=== PATIENT | female | born 1945 | race Caucasian/White ===

== ENCOUNTER 2017-09-08 13:09 | Inpatient (IN) ==
--- NOTE | 2017-09-08 13:28 | Emergency Department Note ---
Disposition Clinical Impression: Delirium due to general medical condition, UTI (urinary tract infection) Disposition: Admitted As Inpatient Condition: Fair Referrals: Dayan Prieto, [facility] [employer] [Advanced Practice Nurse] - Forms: ED Satisfaction Letter Time of Disposition: 17:10 Altered Mental Status HPI - General Chief Complaint: ED Altered Mental Status Stated Complaint: Neuro symptoms Time Seen by Provider: 09/08/17 13:21 Source: patient Limitations: no limitations Nursing Notes Reviewed: Yes Vital Signs Reviewed: Yes - History of Present Illness HPI Narrative: Patient presents to the ED with the chief complaint of weakness. Patient is from a shelter. My has a history of dementia and cerebral palsy area. She is completely bedridden and nursing staff reports that over the last 3 or 4 days she has been more weak than usual and not as responsive as usual. There is no focal weakness, but they state that she is not verbalizing as much as she normally does and that she just seems not herself. No known fever. No complaints of chest pain, cough or shortness of breath. No nausea, vomiting or diarrhea. - Related Data Home Medications Medication Instructions Recorded Confirmed Baclofen 20 mg PO BID 09/08/17 09/08/17 Citalopram [CeleXA] 20 mg PO DAILY 09/08/17 09/08/17 Diclofenac Sodium [Voltaren] 50 mg PO Q8HR 09/08/17 09/08/17 Loratadine [Allergy Relief] 10 mg PO DAILY 09/08/17 09/08/17 Meloxicam [Mobic] 15 mg PO DAILY 09/08/17 09/08/17 Omeprazole [PriLOSEC] 40 mg PO DAILY 09/08/17 09/08/17 Promethazine HCl 12.5 mg PO Q8H PRN 09/08/17 09/08/17 Rosuvastatin Calcium [Crestor] 5 mg PO DAILY 09/08/17 09/08/17 Venlafaxine HCl [Venlafaxine HCl 75 mg PO DAILY 09/08/17 09/08/17 ER] Allergies Allergy/AdvReac Type Severity Reaction Status Date / Time Evsisgy-Xwc-Soc Reductase Allergy Intermediate Rash Verified 11/18/15 17:58 Inhibitor [Statins] clopidogrel [From Plavix] Allergy Anaphylaxis Verified 08/17/15 13:37 Sulfa (Sulfonamide Allergy Anaphylaxis Verified 08/17/15 13:37 Antibiotics) Warfarin [From Coumadin] Allergy Anaphylaxis Verified 08/17/15 13:37 Review of Systems: As reviewed in the HPI. All other systems reviewed are negative or normal. Past Medical History - Past Medical History Attestation: Yes The following information was validated with the patient. Source: old records reviewed, obtained from family Medical history: Reports: dementia, GERD, hyperlipidemia, hypertension, other Psychiatric history: Reports: anxiety, depression - Social History Smoking Status: Never smoker Smokeless Tobacco Status: No Alcohol use: Reports: none Drug use: Reports: none Physical Exam - General Limitations: no limitations General appearance: in no apparent distress - Head Head exam: atraumatic, normocephalic, normal inspection - Eye Eye exam: Present: normal appearance, PERRL, EOMI - ENT ENT exam: mucous membranes dry - Neck Neck exam: Present: trachea midline. Absent: tenderness - Chest Chest inspection: Present: normal inspection, symmetric chest wall rise - Respiratory Respiratory exam: Present: normal lung sounds bilaterally - Cardiovascular Cardiovascular exam: Present: tachycardia, normal heart sounds - Abdominal Exam Abdominal exam: Present: soft, Non-Tender - Extremities Exam Extremities exam: Present: other (Patient is in not mobile, unable to move legs on her own, and minimal movement in her arms, but States this is her baseline). Absent: pedal edema - Expanded Lower Extremity Exam Hip/Pelvis exam: Present: pelvis stable - Neurological Exam Neurological exam: Present: alert, CN II-XII intact (. No facial droop), other. Absent: oriented X3 - Skin Skin exam: Present: warm, dry, intact, normal color Course Course Narrative: Patient presenting with altered mental status and generalized weakness. No fevers, cough, or abdominal pain. We will check a head CT, and urinalysis as well as labs. Could be related to UTI or an increase in her dementia. Patient will likely need to be admitted - Reevaluation(s) Reevaluation #1: Patient technically met sepsis criteria due to her UTI and white count and she was tachycardic upon arrival. So we will check a lactic acid. Lactic acid is normal. We will admit to hospital service for her UTI and altered mental status. Vital Signs Temperature 98.1 F 09/08/17 13:11 Pulse Rate 108 09/08/17 13:11 Respiratory Rate 16 09/08/17 13:11 Blood Pressure 73/42 09/08/17 13:11 O2 Sat by Pulse Oximetry 94 09/08/17 13:11 Temperature 98.1 F 09/08/17 13:11 Pulse Rate 87 09/08/17 16:32 Respiratory Rate 15 09/08/17 16:32 Blood Pressure 122/85 09/08/17 16:32 O2 Sat by Pulse Oximetry 93 09/08/17 16:32 Oxygen Delivery Oxygen Delivery Room Air Altered Mental Status - Lab Data Result diagrams: 09/08/17 13:58 09/08/17 13:58 Lab Results 09/08/17 09/08/17 09/08/17 Range/Units 13:16 13:58 13:58 WBC 15.0 H (4.3-11.1) K/mcL RBC 4.56 (3.82-4.97) M/mcL Hgb 12.5 (11.5-15.4) g/dL Hct 39.1 (35.3-44.9) % MCV 85.7 (83.0-100.0) fL MCH 27.4 L (28.0-33.3) pg MCHC 32.0 (31.6-35.5) g/dL RDW 15.5 H (11.5-14.5) % Plt Count 284 (140-400) K/mcL MPV 9.9 (9.4-12.4) fL Immature Gran % 0.8 (0-4) % Seg Neutrophils % 80.0 % Lymphocytes % 10.0 % Monocytes % 7.2 % Eosinophils % 1.7 % Basophils % 0.3 % Neutrophils # 12.0 H (1.6-8.9) K/mcL Lymphocytes # 1.5 (0.6-4.6) K/mcL Monocytes # 1.1 (0.0-1.3) K/mcL Eosinophils # 0.3 (0.0-0.6) K/mcL Basophils # 0.0 (0.0-0.2) K/mcL Nucleated RBCs/100 WBC 0.2 H (0) /100 WBC Sodium 142 (136-145) mEq/L Potassium 3.3 L (3.5-5.1) mEq/L Chloride 107 (98-107) mEq/L Carbon Dioxide 24 (23-29) mEq/L BUN 53 H (8-23) mg/dL Creatinine 1.17 (0.60-1.20) mg/dL Est GFR ( Amer) 55 L (> 60) Est GFR (Non-Af Amer) 45 L (> 60) BUN/Creatinine Ratio 45 H (6-26) Glucose 155 H (70-105) mg/dL POC Glucose 214 H (70-99) mg/dL Calculated Osmolality 312 H (280-300) Lactic Acid (0.5-2.2) mmol/L Calcium 8.5 L (8.6-10.3) mg/dL Total Bilirubin 0.5 (0.3-1.0) mg/dL Direct Bilirubin 0.1 (0.0-0.2) mg/dL Indirect Bilirubin 0.4 (0.0-1.2) mg/dL AST 6 L (13-39) Units/L ALT 8 (7-52) Units/L Alkaline Phosphatase 130 H (34-104) Units/L Creatine Kinase 40 (30-223) Units/L Troponin I < 0.03 (< 0.04) ng/mL Serum Total Protein 5.9 L (6.4-8.9) g/dL Albumin 2.7 L (3.5-5.7) g/dL Globulin 3.2 (2.4-3.5) g/dL Albumin/Globulin Ratio 0.8 L (1.1-2.2) TSH (0.340-5.600) mcIU/mL Urine Color (Yellow) Urine Clarity (Clear) Urine pH (5.0-8.0) pH Units Ur Specific [place] (1.010-1.025) Urine Protein (Neg-Trace) mg/dL Urine Glucose (UA) (Normal) mg/dL Urine Ketones (Negative) mg/dL Urine Blood (Negative) Urine Nitrite (Negative) Urine Bilirubin (Negative) Urine Urobilinogen (Normal) mg/dL Ur Leukocyte Esterase (Negative) Urine Microscopic RBC (0-3) per hpf Urine Microscopic WBC (0-3) per hpf Ur Squamous Epith Cells (None-Few) per lpf Urine Bacteria (None-Few) per hpf Hyaline Casts (None-Few) per lpf Ur Culture Indicated? (NO) 09/08/17 09/08/17 09/08/17 Range/Units 13:58 14:18 15:53 WBC (4.3-11.1) K/mcL RBC (3.82-4.97) M/mcL Hgb (11.5-15.4) g/dL Hct (35.3-44.9) % MCV (83.0-100.0) fL MCH (28.0-33.3) pg MCHC (31.6-35.5) g/dL RDW (11.5-14.5) % Plt Count (140-400) K/mcL MPV (9.4-12.4) fL Immature Gran % (0-4) % Seg Neutrophils % % Lymphocytes % % Monocytes % % Eosinophils % % Basophils % % Neutrophils # (1.6-8.9) K/mcL Lymphocytes # (0.6-4.6) K/mcL Monocytes # (0.0-1.3) K/mcL Eosinophils # (0.0-0.6) K/mcL Basophils # (0.0-0.2) K/mcL Nucleated RBCs/100 WBC (0) /100 WBC Sodium (136-145) mEq/L Potassium (3.5-5.1) mEq/L Chloride (98-107) mEq/L Carbon Dioxide (23-29) mEq/L BUN (8-23) mg/dL Creatinine (0.60-1.20) mg/dL Est GFR ( Amer) (> 60) Est GFR (Non-Af Amer) (> 60) BUN/Creatinine Ratio (6-26) Glucose (70-105) mg/dL POC Glucose (70-99) mg/dL Calculated Osmolality (280-300) Lactic Acid 1.2 (0.5-2.2) mmol/L Calcium (8.6-10.3) mg/dL Total Bilirubin (0.3-1.0) mg/dL Direct Bilirubin (0.0-0.2) mg/dL Indirect Bilirubin (0.0-1.2) mg/dL AST (13-39) Units/L ALT (7-52) Units/L Alkaline Phosphatase (34-104) Units/L Creatine Kinase (30-223) Units/L Troponin I (< 0.04) ng/mL Serum Total Protein (6.4-8.9) g/dL Albumin (3.5-5.7) g/dL Globulin (2.4-3.5) g/dL Albumin/Globulin Ratio (1.1-2.2) TSH 0.036 L (0.340-5.600) mcIU/mL Urine Color Red A (Yellow) Urine Clarity Cloudy A (Clear) Urine pH 5.5 (5.0-8.0) pH Units Ur Specific [place] 1.028 H (1.010-1.025) Urine Protein Trace (Neg-Trace) mg/dL Urine Glucose (UA) Normal (Normal) mg/dL Urine Ketones Trace H (Negative) mg/dL Urine Blood Negative (Negative) Urine Nitrite Positive A (Negative) Urine Bilirubin Moderate H (Negative) Urine Urobilinogen Normal (Normal) mg/dL Ur Leukocyte Esterase Small H (Negative) Urine Microscopic RBC 3-5 H (0-3) per hpf Urine Microscopic WBC 0-3 (0-3) per hpf Ur Squamous Epith Cells Many H (None-Few) per lpf Urine Bacteria None Seen (None-Few) per hpf Hyaline Casts None Seen (None-Few) per lpf Ur Culture Indicated? NO. A (NO) TPA Checklist - LKW: 3-4.5 hrs Add. Warnings/Precautions Patient/family understanding: The patient/family members have been counseled and understood the risk, benefit , and alternatives of treatment. Attestation Statement - Attestation Attestation: I examined this patient and my medical decision-making was reviewed with the Resident Physician. I agree with the documented findings, disposition and treatment plan as described except to the extent set forth below.
--- NOTE | 2017-09-08 14:17 | Emergency Department Note ---
Disposition Clinical Impression: Delirium due to general medical condition, UTI (urinary tract infection) Disposition: Admitted As Inpatient Condition: Fair General Adult HPI - General Chief complaint: ED Altered Mental Status Stated complaint: Neuro symptoms Time Seen by Provider: 09/08/17 13:21 Source: patient Limitations: no limitations - History of Present Illness Pain Scale: 0 - Related Data Home Medications Medication Instructions Recorded Confirmed Baclofen 20 mg PO BID 09/08/17 09/08/17 Citalopram [CeleXA] 20 mg PO DAILY 09/08/17 09/08/17 Diclofenac Sodium [Voltaren] 50 mg PO Q8HR 09/08/17 09/08/17 Loratadine [Allergy Relief] 10 mg PO DAILY 09/08/17 09/08/17 Meloxicam [Mobic] 15 mg PO DAILY 09/08/17 09/08/17 Omeprazole [PriLOSEC] 40 mg PO DAILY 09/08/17 09/08/17 Promethazine HCl 12.5 mg PO Q8H PRN 09/08/17 09/08/17 Rosuvastatin Calcium [Crestor] 5 mg PO DAILY 09/08/17 09/08/17 Venlafaxine HCl [Venlafaxine HCl 75 mg PO DAILY 09/08/17 09/08/17 ER] Allergies Allergy/AdvReac Type Severity Reaction Status Date / Time Alsazcn-Hqz-Iou Reductase Allergy Intermediate Rash Verified 11/18/15 17:58 Inhibitor [Statins] clopidogrel [From Plavix] Allergy Anaphylaxis Verified 08/17/15 13:37 Sulfa (Sulfonamide Allergy Anaphylaxis Verified 08/17/15 13:37 Antibiotics) Warfarin [From Coumadin] Allergy Anaphylaxis Verified 08/17/15 13:37 Past Medical History - Past Medical History Medical history: Reports: dementia, GERD, hyperlipidemia, hypertension, other Psychiatric history: Reports: anxiety, depression - Social History Smoking Status: Never smoker Smokeless Tobacco Status: No Alcohol use: Reports: none Drug use: Reports: none Physical Exam - General Limitations: no limitations General appearance: in no apparent distress Course Vital Signs Temperature 98.1 F 09/08/17 13:11 Pulse Rate 108 09/08/17 13:11 Respiratory Rate 16 09/08/17 13:11 Blood Pressure 73/42 09/08/17 13:11 O2 Sat by Pulse Oximetry 94 09/08/17 13:11 Temperature 98.1 F 09/08/17 13:11 Pulse Rate 89 09/08/17 18:34 Respiratory Rate 15 09/08/17 18:34 Blood Pressure 133/86 09/08/17 18:34 O2 Sat by Pulse Oximetry 96 09/08/17 18:34 Oxygen Delivery Oxygen Delivery Room Air Medical Decision Making - Lab Data Result diagrams: 09/08/17 13:58 09/08/17 13:58 Lab Results 09/08/17 09/08/17 09/08/17 Range/Units 13:16 13:58 13:58 WBC 15.0 H (4.3-11.1) K/mcL RBC 4.56 (3.82-4.97) M/mcL Hgb 12.5 (11.5-15.4) g/dL Hct 39.1 (35.3-44.9) % MCV 85.7 (83.0-100.0) fL MCH 27.4 L (28.0-33.3) pg MCHC 32.0 (31.6-35.5) g/dL RDW 15.5 H (11.5-14.5) % Plt Count 284 (140-400) K/mcL MPV 9.9 (9.4-12.4) fL Immature Gran % 0.8 (0-4) % Seg Neutrophils % 80.0 % Lymphocytes % 10.0 % Monocytes % 7.2 % Eosinophils % 1.7 % Basophils % 0.3 % Neutrophils # 12.0 H (1.6-8.9) K/mcL Lymphocytes # 1.5 (0.6-4.6) K/mcL Monocytes # 1.1 (0.0-1.3) K/mcL Eosinophils # 0.3 (0.0-0.6) K/mcL Basophils # 0.0 (0.0-0.2) K/mcL Nucleated RBCs/100 WBC 0.2 H (0) /100 WBC Sodium 142 (136-145) mEq/L Potassium 3.3 L (3.5-5.1) mEq/L Chloride 107 (98-107) mEq/L Carbon Dioxide 24 (23-29) mEq/L BUN 53 H (8-23) mg/dL Creatinine 1.17 (0.60-1.20) mg/dL Est GFR ( Amer) 55 L (> 60) Est GFR (Non-Af Amer) 45 L (> 60) BUN/Creatinine Ratio 45 H (6-26) Glucose 155 H (70-105) mg/dL POC Glucose 214 H (70-99) mg/dL Calculated Osmolality 312 H (280-300) Lactic Acid (0.5-2.2) mmol/L Calcium 8.5 L (8.6-10.3) mg/dL Total Bilirubin 0.5 (0.3-1.0) mg/dL Direct Bilirubin 0.1 (0.0-0.2) mg/dL Indirect Bilirubin 0.4 (0.0-1.2) mg/dL AST 6 L (13-39) Units/L ALT 8 (7-52) Units/L Alkaline Phosphatase 130 H (34-104) Units/L Creatine Kinase 40 (30-223) Units/L Troponin I < 0.03 (< 0.04) ng/mL Serum Total Protein 5.9 L (6.4-8.9) g/dL Albumin 2.7 L (3.5-5.7) g/dL Globulin 3.2 (2.4-3.5) g/dL Albumin/Globulin Ratio 0.8 L (1.1-2.2) TSH (0.340-5.600) mcIU/mL Urine Color (Yellow) Urine Clarity (Clear) Urine pH (5.0-8.0) pH Units Ur Specific [place] (1.010-1.025) Urine Protein (Neg-Trace) mg/dL Urine Glucose (UA) (Normal) mg/dL Urine Ketones (Negative) mg/dL Urine Blood (Negative) Urine Nitrite (Negative) Urine Bilirubin (Negative) Urine Urobilinogen (Normal) mg/dL Ur Leukocyte Esterase (Negative) Urine Microscopic RBC (0-3) per hpf Urine Microscopic WBC (0-3) per hpf Ur Squamous Epith Cells (None-Few) per lpf Urine Bacteria (None-Few) per hpf Hyaline Casts (None-Few) per lpf Ur Culture Indicated? (NO) 09/08/17 09/08/17 09/08/17 Range/Units 13:58 14:18 15:53 WBC (4.3-11.1) K/mcL RBC (3.82-4.97) M/mcL Hgb (11.5-15.4) g/dL Hct (35.3-44.9) % MCV (83.0-100.0) fL MCH (28.0-33.3) pg MCHC (31.6-35.5) g/dL RDW (11.5-14.5) % Plt Count (140-400) K/mcL MPV (9.4-12.4) fL Immature Gran % (0-4) % Seg Neutrophils % % Lymphocytes % % Monocytes % % Eosinophils % % Basophils % % Neutrophils # (1.6-8.9) K/mcL Lymphocytes # (0.6-4.6) K/mcL Monocytes # (0.0-1.3) K/mcL Eosinophils # (0.0-0.6) K/mcL Basophils # (0.0-0.2) K/mcL Nucleated RBCs/100 WBC (0) /100 WBC Sodium (136-145) mEq/L Potassium (3.5-5.1) mEq/L Chloride (98-107) mEq/L Carbon Dioxide (23-29) mEq/L BUN (8-23) mg/dL Creatinine (0.60-1.20) mg/dL Est GFR ( Amer) (> 60) Est GFR (Non-Af Amer) (> 60) BUN/Creatinine Ratio (6-26) Glucose (70-105) mg/dL POC Glucose (70-99) mg/dL Calculated Osmolality (280-300) Lactic Acid 1.2 (0.5-2.2) mmol/L Calcium (8.6-10.3) mg/dL Total Bilirubin (0.3-1.0) mg/dL Direct Bilirubin (0.0-0.2) mg/dL Indirect Bilirubin (0.0-1.2) mg/dL AST (13-39) Units/L ALT (7-52) Units/L Alkaline Phosphatase (34-104) Units/L Creatine Kinase (30-223) Units/L Troponin I (< 0.04) ng/mL Serum Total Protein (6.4-8.9) g/dL Albumin (3.5-5.7) g/dL Globulin (2.4-3.5) g/dL Albumin/Globulin Ratio (1.1-2.2) TSH 0.036 L (0.340-5.600) mcIU/mL Urine Color Red A (Yellow) Urine Clarity Cloudy A (Clear) Urine pH 5.5 (5.0-8.0) pH Units Ur Specific [place] 1.028 H (1.010-1.025) Urine Protein Trace (Neg-Trace) mg/dL Urine Glucose (UA) Normal (Normal) mg/dL Urine Ketones Trace H (Negative) mg/dL Urine Blood Negative (Negative) Urine Nitrite Positive A (Negative) Urine Bilirubin Moderate H (Negative) Urine Urobilinogen Normal (Normal) mg/dL Ur Leukocyte Esterase Small H (Negative) Urine Microscopic RBC 3-5 H (0-3) per hpf Urine Microscopic WBC 0-3 (0-3) per hpf Ur Squamous Epith Cells Many H (None-Few) per lpf Urine Bacteria None Seen (None-Few) per hpf Hyaline Casts None Seen (None-Few) per lpf Ur Culture Indicated? NO. A (NO) Attestation Statement - Attestation Attestation: I examined this patient and my medical decision-making was reviewed with the Resident Physician. I agree with the documented findings, disposition and treatment plan as described except to the extent set forth below. 71-year-old female with history of cerebral palsy presents from a [facility] due to altered mental status. She had intermittent issues over the past month with UTI and was treated empirically because urinalysis was not obtained. Also stopped her risperidone several weeks ago but doubled the dose of her citalopram in the past week. She does not increasing confusion with decrease in her oral intake. No measured fevers. No known trauma. Information is obtained from her caregiver has patient is nonverbal at this point. Patient is awake and does follow commands. Mouth is very dry. Extraocular movements are grossly intact without nystagmus. Neck is supple without meningeal signs. Chest clear to auscultation bilaterally. Cardiac exam regular abdomen soft, nondistended and nontender to palpation. She is fairly short stature. Moves all 4 extremities on command. IV fluids were initiated and George catheter was placed with return of very dark urine. Urine was sent for culture. Urinalysis consistent with UTI and empiric antibiotics were started in the form of IV Rocephin. She has a marketed prerenal azotemia consistent with her clinical picture of dehydration. She will be continued on IV fluids and admitted to the hospital for further treatment and evaluation.
[2017-09-08 14:21] LABS: Basophils % 0.3 %; Eosinophils # 0.3 K/mcL (0.0-0.6); Eosinophils % 1.7 %; Hematocrit 39.1 % (35.3-44.9); Hemoglobin 12.5 g/dL (11.5-15.4); Immature Granulocytes % 0.8 % (0-4); Lymphocytes # 1.5 K/mcL (0.6-4.6); Mean Corpuscular Hemoglobin 27.4 pg (28.0-33.3); Mean Corpuscular Volume 85.7 fL (83.0-100.0); Mean Platelet Volume 9.9 fL (9.4-12.4); Monocytes # 1.1 K/mcL (0.0-1.3); Monocytes % 7.2 %; Nucleated Red Blood Cells 0.2 /100 WBC (0); Platelet Count 284 K/mcL (140-400); Red Blood Count 4.56 M/mcL (3.82-4.97); Red Cell Distribution Width 15.5 % (11.5-14.5)
[2017-09-08 14:29] LABS: Troponin I < 0.03 ng/mL (< 0.04)
[2017-09-08 14:31] LABS: Alanine Aminotransferase 8 Units/L (7-52); Albumin 2.7 g/dL (3.5-5.7); Albumin/Globulin Ratio 0.8 (1.1-2.2); Alkaline Phosphatase 130 Units/L (34-104); Aspartate Amino Transferase 6 Units/L (13-39); BUN/Creatinine Ratio 45 (6-26); Bilirubin,Direct 0.1 mg/dL (0.0-0.2); Bilirubin,Indirect 0.4 mg/dL (0.0-1.2); Bilirubin,Total 0.5 mg/dL (0.3-1.0); Blood Urea Nitrogen 53 mg/dL (8-23); Calcium 8.5 mg/dL (8.6-10.3); Carbon Dioxide 24 mEq/L (23-29); Chloride 107 mEq/L (98-107); Globulin 3.2 g/dL (2.4-3.5); Glucose 155 mg/dL (70-105); Osmolality,Calculated 312 (280-300); Potassium 3.3 mEq/L (3.5-5.1); Sodium 142 mEq/L (136-145); Total Protein 5.9 g/dL (6.4-8.9); eGFR For African Americans 55 (> 60); eGFR For Non-African Americans 45 (> 60)
[2017-09-08 14:35] LABS: Bilirubin,Urine Moderate (Negative); Blood,Urine Negative (Negative); Clarity,Urine Cloudy (Clear); Color,Urine Red (Yellow); Glucose,Urine (UA) Normal (Normal); Ketones,Urine Trace mg/dL (Negative); Leukocyte Esterase,Urine Small (Negative); Nitrite,Urine Positive (Negative); PH,Urine 5.5 pH Units (5.0-8.0); Protein,Urine Trace mg/dL (Neg-Trace); Specific Gravity,Urine 1.028 (1.010-1.025); Urobilinogen,Urine Normal (Normal)
[2017-09-08 14:37] LABS: Bacteria,Urine None Seen per hpf (None-Few); Hyaline Casts,Urine None Seen per lpf (None-Few); Squamous Epithelial Cell,Urine Many per lpf (None-Few); WBC,Urine 0-3 per hpf (0-3)
[2017-09-08 14:55] LABS: Creatine Kinase 40 Units/L (30-223)
[2017-09-08] MEDS ORDERED: 0.9 % Sodium Chloride 1,000 ML IVC ONE (15:18)
[2017-09-08] MEDS ORDERED: cefTRIAXone 1,000 MG in Water for inj. (sterile) 20 ML 10 ML IVP ONE (17:04)
[2017-09-08] MEDS ORDERED: Naloxone 0.4 MG/ML INJ IVP PRN (19:55)
--- NOTE | 2017-09-08 20:02 | Internal Med History&Physical ---
<Viraj Thrasher - Last Filed: 09/08/17 22:13> Date of Encounter: 09/08/17 Time of Encounter: 19:57 Internal Medicine - H&P: HPI Chief complaint: altered mental status Admitted From: Emergency Dept History of present illness: Ms. Martinez is a 71 year old female with PMHx of dementia, cerebral palsy, GERD, hLD, HTN, anxiety, depression. Patient lives in an apartment (possibly prison) with another caregiver. She was brought to the ED for altered mental status. At baseline, patient is alert and oriented to self. Was unable to obtain history from patient due to altered mental status, and there is no family present at bedside. Attempted to get a hold of patient's caregiver Lois Juarez, but was not able to. Per nursing report, patient had increased altered mental status from baseline. Review of systems was unattainable. Past Med Surg Social Fam HX - Past Medical History Medical history: dementia, GERD, hyperlipidemia, hypertension, other Psychiatric history: anxiety, depression - Social History Smoking Status: Never smoker Smokeless Tobacco Status: No Alcohol use: none Drug use: none - Family History Mother History Unknown: Yes Internal Medicine - H&P: Meds Baclofen 20 mg PO BID 09/08/17 [History] Citalopram [CeleXA] 20 mg PO DAILY 09/08/17 [History] Diclofenac Sodium [Voltaren] 50 mg PO Q8HR 09/08/17 [History] Loratadine [Allergy Relief] 10 mg PO DAILY 09/08/17 [History] Meloxicam [Mobic] 15 mg PO DAILY 09/08/17 [History] Omeprazole [PriLOSEC] 40 mg PO DAILY 09/08/17 [History] Promethazine HCl 12.5 mg PO Q8H PRN 09/08/17 [History] Rosuvastatin Calcium [Crestor] 5 mg PO DAILY 09/08/17 [History] Venlafaxine HCl [Venlafaxine HCl ER] 75 mg PO DAILY 09/08/17 [History] 3 Allergy/AdvReac Type Severity Reaction Status Date / Time Bzofpyk-Azf-Ngy Reductase Allergy Intermediate Rash Verified 11/18/15 17:58 Inhibitor [Statins] clopidogrel [From Plavix] Allergy Anaphylaxis Verified 08/17/15 13:37 Sulfa (Sulfonamide Allergy Anaphylaxis Verified 08/17/15 13:37 Antibiotics) Warfarin [From Coumadin] Allergy Anaphylaxis Verified 08/17/15 13:37 ROS unobtainable: due to mental status All Systems PM: A 10-system review of systems was performed and is negative for pertinent findings except as documented above in the HPI. - Constitutional Vitals: Temp Pulse Resp BP Pulse Ox 98.1 F 89 15 133/86 96 09/08/17 13:11 09/08/17 18:34 09/08/17 18:34 09/08/17 18:34 09/08/17 18:34 General appearance: Present: A&O X 0, no acute distress Exam: Patient is laying in bed comfortably, appears confused, unable to answer questions, follow some commands. She is disheveled looking. - Head Head exam: Present: atraumatic - ENT ENT exam: Present: mucous membranes moist Additional comments: Poor dentition - Neck Neck exam general surgery: Present: trachea midline - Respiratory Respiratory exam: Present: CTAB - Cardiovascular Cardiovascular exam: Present: RRR, +S1, +S2. Absent: systolic murmur - GI/Abdominal GI/Abdominal exam: Present: hypoactive bowel sounds, soft, tenderness ( Tenderness in the suprapubic/lower abdominal area, and mid abdomen.). Absent: distended - Extremities Exam Additional comments: +1 bilateral lower extremity pitting edema. Bilateral lower extremity has decreased muscle tone and muscle wasting. - Neurological Exam Neurological exam: Present: alert (alert and oriented x0, does not answer questions, peoples equally reactive to light, follow some commands, decreased muscle strength and bilateral upper extremities, no sensation and bilateral lower extremities, unable to move lower extremities.) Internal Med - H&P Results - Labs CBC & Chem 7: 09/08/17 13:58 09/08/17 13:58 - Assessment and plan (1) Sepsis Current Visit: Yes Status: Acute Assessment and plan: Tachycardia, hypotension, WBC 15. Lactic acid 1.2. Chest x-ray: cardiomegaly without obvious infiltrate or consolidation, lung expansion poor. UA: cloudy with nitrites, leukocyte esterase. Head CT: no acute abnormality source of infection unclear at this time, but could be secondary to UTI in setting of suprapubic/lower abdominal tenderness and based on UA. Past urine culture positive for klebsiella, pansensitive. was originally hypotensive in ED and responded to 1 L fluid bolus. Plan: patient received one dose Rocephin in ED- continue send urine culture blood cultures x2 pending will obtain CT abdomen/pelvis due to significant abdominal discomfort and rule out underlying infection. Qualifiers: Sepsis type: sepsis due to unspecified organism Qualified Code(s): A41.9 - Sepsis, unspecified organism (2) Altered mental status Current Visit: Yes Status: Acute Assessment and plan: Altered mental status of unclear etiology, but likely secondary to sepsis. Head CT showed no acute abnormality. Patient lives with caregiver, and is alert and oriented to herself at baseline. Plan: UDS, ammonoia, CPK, ABG, folate, B12 pending TSH: .036- will check Free T3, Free T4 Qualifiers: Altered mental status type: unspecified Qualified Code(s): R41.82 - Altered mental status, unspecified (3) Cerebral palsy Current Visit: Yes Status: Acute Qualifiers: Cerebral palsy type: unspecified type Qualified Code(s): G80.9 - Cerebral palsy, unspecified (4) GERD (gastroesophageal reflux disease) Current Visit: Yes Status: Acute Assessment and plan: Resume omeprazole after speech eval Qualifiers: Esophagitis presence: esophagitis presence not specified Qualified Code(s) : K21.9 - Gastro-esophageal reflux disease without esophagitis (5) Hyperlipidemia Current Visit: Yes Status: Acute Assessment and plan: Resumed crest or if swallow eval passed Qualifiers: Hyperlipidemia type: unspecified Qualified Code(s): E78.5 - Hyperlipidemia , unspecified (6) Hypertension Current Visit: Yes Status: Acute Assessment and plan: Continue to monitor Qualifiers: Hypertension type: essential hypertension Qualified Code(s): I10 - Essential (primary) hypertension (7) DVT prophylaxis Current Visit: Yes Status: Acute Assessment and plan: Heparin SQ - Time Spent With Patient Total time spent is greater than 50% in coordination of care (as documented) at patient's floor/unit and/or counseling patient: <Germán Montemayor - Last Filed: 09/09/17 10:49> Date of Encounter: 09/09/17 Internal Medicine - H&P: HPI History of present illness: Ms. Martinez is a 71 year old female All Systems PM: A 10-system review of systems was performed and is negative for pertinent findings except as documented above in the HPI. - Constitutional Vitals: Temp Pulse Resp BP Pulse Ox 97.8 F 88 18 120/90 92 09/09/17 07:16 09/09/17 07:16 09/09/17 07:16 09/09/17 07:16 09/09/17 07:16 Internal Med - H&P Results - Labs CBC & Chem 7: 09/09/17 01:17 09/09/17 01:17 Labs: Short CBC 09/09/17 Range/Units 01:17 WBC 10.2 (4.3-11.1) K/mcL Hgb 10.8 L D (11.5-15.4) g/dL Hct 34.1 L (35.3-44.9) % Plt Count 219 (140-400) K/mcL Neutrophils # 7.4 (1.6-8.9) K/mcL BMP 09/09/17 01:17 Sodium 143 Potassium 3.6 Chloride 110 H Carbon Dioxide 22 L BUN 40 H Creatinine 0.79 Glucose 107 H Calcium 7.9 L Liver Function 09/09/17 Range/Units 01:17 Total Bilirubin 0.3 (0.3-1.0) mg/dL AST 6 L (13-39) Units/L ALT 7 (7-52) Units/L Alkaline Phosphatase 105 H (34-104) Units/L Albumin 2.2 L (3.5-5.7) g/dL - Attending Attestation I examined this patient and my medical decision-making was reviewed with the Resident Physician. I agree with the documented findings, disposition and treatment plan as described except to the extent set forth below. Agree with assessment and plan. - Assessment and plan (1) Sepsis Current Visit: Yes Status: Acute Qualifiers: Sepsis type: sepsis due to unspecified organism Qualified Code(s): A41.9 - Sepsis, unspecified organism (2) Altered mental status Current Visit: Yes Status: Acute Qualifiers: Altered mental status type: unspecified Qualified Code(s): R41.82 - Altered mental status, unspecified (3) Cerebral palsy Current Visit: Yes Status: Acute Qualifiers: Cerebral palsy type: unspecified type Qualified Code(s): G80.9 - Cerebral palsy, unspecified (4) GERD (gastroesophageal reflux disease) Current Visit: Yes Status: Acute Qualifiers: Esophagitis presence: esophagitis presence not specified Qualified Code(s) : K21.9 - Gastro-esophageal reflux disease without esophagitis (5) Hyperlipidemia Current Visit: Yes Status: Acute Qualifiers: Hyperlipidemia type: unspecified Qualified Code(s): E78.5 - Hyperlipidemia , unspecified (6) Hypertension Current Visit: Yes Status: Acute Qualifiers: Hypertension type: essential hypertension Qualified Code(s): I10 - Essential (primary) hypertension (7) DVT prophylaxis Current Visit: Yes Status: Acute - Time Spent With Patient Total time spent is greater than 50% in coordination of care (as documented) at patient's floor/unit and/or counseling patient:
[2017-09-08] MEDS ORDERED: Potassium Chloride 40 MEQ, Lidocaine 1% 2 ML in D5% in Water 500 ML IVPB ONE (20:45)
[2017-09-08 21:26] LABS: ABG Base Excess 1 mEq/L (-2 to 3); ABG HCO3 26 mEq/L (21-27); ABG Oxygen Saturation 93 % (95-98); ABG PCO2 39 mmHg (35-45); ABG PH 7.43 pH Units (7.32-7.45); ABG PO2 67 mmHg (85-104); ABG TCO2 27 mEq/L (20-26)
[2017-09-08 21:32] LABS: Triiodothyronine (T3) Free 4.51 pg/mL (2.50-3.90)
--- NOTE | 2017-09-08 21:33 | Event Note ---
Date of Encounter: 09/09/17 Time of Encounter: 21:33 71/female seen and examined. Multiple comorbid conditions. Admitted with urinary tract infection/altered mental status. We will cover with broad-spectrum and vertex. Please see the history and physical done by the resident.
[2017-09-08 22:35] LABS: Amphetamine Screen,Urine Negative ng/mL (Cutoff=1000); Barbiturate Screen,Urine Negative ng/mL (Cutoff=200); Benzodiazepines Screen,Urine Negative ng/mL (Cutoff=200); Cannabinoid Screen,Urine Negative ng/mL (Cutoff = 50); Cocaine Screen,Urine Negative ng/mL (Cutoff= 300); Opiate Screen,Urine Negative ng/mL (Cutoff=300); Phencyclidine Screen,Urine Negative ng/mL (Cutoff=25)
[2017-09-09 01:58] LABS: Basophils % 0.3 %; Eosinophils # 0.3 K/mcL (0.0-0.6); Eosinophils % 2.9 %; Hematocrit 34.1 % (35.3-44.9); Immature Granulocytes % 1.1 % (0-4); Lymphocytes # 1.2 K/mcL (0.6-4.6); Lymphocytes % 12.2 %; Mean Corpuscular HGB Conc 31.7 g/dL (31.6-35.5); Mean Corpuscular Hemoglobin 26.7 pg (28.0-33.3); Mean Corpuscular Volume 84.4 fL (83.0-100.0); Monocytes # 1.1 K/mcL (0.0-1.3); Monocytes % 10.9 %; Neutrophils # 7.4 K/mcL (1.6-8.9); Platelet Count 219 K/mcL (140-400); Red Blood Count 4.04 M/mcL (3.82-4.97); Red Cell Distribution Width 15.4 % (11.5-14.5); Segmented Neutrophils % 72.6 %
[2017-09-09 04:15] LABS: Folate 9.5 ng/mL (3.0-16.0)
[2017-09-09 06:11] LABS: Hemoglobin 10.8 g/dL (11.5-15.4)
[2017-09-09] MEDS: *HR* Heparin 5,000 UNIT/ML VIAL SQ SCH ×2 (06:24→17:07)
[2017-09-09 07:37] LABS: Alanine Aminotransferase 7 Units/L (7-52); Albumin 2.2 g/dL (3.5-5.7); Albumin/Globulin Ratio 0.8 (1.1-2.2); Alkaline Phosphatase 105 Units/L (34-104); Aspartate Amino Transferase 6 Units/L (13-39); BUN/Creatinine Ratio 51 (6-26); Bilirubin,Total 0.3 mg/dL (0.3-1.0); Blood Urea Nitrogen 40 mg/dL (8-23); Calcium 7.9 mg/dL (8.6-10.3); Carbon Dioxide 22 mEq/L (23-29); Chloride 110 mEq/L (98-107); Globulin 2.8 g/dL (2.4-3.5); Glucose 107 mg/dL (70-105); Magnesium 1.9 mg/dL (1.6-2.6); Osmolality,Calculated 306 (280-300); Phosphorous 2.2 mg/dL (2.7-4.5); Potassium 3.6 mEq/L (3.5-5.1); Sodium 143 mEq/L (136-145); eGFR For African Americans > 60 (> 60); eGFR For Non-African Americans > 60 (> 60)
[2017-09-09] MEDS ORDERED: Bisacodyl 10 MG RECTAL SUPPOSITORY RC STA (08:19)
[2017-09-09] MEDS ORDERED: Ondansetron 4 MG/2 ML VIAL IVP PRN (08:21)
[2017-09-09] MEDS ORDERED: 0.9 % Sodium Chloride 1,000 ML IVC SCH (08:30)
[2017-09-09] MEDS: Sennosides/Docusate Sodium TABLET PO SCH ×2 (09:32→21:37)
[2017-09-09] MEDS: Venlafaxine XR (24 HR) 75 MG CAP.ER.24H PO SCH (09:33)
[2017-09-09] MEDS: Baclofen 10 MG TABLET PO SCH ×2 (09:33→21:37)
[2017-09-09] MEDS: Loratadine 10 MG TABLET PO SCH (09:33)
[2017-09-09] MEDS: cefTRIAXone 2,000 MG in Water for inj. (sterile) 20 ML 20 ML IVP SCH (09:39)
[2017-09-09] MEDS: MetroNIDAZOLE 500 MG/100 ML 500 MG/100 ML BAG IVPB SCH ×4 (10:00→23:03)
[2017-09-09] MEDS ORDERED: Bisacodyl 10 MG RECTAL SUPPOSITORY RC ONE (12:29)
--- NOTE | 2017-09-09 15:19 | Electrocardiograph Report ---
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
[2017-09-09] MEDS: D5% in 0.9% NACL 1,000 ML IVC SCH (17:49)
--- NOTE | 2017-09-09 18:52 | Internal Med Progress Note ---
Date of Encounter: 09/09/17 Time of Encounter: 15:17 - Assessment and plan (1) Sepsis Current Visit: Yes Status: Acute Assessment and plan: Resolved. Likely sources UTI and proctitis/colitis. Continue IV rocephin. Added IV flagyl today to cover proctitis/colitis. Follow up on urine and blood cultures. Qualifiers: Sepsis type: sepsis due to unspecified organism Qualified Code(s): A41.9 - Sepsis, unspecified organism (2) Acute cystitis without hematuria Current Visit: Yes Status: Acute Assessment and plan: Treating with IV rocephin as per above. (3) Colitis Current Visit: Yes Status: Acute Assessment and plan: Treating suspected proctitis/colitis as seen on CT abdomen/pelvis with IV rocephin and IV flagyl as per above. (4) Altered mental status Current Visit: Yes Status: Acute Assessment and plan: Altered mental status of unclear etiology, but likely secondary to sepsis. Rectal impaction may be contributing also. Patient lives with caregiver, and is alert and oriented to herself at baseline. Normal UDS, ammonia, CPK, folate , and vitamin B12. ABG with hypoxia, so will add supplemental O2 at 2L NC. Low TSH with normal T4 and elevated T3. Will consider endocrine consult in AM for hyperthyroidism. Not swallowing, but feel this is more mental than physical issue. Will keep NPO for now and let speech reevaluate when more awake. Switched IVF to D5 NS due to decreasing blood glucoses. Repeat labwork in AM. Qualifiers: Altered mental status type: unspecified Qualified Code(s): R41.82 - Altered mental status, unspecified (5) Cerebral palsy Current Visit: Yes Status: Chronic Qualifiers: Cerebral palsy type: unspecified type Qualified Code(s): G80.9 - Cerebral palsy, unspecified (6) GERD (gastroesophageal reflux disease) Current Visit: Yes Status: Acute Assessment and plan: Resume omeprazole once tolerating PO. Qualifiers: Esophagitis presence: esophagitis presence not specified Qualified Code(s) : K21.9 - Gastro-esophageal reflux disease without esophagitis (7) Hyperlipidemia Current Visit: Yes Status: Acute Assessment and plan: Resumed crestor once tolerating PO. Qualifiers: Hyperlipidemia type: unspecified Qualified Code(s): E78.5 - Hyperlipidemia , unspecified (8) Hypertension Current Visit: Yes Status: Acute Assessment and plan: Trending up. Will add PRN hydralazine due to NPO status. Qualifiers: Hypertension type: essential hypertension Qualified Code(s): I10 - Essential (primary) hypertension (9) DVT prophylaxis Current Visit: Yes Status: Acute Assessment and plan: Continue SQ heparin. - Time Spent With Patient Total time spent is greater than 50% in coordination of care (as documented) at patient's floor/unit and/or counseling patient: less than 15 minutes - Subjective Interval history: Patient had no acute events overnight after admission. She is somnolent but easily arousible but non-verbal. She does respond appropriately by nodding and shaking head. She does not voice any concerns. Caregiver is in room today and states that she is "normal like us" at baseline. We discussed plan of care at length today. - Constitutional Vitals: Temp Pulse Resp BP Pulse Ox 98.4 F 94 16 144/87 97 09/09/17 15:02 09/09/17 15:02 09/09/17 15:02 09/09/17 15:02 09/09/17 15:02 General appearance: Present: A&O X 0, no acute distress Exam: Non-verbal - Respiratory Respiratory exam: Present: CTAB. Absent: accessory muscle use, rales, rhonchi, wheezes Additional comments: Normal WOB - Cardiovascular Cardiovascular exam: Present: RRR, +S1, +S2. Absent: diastolic murmur, gallop, rubs, systolic murmur Additional comments: No BLE edema - GI/Abdominal GI/Abdominal exam: Present: normal bowel sounds, soft. Absent: distended, guarding, hepatomegaly, mass, rebound, splenomegaly Additional comments: Mild TTP diffusely across abdomen - Psychiatric Psychiatric exam: Present: normal affect, normal mood. Absent: agitated, anxious, depressed - Skin Skin exam: Present: dry, intact, warm. Absent: cyanosis, rash Internal Medicine: Result - Labs CBC & Chem 7: 09/09/17 01:17 09/09/17 01:17 Labs: Short CBC 09/09/17 Range/Units 01:17 WBC 10.2 (4.3-11.1) K/mcL Hgb 10.8 L D (11.5-15.4) g/dL Hct 34.1 L (35.3-44.9) % Plt Count 219 (140-400) K/mcL Neutrophils # 7.4 (1.6-8.9) K/mcL BMP 09/09/17 01:17 Sodium 143 Potassium 3.6 Chloride 110 H Carbon Dioxide 22 L BUN 40 H Creatinine 0.79 Glucose 107 H Calcium 7.9 L Liver Function 09/09/17 Range/Units 01:17 Total Bilirubin 0.3 (0.3-1.0) mg/dL AST 6 L (13-39) Units/L ALT 7 (7-52) Units/L Alkaline Phosphatase 105 H (34-104) Units/L Albumin 2.2 L (3.5-5.7) g/dL - ABG Interpretation ABG results: ABG ABG pH 7.43 pH Units (7.32-7.45) 09/08/17 21:22 ABG pCO2 39 mmHg (35-45) 09/08/17 21:22 ABG pO2 67 mmHg (85-104) L 09/08/17 21:22 ABG O2 Saturation 93 % (95-98) L 09/08/17 21:22 Consult Discharge Plan - Plan Referrals: Carloz Romano MD [Primary Care Provider] -
[2017-09-09] MEDS ORDERED: *HR* LORazepam 2 MG/ML VIAL IVP PRN (23:52)
--- NOTE | 2017-09-09 23:59 | Event Note ---
Date of Encounter: 09/09/17 Time of Encounter: 23:56 At 2338 I was asked to evaluate this patient for possible seizure like activity. According to her nurse, patient was in the process of being changed when her upper extremities became extremely tense and she had continuous fluttering of her eyes. After this resolved, there was a significant amount of blood pouring out of the patient's mouth-concern for tongue biting. Patient was not following any commands or answering questions, which is a change in mental status compared to yesterday. Because of change in mental status, we will repeat head CT. Assessment/plan: 1. Possible seizure activity: Plan: put on seizure precautions start IV Keppra order EEG. Recommend consult to neurology in the morning. PRN Ativan for seizures. -Patient also had continuous cough and there is concern for aspiration during seizure like activity. We will order to view chest x-ray to rule out aspiration pneumonia. discussed plan with attending Dr. Neff and he agrees.
[2017-09-10 04:29] LABS: Basophils % 0.1 %; Eosinophils % 0.1 %; Hematocrit 33.6 % (35.3-44.9); Hemoglobin 10.9 g/dL (11.5-15.4); Immature Granulocytes % 1.2 % (0-4); Lymphocytes # 0.7 K/mcL (0.6-4.6); Lymphocytes % 8.8 %; Mean Corpuscular HGB Conc 32.4 g/dL (31.6-35.5); Mean Corpuscular Hemoglobin 27.7 pg (28.0-33.3); Mean Corpuscular Volume 85.5 fL (83.0-100.0); Mean Platelet Volume 9.7 fL (9.4-12.4); Monocytes # 0.9 K/mcL (0.0-1.3); Monocytes % 11.7 %; Neutrophils # 5.8 K/mcL (1.6-8.9); Nucleated Red Blood Cells 0.7 /100 WBC (0); Platelet Count 191 K/mcL (140-400); Red Blood Count 3.93 M/mcL (3.82-4.97); Red Cell Distribution Width 15.3 % (11.5-14.5); Segmented Neutrophils % 78.1 %
[2017-09-10 04:47] LABS: BUN/Creatinine Ratio 34 (6-26); Blood Urea Nitrogen 20 mg/dL (8-23); Calcium 7.8 mg/dL (8.6-10.3); Carbon Dioxide 22 mEq/L (23-29); Chloride 115 mEq/L (98-107); Glucose 146 mg/dL (70-105); Osmolality,Calculated 305 (280-300); Potassium 3.4 mEq/L (3.5-5.1); Sodium 145 mEq/L (136-145); eGFR For African Americans > 60 (> 60); eGFR For Non-African Americans > 60 (> 60)
[2017-09-10 05:08] LABS: Platelet Estimate Normal (Normal)
[2017-09-10 05:09] LABS: Anisocytosis 1+ (Not Present); Reactive Lymphocytes Present (Not Present)
[2017-09-10] MEDS ORDERED: Ketorolac 15 MG/ML VIAL IVP ONE (06:09)
[2017-09-10] MEDS: MetroNIDAZOLE 500 MG/100 ML 500 MG/100 ML BAG IVPB SCH ×3 (06:28→16:44)
[2017-09-10] MEDS: *HR* Heparin 5,000 UNIT/ML VIAL SQ SCH ×2 (06:28→16:44)
[2017-09-10] MEDS: D5% in 0.9% NACL 1,000 ML IVC SCH (06:28)
[2017-09-10] MEDS: Sennosides/Docusate Sodium TABLET PO SCH ×2 (08:33→20:57)
[2017-09-10] MEDS: Baclofen 10 MG TABLET PO SCH ×2 (08:33→20:57)
[2017-09-10] MEDS: Venlafaxine XR (24 HR) 75 MG CAP.ER.24H PO SCH (08:34)
[2017-09-10] MEDS: cefTRIAXone 2,000 MG in Water for inj. (sterile) 20 ML 20 ML IVP SCH (08:34)
[2017-09-10] MEDS: Loratadine 10 MG TABLET PO SCH (08:34)
--- NOTE | 2017-09-10 08:36 | Neurology - Consult Note ---
Date of Encounter: 09/10/17 Time of Encounter: 07:35 Assessment and Plan (1) Observed seizure-like activity Current Visit: Yes Status: Acute This patient who baseline has a history of cerebral palsy with some memory issues admitted with the possibility of infection also is nauseated likely dehydrated had an activity earlier when her eyes rolled up and she was stiffened but no convulsive activity as per resident note she did have a tongue bite and was a question that she may had a seizure . She did not have any history of seizures as per caregiver who knows the patient for the past several years Stat CT of the head did not show any acute abnormality No evidence of any KELP GATHERER infection/meningitis patient is alert awake oriented now seems to be at her baseline except some mild confusion off and on which is likely related to underlying metabolic or infectious process but certainly not from the KELP GATHERER She has received a loading dose of the Keppra last night at the moment I do not think that we have enough evidence that it was a true epileptic seizure and in the current clinical context even if it was a seizure it was likely related to underlying metabolic dysfunction. Would not recommend starting or continuing on antiepileptic medication at this time unless there is an abnormality noted on EEG Continue to treat underlying metabolic and infectious dysfunction Make sure patient is hydrated She can stay on seizure precautions other Treatment is as per primary team (2) Altered mental status Current Visit: Yes Status: Acute Qualifiers: Altered mental status type: unspecified Qualified Code(s): R41.82 - Altered mental status, unspecified (3) Cerebral palsy Current Visit: Yes Status: Chronic Qualifiers: Cerebral palsy type: unspecified type Qualified Code(s): G80.9 - Cerebral palsy, unspecified History of Present Illness HPI: Ms. Martinez is a 71 year old female with a history of flow cerebral palsy memory loss non-ambulatory for several years admitted with mental status changes with nausea with the concern of sepsis was on the floor when she was found to have a seizure-like of activity . As per records she was found to have continuous fluttering of eyes, her whole body was tense though no convulsive activity and was also found to have blood coming out of the mild with the possibility of for tongue bite , Patient was responsive at that time later on the symptoms subsided gradually she had a stat CT of the head that was negative she was started on IV Keppra. Now she seems to be at baseline though still some confusion as when she came in and doing well and did not have any further seizures Baseline patient has some memory problems and nonambulatory because of cerebral palsy she has not walked more than 7 years according to the caregiver most of the time she is responsive and able to recognize the caregivers and can feed herself. Past Med Surg Social Fam HX - Past Medical History Medical history: dementia, GERD, hyperlipidemia, hypertension, other Psychiatric history: anxiety, depression - Social History Smoking Status: Never smoker Smokeless Tobacco Status: No Alcohol use: none Drug use: none - Family History Mother History Unknown: Yes Medications and Allergies Baclofen 20 mg PO BID 09/08/17 [History] Citalopram [CeleXA] 20 mg PO DAILY 09/08/17 [History] Diclofenac Sodium [Voltaren] 50 mg PO Q8HR 09/08/17 [History] Loratadine [Allergy Relief] 10 mg PO DAILY 09/08/17 [History] Meloxicam [Mobic] 15 mg PO DAILY 09/08/17 [History] Omeprazole [PriLOSEC] 40 mg PO DAILY 09/08/17 [History] Promethazine HCl 12.5 mg PO Q8H PRN 09/08/17 [History] Rosuvastatin Calcium [Crestor] 5 mg PO DAILY 09/08/17 [History] Venlafaxine HCl [Venlafaxine HCl ER] 75 mg PO DAILY 09/08/17 [History] 3 Allergy/AdvReac Type Severity Reaction Status Date / Time Rqcsiou-Hor-Vrg Reductase Allergy Intermediate Rash Verified 11/18/15 17:58 Inhibitor [Statins] clopidogrel [From Plavix] Allergy Anaphylaxis Verified 08/17/15 13:37 Sulfa (Sulfonamide Allergy Anaphylaxis Verified 08/17/15 13:37 Antibiotics) Warfarin [From Coumadin] Allergy Anaphylaxis Verified 08/17/15 13:37 All Systems: The remainder of the systems were reviewed and are negative Physical Examination - Vital Signs Vital Signs: Initial Vital Signs Temp Pulse Resp BP Pulse Ox 98.1 F 108 16 73/42 94 09/08/17 13:11 09/08/17 13:11 09/08/17 13:11 09/08/17 13:11 09/08/17 13:11 - Exam Exam: GENERAL: Comfortable in no acute distress HEENT: Normal LUNGS: CTA HEART: RRR, S1 S2 Audible, no murmur EXTREMITIES: 1 = Pedal edema. DETAILED NEUROLOGICAL EXAMINATION: MENTAL STATUS: Oriented to person, place, impairment of recnet memory, patient and concentration seems to be intact baseline patient has cognitive impairment Cranial Nerve Examination: CN - II: Visual Acuity, Field of Vision Normal, Fundus examination: No disk edema, Pupils- size shape reaction to light and accommodation: All normal. CN III, IV, : External ocular movements were intact, Pupils were reactive, Nodrooping of the eyelids did have an extra be of the right I CN V: Sensation over the face to light touch and pinprick all normal. Corneal reflexes not tested, jaw jerk normal. CN VII: No facial asymmetry, no flattening of nasolabial folds, no difficulty in closing the eyes, no loss of forehead wrinkles, no difficulty in eye-closure, frowning raising eyebrows. CNVIII: No significant hearing loss CN IX, X: Uvula centralized not deviated, Gag reflex: Not tested CN X1: Sternocleidomastoid, trapezius, normal or evidence of any weakness. CN X11: No Dysarthria, no wasting or fibrilation f tongue muscles, no deviation, tongue muscle strength normal. Motor examination: No hypertrophy, tone was normal, power grade 0-5 Upper limbs 4 over 4 in both upper extremities mild spasticity and increased tone Lower limbs He is moment in both lower extremities 3+ range with spasticity Coordination: Difficult to do [id number]-cbrv normal. Superficial sensations- Touch normal. Pain- Pinprick, Temperature all normal, Deep sensation normal, Joint position sense normal. Cortical sensation, Tactile discrimination, localization and extinction all normal. Deep tendon reflexes. Symmetrical bilateral, brisk bilaterally upgoing Babinski. No sign of meningeal irritation Gait Examination: Deferred - Constitutional General appearance: comfortable Results - Laboratory Findings CBC and BMP: 09/10/17 04:15 09/10/17 04:15 Abnormal lab findings: Abnormal lab results Hgb 10.9 g/dL (11.5-15.4) L 09/10/17 04:15 Hct 33.6 % (35.3-44.9) L 09/10/17 04:15 MCH 27.7 pg (28.0-33.3) L 09/10/17 04:15 RDW 15.3 % (11.5-14.5) H 09/10/17 04:15 Nucleated RBCs/100 WBC 0.7 /100 WBC (0) H 09/10/17 04:15 Reactive Lymphocytes Present (Not Present) A 09/10/17 04:15 Anisocytosis 1+ (Not Present) A 09/10/17 04:15 ABG pO2 67 mmHg (85-104) L 09/08/17 21:22 ABG Total CO2 27 mEq/L (20-26) H 09/08/17 21:22 ABG O2 Saturation 93 % (95-98) L 09/08/17 21:22 Potassium 3.4 mEq/L (3.5-5.1) L 09/10/17 04:15 Chloride 115 mEq/L (98-107) H 09/10/17 04:15 Carbon Dioxide 22 mEq/L (23-29) L 09/10/17 04:15 Creatinine 0.59 mg/dL (0.60-1.20) L 09/10/17 04:15 BUN/Creatinine Ratio 34 (6-26) H 09/10/17 04:15 Glucose 146 mg/dL (70-105) H 09/10/17 04:15 POC Glucose 117 mg/dL (70-99) H 09/10/17 06:07 Calculated Osmolality 305 (280-300) H 09/10/17 04:15 Calcium 7.8 mg/dL (8.6-10.3) L 09/10/17 04:15 Phosphorus 2.2 mg/dL (2.7-4.5) L 09/09/17 01:17 AST 6 Units/L (13-39) L 09/09/17 01:17 Alkaline Phosphatase 105 Units/L (34-104) H 09/09/17 01:17 Serum Total Protein 5.0 g/dL (6.4-8.9) L 09/09/17 01:17 Albumin 2.2 g/dL (3.5-5.7) L 09/09/17 01:17 Albumin/Globulin Ratio 0.8 (1.1-2.2) L 09/09/17 01:17 TSH 0.036 mcIU/mL (0.340-5.600) L 09/08/17 13:58 Free T3 4.51 pg/mL (2.50-3.90) H 09/08/17 20:29 Urine Color Red (Yellow) A 09/08/17 14:18 Urine Clarity Cloudy (Clear) A 09/08/17 14:18 Ur Specific [place] 1.028 (1.010-1.025) H 09/08/17 14:18 Urine Ketones Trace mg/dL (Negative) H 09/08/17 14:18 Urine Nitrite Positive (Negative) A 09/08/17 14:18 Urine Bilirubin Moderate (Negative) H 09/08/17 14:18 Ur Leukocyte Esterase Small (Negative) H 09/08/17 14:18 Urine Microscopic RBC 3-5 per hpf (0-3) H 09/08/17 14:18 Ur Squamous Epith Cells Many per lpf (None-Few) H 09/08/17 14:18 Ur Culture Indicated? NO. (NO) A 09/08/17 14:18 Consult Discharge Plan - Plan Referrals: Carloz Romano MD [Primary Care Provider] -
[2017-09-10] MEDS ORDERED: Potassium Chloride 20 MEQ, Lidocaine 1% 2 ML in D5% in Water 250 ML IVPB ONE (08:37)
[2017-09-10] MEDS: Levofloxacin 750 MG/150 ML 750 MG/150 ML BAG IVPB SCH ×2 (08:54→09:05)
--- NOTE | 2017-09-10 12:03 | EEG/EMG/Oth Biometrics Report ---
EEG Procedure Report Date of procedure: 09/10/17 EEG Procedure: Routine EEG Procedure Note: Patient with a history of cerebral palsy noted to have an episode of stiffness with the concern of seizure. Routine 21-channel digital EEG performed and recorded utilizing the standard international 10-20 electrode placement system. FINDINGS: This patient has predominant waking background rhythm which is somewhat well-organized, average voltage 8 to 10 hertz alpha activity in the posterior regions, symmetrical over the both hemispheres reactive to eye opening and closing, and it is bilaterally synchronous. No [id number] discharges or any lateralizing abnormalities are seen. Photic stimulation a did not produce any convulsive response. No abnormalities were found during the procedure. Intermittent EMG artifacts were seen. Stage II sleep was not achieved. IMPRESSION: Limited EEG due to multiple electrodes artifact no obvious epileptiform discharges or any other paroxysmal activities or focal abnormalities seen. (Please note that normal EEG does not exclude the diagnosis of seizure or epilepsy, Clinical correlation is recommended.
[2017-09-10] MEDS ORDERED: levETIRAcetam 250 MG TABLET PO ONE (16:15)
--- NOTE | 2017-09-10 19:16 | Internal Med Progress Note ---
Date of Encounter: 09/10/17 Time of Encounter: 19:11 - Assessment and plan (1) Sepsis Current Visit: Yes Status: Resolved Assessment and plan: Resolved. Likely sources UTI and proctitis/colitis. Concern for aspiration during seizure activity overnight. Switch IV rocephin to IV levaquin to better cover possible aspiration pneumonia. Continue IV flagyl today to cover proctitis/colitis. Urine and blood cultures no growth to date preliminary. Qualifiers: Sepsis type: sepsis due to unspecified organism Qualified Code(s): A41.9 - Sepsis, unspecified organism (2) Acute cystitis without hematuria Current Visit: Yes Status: Acute Assessment and plan: Treating with IV levaquin as per above. Urine culture no growth to date preliminary. (3) Colitis Current Visit: Yes Status: Acute Assessment and plan: Treating suspected proctitis/colitis as seen on CT abdomen/pelvis with IV levaquin and IV flagyl as per above. (4) Altered mental status Current Visit: Yes Status: Acute Assessment and plan: Altered mental status of unclear etiology, but likely secondary to sepsis. Now improving. Rectal impaction may have been contributing also. Now with big BM after enema yesterday. Patient lives with caregiver, and is alert and oriented to herself at baseline. Normal UDS, ammonia, CPK, folate, and vitamin B12. ABG with hypoxia, so will continue supplemental O2 at 2L NC. Low TSH with normal T4 and elevated T3. Seizure may be linked to hyperthyroidism. Has been tachycardic at times. Will start low dose methimazole 5 mg QD and metoprolol 25 mg BID. Will consider endocrine consult in AM for hyperthyroidism. Now eating, so will start diet with ST recommendations. Discontinue IVF. Repeat labwork in AM. Qualifiers: Altered mental status type: unspecified Qualified Code(s): R41.82 - Altered mental status, unspecified (5) Hyperthyroidism Current Visit: Yes Status: Acute Assessment and plan: Low TSH with normal T4 and elevated T3. Seizure may be linked to hyperthyroidism. Has been tachycardic at times. Will start low dose methimazole 5 mg QD and metoprolol 25 mg BID. Will consider endocrine consult in AM for hyperthyroidism. (6) Seizure Current Visit: Yes Status: Acute Assessment and plan: Neurology consulted; appreciate input. Loaded with LYCEEMra; now continue BID. Seizure precautions. Continue ativan PRN. Could be secondary to hyperthyroidism and/or infection. Treating hyperthyroidism and sepsis/UTI as per above. (7) Cerebral palsy Current Visit: Yes Status: Chronic Qualifiers: Cerebral palsy type: unspecified type Qualified Code(s): G80.9 - Cerebral palsy, unspecified (8) GERD (gastroesophageal reflux disease) Current Visit: Yes Status: Chronic Assessment and plan: Resume omeprazole. Qualifiers: Esophagitis presence: esophagitis presence not specified Qualified Code(s) : K21.9 - Gastro-esophageal reflux disease without esophagitis (9) Hyperlipidemia Current Visit: Yes Status: Chronic Assessment and plan: Resume crestor. Qualifiers: Hyperlipidemia type: unspecified Qualified Code(s): E78.5 - Hyperlipidemia , unspecified (10) Hypertension Current Visit: Yes Status: Chronic Assessment and plan: Trending up. Added metoprolol for hyperthyroidism as per above. Continue PRN hydralazine. Qualifiers: Hypertension type: essential hypertension Qualified Code(s): I10 - Essential (primary) hypertension (11) DVT prophylaxis Current Visit: Yes Status: Acute Assessment and plan: Continue SQ heparin. - Time Spent With Patient Total time spent is greater than 50% in coordination of care (as documented) at patient's floor/unit and/or counseling patient: 25 - 35 minutes - Subjective Interval history: Patient had questionable seizure-like activity last night. She was started on BID keppra (no loading dose) and neurologist was consulted. Neurologist did not feel real epileptic seizure, but likely due to underlying metabolic and infectious derangements. EEG was ordered and did not show seizure activity. Patient is awake this morning, and now minimally verbal. I am unable to assess orientation. Nurse states that caregiver was here earlier and stated that she is almost back to baseline. She does not voice any concerns. Later this afternoon, nurse called me to see patient due to seizure activity. I noticed patient with tonic clonic seizure, with tightening/relaxing of left arm and mild distress. I ordered 1 mg of IV ativan, but seizure seemed to have resolved as it was being pushed. She is exhibiting signs of post-ictal state. I had nurse notify neurologist. He ordered loading dose then BID keppra. We will await more recommendations from them. - Constitutional Vitals: Temp Pulse Resp BP Pulse Ox 99.1 F 116 18 111/65 95 09/10/17 15:36 09/10/17 15:36 09/10/17 15:36 09/10/17 15:36 09/10/17 15:36 General appearance: Present: A&O X 0, cooperative, pleasant, no acute distress, answers questions appropriately Exam: Minimally verbal, but responds appropriately - Respiratory Respiratory exam: Present: CTAB. Absent: accessory muscle use, rales, rhonchi, wheezes Additional comments: Mildly labored WOB - Cardiovascular Cardiovascular exam: Present: RRR, +S1, +S2. Absent: diastolic murmur, gallop, rubs, systolic murmur Additional comments: No BLE edema - GI/Abdominal GI/Abdominal exam: Present: normal bowel sounds, soft. Absent: distended, guarding, hepatomegaly, mass, rebound, splenomegaly Additional comments: Mild TTP diffusely across abdomen - Psychiatric Psychiatric exam: Present: normal affect, normal mood. Absent: agitated, anxious, depressed - Skin Skin exam: Present: dry, intact, warm. Absent: cyanosis, rash Internal Medicine: Result - Labs CBC & Chem 7: 09/10/17 04:15 09/10/17 04:15 Labs: Short CBC 09/10/17 Range/Units 04:15 WBC 7.4 (4.3-11.1) K/mcL Hgb 10.9 L (11.5-15.4) g/dL Hct 33.6 L (35.3-44.9) % Plt Count 191 (140-400) K/mcL Neutrophils # 5.8 (1.6-8.9) K/mcL BMP 09/10/17 04:15 Sodium 145 Potassium 3.4 L Chloride 115 H Carbon Dioxide 22 L BUN 20 Creatinine 0.59 L Glucose 146 H Calcium 7.8 L - ABG Interpretation ABG results: ABG ABG pH 7.43 pH Units (7.32-7.45) 09/08/17 21:22 ABG pCO2 39 mmHg (35-45) 09/08/17 21:22 ABG pO2 67 mmHg (85-104) L 09/08/17 21:22 ABG O2 Saturation 93 % (95-98) L 09/08/17 21:22 - Impressions Impressions Chest X-Ray 09/09/17 23:55 IMPRESSION: Low lung volumes and left basilar atelectasis. No new airspace opacities. D/ / Kvng Wick MD / Kvng Wick MD Interpreting Provider: Kvng Wick MD Head CT 09/10/17 00:00 IMPRESSION: No acute intracranial abnormality. D/ / Jose Estevez / Jose Estevez Interpreting Provider: Jose Estevez Consult Discharge Plan - Plan Referrals: Carloz Romano MD [Primary Care Provider] - (will be going to [facility]?)
[2017-09-10] MEDS: levETIRAcetam 250 MG TABLET PO SCH (20:55)
[2017-09-10] MEDS: methIMAzole 5 MG TABLET PO SCH (21:03)
[2017-09-11] MEDS: MetroNIDAZOLE 500 MG/100 ML 500 MG/100 ML BAG IVPB SCH ×3 (00:30→12:16)
[2017-09-11 04:36] LABS: Basophils % 0.2 %; Eosinophils # 0.2 K/mcL (0.0-0.6); Eosinophils % 1.9 %; Hematocrit 31.3 % (35.3-44.9); Hemoglobin 10.2 g/dL (11.5-15.4); Immature Granulocytes % 1.5 % (0-4); Lymphocytes % 10.7 %; Mean Corpuscular HGB Conc 32.6 g/dL (31.6-35.5); Mean Corpuscular Hemoglobin 27.7 pg (28.0-33.3); Mean Corpuscular Volume 85.1 fL (83.0-100.0); Monocytes # 1.4 K/mcL (0.0-1.3); Monocytes % 16.2 %; Neutrophils # 6.2 K/mcL (1.6-8.9); Nucleated Red Blood Cells 0.4 /100 WBC (0); Platelet Count 164 K/mcL (140-400); Red Blood Count 3.68 M/mcL (3.82-4.97); Red Cell Distribution Width 15.2 % (11.5-14.5); Segmented Neutrophils % 69.5 %
[2017-09-11 04:57] LABS: Alanine Aminotransferase 8 Units/L (7-52); Albumin/Globulin Ratio 0.8 (1.1-2.2); Alkaline Phosphatase 85 Units/L (34-104); Aspartate Amino Transferase 7 Units/L (13-39); BUN/Creatinine Ratio 25 (6-26); Bilirubin,Total 0.4 mg/dL (0.3-1.0); Blood Urea Nitrogen 14 mg/dL (8-23); Calcium 7.7 mg/dL (8.6-10.3); Carbon Dioxide 23 mEq/L (23-29); Chloride 114 mEq/L (98-107); Globulin 2.4 g/dL (2.4-3.5); Glucose 91 mg/dL (70-105); Osmolality,Calculated 294 (280-300); Sodium 142 mEq/L (136-145); Total Protein 4.4 g/dL (6.4-8.9); eGFR For African Americans > 60 (> 60); eGFR For Non-African Americans > 60 (> 60)
[2017-09-11 05:34] LABS: Platelet Estimate Normal (Normal)
[2017-09-11] MEDS: *HR* Heparin 5,000 UNIT/ML VIAL SQ SCH ×2 (06:40→18:59)
[2017-09-11] MEDS: Loratadine 10 MG TABLET PO SCH (08:38)
[2017-09-11] MEDS: levETIRAcetam 250 MG TABLET PO SCH ×2 (08:38→20:18)
[2017-09-11] MEDS: methIMAzole 5 MG TABLET PO SCH (08:41)
[2017-09-11] MEDS: Levofloxacin 750 MG/150 ML 750 MG/150 ML BAG IVPB SCH (08:41)
[2017-09-11] MEDS: Sennosides/Docusate Sodium TABLET PO SCH ×2 (08:41→20:17)
[2017-09-11] MEDS: Venlafaxine XR (24 HR) 75 MG CAP.ER.24H PO SCH (08:41)
[2017-09-11] MEDS: Baclofen 10 MG TABLET PO SCH ×2 (08:41→20:18)
--- NOTE | 2017-09-11 09:00 | Neurology Progress Note ---
Date of Encounter: 09/11/17 Time of Encounter: 08:57 Assessment and Plan (1) Observed seizure-like activity Current Visit: Yes Status: Acute Cor has experienced 2 episodes of generalized tonic-clonic seizure. I believe that this is likely due to the superimposed underlying infectious process. She likely has a lower seizure thresholds to begin with because of the cerebral palsy. However I see no evidence of a central nervous system infectious inflammatory or vascular process. Currently she is awake and alert although she is actively hallucinating. I am not certain whether not she has a history of schizophrenia or some other psychotic disorder. Perhaps she may be simply . Recommendation for now is to maintain the Keppra 500 mg twice a day. I would like to follow up with her my office sometime after she is discharged to continue care. Consider psychiatric consultation if she has no known history of mental illness. I will reevaluate her at your request. Subjective Interval history: The chart was reviewed, the patient was seen and examined. Apparently yesterday after Dr. Whipple did his assessment the patient had another generalized tonic-clonic seizure. The Keppra was restarted at 500 mg twice a day. It was felt that perhaps there may have been some superimposed metabolic encephalopathy due to acute UTI/proctitis. She does have an axillary temp today at 99.6. CT scan of her head was negative, EEG was negative for seizure activity. This patient does have cerebral palsy and is nonambulatory. Nursing informs me however that she has been actively hallucinating and seeing people in the room. I asked her who was in her room and she states "the people who own the place". She is not encephalopathic however her speech is clear and fluent. He does make eye contact. She follows simple commands. Objective - Constitutional Vitals: Temp Pulse Resp BP Pulse Ox 98.4 F 97 22 101/69 96 09/11/17 08:16 09/11/17 08:16 09/11/17 08:16 09/11/17 08:16 09/11/17 08:16 - Neurological Exam Additional comments: DETAILED NEUROLOGICAL EXAMINATION: MENTAL STATUS: Oriented to person, place, impairment of recnet memory, patient and concentration seems to be intact baseline patient has cognitive impairment. She does believe that the hallucinations are real however. She is not encephalopathic. She makes eye contact and is engaging. She is asking "when am I getting out of here" Cranial Nerve Examination: CN - II: Visual Acuity, Field of Vision Normal, Fundus examination: No disk edema, Pupils- size shape reaction to light and accommodation: All normal. CN III, IV, : External ocular movements were intact, Pupils were reactive, No ptosis is present. CN V: Sensation over the face to light touch and pinprick all normal. Corneal reflexes not tested, jaw jerk normal. CN VII: No facial asymmetry, no flattening of nasolabial folds, no difficulty in closing the eyes, no loss of forehead wrinkles, no difficulty in eye-closure, frowning raising eyebrows. CNVIII: No significant hearing loss CN IX, X: Uvula centralized not deviated, Gag reflex: Not tested CN X1: Sternocleidomastoid, trapezius, normal or evidence of any weakness. CN X11: No Dysarthria, no wasting or tongue fasciculations, no deviation, tongue muscle strength normal. Motor examination: No hypertrophy, tone was normal, power grade 0-5 Upper limbs 4 over 4 in both upper extremities mild spasticity and increased tone Lower limbs There is is moment in both lower extremities 3+ range with spasticity Coordination: Difficult to do [id number] normal. Superficial sensations- Touch normal. Pain- Pinprick, Temperature all normal, Deep sensation normal, Joint position sense normal. Cortical sensation, Tactile discrimination, localization and extinction all normal. Deep tendon reflexes. Symmetrical bilateral, brisk bilaterally upgoing Babinski. No sign of meningeal irritation Gait Examination: She has been bedridden for quite some time and is unable to walk. Results - Laboratory Findings CBC and BMP: 09/11/17 04:15 09/11/17 04:15 Abnormal lab findings: Abnormal lab results RBC 3.68 M/mcL (3.82-4.97) L 09/11/17 04:15 Hgb 10.2 g/dL (11.5-15.4) L 09/11/17 04:15 Hct 31.3 % (35.3-44.9) L 09/11/17 04:15 MCH 27.7 pg (28.0-33.3) L 09/11/17 04:15 RDW 15.2 % (11.5-14.5) H 09/11/17 04:15 Monocytes # 1.4 K/mcL (0.0-1.3) H 09/11/17 04:15 Nucleated RBCs/100 WBC 0.4 /100 WBC (0) H 09/11/17 04:15 Reactive Lymphocytes Present (Not Present) A 09/10/17 04:15 Anisocytosis 1+ (Not Present) A 09/10/17 04:15 ABG pO2 67 mmHg (85-104) L 09/08/17 21:22 ABG Total CO2 27 mEq/L (20-26) H 09/08/17 21:22 ABG O2 Saturation 93 % (95-98) L 09/08/17 21:22 Chloride 114 mEq/L (98-107) H 09/11/17 04:15 Creatinine 0.55 mg/dL (0.60-1.20) L 09/11/17 04:15 POC Glucose 123 mg/dL (70-99) H 09/10/17 15:33 Calcium 7.7 mg/dL (8.6-10.3) L 09/11/17 04:15 Phosphorus 2.2 mg/dL (2.7-4.5) L 09/09/17 01:17 AST 7 Units/L (13-39) L 09/11/17 04:15 Serum Total Protein 4.4 g/dL (6.4-8.9) L 09/11/17 04:15 Albumin 2.0 g/dL (3.5-5.7) L 09/11/17 04:15 Albumin/Globulin Ratio 0.8 (1.1-2.2) L 09/11/17 04:15 TSH 0.036 mcIU/mL (0.340-5.600) L 09/08/17 13:58 Free T3 4.51 pg/mL (2.50-3.90) H 09/08/17 20:29 Urine Color Red (Yellow) A 09/08/17 14:18 Urine Clarity Cloudy (Clear) A 09/08/17 14:18 Ur Specific [place] 1.028 (1.010-1.025) H 09/08/17 14:18 Urine Ketones Trace mg/dL (Negative) H 09/08/17 14:18 Urine Nitrite Positive (Negative) A 09/08/17 14:18 Urine Bilirubin Moderate (Negative) H 09/08/17 14:18 Ur Leukocyte Esterase Small (Negative) H 09/08/17 14:18 Urine Microscopic RBC 3-5 per hpf (0-3) H 09/08/17 14:18 Ur Squamous Epith Cells Many per lpf (None-Few) H 09/08/17 14:18 Ur Culture Indicated? NO. (NO) A 09/08/17 14:18 Consult Discharge Plan - Plan Referrals: Carloz Romano MD [Primary Care Provider] - (will be going to [facility]?)
[2017-09-11] MEDS ORDERED: OLANZapine 10 MG VIAL IM STA (12:46)
[2017-09-11] MEDS: Piperacillin/Tazobactam 3.375 GM in 0.9 % Sodium Chloride Mini Bag 100 ML IVPB SCH ×2 (13:54→20:19)
--- NOTE | 2017-09-11 20:07 | Internal Med Progress Note ---
Date of Encounter: 09/11/17 Time of Encounter: 13:27 - Assessment and plan (1) Sepsis Current Visit: Yes Status: Resolved Assessment and plan: Resolved. Likely sources UTI and proctitis/colitis. Since flagyl can induce seizure activity, I called pharmacist to talk about what antibiotic I can switch patient to. Will discontinue IV levaquin and IV flagyl. Will start IV zosyn. Qualifiers: Sepsis type: sepsis due to unspecified organism Qualified Code(s): A41.9 - Sepsis, unspecified organism (2) Acute cystitis without hematuria Current Visit: Yes Status: Acute Assessment and plan: Treating with IV zosyn as per above. Urine culture no growth to date final. (3) Colitis Current Visit: Yes Status: Acute Assessment and plan: Treating suspected proctitis/colitis as seen on CT abdomen/pelvis with IV zosyn as per above. (4) Altered mental status Current Visit: Yes Status: Acute Assessment and plan: Altered mental status of unclear etiology, but likely secondary to sepsis. Now improving. Rectal impaction may have been contributing also. Patient lives with caregiver, and is alert and oriented to herself at baseline. Nurse spoke with caregiver today and stated that patient has been having psychosis/visual hallucinations since about 1 week. Normal UDS, ammonia, CPK, folate, and vitamin B12. Treating hyperthyroidism as per below. Seizures now under control with keppra. Keppra likely not related to hallucinations/psychosis. Treating psychosis as per below. Repeat labwork in AM. Qualifiers: Altered mental status type: unspecified Qualified Code(s): R41.82 - Altered mental status, unspecified (5) Hyperthyroidism Current Visit: Yes Status: Acute Assessment and plan: Low TSH with normal T4 and elevated T3. Seizure may be linked to hyperthyroidism. Has been tachycardic at times. Continue low dose methimazole 5 mg QD and metoprolol 25 mg BID. Consider endocrine consult on Wednesday for hyperthyroidism. (6) Seizure Current Visit: Yes Status: Acute Assessment and plan: Neurology consulted; appreciate input. Loaded with keppra; now continuing BID. Seizure precautions. Continue ativan PRN. Could be secondary to hyperthyroidism and/or infection. Treating hyperthyroidism and sepsis/UTI as per above. Continue to monitor. Will await further recommendations from neurology. (7) Cerebral palsy Current Visit: Yes Status: Chronic Qualifiers: Cerebral palsy type: unspecified type Qualified Code(s): G80.9 - Cerebral palsy, unspecified (8) GERD (gastroesophageal reflux disease) Current Visit: Yes Status: Chronic Assessment and plan: Continue omeprazole. Qualifiers: Esophagitis presence: esophagitis presence not specified Qualified Code(s) : K21.9 - Gastro-esophageal reflux disease without esophagitis (9) Hyperlipidemia Current Visit: Yes Status: Chronic Assessment and plan: Continue crestor. Qualifiers: Hyperlipidemia type: unspecified Qualified Code(s): E78.5 - Hyperlipidemia , unspecified (10) Hypertension Current Visit: Yes Status: Chronic Assessment and plan: Improved. Continue metoprolol for hyperthyroidism as per above. Continue PRN hydralazine. Qualifiers: Hypertension type: essential hypertension Qualified Code(s): I10 - Essential (primary) hypertension (11) DVT prophylaxis Current Visit: Yes Status: Acute Assessment and plan: Continue SQ heparin. (12) Psychosis Current Visit: Yes Status: Acute Assessment and plan: Psychosis with visual hallucinations. Don't know if this is related to acute infections, as patient was having this for last 1 week. I have personally spoke with and consulted psychiatrist Dr. Pardo. He agrees to see patients. He agrees with continuing low dose zyprexa 5 mg IM BID PRN psychosis. Will await further recommendations from psychiatry. Qualifiers: Psychosis type: unspecified psychosis type Qualified Code(s): F29 - Unspecified psychosis not due to a substance or known physiological condition - Time Spent With Patient Total time spent is greater than 50% in coordination of care (as documented) at patient's floor/unit and/or counseling patient: Greater than 35 minutes - Subjective Interval history: Patient had no acute events overnight. She looks much better today. She is fully awake and talking, mostly appropriate. She is having visual hallucinations, and has been talking to some all morning and afternoon. Initially, she was yelling, angry, and in distress. She was given 1 dose of IM zyprexa 5 mg. She is still having hallucinations, but is now calm and just talking to "Mitchell." She denies any complaints, but wants me to "get him out of here." I spoke with psychiatry on [facility] [employer] Dr. Pardo in person today. He states that he will see patient, and recommends continuation of low dose zyprexa for now. No more seizure activity per nursing staff. Patient's respiratory status is good. All cultures have been final negative. - Constitutional Vitals: Temp Pulse Resp BP Pulse Ox 99.3 F 87 16 117/86 94 09/11/17 16:30 09/11/17 16:30 09/11/17 16:30 09/11/17 16:30 09/11/17 16:30 General appearance: Present: A&O X 0, cooperative, mild distress, pleasant, answers questions appropriately Exam: Due to visual hallucinations - Respiratory Respiratory exam: Present: CTAB. Absent: accessory muscle use, rales, rhonchi, wheezes Additional comments: Normal WOB - Cardiovascular Cardiovascular exam: Present: RRR, +S1, +S2. Absent: diastolic murmur, gallop, rubs, systolic murmur Additional comments: No BLE edema - GI/Abdominal GI/Abdominal exam: Present: normal bowel sounds, soft. Absent: distended, hepatomegaly, mass, splenomegaly, tenderness - Psychiatric Psychiatric exam: Present: agitated. Absent: anxious, depressed Additional comments: Visual hallucinations - Skin Skin exam: Present: dry, intact, warm. Absent: cyanosis, rash Internal Medicine: Result - Labs CBC & Chem 7: 09/11/17 04:15 09/11/17 04:15 Labs: Short CBC 09/11/17 Range/Units 04:15 WBC 8.9 (4.3-11.1) K/mcL Hgb 10.2 L (11.5-15.4) g/dL Hct 31.3 L (35.3-44.9) % Plt Count 164 (140-400) K/mcL Neutrophils # 6.2 (1.6-8.9) K/mcL BMP 09/11/17 04:15 Sodium 142 Potassium 4.0 Chloride 114 H Carbon Dioxide 23 BUN 14 Creatinine 0.55 L Glucose 91 Calcium 7.7 L Liver Function 09/11/17 Range/Units 04:15 Total Bilirubin 0.4 (0.3-1.0) mg/dL AST 7 L (13-39) Units/L ALT 8 (7-52) Units/L Alkaline Phosphatase 85 (34-104) Units/L Albumin 2.0 L (3.5-5.7) g/dL - ABG Interpretation ABG results: ABG ABG pH 7.43 pH Units (7.32-7.45) 09/08/17 21: ABG pCO2 39 mmHg (35-45) 09/08/17 21:22 ABG pO2 67 mmHg (85-104) L 09/08/17 21: ABG O2 Saturation 93 % (95-98) L 09/08/17 21:22 Consult Discharge Plan - Plan Referrals: Carloz Romano MD [Primary Care Provider] - (will be going to [facility]?)
[2017-09-12] MEDS ORDERED: *HR* LORazepam 2 MG/ML VIAL IVP ONE (01:10)
[2017-09-12] MEDS: Piperacillin/Tazobactam 3.375 GM in 0.9 % Sodium Chloride Mini Bag 100 ML IVPB SCH ×3 (05:34→20:33)
[2017-09-12] MEDS: *HR* Heparin 5,000 UNIT/ML VIAL SQ SCH ×2 (05:38→18:17)
[2017-09-12 07:26] LABS: BUN/Creatinine Ratio 20 (6-26); Blood Urea Nitrogen 10 mg/dL (8-23); Calcium 7.8 mg/dL (8.6-10.3); Carbon Dioxide 21 mEq/L (23-29); Chloride 115 mEq/L (98-107); Glucose 67 mg/dL (70-105); Osmolality,Calculated 293 (280-300); Sodium 143 mEq/L (136-145); eGFR For African Americans > 60 (> 60); eGFR For Non-African Americans > 60 (> 60)
[2017-09-12 07:35] LABS: Basophils % 0.4 %; Eosinophils # 0.3 K/mcL (0.0-0.6); Eosinophils % 2.9 %; Hematocrit 33.7 % (35.3-44.9); Hemoglobin 11.1 g/dL (11.5-15.4); Lymphocytes # 1.5 K/mcL (0.6-4.6); Lymphocytes % 16.2 %; Mean Corpuscular HGB Conc 32.9 g/dL (31.6-35.5); Mean Corpuscular Hemoglobin 27.4 pg (28.0-33.3); Mean Corpuscular Volume 83.2 fL (83.0-100.0); Monocytes % 10.7 %; Neutrophils # 6.4 K/mcL (1.6-8.9); Platelet Count 151 K/mcL (140-400); Red Blood Count 4.05 M/mcL (3.82-4.97); Segmented Neutrophils % 67.8 %
[2017-09-12 08:16] LABS: Platelet Estimate Normal (Normal)
[2017-09-12] MEDS: Venlafaxine XR (24 HR) 75 MG CAP.ER.24H PO SCH (09:35)
[2017-09-12] MEDS: methIMAzole 5 MG TABLET PO SCH (09:35)
[2017-09-12] MEDS: Baclofen 10 MG TABLET PO SCH ×2 (09:35→20:32)
[2017-09-12] MEDS: Sennosides/Docusate Sodium TABLET PO SCH ×2 (09:35→20:32)
[2017-09-12] MEDS: levETIRAcetam 250 MG TABLET PO SCH ×2 (09:35→20:33)
[2017-09-12] MEDS: Loratadine 10 MG TABLET PO SCH (09:35)
[2017-09-12] MEDS: OLANZapine 10 MG VIAL IM PRN (09:36)
--- NOTE | 2017-09-12 12:26 | Psychiatry Progress Note ---
Date of Encounter: 09/11/17 Time of Encounter: 17:30 Subjective Interval history: Pt is a 71 yo, , female, who presents for acute intermittent delirium, with psychosis. Pt noted that she feels she is ready to return home. Pt noted she is optimistic to return home with her dog. Pt denied any side effects to current medications. Pt noted she felt safe and comfortable on the unit. Prior to entering room pt was observed having a conversation with no one else present in the room. Pt noted that she is doing pretty good today. Pt noted she slept not too good last night. Pt noted her appetite is okay. Pt rated her depression a 0, on a scale of zero to ten with ten being the worst and zero being none. Pt rate her anxiety a 0, on the same scale. Pt denied any auditory or visual hallucinations, however prior to entering room pt was observed having a conversation with no one else present in the room and pt noted that some one was just there while I was present in the room. Pt denied any thoughts to harm herself or anyone else. Tobacco: Denies Alcohol: Denies Street: Denies Caffeine: Denies Interview was limited due to pts, poor compliance with interview. MSE: Alert and Oriented to self and location only Appearance: appropriately groomed dressed in hospital pajamas Behavior: Confused , agitated. Speech: fluent, normal tone, normal rate Mood: upset I wanna go home Affect: mood congruent Thought content: no HI noted, no SI noted, delusions noted Psychosis: auditory and visiual hallucinations noted pt was responding to internal stimuli. Thought Process: reductions in nourocognition, circumferential. Judgment: poor. Insight: poor. Dx: 1. Acute Intermittent delirium with psychotic features 2. Depressive D/O Plan: 1. Interval hx 2. Continue current medications (discussed olanzapine with provider.) 3. Review current labs, consider C/S and UA due to continued confusion and limited mobility. 4. Pt had an opportunity to ask questions and discuss current treatment plan. 5. Supportive therapy was provided 6. Pt remain compliant with staff and providers 7. Pt was in agreement with treatment plan. 8. Pt was educated on the risks benefits and side effects of current medications and treatment plan, pt agreed. Results - Vital Signs Vital Signs: Temp Pulse Resp BP Pulse Ox 99.1 F 85 16 101/70 93 09/12/17 11:17 09/12/17 11:17 09/12/17 11:17 09/12/17 11:17 09/12/17 11:17 - Labs Labs: Laboratory Results - last 24 hr 09/12/17 09/12/17 06:54 06:54 WBC 9.5 RBC 4.05 Hgb 11.1 L Hct 33.7 L MCV 83.2 MCH 27.4 L MCHC 32.9 RDW 15.0 H Plt Count 151 MPV 11.0 Immature Gran % 2.0 Seg Neutrophils % 67.8 Lymphocytes % 16.2 Monocytes % 10.7 Eosinophils % 2.9 Basophils % 0.4 Neutrophils # 6.4 Lymphocytes # 1.5 Monocytes # 1.0 Eosinophils # 0.3 Basophils # 0.0 Platelet Estimate Normal Sodium 143 Potassium 4.0 Chloride 115 H Carbon Dioxide 21 L BUN 10 Creatinine 0.49 L Est GFR ( Amer) > 60 Est GFR (Non-Af Amer) > 60 BUN/Creatinine Ratio 20 Glucose 67 L Calculated Osmolality 293 Calcium 7.8 L - Impressions ITS Impressions Chest X-Ray 09/09/17 23:55 IMPRESSION: Low lung volumes and left basilar atelectasis. No new airspace opacities. D/ / Kvng Wick MD / Kvng Wick MD Interpreting Provider: Kvng Wick MD Head CT 09/10/17 00:00 IMPRESSION: No acute intracranial abnormality. D/ / Jose Estevez / Jose Estevez Interpreting Provider: Jose Estevez Consult Discharge Plan - Plan Referrals: Carloz Romano MD [Primary Care Provider] - (will be going to [facility]?) Psychiatry Exam - Constitutional Vitals: Temp Pulse Resp BP Pulse Ox 99.1 F 85 16 101/70 93 09/12/17 11:17 09/12/17 11:17 09/12/17 11:17 09/12/17 11:17 09/12/17 11:17
[2017-09-12] MEDS ORDERED: *HR* LORazepam 2 MG/ML VIAL IVP PRN (17:03)
--- NOTE | 2017-09-12 17:28 | Internal Med Progress Note ---
Date of Encounter: 09/12/17 Time of Encounter: 12:07 - Assessment and plan (1) Sepsis Current Visit: Yes Status: Resolved Assessment and plan: Resolved. Likely sources UTI and proctitis/colitis. Continue IV zosyn. Qualifiers: Sepsis type: sepsis due to unspecified organism Qualified Code(s): A41.9 - Sepsis, unspecified organism (2) Acute cystitis without hematuria Current Visit: Yes Status: Acute Assessment and plan: Treating with IV zosyn as per above. Urine culture no growth to date final. Will obtain repeat urine culture because patient still having delirium with psychotic features. (3) Colitis Current Visit: Yes Status: Acute Assessment and plan: Treating suspected proctitis/colitis as seen on CT abdomen/pelvis with IV zosyn as per above. (4) Altered mental status Current Visit: Yes Status: Acute Assessment and plan: Altered mental status of unclear etiology, but likely secondary to sepsis. Rectal impaction may have been contributing also. Patient lives with caregiver , and is alert and oriented to herself at baseline. Mental status has greatly improved, but she is having visual hallucinations. She does not seem agitated at this time. Normal UDS, ammonia, CPK, folate, and vitamin B12. Treating hyperthyroidism as per below. Seizures now under control with keppra. Keppra likely not related to hallucinations/psychosis. Treating psychosis as per below. Repeat labwork in AM. Qualifiers: Altered mental status type: delirium Qualified Code(s): R41.0 - Disorientation, unspecified (5) Hyperthyroidism Current Visit: Yes Status: Acute Assessment and plan: Low TSH with normal T4 and elevated T3. Seizure may be linked to hyperthyroidism. Has been tachycardic at times. Continue low dose methimazole 5 mg QD and metoprolol 25 mg BID. Get repeat TSH and TSH antibody lab in AM. Consider endocrine consult tomorrow for hyperthyroidism. (6) Seizure Current Visit: Yes Status: Acute Assessment and plan: Neurology consulted; appreciate input. Loaded with keppra; now continuing BID. Seizure precautions. Continue ativan PRN. Could be secondary to hyperthyroidism and/or infection. Treating hyperthyroidism and sepsis/UTI as per above. Continue to monitor. Will await further recommendations from neurology. (7) Cerebral palsy Current Visit: Yes Status: Chronic Qualifiers: Cerebral palsy type: unspecified type Qualified Code(s): G80.9 - Cerebral palsy, unspecified (8) GERD (gastroesophageal reflux disease) Current Visit: Yes Status: Chronic Assessment and plan: Continue omeprazole. Qualifiers: Esophagitis presence: esophagitis presence not specified Qualified Code(s) : K21.9 - Gastro-esophageal reflux disease without esophagitis (9) Hyperlipidemia Current Visit: Yes Status: Chronic Assessment and plan: Continue crestor. Qualifiers: Hyperlipidemia type: unspecified Qualified Code(s): E78.5 - Hyperlipidemia , unspecified (10) Hypertension Current Visit: Yes Status: Acute Assessment and plan: Improved. Continue metoprolol for hyperthyroidism as per above. Continue PRN hydralazine. Qualifiers: Hypertension type: essential hypertension Qualified Code(s): I10 - Essential (primary) hypertension (11) Psychosis Current Visit: Yes Status: Acute Assessment and plan: Psychosis with visual hallucinations. I think this is related to her acute infections. Psychiatrist Dr. Pardo following; appreciate input. Will repeat urine culture as he also thinks this may be related to her current infections. He agrees with continuing low dose zyprexa 5 mg IM BID PRN psychosis. He states we can use ativan 1 mg IV Q6H PRN for agitation not relieved by zyprexa ( don't give together). Will await further recommendations from psychiatry. Qualifiers: Psychosis type: unspecified psychosis type Qualified Code(s): F29 - Unspecified psychosis not due to a substance or known physiological condition (12) Delirium due to general medical condition Current Visit: Yes Status: Acute Assessment and plan: Acute intermittent delirium with psychotic features. Management as per above. (13) DVT prophylaxis Current Visit: Yes Status: Acute Assessment and plan: Continue SQ heparin. - Time Spent With Patient Total time spent is greater than 50% in coordination of care (as documented) at patient's floor/unit and/or counseling patient: less than 15 minutes - Subjective Interval history: Patient may have had some agitation last night (no physician documentation in chart), and received 1 mg ativan IVP. She looks good today. She is fully awake and talking, mostly appropriate. She continues to have visual hallucinations. She tells me today that there is a "handicap van over there." She does not seem to be in any distress. She denies any complaints. No more seizure activity per nursing staff. Patient's respiratory status is good. All cultures have been final negative. Will obtain new urine culture today due to persistent delirium with psychotic features. - Constitutional Vitals: Temp Pulse Resp BP Pulse Ox 99.6 F 65 16 132/92 93 09/12/17 16:55 09/12/17 16:55 09/12/17 16:55 09/12/17 16:55 09/12/17 16:55 General appearance: Present: A&O X 0, cooperative, mild distress, pleasant, answers questions appropriately Internal Medicine: Result - Labs CBC & Chem 7: 09/12/17 06:54 09/12/17 06:54 Labs: Short CBC 09/12/17 Range/Units 06:54 WBC 9.5 (4.3-11.1) K/mcL Hgb 11.1 L (11.5-15.4) g/dL Hct 33.7 L (35.3-44.9) % Plt Count 151 (140-400) K/mcL Neutrophils # 6.4 (1.6-8.9) K/mcL BMP 09/12/17 06:54 Sodium 143 Potassium 4.0 Chloride 115 H Carbon Dioxide 21 L BUN 10 Creatinine 0.49 L Glucose 67 L Calcium 7.8 L - ABG Interpretation ABG results: ABG ABG pH 7.43 pH Units (7.32-7.45) 09/08/17 21:22 ABG pCO2 39 mmHg (35-45) 09/08/17 21:22 ABG pO2 67 mmHg (85-104) L 09/08/17 21:22 ABG O2 Saturation 93 % (95-98) L 09/08/17 21:22 Consult Discharge Plan - Plan Referrals: Carloz Romano MD [Primary Care Provider] - (will be going to [facility]?)
[2017-09-13 04:37] LABS: Basophils % 0.3 %; Eosinophils # 0.2 K/mcL (0.0-0.6); Eosinophils % 2.2 %; Hematocrit 33.5 % (35.3-44.9); Hemoglobin 10.5 g/dL (11.5-15.4); Immature Granulocytes % 2.2 % (0-4); Lymphocytes # 1.3 K/mcL (0.6-4.6); Lymphocytes % 14.5 %; Mean Corpuscular HGB Conc 31.3 g/dL (31.6-35.5); Mean Corpuscular Hemoglobin 26.8 pg (28.0-33.3); Mean Corpuscular Volume 85.5 fL (83.0-100.0); Mean Platelet Volume 10.3 fL (9.4-12.4); Monocytes # 0.9 K/mcL (0.0-1.3); Monocytes % 10.2 %; Neutrophils # 6.2 K/mcL (1.6-8.9); Platelet Count 167 K/mcL (140-400); Red Blood Count 3.92 M/mcL (3.82-4.97); Red Cell Distribution Width 15.2 % (11.5-14.5); Segmented Neutrophils % 70.6 %
[2017-09-13 04:58] LABS: BUN/Creatinine Ratio 14 (6-26); Blood Urea Nitrogen 8 mg/dL (8-23); Calcium 7.8 mg/dL (8.6-10.3); Carbon Dioxide 21 mEq/L (23-29); Chloride 114 mEq/L (98-107); Glucose 48 mg/dL (70-105); Osmolality,Calculated 296 (280-300); Potassium 3.3 mEq/L (3.5-5.1); Sodium 145 mEq/L (136-145); eGFR For African Americans > 60 (> 60); eGFR For Non-African Americans > 60 (> 60)
[2017-09-13] MEDS: *HR* Heparin 5,000 UNIT/ML VIAL SQ SCH ×2 (05:41→17:11)
[2017-09-13] MEDS: Piperacillin/Tazobactam 3.375 GM in 0.9 % Sodium Chloride Mini Bag 100 ML IVPB SCH ×3 (05:42→21:47)
[2017-09-13] MEDS: Baclofen 10 MG TABLET PO SCH ×2 (09:15→21:53)
[2017-09-13] MEDS: levETIRAcetam 250 MG TABLET PO SCH (09:15)
[2017-09-13] MEDS: Venlafaxine XR (24 HR) 75 MG CAP.ER.24H PO SCH (09:15)
[2017-09-13] MEDS: Loratadine 10 MG TABLET PO SCH (09:15)
[2017-09-13] MEDS: Sennosides/Docusate Sodium TABLET PO SCH ×2 (09:16→21:53)
[2017-09-13] MEDS: methIMAzole 5 MG TABLET PO SCH (09:16)
[2017-09-13] MEDS: OLANZapine 10 MG VIAL IM PRN (10:40)
--- NOTE | 2017-09-13 15:25 | Consult Note ---
Date of Encounter: 09/13/17 Time of Encounter: 14:00 Assessment & Recommendation (1) Delirium due to general medical condition Current visit: Yes Status: Acute (2) Altered mental status Current visit: Yes Status: Acute Qualifiers: Altered mental status type: delirium Qualified Code(s): R41.0 - Disorientation, unspecified (3) Psychosis Current visit: Yes Status: Acute Qualifiers: Psychosis type: unspecified psychosis type Qualified Code(s): F29 - Unspecified psychosis not due to a substance or known physiological condition History of Present Illness Patient: new to practice Requesting Physician: Ish Cameron History of present illness: Pt is a 71 yo, , female, who presents for acute intermittent delirium, with psychosis. Pt continues to display confusion and reduction in neurocogntion. Pt noted she is optimistic to return home with her dog. Pt denied any side effects to current medications. Pt noted she felt safe and comfortable on the unit. Prior to entering room pt was observed having a conversation with no one else present in the room. Pt noted that she is doing pretty good today. Pt noted she slept not too good last night. Pt noted her appetite is okay. Pt rated her depression a 0, on a scale of zero to ten with ten being the worst and zero being none. Pt rate her anxiety a 0, on the same scale. Pt denied any auditory or visual hallucinations, however prior to entering room pt was observed having a conversation with no one else present in the room and pt noted that some one was just there while I was present in the room. Pt denied any thoughts to harm herself or anyone else. Tobacco: Denies Alcohol: Denies Street: Denies Caffeine: Denies Interview was limited due to pts, poor compliance with interview. MSE: Alert and Oriented to self and location only Appearance: appropriately groomed dressed in hospital pajamas Behavior: Confused , agitated. Speech: fluent, normal tone, normal rate Mood: upset I wanna go home Affect: mood congruent Thought content: no HI noted, no SI noted, delusions noted Psychosis: auditory and visiual hallucinations noted pt was responding to internal stimuli. Thought Process: reductions in nourocognition, circumferential. Judgment: poor. Insight: poor. Dx: 1. Acute Intermittent delirium with psychotic features 2. Depressive D/O Plan: 1.Interval hx 2.Continue current medications 3. Recommed Start olanzapine to 10 mg PO QHS scheduled and continue additional olanzapine 5 mg BID PRN, for psychosis and confusion. 4. Recommed utilize lorazepam 1 mg PO Q6H PRN for severe agitation not to give with in 30 mins pre/post of olanzapine 4. Consider depakote or carbamazepine for mood stabilization and seizure control vs Keppra 3. Review current labs, consider C/S and UA due to continued confusion and limited mobility. 4. Pt had an opportunity to ask questions and discuss current treatment plan. 5.Supportive therapy was provided 6.Pt remain compliant with staff and providers 7.Pt was in agreement with treatment plan. 8. will continue to follow loosely CC: Ish Cameron Past Med Surg Social Fam HX - Past Medical History Medical history: dementia, GERD, hyperlipidemia, hypertension, other - Social History Smoking Status: Never smoker Smokeless Tobacco Status: No Alcohol use: none Drug use: none - Family History Mother History Unknown: Yes Medications & Allergies Baclofen 20 mg PO BID 09/08/17 [History] Citalopram [CeleXA] 20 mg PO DAILY 09/08/17 [History] Diclofenac Sodium [Voltaren] 50 mg PO Q8HR 09/08/17 [History] Loratadine [Allergy Relief] 10 mg PO DAILY 09/08/17 [History] Meloxicam [Mobic] 15 mg PO DAILY 09/08/17 [History] Omeprazole [PriLOSEC] 40 mg PO DAILY 09/08/17 [History] Promethazine HCl 12.5 mg PO Q8H PRN 09/08/17 [History] Rosuvastatin Calcium [Crestor] 5 mg PO DAILY 09/08/17 [History] Venlafaxine HCl [Venlafaxine HCl ER] 75 mg PO DAILY 09/08/17 [History] 3 Allergy/AdvReac Type Severity Reaction Status Date / Time [id number] Reductase Allergy Intermediate Rash Verified 11/18/15 17:58 Inhibitor [Statins] clopidogrel [From Plavix] Allergy Anaphylaxis Verified 08/17/15 13:37 Sulfa (Sulfonamide Allergy Anaphylaxis Verified 08/17/15 13:37 Antibiotics) Warfarin [From Coumadin] Allergy Anaphylaxis Verified 08/17/15 13:37 Psychiatry Exam - Constitutional Vitals: Temp Pulse Resp BP Pulse Ox 98.1 F 93 16 95/74 93 09/13/17 11:38 09/13/17 11:38 09/13/17 11:38 09/13/17 11:38 09/13/17 11:38 Results - Labs Labs: Laboratory Last Values WBC 8.8 K/mcL (4.3-11.1) 09/13/17 04:00 RBC 3.92 M/mcL (3.82-4.97) 09/13/17 04:00 Hgb 10.5 g/dL (11.5-15.4) L 09/13/17 04:00 Hct 33.5 % (35.3-44.9) L 09/13/17 04:00 MCV 85.5 fL (83.0-100.0) 09/13/17 04:00 MCH 26.8 pg (28.0-33.3) L 09/13/17 04:00 MCHC 31.3 g/dL (31.6-35.5) L 09/13/17 04:00 RDW 15.2 % (11.5-14.5) H 09/13/17 04:00 Plt Count 167 K/mcL (140-400) 09/13/17 04:00 MPV 10.3 fL (9.4-12.4) 09/13/17 04:00 Immature Gran % 2.2 % (0-4) 09/13/17 04:00 Seg Neutrophils % 70.6 % 09/13/17 04:00 Lymphocytes % 14.5 % 09/13/17 04:00 Monocytes % 10.2 % 09/13/17 04:00 Eosinophils % 2.2 % 09/13/17 04:00 Basophils % 0.3 % 09/13/17 04:00 Neutrophils # 6.2 K/mcL (1.6-8.9) 09/13/17 04:00 Lymphocytes # 1.3 K/mcL (0.6-4.6) 09/13/17 04:00 Monocytes # 0.9 K/mcL (0.0-1.3) 09/13/17 04:00 Eosinophils # 0.2 K/mcL (0.0-0.6) 09/13/17 04:00 Basophils # 0.0 K/mcL (0.0-0.2) 09/13/17 04:00 Nucleated RBCs/100 WBC 0.4 /100 WBC (0) H 09/11/17 04:15 Reactive Lymphocytes Present (Not Present) A 09/10/17 04:15 Platelet Estimate Normal (Normal) 09/12/17 06:54 Anisocytosis 1+ (Not Present) A 09/10/17 04:15 ABG pH 7.43 pH Units (7.32-7.45) 09/08/17 21:22 ABG pCO2 39 mmHg (35-45) 09/08/17 21:22 ABG pO2 67 mmHg (85-104) L 09/08/17 21:22 ABG HCO3 26 mEq/L (21-27) 09/08/17 21:22 ABG Total CO2 27 mEq/L (20-26) H 09/08/17 21:22 ABG O2 Saturation 93 % (95-98) L 09/08/17 21:22 ABG Base Excess 1 mEq/L (-2 to 3) 09/08/17 21:22 Josué Test N/A 09/08/17 21:22 O2 Delivery Device Room Air 09/08/17 21:22 Sodium 145 mEq/L (136-145) 09/13/17 04:00 Potassium 3.3 mEq/L (3.5-5.1) L 09/13/17 04:00 Chloride 114 mEq/L (98-107) H 09/13/17 04:00 Carbon Dioxide 21 mEq/L (23-29) L 09/13/17 04:00 BUN 8 mg/dL (8-23) 09/13/17 04:00 Creatinine 0.57 mg/dL (0.60-1.20) L 09/13/17 04:00 Est GFR ( Amer) > 60 (> 60) 09/13/17 04:00 Est GFR (Non-Af Amer) > 60 (> 60) 09/13/17 04:00 BUN/Creatinine Ratio 14 (6-26) 09/13/17 04:00 Glucose 48 mg/dL (70-105) L 09/13/17 04:00 POC Glucose 123 mg/dL (70-99) H 09/10/17 15:33 Calculated Osmolality 296 (280-300) 09/13/17 04:00 Lactic Acid 1.2 mmol/L (0.5-2.2) 09/08/17 15:53 Calcium 7.8 mg/dL (8.6-10.3) L 09/13/17 04:00 Phosphorus 2.2 mg/dL (2.7-4.5) L 09/09/17 01:17 Magnesium 1.9 mg/dL (1.6-2.6) 09/09/17 01:17 Total Bilirubin 0.4 mg/dL (0.3-1.0) 09/11/17 04:15 Direct Bilirubin 0.1 mg/dL (0.0-0.2) 09/08/17 13:58 Indirect Bilirubin 0.4 mg/dL (0.0-1.2) 09/08/17 13:58 AST 7 Units/L (13-39) L 09/11/17 04:15 ALT 8 Units/L (7-52) 09/11/17 04:15 Alkaline Phosphatase 85 Units/L (34-104) 09/11/17 04:15 Ammonia 23 mcmol/L (16-53) 09/08/17 20:29 Creatine Kinase 30 Units/L (30-223) 09/08/17 20:29 Troponin I < 0.03 ng/mL (< 0.04) 09/08/17 13:58 Serum Total Protein 4.4 g/dL (6.4-8.9) L 09/11/17 04:15 Albumin 2.0 g/dL (3.5-5.7) L 09/11/17 04:15 Globulin 2.4 g/dL (2.4-3.5) 09/11/17 04:15 Albumin/Globulin Ratio 0.8 (1.1-2.2) L 09/11/17 04:15 Vitamin B12 1096 pg/mL (250-1100) 09/09/17 01:17 Folate 9.5 ng/mL (3.0-16.0) 09/09/17 01:17 TSH 0.299 mcIU/mL (0.340-5.600) L 09/13/17 04:00 Free T4 0.95 ng/dl (0.70-2.00) 09/08/17 20:29 Free T3 4.51 pg/mL (2.50-3.90) H 09/08/17 20:29 Urine Color Red (Yellow) A 09/08/17 14:18 Urine Clarity Cloudy (Clear) A 09/08/17 14:18 Urine pH 5.5 pH Units (5.0-8.0) 09/08/17 14:18 Ur Specific [place] 1.028 (1.010-1.025) H 09/08/17 14:18 Urine Protein Trace mg/dL (Neg-Trace) 09/08/17 14:18 Urine Glucose (UA) Normal mg/dL (Normal) 09/08/17 14:18 Urine Ketones Trace mg/dL (Negative) H 09/08/17 14:18 Urine Blood Negative (Negative) 09/08/17 14:18 Urine Nitrite Positive (Negative) A 09/08/17: Urine Bilirubin Moderate (Negative) H 09/08/17 14: Urine Urobilinogen Normal mg/dL (Normal) 09/08/17 14:18 Ur Leukocyte Esterase Small (Negative) H 09/08/17 14:18 Urine Microscopic RBC 3-5 per hpf (0-3) H 09/08/17 14:18 Urine Microscopic WBC 0-3 per hpf (0-3) 09/08/17 14:18 Ur Squamous Epith Cells Many per lpf (None-Few) H 09/08/17 14:18 Urine Bacteria None Seen per hpf (None-Few) 09/08/17 14:18 Hyaline Casts None Seen per lpf (None-Few) 09/08/17 14:18 Ur Culture Indicated? NO. (NO) A 09/08/17 14:18 Stl C. diff Tox B Gene Negative (Negative) 09/10/17 01:13 Urine Opiates Screen Negative ng/mL (Huihnx=271) 09/08/17 22:10 Ur Barbiturates Screen Negative ng/mL (Adjexe=161) 09/08/17 22:10 Ur Phencyclidine Scrn Negative ng/mL (Cutoff=25) 09/08/17 22:10 Ur Amphetamines Screen Negative ng/mL (Wrwmjb=4148) 09/08/17 22:10 U Benzodiazepines Scrn Negative ng/mL (Farkli=179) 09/08/17 22:10 Urine Cocaine Screen Negative ng/mL (Cutoff= 300) 09/08/17 22:10 U Marijuana (THC) Screen Negative ng/mL (Cutoff = 50) 09/08/17 22:10 Specimen Rejected Hemolyzed 09/13/17 04:17 Consult Discharge Plan - Plan Referrals: Carloz Romano MD [Primary Care Provider] - (will be going to [facility]?)
[2017-09-13] MEDS ORDERED: *HR* LORazepam 2 MG/ML VIAL IVP PRN (18:18)
--- NOTE | 2017-09-13 18:46 | Internal Med Progress Note ---
Date of Encounter: 09/13/17 Time of Encounter: 12:27 - Assessment and plan (1) Sepsis Current Visit: Yes Status: Resolved Assessment and plan: Resolved. Likely sources UTI and proctitis/colitis. Continue IV zosyn. Qualifiers: Sepsis type: sepsis due to unspecified organism Qualified Code(s): A41.9 - Sepsis, unspecified organism (2) Acute cystitis without hematuria Current Visit: Yes Status: Acute Assessment and plan: Treating with IV zosyn as per above. Urine culture no growth to date final. Will obtain repeat urine culture at request of psychiatrist because patient still having delirium with psychotic features. (3) Colitis Current Visit: Yes Status: Acute Assessment and plan: Treating suspected proctitis/colitis as seen on CT abdomen/pelvis with IV zosyn as per above. (4) Altered mental status Current Visit: Yes Status: Acute Assessment and plan: Altered mental status of unclear etiology, but likely secondary to sepsis. Rectal impaction may have been contributing also. Patient lives with caregiver , and is alert and oriented to herself at baseline. Mental status has greatly improved, but she is having visual hallucinations. She does not seem agitated at this time. Normal UDS, ammonia, CPK, folate, and vitamin B12. Treating hyperthyroidism as per below. Seizures now under control with keppra; but see below about switching neuroleptic. Treating psychosis as per below. Repeat labwork in AM. Qualifiers: Altered mental status type: delirium Qualified Code(s): R41.0 - Disorientation, unspecified (5) Hyperthyroidism Current Visit: Yes Status: Acute Assessment and plan: Low TSH with normal T4 and elevated T3. Seizure may be linked to hyperthyroidism. Has been tachycardic at times. Continue low dose methimazole 5 mg QD and metoprolol 25 mg BID. Repeat TSH today improved. TSH antibody lab from today pending. Consider endocrine consult as outpatient since not available at [facility]. (6) Seizure Current Visit: Yes Status: Acute Assessment and plan: Neurology consulted; appreciate input. Loaded with keppra; now switching neuroleptic - please see below. Seizure precautions. Continue ativan PRN. Could be secondary to hyperthyroidism and/or infection. Treating hyperthyroidism and sepsis/UTI as per above. Continue to monitor. Will await further recommendations from neurology. (7) Cerebral palsy Current Visit: Yes Status: Chronic Qualifiers: Cerebral palsy type: unspecified type Qualified Code(s): G80.9 - Cerebral palsy, unspecified (8) GERD (gastroesophageal reflux disease) Current Visit: Yes Status: Chronic Assessment and plan: Continue omeprazole. Qualifiers: Esophagitis presence: esophagitis presence not specified Qualified Code(s) : K21.9 - Gastro-esophageal reflux disease without esophagitis (9) Hyperlipidemia Current Visit: Yes Status: Chronic Assessment and plan: Continue crestor. Qualifiers: Hyperlipidemia type: unspecified Qualified Code(s): E78.5 - Hyperlipidemia , unspecified (10) Hypertension Current Visit: Yes Status: Acute Assessment and plan: Improved. Continue metoprolol for hyperthyroidism as per above. Continue PRN hydralazine. Qualifiers: Hypertension type: essential hypertension Qualified Code(s): I10 - Essential (primary) hypertension (11) Psychosis Current Visit: Yes Status: Acute Assessment and plan: Psychosis with visual hallucinations. I think this is related to her acute infections vs a subacute psychiatric disturbance. Family today states this has been going on since July. Psychiatrist Dr. Pardo following; appreciate input. Repeat urine culture pending. He agrees with continuing low dose zyprexa 5 mg IM BID PRN psychosis. He also thinks this may be related to poor sleep. He recommends adding zyrpexa 10 mg QHS scheduled. He also recommends switching neuroleptic after consultation with neurologist. Per neurologist Dr. Powell recommendations, we will discontinue keppra and start depakote loading dose 1000 mg once tonight. Psychiatrist states we can use ativan 1 mg IV Q6H PRN for agitation not relieved by zyprexa (don't give together within 30 minutes of each other). Will await further recommendations from psychiatry. Qualifiers: Psychosis type: unspecified psychosis type Qualified Code(s): F29 - Unspecified psychosis not due to a substance or known physiological condition (12) Delirium due to general medical condition Current Visit: Yes Status: Acute Assessment and plan: Acute intermittent delirium with psychotic features. Management as per above. (13) DVT prophylaxis Current Visit: Yes Status: Acute Assessment and plan: Continue SQ heparin. - Time Spent With Patient Total time spent is greater than 50% in coordination of care (as documented) at patient's floor/unit and/or counseling patient: less than 15 minutes - Subjective Interval history: Patient had no acute events overnight. Nursing staff states that she did ok overnight. She continues to have visual hallucinations unchanged from yesterday. She is not agitated. She talks appropriately, and is oriented to self. She denies any complaints. No seizures since last one. New urine culture requested by psychiatry is still pending. I spoke with psychiatrist Dr. Pardo in person again today. He recommends switching neuroleptic to something with psychiatric benefits; maybe depakote or tegretol. He also recommends starting scheduled zyprexa 10 mg IM QHS, and keeping zyprexa 5 mg IM Q12H as needed. He also is OK with using ativan PRN for agitation, but not given within 30 minutes of zyprexa. I spoke with neurologist Dr. Powell who saw patient this weekend, and he is agreeable to trying depakote. He recommends loading with 1000 mg once tonight, stopping keppra now, and checking valproic acid level in AM. Caregiver nor family are in room today. Nurse states that she was told by caregiver that patient may have started having hallucinations around July. I do think she is now beyond the infectious encephalopathy stage , as her UTI/?colitis has appropriately been treat with IV antibiotics for several days, and she has since awakened from the non-verbal/non-alert stage. We will continue to monitor closely. - Constitutional Vitals: Temp Pulse Resp BP Pulse Ox 99.4 F 92 18 113/79 92 09/13/17 15:54 09/13/17 15:54 09/13/17 15:54 09/13/17 15:54 09/13/17 15:54 General appearance: Present: cooperative, A&O X 1, pleasant, no acute distress ( Conversing in normal tone of voice with hallucinated person), answers questions appropriately - Respiratory Respiratory exam: Present: CTAB. Absent: accessory muscle use, rales, rhonchi, wheezes Additional comments: Normal WOB - Cardiovascular Cardiovascular exam: Present: RRR, +S1, +S2. Absent: diastolic murmur, gallop, rubs, systolic murmur Additional comments: No BLE edema - GI/Abdominal GI/Abdominal exam: Present: normal bowel sounds, soft. Absent: distended, hepatomegaly, mass, splenomegaly, tenderness - Psychiatric Psychiatric exam: Present: normal affect, normal mood. Absent: agitated, anxious, depressed Additional comments: Visual hallucinations - Skin Skin exam: Present: dry, intact, warm. Absent: cyanosis, rash Internal Medicine: Result - Labs CBC & Chem 7: 09/13/17 04:00 09/13/17 04:00 Labs: Short CBC 09/13/17 Range/Units 04:00 WBC 8.8 (4.3-11.1) K/mcL Hgb 10.5 L (11.5-15.4) g/dL Hct 33.5 L (35.3-44.9) % Plt Count 167 (140-400) K/mcL Neutrophils # 6.2 (1.6-8.9) K/mcL BMP 09/13/17 04:00 Sodium 145 Potassium 3.3 L Chloride 114 H Carbon Dioxide 21 L BUN 8 Creatinine 0.57 L Glucose 48 L Calcium 7.8 L - ABG Interpretation ABG results: ABG ABG pH 7.43 pH Units (7.32-7.45) 09/08/17 21:22 ABG pCO2 39 mmHg (35-45) 09/08/17 21:22 ABG pO2 67 mmHg (85-104) L 09/08/17 21:22 ABG O2 Saturation 93 % (95-98) L 09/08/17 21:22 Consult Discharge Plan - Plan Referrals: Carloz Romano MD [Primary Care Provider] - (will be going to [facility]?)
[2017-09-13] MEDS ORDERED: Valproic Acid 250 MG CAPSULE PO ONE (21:00)
[2017-09-13] MEDS ORDERED: OLANZapine 10 MG VIAL IM SCH (21:00)
[2017-09-14] MEDS: Piperacillin/Tazobactam 3.375 GM in 0.9 % Sodium Chloride Mini Bag 100 ML IVPB SCH ×3 (05:40→21:51)
[2017-09-14] MEDS: *HR* Heparin 5,000 UNIT/ML VIAL SQ SCH ×2 (06:29→18:01)
[2017-09-14 07:03] LABS: Basophils % 0.3 %; Eosinophils # 0.1 K/mcL (0.0-0.6); Eosinophils % 0.8 %; Hematocrit 31.1 % (35.3-44.9); Hemoglobin 9.8 g/dL (11.5-15.4); Lymphocytes # 1.8 K/mcL (0.6-4.6); Mean Corpuscular HGB Conc 31.5 g/dL (31.6-35.5); Mean Corpuscular Hemoglobin 27.1 pg (28.0-33.3); Mean Corpuscular Volume 85.9 fL (83.0-100.0); Mean Platelet Volume 10.4 fL (9.4-12.4); Monocytes % 8.3 %; Neutrophils # 8.3 K/mcL (1.6-8.9); Platelet Count 156 K/mcL (140-400); Red Blood Count 3.62 M/mcL (3.82-4.97); Red Cell Distribution Width 15.4 % (11.5-14.5); Segmented Neutrophils % 72.6 %
[2017-09-14 07:23] LABS: BUN/Creatinine Ratio 14 (6-26); Blood Urea Nitrogen 9 mg/dL (8-23); Calcium 7.8 mg/dL (8.6-10.3); Carbon Dioxide 23 mEq/L (23-29); Chloride 117 mEq/L (98-107); Glucose 87 mg/dL (70-105); Osmolality,Calculated 302 (280-300); Potassium 3.2 mEq/L (3.5-5.1); Sodium 147 mEq/L (136-145); eGFR For African Americans > 60 (> 60); eGFR For Non-African Americans > 60 (> 60)
[2017-09-14] MEDS: Venlafaxine XR (24 HR) 75 MG CAP.ER.24H PO SCH (09:56)
[2017-09-14] MEDS: methIMAzole 5 MG TABLET PO SCH (09:57)
[2017-09-14] MEDS: Loratadine 10 MG TABLET PO SCH (09:57)
[2017-09-14] MEDS: D5% in 0.45% NACL 1,000 ML IVC SCH ×2 (09:57→18:05)
[2017-09-14] MEDS: Sennosides/Docusate Sodium TABLET PO SCH ×2 (09:58→21:51)
[2017-09-14] MEDS: Baclofen 10 MG TABLET PO SCH ×2 (09:58→21:51)
--- NOTE | 2017-09-14 15:54 | Internal Med Progress Note ---
Date of Encounter: 09/14/17 Time of Encounter: 10:50 - Assessment and plan (1) Sepsis Current Visit: Yes Status: Resolved Assessment and plan: Resolved Likely sources UTI and proctitis/colitis Continue IV zosyn. Blood cx and urine cx no growth so far Qualifiers: Sepsis type: sepsis due to unspecified organism Qualified Code(s): A41.9 - Sepsis, unspecified organism (2) Acute cystitis without hematuria Current Visit: Yes Status: Acute Assessment and plan: So far urine cx no growth cpnt empirical abx (3) Colitis Current Visit: Yes Status: Acute Assessment and plan: Treating suspected proctitis/colitis as seen on CT abdomen/pelvis with IV zosyn as per above Improving (4) Delirium due to general medical condition Current Visit: Yes Status: Acute Assessment and plan: Acute intermittent delirium with psychotic features due to toxic encephalopathy with UTI and Proctitis cont symptomatic and supportive care IV hydration Cont empirical abx Zosyn Switched to PO Olanzapine (5) Psychosis Current Visit: Yes Status: Acute Qualifiers: Psychosis type: unspecified psychosis type Qualified Code(s): F29 - Unspecified psychosis not due to a substance or known physiological condition (6) Altered mental status Current Visit: Yes Status: Acute Assessment and plan: Due to toxic encephalopathy cont Olanzapine Qualifiers: Altered mental status type: delirium Qualified Code(s): R41.0 - Disorientation, unspecified (7) Cerebral palsy Current Visit: Yes Status: Chronic Qualifiers: Cerebral palsy type: unspecified type Qualified Code(s): G80.9 - Cerebral palsy, unspecified (8) GERD (gastroesophageal reflux disease) Current Visit: Yes Status: Chronic Assessment and plan: Continue omeprazole. Qualifiers: Esophagitis presence: esophagitis presence not specified Qualified Code(s) : K21.9 - Gastro-esophageal reflux disease without esophagitis (9) Hyperlipidemia Current Visit: Yes Status: Chronic Assessment and plan: Continue crestor. Qualifiers: Hyperlipidemia type: unspecified Qualified Code(s): E78.5 - Hyperlipidemia , unspecified (10) Hypertension Current Visit: Yes Status: Acute Assessment and plan: Cont home meds Continue PRN hydralazine Qualifiers: Hypertension type: essential hypertension Qualified Code(s): I10 - Essential (primary) hypertension (11) DVT prophylaxis Current Visit: Yes Status: Acute Assessment and plan: Continue SQ heparin. (12) Seizure Current Visit: Yes Status: Acute Assessment and plan: Neuro evaluated the pt..Recommend to cont Keppra Psych suggested to switched to Valproic acid for seizure as well as mood stabilizer (13) Hyperthyroidism Current Visit: Yes Status: Acute Assessment and plan: Low TSH with normal T4 and elevated T3. Seizure may be linked to hyperthyroidism. Has been tachycardic at times. Continue low dose methimazole 5 mg QD and metoprolol 25 mg BID. Repeat TSH today improved. TSH antibody lab from today pending. Consider endocrine consult as outpatient since not available at [facility]. - Time Spent With Patient Total time spent is greater than 50% in coordination of care (as documented) at patient's floor/unit and/or counseling patient: - Subjective Interval history: Ms. Martinez is a 71 year old female with PMHx of dementia, cerebral palsy, Chronic seizure disorder, GERD, HLD, HTN, anxiety, depression.was brought to the ED for altered mental status. Pt happened to have UTI, Proctitis and rectal impaction too. She was admitted in the hospital and started her on empirical abx Zosyn. Her symptoms started improving slowly. She does have a couple of episodes generalized tonic clonic seizure. Pt was evaluated by Neuro and recommend to continue Keppra. She does have hallucinations and acute psychosis. Pt was evaluated by psychiatrist and recommend Olanzapine, as well switching Keppra to Valproic acid for her seizure. She is alert, awake and O to self today. No events over night. Looks dehydrated. - Constitutional Vitals: Temp Pulse Resp BP Pulse Ox 100.0 F H 105 15 103/67 94 09/14/17 11:36 09/14/17 11:36 09/14/17 11:36 09/14/17 11:36 09/14/17 11:36 General appearance: Present: cooperative, A&O X 1, pleasant - Head Head exam: Present: atraumatic, normal inspection - Neck Neck exam general surgery: Present: supple - Respiratory Respiratory exam: Present: decreased breath sounds. Absent: rales, respiratory distress, rhonchi, wheezes - Cardiovascular Cardiovascular exam: Present: +S1, +S2. Absent: tachycardia - GI/Abdominal GI/Abdominal exam: Present: normal bowel sounds, soft. Absent: rebound, rigid, tenderness - Extremities Exam Extremities exam: Absent: calf tenderness, pedal edema, tenderness - Back Exam Back exam: Absent: CVA tenderness (L), CVA tenderness (R) - Neurological Exam Neurological exam: Present: alert, altered - Psychiatric Psychiatric exam: Present: anxious - Skin Skin exam: Absent: rash Internal Medicine: Result - Labs CBC & Chem 7: 09/14/17 06:42 09/14/17 06:42 Labs: Short CBC 09/14/17 Range/Units 06:42 WBC 11.4 H (4.3-11.1) K/mcL Hgb 9.8 L (11.5-15.4) g/dL Hct 31.1 L (35.3-44.9) % Plt Count 156 (140-400) K/mcL Neutrophils # 8.3 (1.6-8.9) K/mcL BMP 09/14/17 06:42 Sodium 147 H Potassium 3.2 L Chloride 117 H Carbon Dioxide 23 BUN 9 Creatinine 0.65 Glucose 87 Calcium 7.8 L - ABG Interpretation ABG results: ABG ABG pH 7.43 pH Units (7.32-7.45) 09/08/17 21:22 ABG pCO2 39 mmHg (35-45) 09/08/17 21:22 ABG pO2 67 mmHg (85-104) L 09/08/17 21:22 ABG O2 Saturation 93 % (95-98) L 09/08/17 21:22 Consult Discharge Plan - Plan Referrals: Carloz Romano MD [Primary Care Provider] - (will be going to [facility]?)
[2017-09-14] MEDS: OLANZapine 10 MG TAB.RAPDIS PO SCH (21:51)
[2017-09-14] MEDS: Divalproex (12 HR) 500 MG TABLET PO SCH (21:51)
[2017-09-15] MEDS: D5% in 0.45% NACL 1,000 ML IVC SCH ×2 (01:49→09:49)
[2017-09-15] MEDS: Piperacillin/Tazobactam 3.375 GM in 0.9 % Sodium Chloride Mini Bag 100 ML IVPB SCH ×2 (05:16→14:47)
[2017-09-15] MEDS: *HR* Heparin 5,000 UNIT/ML VIAL SQ SCH ×2 (05:20→17:19)
[2017-09-15 07:35] LABS: Basophils % 0.5 %; Eosinophils # 0.2 K/mcL (0.0-0.6); Eosinophils % 2.1 %; Hematocrit 28.8 % (35.3-44.9); Immature Granulocytes % 3.5 % (0-4); Lymphocytes # 1.7 K/mcL (0.6-4.6); Lymphocytes % 19.6 %; Mean Corpuscular HGB Conc 31.3 g/dL (31.6-35.5); Mean Corpuscular Hemoglobin 26.6 pg (28.0-33.3); Mean Corpuscular Volume 85.2 fL (83.0-100.0); Mean Platelet Volume 10.4 fL (9.4-12.4); Monocytes # 1.1 K/mcL (0.0-1.3); Monocytes % 12.5 %; Neutrophils # 5.3 K/mcL (1.6-8.9); Platelet Count 136 K/mcL (140-400); Red Blood Count 3.38 M/mcL (3.82-4.97); Red Cell Distribution Width 15.7 % (11.5-14.5); Segmented Neutrophils % 61.8 %
[2017-09-15 07:57] LABS: BUN/Creatinine Ratio 17 (6-26); Blood Urea Nitrogen 8 mg/dL (8-23); Carbon Dioxide 23 mEq/L (23-29); Chloride 117 mEq/L (98-107); Glucose 108 mg/dL (70-105); Osmolality,Calculated 305 (280-300); Potassium 2.6 mEq/L (3.5-5.1); Sodium 148 mEq/L (136-145); eGFR For African Americans > 60 (> 60); eGFR For Non-African Americans > 60 (> 60)
[2017-09-15] MEDS: Loratadine 10 MG TABLET PO SCH (09:51)
[2017-09-15] MEDS: Baclofen 10 MG TABLET PO SCH ×2 (09:51→21:16)
[2017-09-15] MEDS: Divalproex (12 HR) 500 MG TABLET PO SCH ×2 (09:51→21:15)
[2017-09-15] MEDS: methIMAzole 5 MG TABLET PO SCH (09:51)
[2017-09-15] MEDS: Sennosides/Docusate Sodium TABLET PO SCH ×2 (09:51→21:16)
[2017-09-15] MEDS: Venlafaxine XR (24 HR) 75 MG CAP.ER.24H PO SCH (09:51)
[2017-09-15] MEDS ORDERED: D5% in Water 1,000 ML IVC SCH (10:15)
[2017-09-15] MEDS ORDERED: D5 IV SCH (10:30)
[2017-09-15] MEDS ORDERED: WATER IV SCH (10:30)
[2017-09-15] MEDS ORDERED: POTASSIUM ACETATE IV SCH (10:30)
[2017-09-15] MEDS: Potassium Chloride 40 MEQ in D5% in Water 1,000 ML IVC SCH ×2 (11:58→21:20)
--- NOTE | 2017-09-15 16:27 | Internal Med Progress Note ---
Date of Encounter: 09/15/17 Time of Encounter: 10:50 - Assessment and plan (1) Sepsis Current Visit: Yes Status: Resolved Assessment and plan: Resolved Likely sources UTI and proctitis/colitis Switched to PO Keflex and Flagyl Blood cx and urine cx no growth so far Qualifiers: Sepsis type: sepsis due to unspecified organism Qualified Code(s): A41.9 - Sepsis, unspecified organism (2) Acute cystitis without hematuria Current Visit: Yes Status: Acute Assessment and plan: So far urine cx no growth cpnt empirical abx (3) Colitis Current Visit: Yes Status: Acute Assessment and plan: Treating suspected proctitis/colitis as seen on CT abdomen/pelvis with empirical abx as per above Improving (4) Delirium due to general medical condition Current Visit: Yes Status: Acute Assessment and plan: Acute intermittent delirium with psychotic features due to toxic encephalopathy with UTI and Proctitis cont symptomatic and supportive care IV hydration Cont empirical abx Switched to PO Olanzapine (5) Psychosis Current Visit: Yes Status: Acute Assessment and plan: Psychosis with visual hallucinations. I think this is related to her acute infections vs a subacute psychiatric disturbance. Family today states this has been going on since July. Psychiatrist Dr. Pardo following; appreciate input. Repeat urine culture pending. He agrees with continuing low dose zyprexa 5 mg IM BID PRN psychosis. He also thinks this may be related to poor sleep. He recommends adding zyrpexa 10 mg QHS scheduled. He also recommends switching neuroleptic after consultation with neurologist. Per neurologist Dr. Powell recommendations, we will discontinue keppra and start depakote loading dose 1000 mg once tonight. Psychiatrist states we can use ativan 1 mg IV Q6H PRN for agitation not relieved by zyprexa (don't give together within 30 minutes of each other). Will await further recommendations from psychiatry. Qualifiers: Psychosis type: unspecified psychosis type Qualified Code(s): F29 - Unspecified psychosis not due to a substance or known physiological condition (6) Altered mental status Current Visit: Yes Status: Acute Assessment and plan: Due to toxic encephalopathy cont Olanzapine Qualifiers: Altered mental status type: delirium Qualified Code(s): R41.0 - Disorientation, unspecified (7) Cerebral palsy Current Visit: Yes Status: Chronic Qualifiers: Cerebral palsy type: unspecified type Qualified Code(s): G80.9 - Cerebral palsy, unspecified (8) GERD (gastroesophageal reflux disease) Current Visit: Yes Status: Chronic Assessment and plan: Continue omeprazole. Qualifiers: Esophagitis presence: esophagitis presence not specified Qualified Code(s) : K21.9 - Gastro-esophageal reflux disease without esophagitis (9) Hyperlipidemia Current Visit: Yes Status: Chronic Assessment and plan: Continue crestor. Qualifiers: Hyperlipidemia type: unspecified Qualified Code(s): E78.5 - Hyperlipidemia , unspecified (10) Hypertension Current Visit: Yes Status: Acute Assessment and plan: Cont home meds Continue PRN hydralazine Qualifiers: Hypertension type: essential hypertension Qualified Code(s): I10 - Essential (primary) hypertension (11) DVT prophylaxis Current Visit: Yes Status: Acute (12) Seizure Current Visit: Yes Status: Acute Assessment and plan: Neuro evaluated the pt..Recommend to cont Keppra Psych suggested to switched to Valproic acid for seizure as well as mood stabilizer (13) Hyperthyroidism Current Visit: Yes Status: Acute Assessment and plan: Low TSH with normal T4 and elevated T3 Does not look like hyperthyroidism no need of methimazole need to repeat TSH, T3 and T4 in few weeks as an out pt - Time Spent With Patient Total time spent is greater than 50% in coordination of care (as documented) at patient's floor/unit and/or counseling patient: - Subjective Interval history: Ms. Martinez is a 71 year old female with PMHx of dementia, cerebral palsy, Chronic seizure disorder, GERD, HLD, HTN, anxiety, depression.was brought to the ED for altered mental status. Pt happened to have UTI, Proctitis and rectal impaction too. She was admitted in the hospital and started her on empirical abx Zosyn. Her symptoms started improving slowly. She does have a couple of episodes generalized tonic clonic seizure. Pt was evaluated by Neuro and recommend to continue Keppra. She does have hallucinations and acute psychosis. Pt was evaluated by psychiatrist and recommend Olanzapine, as well switching Keppra to Valproic acid for her seizure. She is more alert, awake and O to self today. No events over night. Looks dehydrated. - Constitutional Vitals: Temp Pulse Resp BP Pulse Ox 97.9 F 68 14 85/58 96 09/15/17 16:02 09/15/17 16:02 09/15/17 16:02 09/15/17 16:02 09/15/17 16:02 General appearance: Present: cooperative, A&O X 1, pleasant - Head Head exam: Present: atraumatic, normal inspection - Neck Neck exam general surgery: Present: supple - Respiratory Respiratory exam: Present: decreased breath sounds. Absent: rales, respiratory distress, rhonchi, wheezes - Cardiovascular Cardiovascular exam: Present: RRR, +S1, +S2. Absent: tachycardia - GI/Abdominal GI/Abdominal exam: Present: normal bowel sounds, soft. Absent: rebound, rigid, tenderness - Extremities Exam Extremities exam: Absent: calf tenderness, pedal edema, tenderness - Back Exam Back exam: Absent: CVA tenderness (L), CVA tenderness (R) - Neurological Exam Neurological exam: Present: alert, oriented X3 - Psychiatric Psychiatric exam: Present: normal affect, normal mood Internal Medicine: Result - Labs CBC & Chem 7: 09/15/17 06:53 09/15/17 06:53 Labs: Short CBC 09/15/17 Range/Units 06:53 WBC 8.6 (4.3-11.1) K/mcL Hgb 9.0 L (11.5-15.4) g/dL Hct 28.8 L (35.3-44.9) % Plt Count 136 L (140-400) K/mcL Neutrophils # 5.3 (1.6-8.9) K/mcL BMP 09/15/17 06:53 Sodium 148 H Potassium 2.6 L Chloride 117 H Carbon Dioxide 23 BUN 8 Creatinine 0.47 L Glucose 108 H Calcium 7.0 L - ABG Interpretation ABG results: ABG ABG pH 7.43 pH Units (7.32-7.45) 09/08/17 21:22 ABG pCO2 39 mmHg (35-45) 09/08/17 21:22 ABG pO2 67 mmHg (85-104) L 09/08/17 21:22 ABG O2 Saturation 93 % (95-98) L 09/08/17 21:22 Consult Discharge Plan - Plan Referrals: Carloz Romano MD [Primary Care Provider] - (will be going to [facility]?)
[2017-09-15] MEDS: cephALEXin 500 MG CAPSULE PO SCH (21:15)
[2017-09-15] MEDS: metroNIDAZOLE 500 MG TABLET PO SCH (21:16)
[2017-09-15] MEDS: OLANZapine 10 MG TAB.RAPDIS PO SCH (21:16)
[2017-09-16] MEDS: *HR* Heparin 5,000 UNIT/ML VIAL SQ SCH ×2 (05:39→16:25)
[2017-09-16 07:07] LABS: BUN/Creatinine Ratio 15 (6-26); Blood Urea Nitrogen 6 mg/dL (8-23); Calcium 6.9 mg/dL (8.6-10.3); Carbon Dioxide 20 mEq/L (23-29); Chloride 112 mEq/L (98-107); Glucose 89 mg/dL (70-105); Magnesium 1.2 mg/dL (1.6-2.6); Osmolality,Calculated 277 (280-300); Potassium 5.3 mEq/L (3.5-5.1); Sodium 135 mEq/L (136-145); eGFR For African Americans > 60 (> 60); eGFR For Non-African Americans > 60 (> 60)
[2017-09-16 09:40] LABS: BUN/Creatinine Ratio 15 (6-26); Blood Urea Nitrogen 6 mg/dL (8-23); Calcium 7.2 mg/dL (8.6-10.3); Carbon Dioxide 17 mEq/L (23-29); Chloride 112 mEq/L (98-107); Glucose 75 mg/dL (70-105); Osmolality,Calculated 278 (280-300); Potassium 5.7 mEq/L (3.5-5.1); Sodium 136 mEq/L (136-145); eGFR For African Americans > 60 (> 60); eGFR For Non-African Americans > 60 (> 60)
[2017-09-16] MEDS: Venlafaxine XR (24 HR) 75 MG CAP.ER.24H PO SCH (09:41)
[2017-09-16] MEDS: metroNIDAZOLE 500 MG TABLET PO SCH ×3 (09:42→20:05)
[2017-09-16] MEDS: Loratadine 10 MG TABLET PO SCH (09:42)
[2017-09-16] MEDS: cephALEXin 500 MG CAPSULE PO SCH ×2 (09:43→20:05)
[2017-09-16] MEDS: Baclofen 10 MG TABLET PO SCH ×2 (09:43→20:05)
[2017-09-16] MEDS: Sennosides/Docusate Sodium TABLET PO SCH ×2 (09:43→20:05)
[2017-09-16] MEDS: Divalproex (12 HR) 500 MG TABLET PO SCH ×2 (09:43→20:05)
--- NOTE | 2017-09-16 13:49 | Internal Med Progress Note ---
Date of Encounter: 09/16/17 Time of Encounter: 10:40 - Assessment and plan (1) Electrolyte abnormality Current Visit: Yes Status: Acute Assessment and plan: Due to dehydration improved inc K + today so stopped all the K + supplements cont close monitoring possible d/c home in AM (2) Sepsis Current Visit: Yes Status: Resolved Assessment and plan: Resolved Likely sources UTI and proctitis/colitis Cont PO Keflex and Flagyl - total 7 days course Blood cx and urine cx no growth so far Qualifiers: Sepsis type: sepsis due to unspecified organism Qualified Code(s): A41.9 - Sepsis, unspecified organism (3) Acute cystitis without hematuria Current Visit: Yes Status: Acute Assessment and plan: So far urine cx no growth finished abx course (4) Colitis Current Visit: Yes Status: Acute Assessment and plan: Treating suspected proctitis/colitis as seen on CT abdomen/pelvis with empirical abx as per above Improving (5) Delirium due to general medical condition Current Visit: Yes Status: Acute Assessment and plan: Acute intermittent delirium with psychotic features due to toxic encephalopathy with UTI and Proctitis cont symptomatic and supportive care Cont empirical abx Switched to PO Olanzapine (6) Psychosis Current Visit: Yes Status: Acute Assessment and plan: Improved cont PO Olanzapine Qualifiers: Psychosis type: unspecified psychosis type Qualified Code(s): F29 - Unspecified psychosis not due to a substance or known physiological condition (7) Altered mental status Current Visit: Yes Status: Acute Assessment and plan: Due to toxic encephalopathy cont Olanzapine Qualifiers: Altered mental status type: delirium Qualified Code(s): R41.0 - Disorientation, unspecified (8) Cerebral palsy Current Visit: Yes Status: Chronic Qualifiers: Cerebral palsy type: unspecified type Qualified Code(s): G80.9 - Cerebral palsy, unspecified (9) GERD (gastroesophageal reflux disease) Current Visit: Yes Status: Chronic Assessment and plan: Continue omeprazole. Qualifiers: Esophagitis presence: esophagitis presence not specified Qualified Code(s) : K21.9 - Gastro-esophageal reflux disease without esophagitis (10) Hyperlipidemia Current Visit: Yes Status: Chronic Assessment and plan: Continue crestor. Qualifiers: Hyperlipidemia type: unspecified Qualified Code(s): E78.5 - Hyperlipidemia , unspecified (11) Hypertension Current Visit: Yes Status: Acute Assessment and plan: Cont home meds Continue PRN hydralazine Qualifiers: Hypertension type: essential hypertension Qualified Code(s): I10 - Essential (primary) hypertension (12) DVT prophylaxis Current Visit: Yes Status: Acute Assessment and plan: Continue SQ heparin. (13) Seizure Current Visit: Yes Status: Acute Assessment and plan: Neuro evaluated the pt..Recommend to cont Keppra Psych suggested to switched to Valproic acid for seizure as well as mood stabilizer (14) Hyperthyroidism Current Visit: Yes Status: Acute Assessment and plan: Low TSH with normal T4 and elevated T3 Does not look like hyperthyroidism no need of methimazole need to repeat TSH, T3 and T4 in few weeks as an out pt - Time Spent With Patient Total time spent is greater than 50% in coordination of care (as documented) at patient's floor/unit and/or counseling patient: - Subjective Interval history: Ms. Martinez is a 71 year old female with PMHx of dementia, cerebral palsy, Chronic seizure disorder, GERD, HLD, HTN, anxiety, depression.was brought to the ED for altered mental status. Pt happened to have UTI, Proctitis and rectal impaction too. She was admitted in the hospital and started her on empirical abx Zosyn. Her symptoms started improving slowly. She does have a couple of episodes generalized tonic clonic seizure. Pt was evaluated by Neuro and recommend to continue Keppra. She does have hallucinations and acute psychosis. Pt was evaluated by psychiatrist and recommend Olanzapine, as well switching Keppra to Valproic acid for her seizure. She is more alert, awake and O to self today. No events over night. - Constitutional Vitals: Temp Pulse Resp BP Pulse Ox 97.4 F L 72 18 101/68 97 09/16/17 11:28 09/16/17 11:28 09/16/17 11:28 09/16/17 11:28 09/16/17 11:28 General appearance: Present: cooperative, A&O X 1, pleasant - Head Head exam: Present: atraumatic, normal inspection - Neck Neck exam general surgery: Present: supple - Respiratory Respiratory exam: Present: decreased breath sounds. Absent: rales, respiratory distress, rhonchi, wheezes - Cardiovascular Cardiovascular exam: Present: RRR, +S1, +S2. Absent: tachycardia - GI/Abdominal GI/Abdominal exam: Present: normal bowel sounds, soft. Absent: rebound, rigid, tenderness - Extremities Exam Extremities exam: Present: pedal edema. Absent: calf tenderness, tenderness - Back Exam Back exam: Absent: CVA tenderness (L), CVA tenderness (R) - Neurological Exam Neurological exam: Present: alert, altered - Psychiatric Psychiatric exam: Present: normal affect, normal mood Internal Medicine: Result - Labs CBC & Chem 7: 09/15/17 06:53 09/16/17 08:44 Labs: BMP 09/16/17 09/16/17 06:13 08:44 Sodium 135 L D 136 Potassium 5.3 H D 5.7 H Chloride 112 H 112 H Carbon Dioxide 20 L 17 L BUN 6 L 6 L Creatinine 0.39 L 0.40 L Glucose 89 75 Calcium 6.9 L 7.2 L - ABG Interpretation ABG results: ABG ABG pH 7.43 pH Units (7.32-7.45) 09/08/17 21:22 ABG pCO2 39 mmHg (35-45) 09/08/17 21:22 ABG pO2 67 mmHg (85-104) L 09/08/17 21:22 ABG O2 Saturation 93 % (95-98) L 09/08/17 21:22 Consult Discharge Plan - Plan Referrals: Carloz Romano MD [Primary Care Provider] - (will be going to [facility]?)
[2017-09-16 17:47] LABS: Valproate Free 15 ug/mL (7-23); Valproate Total 23 ug/mL (50-125)
[2017-09-16] MEDS: OLANZapine 10 MG TAB.RAPDIS PO SCH (20:05)
[2017-09-17] MEDS: *HR* Heparin 5,000 UNIT/ML VIAL SQ SCH (05:08)
[2017-09-17 05:25] LABS: Basophils # 0.1 K/mcL (0.0-0.2); Basophils % 0.6 %; Eosinophils # 0.2 K/mcL (0.0-0.6); Eosinophils % 1.9 %; Hematocrit 28.8 % (35.3-44.9); Hemoglobin 9.3 g/dL (11.5-15.4); Lymphocytes # 1.8 K/mcL (0.6-4.6); Lymphocytes % 17.2 %; Mean Corpuscular HGB Conc 32.3 g/dL (31.6-35.5); Mean Corpuscular Volume 83.5 fL (83.0-100.0); Mean Platelet Volume 11.1 fL (9.4-12.4); Monocytes # 1.1 K/mcL (0.0-1.3); Monocytes % 10.6 %; Neutrophils # 6.1 K/mcL (1.6-8.9); Platelet Count 176 K/mcL (140-400); Red Blood Count 3.45 M/mcL (3.82-4.97); Red Cell Distribution Width 15.7 % (11.5-14.5); Segmented Neutrophils % 58.7 %
[2017-09-17 05:46] LABS: BUN/Creatinine Ratio 18 (6-26); Blood Urea Nitrogen 7 mg/dL (8-23); Calcium 7.3 mg/dL (8.6-10.3); Carbon Dioxide 24 mEq/L (23-29); Chloride 112 mEq/L (98-107); Glucose 71 mg/dL (70-105); Magnesium 1.3 mg/dL (1.6-2.6); Osmolality,Calculated 284 (280-300); Potassium 4.5 mEq/L (3.5-5.1); Sodium 139 mEq/L (136-145); eGFR For African Americans > 60 (> 60); eGFR For Non-African Americans > 60 (> 60)
[2017-09-17 06:44] LABS: Hypochromasia Present (Not Present); Platelet Estimate Normal (Normal); Toxic Granulation Present (Not Present)
[2017-09-17 07:18] LABS: Valproate % Free 64 % (5-18)
[2017-09-17] MEDS: Sennosides/Docusate Sodium TABLET PO SCH (07:40)
[2017-09-17] MEDS: metroNIDAZOLE 500 MG TABLET PO SCH (07:40)
[2017-09-17] MEDS: Baclofen 10 MG TABLET PO SCH (07:40)
[2017-09-17] MEDS: Loratadine 10 MG TABLET PO SCH (07:40)
[2017-09-17] MEDS: Divalproex (12 HR) 500 MG TABLET PO SCH (07:40)
[2017-09-17] MEDS: cephALEXin 500 MG CAPSULE PO SCH (07:40)
[2017-09-17] MEDS: Venlafaxine XR (24 HR) 75 MG CAP.ER.24H PO SCH (07:41)
--- NOTE | 2017-09-17 08:43 | Discharge Summary ---
- NOTES TO OUTPATIENT PROVIDER Notes to Outpatient Provider: f/u with PCP in one week. Cont antibiotic for 2 more days. Need to check TSH, T3 and T4 in 4 weeks.. Her TSH was low and T3 , T4 were normal here, so did not start any medication for hyperthyroidism Date of Encounter: 09/17/17 Time of Encounter: 08:41 - Discharge Diagnosis (1) Electrolyte abnormality Priority: Primary Status: Acute (2) Sepsis Priority: Primary Status: Resolved Qualifiers: Sepsis type: sepsis due to unspecified organism Qualified Code(s): A41.9 - Sepsis, unspecified organism (3) Acute cystitis without hematuria Priority: Primary Status: Acute (4) Colitis Priority: Primary Status: Acute (5) Delirium due to general medical condition Priority: Secondary Status: Acute (6) Psychosis Priority: Secondary Status: Acute Qualifiers: Psychosis type: unspecified psychosis type Qualified Code(s): F29 - Unspecified psychosis not due to a substance or known physiological condition (7) Altered mental status Priority: Secondary Status: Acute Qualifiers: Altered mental status type: delirium Qualified Code(s): R41.0 - Disorientation, unspecified (8) Cerebral palsy Priority: Secondary Status: Chronic Qualifiers: Cerebral palsy type: unspecified type Qualified Code(s): G80.9 - Cerebral palsy, unspecified (9) GERD (gastroesophageal reflux disease) Priority: Secondary Status: Chronic Qualifiers: Esophagitis presence: esophagitis presence not specified Qualified Code(s) : K21.9 - Gastro-esophageal reflux disease without esophagitis (10) Hyperlipidemia Priority: Secondary Status: Chronic Qualifiers: Hyperlipidemia type: unspecified Qualified Code(s): E78.5 - Hyperlipidemia , unspecified (11) Hypertension Priority: Secondary Status: Acute Qualifiers: Hypertension type: essential hypertension Qualified Code(s): I10 - Essential (primary) hypertension (12) Seizure Priority: Secondary Status: Acute (13) Hyperthyroidism Priority: Secondary Status: Acute (14) DVT prophylaxis Priority: Secondary Status: Acute Hospital course: Ms. Martinez is a 71 year old female with PMHx of dementia, cerebral palsy, Chronic seizure disorder, GERD, HLD, HTN, anxiety, depression.was brought to the ED for altered mental status. Pt happened to have UTI, Proctitis and rectal impaction too. She was admitted in the hospital and started her on empirical abx Zosyn. Her symptoms started improving slowly. She does have a couple of episodes generalized tonic clonic seizure. Pt was evaluated by Neuro and recommend to continue Keppra. Her EEG was negative for seizure activity. She does have hallucinations and acute psychosis. Pt was evaluated by psychiatrist and recommend Olanzapine, as well switching Keppra to Valproic acid for her seizure. So pt was continued on Olanzapine and Keppra. Has been doing well from last 3 days. No psychotic / behavioral / hallucinations noticed. Will d/c her home in stable condition with home health services - Time Spent with Patient Total time spent providing and/or coordinating discharge services: Greater than 30 minutes (Spent 45 minutes on this patient's discharge summary due to complex medical problems and patient needed a lot of education regarding discharge instructions) - Discharge Medications Prescriptions: cephALEXin [Keflex] 500 mg PO BID #3 capsule Divalproex (12 HR) [Depakote (12 HR)] 500 mg PO BID #60 tablet. Lactobacillus Acidophilus [Acidophilus] 1 each PO BID #6 capsule metroNIDAZOLE [Flagyl] 500 mg PO TID #5 tablet OLANZapine [Zyprexa Zydis] 10 mg PO HS #30 tab.rapdis Home Medications: Baclofen 20 mg PO BID 09/08/17 [History] Citalopram [CeleXA] 20 mg PO DAILY 09/08/17 [History] Loratadine [Allergy Relief] 10 mg PO DAILY 09/08/17 [History] Omeprazole [PriLOSEC] 40 mg PO DAILY 09/08/17 [History] Promethazine HCl 12.5 mg PO Q8H PRN 09/08/17 [History] Rosuvastatin Calcium [Crestor] 5 mg PO DAILY 09/08/17 [History] Venlafaxine HCl [Venlafaxine HCl ER] 75 mg PO DAILY 09/08/17 [History] Divalproex (12 HR) [Depakote (12 HR)] 500 mg PO BID #60 tablet. 09/17/17 [Rx] Lactobacillus Acidophilus [Acidophilus] 1 each PO BID #6 capsule 09/17/17 [Rx] OLANZapine [Zyprexa Zydis] 10 mg PO HS #30 tab.rapdis 09/17/17 [Rx] cephALEXin [Keflex] 500 mg PO BID #3 capsule 09/17/17 [Rx] metroNIDAZOLE [Flagyl] 500 mg PO TID #5 tablet 09/17/17 [Rx] Allergies/Adverse Reactions: 3 Allergy/AdvReac Type Severity Reaction Status Date / Time Yoieeth-Ikx-Auv Reductase Allergy Intermediate Rash Verified 11/18/15 17:58 Inhibitor [Statins] clopidogrel [From Plavix] Allergy Anaphylaxis Verified 08/17/15 13:37 Sulfa (Sulfonamide Allergy Anaphylaxis Verified 08/17/15 13:37 Antibiotics) Warfarin [From Coumadin] Allergy Anaphylaxis Verified 08/17/15 13:37 Date of admission: 09/08/17 22:37 Primary care physician: Carloz Romano MD Consults: 09/10/17 00:01 Consult to Neurology [CONS] Routine Consulting Provider: [facility] Reason for Consult: possible seizure like activity. EEG ordered Call Completed: No 09/10/17 10:41 Consult to Interpret Exam [CONS] Routine Consulting Provider: aMndeep Whipple I Consult to Interpret Exam: Interpret EEG 09/11/17 13:42 Consult to Psychiatry [CONS] Routine Consulting Provider: Psychiatry [facility] Reason for Consult: Visual Hallucinations Time Notified: 13:17 Call Completed: Yes 09/12/17 09:37 Consult to Psychiatry [CONS] Stat Consulting Provider: Psychiatry [facility] Reason for Consult: Visual Hallucinations Call Completed: Yes 09/13/17 18:41 Consult to Neurology [CONS] Routine Consulting Provider: [facility] Reason for Consult: Seizures Time Notified: 17:45 Call Completed: Yes - Constitutional Vitals: Temp Pulse Resp BP Pulse Ox 97.8 F 77 16 104/70 96 09/17/17 07:13 09/17/17 07:13 09/17/17 07:13 09/17/17 07:13 09/17/17 07:13 General appearance: Present: cooperative, A&O X 1, pleasant - Neck Neck exam general surgery: Present: supple - Respiratory Respiratory exam: Present: decreased breath sounds. Absent: rales, respiratory distress, rhonchi, wheezes - Cardiovascular Cardiovascular exam: Present: RRR, +S1, +S2. Absent: tachycardia - GI/Abdominal GI/Abdominal exam: Present: normal bowel sounds, soft. Absent: rebound, rigid, tenderness - Extremities Exam Extremities exam: Absent: calf tenderness, pedal edema, tenderness - Back Exam Back exam: Absent: CVA tenderness (L), CVA tenderness (R) - Neurological Exam Neurological exam: Present: alert, oriented X3 - Psychiatric Psychiatric exam: Present: normal affect, normal mood - Patient Status Disposition: Home Health Service Condition: Good Overall status at discharge: patient is back to baseline - Discharge Instructions Follow Up With: Carloz Romano MD [Primary Care Provider] - (will be going to [facility]?) - Diet and Activity Activity: as per physical therapy, increase activity as tolerated Diet: low salt diet
--- NOTE | 2017-09-17 08:50 | Physician Discharge Referral ---
Home Health/Hosp Referral Info Transfer to: Home Health Provider in Charge Post Discharge: PCP - Diagnosis (1) Electrolyte abnormality Status: Acute (2) Sepsis Status: Resolved (3) Acute cystitis without hematuria Status: Acute (4) Colitis Status: Acute (5) Delirium due to general medical condition Status: Acute (6) Psychosis Status: Acute (7) Altered mental status Status: Acute (8) Cerebral palsy Status: Chronic (9) GERD (gastroesophageal reflux disease) Status: Chronic (10) Hyperlipidemia Status: Chronic (11) Hypertension Status: Acute (12) Seizure Status: Acute (13) Hyperthyroidism Status: Acute (14) DVT prophylaxis Status: Acute - Respiratory Orders Smoking Cessation: Smoking cessation has been advised. For more information, call the [place] Tobacco Quit Line at 4-486-YOAJ-NOW. - Services Needed Following services are medically necessary services: Nursing - Transfer Medications Prescriptions: cephALEXin [Keflex] 500 mg PO BID #3 capsule Divalproex (12 HR) [Depakote (12 HR)] 500 mg PO BID #60 tablet[address] Damian Acidfawad [Acidophilus] 1 each PO BID #6 capsule metroNIDAZOLE [Flagyl] 500 mg PO TID #5 tablet OLANZapine [Zyprexa Zydis] 10 mg PO HS #30 tab.rapdis Home Medications: Baclofen 20 mg PO BID 09/08/17 [History] Citalopram [CeleXA] 20 mg PO DAILY 09/08/17 [History] Loratadine [Allergy Relief] 10 mg PO DAILY 09/08/17 [History] Omeprazole [PriLOSEC] 40 mg PO DAILY 09/08/17 [History] Promethazine HCl 12.5 mg PO Q8H PRN 09/08/17 [History] Rosuvastatin Calcium [Crestor] 5 mg PO DAILY 09/08/17 [History] Venlafaxine HCl [Venlafaxine HCl ER] 75 mg PO DAILY 09/08/17 [History] Divalproex (12 HR) [Depakote (12 HR)] 500 mg PO BID #60 tablet. 09/17/17 [Rx] Lactobacillus Acidophilus [Acidophilus] 1 each PO BID #6 capsule 09/17/17 [Rx] OLANZapine [Zyprexa Zydis] 10 mg PO HS #30 tab.rapdis 09/17/17 [Rx] cephALEXin [Keflex] 500 mg PO BID #3 capsule 09/17/17 [Rx] metroNIDAZOLE [Flagyl] 500 mg PO TID #5 tablet 09/17/17 [Rx] Allergies/Adverse Reactions: 3 Allergy/AdvReac Type Severity Reaction Status Date / Time Wlrrsyf-Clc-Ive Reductase Allergy Intermediate Rash Verified 11/18/15 17:58 Inhibitor [Statins] clopidogrel [From Plavix] Allergy Anaphylaxis Verified 08/17/15 13:37 Sulfa (Sulfonamide Allergy Anaphylaxis Verified 08/17/15 13:37 Antibiotics) Warfarin [From Coumadin] Allergy Anaphylaxis Verified 08/17/15 13:37 Certification: Further, I certify that my clinical findings support that this patient is homebound (i.e. absences from home require considerable and taxing effort and are for medical reasons or muslim services or infrequently or short duration when for other reasons) because: Homebound Reason: Patient requires assistance of a person or device to safely leave home Attestation: My signature below is to certify that this patient is under my care and that I, or nurse practitioner, or a physician's psychologist research assistant working with me, has a face-to -face encounter with this patient.
[2017-09-17 12:23] VITALS: BP 92/67
== END 2017-09-17 14:39 | disposition home health service (06) | DRG 871 ==
LOC: 2ANU 13:09 → EMEROO 13:09 → 2ANU 19:05 → SUATTDRO 22:37
PROVIDERS: ADMIT Hospitalist; ATTEND Family Medicine

== ENCOUNTER 2017-11-06 20:41 | Inpatient (IN) ==
--- NOTE | 2017-11-06 21:02 | Emergency Department Note ---
Disposition Clinical Impression: Hypokalemia Pneumonia Qualifiers: Pneumonia type: due to unspecified organism Laterality: right Lung location: lower lobe of lung Qualified Code(s): J18.1 - Lobar pneumonia, unspecified organism Altered mental status Qualifiers: Altered mental status type: disorientation Qualified Code(s): R41.0 - Disorientation, unspecified Disposition: Admitted As Inpatient Condition: Good Referrals: Dayan Prieto, [employer] [Primary Care Provider] - Time of Disposition: 00:00 Altered Mental Status HPI - General Stated Complaint: Altered Mental Status Time Seen by Provider: 11/06/17 20:50 Source: EMS, other (Caregiver) Mode of arrival: EMS Limitations: altered mental status, other (Patient also has a history of dementia) Nursing Notes Reviewed: Yes Vital Signs Reviewed: Yes - History of Present Illness HPI Narrative: This is a 71-year-old female with history of dementia and developmental delay brought in by EMS because her caregiver found her to be hallucinating, confused , and not very talkative. Caregiver states that she normally talks endlessly. In addition, the patient's hands were clenched. She does not contribute to her history of present illness or review of systems. MD complaint: altered mental status, confusion, decreased responsiveness - Related Data Home Medications Medication Instructions Recorded Confirmed Baclofen 20 mg PO BID 09/08/17 09/08/17 Citalopram [CeleXA] 20 mg PO DAILY 09/08/17 09/08/17 Loratadine [Allergy Relief] 10 mg PO DAILY 09/08/17 09/08/17 Omeprazole [PriLOSEC] 40 mg PO DAILY 09/08/17 09/08/17 Promethazine HCl 12.5 mg PO Q8H PRN 09/08/17 09/08/17 Rosuvastatin Calcium [Crestor] 5 mg PO DAILY 09/08/17 09/08/17 Venlafaxine HCl [Venlafaxine HCl 75 mg PO DAILY 09/08/17 09/08/17 ER] Previous Rx's Medication Instructions Recorded Divalproex (12 HR) [Depakote (12 500 mg PO BID #60 tablet. 09/17/17 HR)] Lactobacillus Acidophilus 1 each PO BID #6 capsule 09/17/17 [Acidophilus] OLANZapine [Zyprexa Zydis] 10 mg PO HS #30 tab.rapdis 09/17/17 cephALEXin [Keflex] 500 mg PO BID #3 capsule 09/17/17 metroNIDAZOLE [Flagyl] 500 mg PO TID #5 tablet 09/17/17 Allergies Allergy/AdvReac Type Severity Reaction Status Date / Time Ijlxrhm-Kqz-Kxd Reductase Allergy Intermediate Rash Verified 11/18/15 17:58 Inhibitor [Statins] clopidogrel [From Plavix] Allergy Anaphylaxis Verified 08/17/15 13:37 Sulfa (Sulfonamide Allergy Anaphylaxis Verified 08/17/15 13:37 Antibiotics) Warfarin [From Coumadin] Allergy Anaphylaxis Verified 08/17/15 13:37 Limitations: ROS unobtainable due to patients medical condition Past Medical History - Past Medical History Medical history: Reports: dementia, GERD, hyperlipidemia, hypertension, other Surgical history: Reports: other (shoulder, knee surgery) Psychiatric history: Reports: anxiety, depression - Social History Smoking Status: Never smoker Smokeless Tobacco Status: No Alcohol use: Reports: none Drug use: Reports: none Physical Exam - General Limitations: altered mental status General appearance: alert, in no apparent distress - Head Head exam: atraumatic, normocephalic, normal inspection - Eye Eye exam: Present: other (Right pupil is 4 mm and reactive to light, left pupil is 4 mm with an obvious cataract and nonreactive) - Neck Neck exam: Present: normal inspection, full ROM, trachea midline - Chest Chest inspection: Present: normal inspection, symmetric chest wall rise - Respiratory Respiratory exam: Present: normal lung sounds bilaterally - Cardiovascular Cardiovascular exam: Present: regular rate, normal rhythm, normal heart sounds - Abdominal Exam Abdominal exam: Present: soft, Non-Tender. Absent: tenderness, distention, guarding, rebound, rigidity - Extremities Exam Extremities exam: Present: normal inspection, pedal edema (Nonpitting bilateral pedal edema) - Neurological Exam Neurological exam: Present: alert (Patient initially had her hands clenched, but was able to relax them on request and squeezes my fingers with equal strength bilaterally. She has minimal movement of either foot when asked to plantar flex against resistance.) - Psychiatric Psychiatric exam: Present: other - Skin Skin exam: Present: warm (Cool fingers and hands), dry, intact, normal color Course Course Narrative: This is a 71-year-old female with altered mental status. She does not appear to have any unilateral neurologic deficit, with equal strong hand fondant cooker and equal week plantar flexion. The fact that she initially had her hands clenched and released these on request is consistent with a behavioral problem. Vital Signs Temperature 98.2 F 11/06/17 20:43 Pulse Rate 98 11/06/17 20:43 Respiratory Rate 20 11/06/17 20:43 Blood Pressure 102/72 11/06/17 20:43 O2 Sat by Pulse Oximetry 94 11/06/17 20:43 Temperature 98.2 F 11/06/17 20:43 Pulse Rate 95 11/06/17 23:02 Respiratory Rate 18 11/06/17 23:02 Blood Pressure 104/78 11/06/17 23:02 O2 Sat by Pulse Oximetry 91 11/06/17 23:02 Oxygen Delivery Oxygen Delivery Nasal Cannula Altered Mental Status - MDM Narrative Medical decision making narrative: This is a 71-year-old female who I believe has a behavioral problem that affected her interactions, but on evaluation she has significant hypokalemia and a likely right lower lobe pneumonia. She does not appear to have a urinary infection. Her white count of 31.7 is very concerning. Ceftriaxone and doxycycline were given for antimicrobial coverage to avoid interaction between azithromycin and citalopram Extended release and liquid potassium chloride were given for her hypokalemia I discussed her case with the on-call hospitalist, who accepted her for admission to telemetry. - Differential Diagnosis Likely: altered mental status - Lab Data Lab results reviewed: Yes I reviewed the patient's lab results. Lab results narrative: Potassium was low at 2.1, white count is elevated at 31.7 LFT was unremarkable UA was unremarkable Result diagrams: 11/06/17 21:22 11/06/17 21:22 Lab Results 11/06/17 11/06/17 11/06/17 Range/Units 21:20 21:22 21:22 WBC 31.7 H* (4.3-11.1) K/mcL RBC 4.67 (3.82-4.97) M/mcL Hgb 13.0 (11.5-15.4) g/dL Hct 39.6 (35.3-44.9) % MCV 84.8 (83.0-100.0) fL MCH 27.8 L (28.0-33.3) pg MCHC 32.8 (31.6-35.5) g/dL RDW 15.3 H (11.5-14.5) % Plt Count 177 (140-400) K/mcL MPV 11.2 (9.4-12.4) fL Immature Gran % 0.9 (0-4) % Seg Neutrophils % 84.0 % Lymphocytes % 6.2 % Monocytes % 8.7 % Eosinophils % 0.0 % Basophils % 0.2 % Neutrophils # 26.6 H (1.6-8.9) K/mcL Lymphocytes # 2.0 (0.6-4.6) K/mcL Monocytes # 2.8 H (0.0-1.3) K/mcL Eosinophils # 0.0 (0.0-0.6) K/mcL Basophils # 0.1 (0.0-0.2) K/mcL Platelet Estimate Normal (Normal) PT 11.7 (9.4-12.1) Seconds INR 1.0 Sodium (136-145) mEq/L Potassium (3.5-5.1) mEq/L Chloride (98-107) mEq/L Carbon Dioxide (23-29) mEq/L BUN (8-23) mg/dL Creatinine (0.60-1.20) mg/dL Est GFR ( Amer) (> 60) Est GFR (Non-Af Amer) (> 60) BUN/Creatinine Ratio (6-26) Glucose (70-105) mg/dL POC Glucose 134 H (70-99) mg/dL Calculated Osmolality (280-300) Calcium (8.6-10.3) mg/dL Total Bilirubin (0.3-1.0) mg/dL Direct Bilirubin (0.0-0.2) mg/dL Indirect Bilirubin (0.0-1.2) mg/dL AST (13-39) Units/L ALT (7-52) Units/L Alkaline Phosphatase (34-104) Units/L Troponin I (< 0.04) ng/mL Serum Total Protein (6.4-8.9) g/dL Albumin (3.5-5.7) g/dL Globulin (2.4-3.5) g/dL Albumin/Globulin Ratio (1.1-2.2) Urine Color (Yellow) Urine Clarity (Clear) Urine pH (5.0-8.0) pH Units Ur Specific [place] (1.010-1.025) Urine Protein (Neg-Trace) mg/dL Urine Glucose (UA) (Normal) mg/dL Urine Ketones (Negative) mg/dL Urine Blood (Negative) Urine Nitrite (Negative) Urine Bilirubin (Negative) Urine Urobilinogen (Normal) mg/dL Ur Leukocyte Esterase (Negative) Ur Culture Indicated? (NO) Urine Opiates Screen (Uujwlu=989) ng/mL Ur Barbiturates Screen (Fpwpho=996) ng/mL Ur Phencyclidine Scrn (Cutoff=25) ng/mL Ur Amphetamines Screen (Aezjlx=7844) ng/mL U Benzodiazepines Scrn (Bkhptq=369) ng/mL Urine Cocaine Screen (Cutoff= 300) ng/mL U Marijuana (THC) Screen (Cutoff = 50) ng/mL Ur Drug Screen Interp Ethyl Alcohol (Less than 10) mg/dL 11/06/17 11/06/17 11/06/17 Range/Units 21:22 21:47 21:47 WBC (4.3-11.1) K/mcL RBC (3.82-4.97) M/mcL Hgb (11.5-15.4) g/dL Hct (35.3-44.9) % MCV (83.0-100.0) fL MCH (28.0-33.3) pg MCHC (31.6-35.5) g/dL RDW (11.5-14.5) % Plt Count (140-400) K/mcL MPV (9.4-12.4) fL Immature Gran % (0-4) % Seg Neutrophils % % Lymphocytes % % Monocytes % % Eosinophils % % Basophils % % Neutrophils # (1.6-8.9) K/mcL Lymphocytes # (0.6-4.6) K/mcL Monocytes # (0.0-1.3) K/mcL Eosinophils # (0.0-0.6) K/mcL Basophils # (0.0-0.2) K/mcL Platelet Estimate (Normal) PT (9.4-12.1) Seconds INR Sodium 131 L (136-145) mEq/L Potassium 2.1 L* (3.5-5.1) mEq/L Chloride 80 L (98-107) mEq/L Carbon Dioxide 38 H (23-29) mEq/L BUN 21 (8-23) mg/dL Creatinine 0.96 (0.60-1.20) mg/dL Est GFR ( Amer) > 60 (> 60) Est GFR (Non-Af Amer) 57 L (> 60) BUN/Creatinine Ratio 22 (6-26) Glucose 110 H (70-105) mg/dL POC Glucose (70-99) mg/dL Calculated Osmolality 276 L (280-300) Calcium 9.1 (8.6-10.3) mg/dL Total Bilirubin 0.3 (0.3-1.0) mg/dL Direct Bilirubin 0.0 (0.0-0.2) mg/dL Indirect Bilirubin 0.3 (0.0-1.2) mg/dL AST 13 (13-39) Units/L ALT 6 L (7-52) Units/L Alkaline Phosphatase 96 (34-104) Units/L Troponin I < 0.03 (< 0.04) ng/mL Serum Total Protein 6.7 (6.4-8.9) g/dL Albumin 2.9 L (3.5-5.7) g/dL Globulin 3.8 H (2.4-3.5) g/dL Albumin/Globulin Ratio 0.8 L (1.1-2.2) Urine Color Yellow (Yellow) Urine Clarity Clear (Clear) Urine pH 6.0 (5.0-8.0) pH Units Ur Specific [place] 1.015 (1.010-1.025) Urine Protein Negative (Neg-Trace) mg/dL Urine Glucose (UA) Normal (Normal) mg/dL Urine Ketones Negative (Negative) mg/dL Urine Blood Negative (Negative) Urine Nitrite Negative (Negative) Urine Bilirubin Negative (Negative) Urine Urobilinogen Normal (Normal) mg/dL Ur Leukocyte Esterase Negative (Negative) Ur Culture Indicated? NO (NO) Urine Opiates Screen Negative (Otuwgl=081) ng/mL Ur Barbiturates Screen Negative (Gmfjzl=477) ng/mL Ur Phencyclidine Scrn Negative (Cutoff=25) ng/mL Ur Amphetamines Screen Negative (Xqeobw=2637) ng/mL U Benzodiazepines Scrn Negative (Fkrsde=210) ng/mL Urine Cocaine Screen Negative (Cutoff= 300) ng/mL U Marijuana (THC) Screen Negative (Cutoff = 50) ng/mL Ur Drug Screen Interp See Below Ethyl Alcohol < 10 (Less than 10) mg/dL - Radiology Data Radiology results reviewed: Yes I reviewed the patient's radiology results. CT brain was interpreted as showing no acute process Chest x-ray was interpreted as showing a multifocal right lower lung pneumonia versus atelectasis - EKG Data EKG results narrative: ECG shows a sinus rhythm, 89 bpm, interpretation is made more difficult because of noise from patient movement, but there appear to be normal intervals, normal axis, normal ST and T waves TPA Checklist - LKW: 3-4.5 hrs Add. Warnings/Precautions Patient/family understanding: The patient/family members have been counseled and understood the risk, benefit , and alternatives of treatment. Critical Care Time Critical Care Time: Yes Total Critical Care Time: 25 Attestation: Time spent independent of other separately billable procedures was 25 minutes
[2017-11-06 21:55] LABS: Basophils % 0.2 %
[2017-11-06 21:56] LABS: Basophils # 0.1 K/mcL (0.0-0.2); Hematocrit 39.6 % (35.3-44.9); Immature Granulocytes % 0.9 % (0-4); Lymphocytes % 6.2 %; Mean Corpuscular HGB Conc 32.8 g/dL (31.6-35.5); Mean Corpuscular Hemoglobin 27.8 pg (28.0-33.3); Mean Corpuscular Volume 84.8 fL (83.0-100.0); Mean Platelet Volume 11.2 fL (9.4-12.4); Monocytes # 2.8 K/mcL (0.0-1.3); Monocytes % 8.7 %; Neutrophils # 26.6 K/mcL (1.6-8.9); Platelet Count 177 K/mcL (140-400); Red Blood Count 4.67 M/mcL (3.82-4.97); Red Cell Distribution Width 15.3 % (11.5-14.5)
[2017-11-06 21:58] LABS: Bilirubin,Urine Negative (Negative); Blood,Urine Negative (Negative); Clarity,Urine Clear (Clear); Color,Urine Yellow (Yellow); Glucose,Urine (UA) Normal (Normal); Ketones,Urine Negative (Negative); Leukocyte Esterase,Urine Negative (Negative); Nitrite,Urine Negative (Negative); Protein,Urine Negative (Neg-Trace); Specific Gravity,Urine 1.015 (1.010-1.025); Urobilinogen,Urine Normal (Normal)
[2017-11-06 22:01] LABS: Prothrombin Time 11.7 Seconds (9.4-12.1)
[2017-11-06 22:08] LABS: Amphetamine Screen,Urine Negative ng/mL (Cutoff=1000); Barbiturate Screen,Urine Negative ng/mL (Cutoff=200); Benzodiazepines Screen,Urine Negative ng/mL (Cutoff=200); Cannabinoid Screen,Urine Negative ng/mL (Cutoff = 50); Cocaine Screen,Urine Negative ng/mL (Cutoff= 300); Opiate Screen,Urine Negative ng/mL (Cutoff=300); Phencyclidine Screen,Urine Negative ng/mL (Cutoff=25)
[2017-11-06 22:16] LABS: Platelet Estimate Normal (Normal)
[2017-11-06 22:20] LABS: Alanine Aminotransferase 6 Units/L (7-52); Albumin 2.9 g/dL (3.5-5.7); Albumin/Globulin Ratio 0.8 (1.1-2.2); Alkaline Phosphatase 96 Units/L (34-104); Aspartate Amino Transferase 13 Units/L (13-39); BUN/Creatinine Ratio 22 (6-26); Bilirubin,Indirect 0.3 mg/dL (0.0-1.2); Bilirubin,Total 0.3 mg/dL (0.3-1.0); Blood Urea Nitrogen 21 mg/dL (8-23); Calcium 9.1 mg/dL (8.6-10.3); Carbon Dioxide 38 mEq/L (23-29); Chloride 80 mEq/L (98-107); Ethanol < 10 mg/dL (Less than 10); Globulin 3.8 g/dL (2.4-3.5); Glucose 110 mg/dL (70-105); Osmolality,Calculated 276 (280-300); Potassium 2.1 mEq/L (3.5-5.1); Sodium 131 mEq/L (136-145); Total Protein 6.7 g/dL (6.4-8.9); Troponin I < 0.03 ng/mL (< 0.04); eGFR For Non-African Americans 57 (> 60)
[2017-11-06] MEDS ORDERED: Potassium Chloride Elixir 20 MEQ/15 ML UDC PO ONE (22:33)
[2017-11-06] MEDS ORDERED: 0.9 % Sodium Chloride 1,000 ML IV SCH (23:45)
[2017-11-06] MEDS ORDERED: cefTRIAXone 1,000 MG in Water for inj. (sterile) 20 ML 10 ML IVP ONE (23:49)
[2017-11-06] MEDS ORDERED: Doxycycline 100 MG CAPSULE PO ONE (23:50)
[2017-11-06] MEDS ORDERED: 0.9 % Sodium Chloride 1,000 ML ONE (23:58)
--- NOTE | 2017-11-07 03:02 | Internal Med History&Physical ---
Date of Encounter: 11/07/17 Time of Encounter: 02:57 Internal Medicine - H&P: HPI Chief complaint: Altered mental status Admitted From: Long-term Nursing Facility Plans for Post Hospital Care: Transfer Inp Rehab Fac History of present illness: Ms. Martinez is a 71 year old female PMHx of dementia, developmental delay, cerebral palsy, Chronic seizure disorder, GERD, HLD, HTN, anxiety, depression.was brought to the ED by EMS for altered mental status, hallucinating. Patient is not participating in history therefore obtained from medical records and ER physician. In ER her vitals were low normal blood pressure with slight tachycardia. Initial lab with significant leukocytosis, low potassium level. CT head with no acute finding. Chest x-ray with multifocal right lower lung pneumonia versus atelectasis. Initial treatment in ER doxycycline, Rocephin and IV fluid and potassium supplement was given. ER physician called on-call hospitalists for the admission with the diagnosis of pneumonia, hypokalemia Review of system-not available due to clinical condition Past Med Surg Social Fam HX - Past Medical History Medical history: dementia, GERD, hyperlipidemia, hypertension, other Additional medical history: CP, osteoarthritis., anxiety, depression, Psychiatric history: anxiety, depression - Past Surgical History Surgical History: other (shoulder, knee surgery) Additional surgical history: abdominal surgery, knee surgeries. - Social History Smoking Status: Never smoker Smokeless Tobacco Status: No Alcohol use: none Drug use: none - Family History Mother Adopted: Yes Father Adopted: Yes Internal Medicine - H&P: Meds Baclofen 20 mg PO BID 09/08/17 [History] Citalopram [CeleXA] 20 mg PO DAILY 09/08/17 [History] Loratadine [Allergy Relief] 10 mg PO DAILY 09/08/17 [History] Omeprazole [PriLOSEC] 40 mg PO DAILY 09/08/17 [History] Promethazine HCl 12.5 mg PO Q8H PRN 09/08/17 [History] Rosuvastatin Calcium [Crestor] 5 mg PO DAILY 09/08/17 [History] Venlafaxine HCl [Venlafaxine HCl ER] 75 mg PO DAILY 09/08/17 [History] Divalproex (12 HR) [Depakote (12 HR)] 500 mg PO BID #60 tablet. 09/17/17 [Rx] Lactobacillus Acidophilus [Acidophilus] 1 each PO BID #6 capsule 09/17/17 [Rx] OLANZapine [Zyprexa Zydis] 10 mg PO HS #30 tab.rapdis 09/17/17 [Rx] cephALEXin [Keflex] 500 mg PO BID #3 capsule 09/17/17 [Rx] metroNIDAZOLE [Flagyl] 500 mg PO TID #5 tablet 09/17/17 [Rx] 3 Allergy/AdvReac Type Severity Reaction Status Date / Time Wsqbtnl-Axc-Xhs Reductase Allergy Intermediate Rash Verified 11/18/15 17:58 Inhibitor [Statins] clopidogrel [From Plavix] Allergy Anaphylaxis Verified 08/17/15 13:37 Sulfa (Sulfonamide Allergy Anaphylaxis Verified 08/17/15 13:37 Antibiotics) Warfarin [From Coumadin] Allergy Anaphylaxis Verified 08/17/15 13:37 All Systems PM: A 10-system review of systems was performed and is negative for pertinent findings except as documented above in the HPI. - Constitutional Vitals: Temp Pulse Resp BP Pulse Ox 98.2 F 84 18 124/52 94 11/06/17 20:43 11/06/17 23:52 11/07/17 01:03 11/07/17 01:03 11/06/17 23:52 Exam: General appearance: Patient is very sleepy but arousable but not much communicative. Did not provide history. Follow a few commands Head exam: Atraumatic Eye exam: EOMI, PERRLA ENT exam: Moist oral mucosa Neck nontender, supple Respiratory exam: Crepitation right side Cardiovascular exam: Regular rate and rhythm, no systolic murmur Abdominal exam: Soft, nontender, nondistended, positive bowel sounds Extremities exam: No calf tenderness, no pedal edema Present: Skin- warm, dry, intact Neurological exam: CN II-XII intact, no focal deficits. No facial droop. Upper extremity cleansed the hand but does not is squeeze hard and relaxed on command, lower extremity minimal movement bilaterally Internal Med - H&P Results - Labs CBC & Chem 7: 11/06/17 21:22 11/06/17 21:22 - Assessment and plan (1) Pneumonia Current Visit: Yes Status: Acute Assessment and plan: Right side pneumonia concern for aspiration therefore will keep patient nothing by mouth. Possibility of prison acquired pneumonia as well. Broader spectrum antibiotic Zosyn is started. DuoNeb, spirometry, oxygen supplementation. Qualifiers: Pneumonia type: due to unspecified organism Laterality: right Lung location: lower lobe of lung Qualified Code(s): J18.1 - Lobar pneumonia, unspecified organism (2) Altered mental status Current Visit: Yes Status: Acute Assessment and plan: Most likely due to acute infection and also metabolic encephalopathy due to electrolyte imbalance. No focal neurological deficit. CT brain negative. Correct underlying condition. Neuro check, aspiration fall precaution. Keep patient nothing by mouth until passed a swallow study. PTOT ST consulted. Will consult neurologist if needed Qualifiers: Altered mental status type: disorientation Qualified Code(s): R41.0 - Disorientation, unspecified (3) Hypokalemia Current Visit: Yes Status: Acute Assessment and plan: Potassium 2.1. Replacement done in the ER. Will repeat BMP stat along with magnesium. Replacement and monitoring. (4) Hypertension Current Visit: No Status: Acute Assessment and plan: Normal blood pressure therefore will hold antihypertensive medicine. Close monitoring of blood pressure. Will start IV fluid gentle hydration with a strict I&O's. Qualifiers: Hypertension type: essential hypertension Qualified Code(s): I10 - Essential (primary) hypertension (5) Cerebral palsy Current Visit: No Status: Chronic Assessment and plan: Patient also had developmental delay with psychosis as a baseline. Close monitoring. Will consider home medication Qualifiers: Cerebral palsy type: unspecified type Qualified Code(s): G80.9 - Cerebral palsy, unspecified (6) GERD (gastroesophageal reflux disease) Current Visit: No Status: Chronic Assessment and plan: PPI Qualifiers: Esophagitis presence: esophagitis presence not specified Qualified Code(s) : K21.9 - Gastro-esophageal reflux disease without esophagitis (7) DVT prophylaxis Current Visit: No Status: Acute Assessment and plan: SCDs - Time Spent With Patient Total time spent is greater than 50% in coordination of care (as documented) at patient's floor/unit and/or counseling patient: 25 - 35 minutes
[2017-11-07] MEDS ORDERED: Naloxone 0.4 MG/ML INJ IVP PRN (03:10)
[2017-11-07] MEDS: 0.9 % Sodium Chloride 1,000 ML IVC SCH (04:06)
[2017-11-07] MEDS: Ipratropium/Albuterol Neb 3 ML IH SCH ×4 (04:07→22:18)
[2017-11-07 04:09] LABS: Red Cell Distribution Width 15.5 % (11.5-14.5); Segmented Neutrophils % 84.8 %
[2017-11-07 04:11] LABS: Basophils % 0.1 %; Immature Granulocytes % 0.8 % (0-4); Lymphocytes # 1.9 K/mcL (0.6-4.6); Lymphocytes % 7.7 %; Mean Corpuscular HGB Conc 33.3 g/dL (31.6-35.5); Mean Corpuscular Hemoglobin 28.9 pg (28.0-33.3); Mean Corpuscular Volume 86.7 fL (83.0-100.0); Mean Platelet Volume 11.9 fL (9.4-12.4); Monocytes # 1.6 K/mcL (0.0-1.3); Monocytes % 6.6 %; Neutrophils # 21.1 K/mcL (1.6-8.9); Platelet Count 127 K/mcL (140-400)
[2017-11-07 04:50] LABS: BUN/Creatinine Ratio 24 (6-26); Blood Urea Nitrogen 22 mg/dL (8-23); Calcium 8.9 mg/dL (8.6-10.3); Carbon Dioxide 38 mEq/L (23-29); Chloride 87 mEq/L (98-107); Glucose 83 mg/dL (70-105); Magnesium 1.7 mg/dL (1.6-2.6); Osmolality,Calculated 278 (280-300); Potassium 2.7 mEq/L (3.5-5.1); Sodium 133 mEq/L (136-145); eGFR For Non-African Americans > 60 (> 60)
[2017-11-07 05:06] LABS: Platelet Estimate Slight Decrease (Normal)
[2017-11-07 05:07] LABS: Toxic Granulation Present (Not Present)
[2017-11-07] MEDS ORDERED: Piperacillin/Tazobactam 3.375 GM in 0.9 % Sodium Chloride Mini Bag 100 ML IVPB SCH (08:00)
--- NOTE | 2017-11-07 10:28 | Event Note ---
Date of Encounter: 11/07/17 Time of Encounter: 10:25 Ms. Martinez is a 71 year old female PMHx of dementia, developmental delay, cerebral palsy, Chronic seizure disorder, GERD, HLD, HTN, anxiety, depression.was brought to the ED by EMS for altered mental status, hallucinating. Patient is not participating in history therefore obtained from medical records and ER physician. In ER her vitals were low normal blood pressure with slight tachycardia. Initial lab with significant leukocytosis, low potassium level. CT head with no acute finding. Chest x-ray with multifocal right lower lung pneumonia versus atelectasis. Initial treatment in ER doxycycline, Rocephin and IV fluid and potassium supplement was given. ER physician called on-call hospitalists for the admission with the diagnosis of pneumonia, hypokalemia Review of system-not available due to clinical condition 1. sepsis from pneumonai POA with WBC 30K, HR 98 2. HCAP on zosyn 3. Hypokalemia, oral replacement, no IV access at this point 4. possible aspiration, place pureed diet, pending speech
[2017-11-07] MEDS ORDERED: Divalproex (12 HR) 500 MG TABLET PO SCH (11:15)
[2017-11-07] MEDS: OLANZapine 10 MG TAB.RAPDIS PO SCH ×2 (12:40→21:16)
[2017-11-07] MEDS: Baclofen 10 MG TABLET PO SCH ×2 (12:43→21:16)
[2017-11-07] MEDS: Lactobacillus 1 EACH CAP.SPRINK PO SCH ×2 (12:43→21:16)
[2017-11-07] MEDS: Piperacillin/Tazobactam 3.375 GM in 0.9 % Sodium Chloride Mini Bag 100 ML IVPB SCH ×2 (12:43→16:05)
[2017-11-07] MEDS: Divalproex Sodium 125 MG CAPSULE PO SCH ×2 (14:47→21:16)
[2017-11-08] MEDS: Piperacillin/Tazobactam 3.375 GM in 0.9 % Sodium Chloride Mini Bag 100 ML IVPB SCH ×2 (00:10→22:03)
[2017-11-08] MEDS: 0.9 % Sodium Chloride 1,000 ML IVC SCH ×4 (00:11→22:03)
[2017-11-08 02:04] LABS: Basophils % 0.1 %; Eosinophils % 0.2 %; Hematocrit 32.3 % (35.3-44.9); Immature Granulocytes % 0.3 % (0-4); Lymphocytes # 1.6 K/mcL (0.6-4.6); Lymphocytes % 14.8 %; Mean Corpuscular HGB Conc 32.2 g/dL (31.6-35.5); Mean Corpuscular Hemoglobin 28.6 pg (28.0-33.3); Mean Corpuscular Volume 88.7 fL (83.0-100.0); Mean Platelet Volume 11.4 fL (9.4-12.4); Monocytes # 1.1 K/mcL (0.0-1.3); Monocytes % 10.3 %; Neutrophils # 7.8 K/mcL (1.6-8.9); Platelet Count 102 K/mcL (140-400); Red Blood Count 3.64 M/mcL (3.82-4.97); Red Cell Distribution Width 16.2 % (11.5-14.5); Segmented Neutrophils % 74.3 %
[2017-11-08 02:07] LABS: Hemoglobin 10.4 g/dL (11.5-15.4)
[2017-11-08 02:25] LABS: BUN/Creatinine Ratio 26 (6-26); Blood Urea Nitrogen 25 mg/dL (8-23); Carbon Dioxide 32 mEq/L (23-29); Chloride 98 mEq/L (98-107); Glucose 82 mg/dL (70-105); Magnesium 1.6 mg/dL (1.6-2.6); Osmolality,Calculated 287 (280-300); Potassium 4.2 mEq/L (3.5-5.1); Sodium 137 mEq/L (136-145); eGFR For Non-African Americans 56 (> 60)
[2017-11-08] MEDS: Ipratropium/Albuterol Neb 3 ML IH SCH ×4 (03:16→22:47)
[2017-11-08] MEDS ORDERED: 0.9 % Sodium Chloride 500 ML ONE (08:46)
[2017-11-08] MEDS ORDERED: 0.9 % Sodium Chloride 500 ML IVC ONE (08:48)
[2017-11-08] MEDS ORDERED: Rosuvastatin Calcium [Crestor] 5 MG PO SCH (09:00)
[2017-11-08] MEDS ORDERED: Piperacillin/Tazobactam 3.375 GM in 0.9 % Sodium Chloride Mini Bag 100 ML IVPB SCH (10:00)
[2017-11-08] MEDS: Loratadine 10 MG TABLET PO SCH (13:31)
[2017-11-08] MEDS: Divalproex Sodium 125 MG CAPSULE PO SCH (13:32)
[2017-11-08] MEDS: Venlafaxine XR (24 HR) 75 MG CAP.ER.24H PO SCH (13:32)
[2017-11-08] MEDS: Lactobacillus 1 EACH CAP.SPRINK PO SCH ×2 (13:32→22:04)
[2017-11-08] MEDS: Baclofen 10 MG TABLET PO SCH (13:32)
--- NOTE | 2017-11-08 17:06 | Electrocardiograph Report ---
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
--- NOTE | 2017-11-08 17:32 | Internal Med Progress Note ---
Date of Encounter: 11/08/17 Time of Encounter: 17:20 - Assessment and plan (1) Pneumonia Current Visit: Yes Status: Acute Assessment and plan: HCAP and possible aspiration pneumnia, contineu zosyn Qualifiers: Pneumonia type: due to unspecified organism Laterality: right Lung location: lower lobe of lung Qualified Code(s): J18.1 - Lobar pneumonia, unspecified organism (2) Sepsis Current Visit: Yes Status: Acute Assessment and plan: from pneumonia POA with WBC 30k, HR 98 Qualifiers: Sepsis type: sepsis due to unspecified organism Qualified Code(s): A41.9 - Sepsis, unspecified organism (3) Altered mental status Current Visit: Yes Status: Acute Assessment and plan: metabolic encephalopathy from infection, will reduce zyprexa dose, check ABG, ammonia, LFT CT on admission was unremarkable Qualifiers: Altered mental status type: disorientation Qualified Code(s): R41.0 - Disorientation, unspecified (4) Cerebral palsy Current Visit: Yes Status: Chronic Assessment and plan: supportive care Qualifiers: Cerebral palsy type: unspecified type Qualified Code(s): G80.9 - Cerebral palsy, unspecified (5) GERD (gastroesophageal reflux disease) Current Visit: No Status: Chronic Assessment and plan: continue PPI Qualifiers: Esophagitis presence: esophagitis presence not specified Qualified Code(s) : K21.9 - Gastro-esophageal reflux disease without esophagitis (6) Seizure Current Visit: No Status: Acute Assessment and plan: continue home meds (7) Hypokalemia Current Visit: Yes Status: Acute Assessment and plan: replaced and resolved, hypomagnesmia, will replace (8) Dysphasia Current Visit: Yes Status: Acute Assessment and plan: seen by nico MASTERSON for senior mechanical estimator soft diet - Time Spent With Patient Total time spent is greater than 50% in coordination of care (as documented) at patient's floor/unit and/or counseling patient: - Subjective Interval history: Ms. Martinez is a 71 year old female PMHx of dementia, developmental delay, cerebral palsy, Chronic seizure disorder, GERD, HLD, HTN, anxiety, depression.was brought to the ED by EMS for altered mental status, hallucinating. Patient is not participating in history therefore obtained from medical records and ER physician. In ER her vitals were low normal blood pressure with slight tachycardia. Initial lab with significant leukocytosis, low potassium level. CT head with no acute finding. Chest x-ray with multifocal right lower lung pneumonia versus atelectasis. Initial treatment in ER doxycycline, Rocephin and IV fluid and potassium supplement was given. ER physician called on-call hospitalists for the admission with the diagnosis of pneumonia, hypokalemia Review of system-not available due to clinical condition 1. sepsis from pneumonia POA with WBC 30K, HR 98 POA, improving 2. HCAP on zosyn 3. Hypokalemia, oral replacement, no IV access at this point 4. possible aspiration, place pureed diet, speech was consulted, on senior mechanical estimator soft diet. 5. metabolic encephalopathy, check ammonia, ABG Patient is still very drowsy, hard to wake up. Her oral medication has been held We will check ABG and a chest x-ray - Constitutional Vitals: Temp Pulse Resp BP Pulse Ox 97.2 F L 90 18 92/58 92 11/08/17 16:58 11/08/17 16:58 11/08/17 16:58 11/08/17 16:58 11/08/17 16:58 General appearance: Present: A&O X 1 Exam: CONSTITUTIONAL: patient appears as an age appropriate female in no acute distress. EYES Clear sclerae, bilateral pupils are equal, reactive to light. EMOI. RESPIRATORY: No accessory muscle use, bilateral scant wheezing, smoe crackles/ rales. CARDIOVASCULAR: Regular heart rate, normal S1 and S2, no murmurs GASTROINTESTINAL: bowel sounds present, soft, no tenderness. MUSCULOSKELETAL: Joints in normal range of motion, no clubbing, no edema, no cyanosis. Bilateral peripheral pulses 2+. NEUROLOGIC: drowsy, cerebral palsy Internal Medicine: Result - Labs CBC & Chem 7: 11/08/17 01:41 11/08/17 01:41 Labs: Short CBC 11/08/17 Range/Units 01:41 WBC 10.5 D (4.3-11.1) K/mcL Hgb 10.4 L D (11.5-15.4) g/dL Hct 32.3 L (35.3-44.9) % Plt Count 102 L (140-400) K/mcL Neutrophils # 7.8 (1.6-8.9) K/mcL BMP 11/08/17 01:41 Sodium 137 Potassium 4.2 D Chloride 98 Carbon Dioxide 32 H BUN 25 H Creatinine 0.97 Glucose 82 Calcium 8.0 L - ABG Interpretation ABG results: PT/INR, D-dimer PT 11.7 Seconds (9.4-12.1) 11/06/17 21:22 - VTE Documentation of Mechanical Device: Intermittent pneumatic compression device Consult Discharge Plan - Plan
[2017-11-08 18:32] LABS: ABG Base Excess 6 mEq/L (-2 to 3); ABG HCO3 32 mEq/L (21-27); ABG Oxygen Saturation 91 % (95-98); ABG PCO2 52 mmHg (35-45); ABG PO2 63 mmHg (85-104); ABG TCO2 33 mEq/L (20-26)
[2017-11-08] MEDS ORDERED: OLANZapine 10 MG TAB.RAPDIS PO SCH (21:00)
[2017-11-09 01:58] LABS: Basophils % 0.3 %; Eosinophils # 0.2 K/mcL (0.0-0.6); Eosinophils % 1.8 %; Hematocrit 35.6 % (35.3-44.9); Hemoglobin 11.1 g/dL (11.5-15.4); Immature Granulocytes % 0.4 % (0-4); Lymphocytes # 1.2 K/mcL (0.6-4.6); Lymphocytes % 13.6 %; Mean Corpuscular HGB Conc 31.2 g/dL (31.6-35.5); Mean Corpuscular Hemoglobin 28.3 pg (28.0-33.3); Mean Corpuscular Volume 90.8 fL (83.0-100.0); Mean Platelet Volume 11.4 fL (9.4-12.4); Monocytes # 1.1 K/mcL (0.0-1.3); Monocytes % 11.9 %; Neutrophils # 6.5 K/mcL (1.6-8.9); Platelet Count 108 K/mcL (140-400); Red Blood Count 3.92 M/mcL (3.82-4.97); Red Cell Distribution Width 16.8 % (11.5-14.5)
[2017-11-09 02:13] LABS: Albumin 2.5 g/dL (3.5-5.7); Albumin/Globulin Ratio 0.8 (1.1-2.2); BUN/Creatinine Ratio 28 (6-26); Bilirubin,Direct 0.1 mg/dL (0.0-0.2); Bilirubin,Indirect 0.1 mg/dL (0.0-1.2); Bilirubin,Total 0.2 mg/dL (0.3-1.0); Blood Urea Nitrogen 19 mg/dL (8-23); Calcium 8.2 mg/dL (8.6-10.3); Carbon Dioxide 29 mEq/L (23-29); Chloride 105 mEq/L (98-107); Globulin 3.2 g/dL (2.4-3.5); Glucose 88 mg/dL (70-105); Magnesium 2.4 mg/dL (1.6-2.6); Osmolality,Calculated 292 (280-300); Potassium 4.3 mEq/L (3.5-5.1); Sodium 140 mEq/L (136-145); Total Protein 5.7 g/dL (6.4-8.9); eGFR For Non-African Americans > 60 (> 60)
[2017-11-09] MEDS: Ipratropium/Albuterol Neb 3 ML IH SCH ×4 (04:26→23:43)
[2017-11-09] MEDS: Piperacillin/Tazobactam 3.375 GM in 0.9 % Sodium Chloride Mini Bag 100 ML IVPB SCH ×3 (06:04→22:15)
[2017-11-09] MEDS: Lactobacillus 1 EACH CAP.SPRINK PO SCH ×2 (11:23→22:01)
[2017-11-09] MEDS: Venlafaxine XR (24 HR) 75 MG CAP.ER.24H PO SCH (11:23)
[2017-11-09] MEDS: Loratadine 10 MG TABLET PO SCH (11:23)
[2017-11-09] MEDS: Divalproex (24 HR) 250 MG TABLET PO SCH (11:23)
[2017-11-09] MEDS: Fluticasone Propionate Nasal 50 MCG/SPRAY BOTTLE NS SCH (11:24)
--- NOTE | 2017-11-09 14:18 | Internal Med Progress Note ---
<Archie Prieto S - Last Filed: 11/09/17 14:41> Date of Encounter: 11/09/17 Time of Encounter: 09:45 - Assessment and plan (1) Sepsis Current Visit: Yes Status: Acute Assessment and plan: Pt met sepsis criteria WBC count 32.7 on admition, today it is 9.1 HR max of 98, HR this morning was 96 Blood cultures pending CXR showed upper right lung infiltration PipTazo day 1 Qualifiers: Sepsis type: sepsis due to unspecified organism Qualified Code(s): A41.9 - Sepsis, unspecified organism (2) Seizure Current Visit: No Status: Chronic Assessment and plan: Pt on Depakote Speech evaluated with swallow studie - recommendation below: ST recommends thin liquid and advanced soft textures. NO STRAWS, assist with feeds, meds in puree. Patient is tolerating baseline diet. No swallow therapy recommended at this time. (3) Altered mental status Current Visit: Yes Status: Acute Assessment and plan: Most likely due to electrolyte abnormalities K on admition on 2.1, corrected and today it is 4.3. Will monitor electrolytes CT brain negative. Qualifiers: Altered mental status type: disorientation Qualified Code(s): R41.0 - Disorientation, unspecified (4) Cerebral palsy Current Visit: Yes Status: Chronic Assessment and plan: Pt has cerebral palsy, she has hx of dementia and psychosis Will monitor for aspiration Qualifiers: Cerebral palsy type: unspecified type Qualified Code(s): G80.9 - Cerebral palsy, unspecified (5) GERD (gastroesophageal reflux disease) Current Visit: No Status: Chronic Assessment and plan: Pt is on prilosec Keep head of bed elevated. Don't eat large meals before laying down. Chew all foods throuroughly Qualifiers: Esophagitis presence: esophagitis presence not specified Qualified Code(s) : K21.9 - Gastro-esophageal reflux disease without esophagitis (6) DVT prophylaxis Current Visit: No Status: Acute Assessment and plan: SCDs for pt (7) Hypokalemia Current Visit: Yes Status: Resolved Assessment and plan: Potassium 2.1. Replacement done in the ER. Today it is 4.3 Recheck electrolytes in AM (8) Pneumonia Current Visit: Yes Status: Acute Assessment and plan: Right upper lobe pneumonia per CXR. Aspiration vs HCAP pneumonia Pt on soft diet , concern for aspiration risk. Keep head of bed elevated. Pt on Zosyn Encourage spironmetry, oxygen. Pt on Duonebs Qualifiers: Pneumonia type: due to unspecified organism Laterality: right Lung location: lower lobe of lung Qualified Code(s): J18.1 - Lobar pneumonia, unspecified organism - Time Spent With Patient Total time spent is greater than 50% in coordination of care (as documented) at patient's floor/unit and/or counseling patient: 25 - 35 minutes - Subjective Interval history: [facility] EMS said she was having altered and hallucinations. Pt told me she was having vomiting episodes and doesn't know why she is here. Nurse told me she is here for pneumonia and has hx of dementia, developmental delay and psychosis. Other pertininet medical hx include HDL, HTN, GERD, cerebral palsy Pt x ray showed upper right lung infiltration. Pt is on Zosyn day 1. She met sepsis criteria - initial WBC 32.7, HR max 98 - Constitutional Vitals: Temp Pulse Resp BP Pulse Ox 97.5 F L 83 15 111/75 97 11/09/17 12:16 11/09/17 12:16 11/09/17 12:16 11/09/17 12:25 11/09/17 12:16 General appearance: Present: A&O X 1, disheveled - Head Head exam: Present: normal inspection - Eye Additional comments: right eye deviated medially - Neck Neck exam general surgery: Present: supple - Respiratory Respiratory exam: Present: decreased breath sounds - Cardiovascular Cardiovascular exam: Present: tachycardia - GI/Abdominal GI/Abdominal exam: Present: normal bowel sounds, no peritoneal signs. Absent: tenderness - Neurological Exam Neurological exam: Present: no focal deficits - Skin Additional comments: bruising of arms bilaterally Internal Medicine: Result - Labs CBC & Chem 7: 11/09/17 01:43 11/09/17 01:43 Labs: Short CBC 11/09/17 Range/Units 01:43 WBC 9.1 (4.3-11.1) K/mcL Hgb 11.1 L (11.5-15.4) g/dL Hct 35.6 (35.3-44.9) % Plt Count 108 L (140-400) K/mcL Neutrophils # 6.5 (1.6-8.9) K/mcL BMP 11/09/17 01:43 Sodium 140 Potassium 4.3 Chloride 105 Carbon Dioxide 29 BUN 19 Creatinine 0.69 Glucose 88 Calcium 8.2 L Liver Function 11/09/17 Range/Units 01:43 Total Bilirubin 0.2 L (0.3-1.0) mg/dL Direct Bilirubin 0.1 (0.0-0.2) mg/dL AST 13 (13-39) Units/L ALT 4 L (7-52) Units/L Alkaline Phosphatase 79 (34-104) Units/L Albumin 2.5 L (3.5-5.7) g/dL - ABG Interpretation ABG results: ABG ABG pH 7.40 pH Units (7.32-7.45) 11/08/17 18:26 ABG pCO2 52 mmHg (35-45) H 11/08/17 18:26 ABG pO2 63 mmHg (85-104) L 11/08/17 18:26 ABG O2 Saturation 91 % (95-98) L 11/08/17 18:26 PT/INR, D-dimer PT 11.7 Seconds (9.4-12.1) 11/06/17 21:22 - Impressions Impressions Chest X-Ray 11/08/17 17:34 IMPRESSION: 1. New right mid and upper lung infiltrate, concerning for pneumonia. Follow-up radiographs are recommended. 2. Low lung volumes with bibasilar atelectasis, stable. D/ / 11/08/2017 20:12:10 Mushtaq Leon MD / [facility] Interpreting Provider: Mushtaq Leon MD - VTE Documentation of Mechanical Device: Intermittent pneumatic compression device Consult Discharge Plan - Plan Referrals: Dayan Prieto, MURPHY [Primary Care Provider] - <Slick Whyte - Last Filed: 11/10/17 00:56> Date of Encounter: 11/10/17 - Assessment and plan (1) Sepsis Current Visit: Yes Status: Acute Qualifiers: Sepsis type: sepsis due to unspecified organism Qualified Code(s): A41.9 - Sepsis, unspecified organism (2) Altered mental status Current Visit: Yes Status: Acute Qualifiers: Altered mental status type: disorientation Qualified Code(s): R41.0 - Disorientation, unspecified (3) Cerebral palsy Current Visit: Yes Status: Chronic Qualifiers: Cerebral palsy type: unspecified type Qualified Code(s): G80.9 - Cerebral palsy, unspecified (4) GERD (gastroesophageal reflux disease) Current Visit: No Status: Chronic Qualifiers: Esophagitis presence: esophagitis presence not specified Qualified Code(s) : K21.9 - Gastro-esophageal reflux disease without esophagitis (5) DVT prophylaxis Current Visit: No Status: Acute (6) Seizure Current Visit: No Status: Chronic (7) Hypokalemia Current Visit: Yes Status: Resolved (8) Pneumonia Current Visit: Yes Status: Acute Qualifiers: Pneumonia type: due to unspecified organism Laterality: right Lung location: lower lobe of lung Qualified Code(s): J18.1 - Lobar pneumonia, unspecified organism - Time Spent With Patient Total time spent is greater than 50% in coordination of care (as documented) at patient's floor/unit and/or counseling patient: - Constitutional Vitals: Temp Pulse Resp BP Pulse Ox 100.2 F H 105 16 115/75 94 11/09/17 23:42 11/09/17 23:42 11/09/17 23:42 11/09/17 23:42 11/09/17 23:42 Internal Medicine: Result - Labs CBC & Chem 7: 11/09/17 01:43 11/09/17 01:43 Labs: Short CBC 11/09/17 Range/Units 01:43 WBC 9.1 (4.3-11.1) K/mcL Hgb 11.1 L (11.5-15.4) g/dL Hct 35.6 (35.3-44.9) % Plt Count 108 L (140-400) K/mcL Neutrophils # 6.5 (1.6-8.9) K/mcL BMP 11/09/17 01:43 Sodium 140 Potassium 4.3 Chloride 105 Carbon Dioxide 29 BUN 19 Creatinine 0.69 Glucose 88 Calcium 8.2 L Liver Function 11/09/17 Range/Units 01:43 Total Bilirubin 0.2 L (0.3-1.0) mg/dL Direct Bilirubin 0.1 (0.0-0.2) mg/dL AST 13 (13-39) Units/L ALT 4 L (7-52) Units/L Alkaline Phosphatase 79 (34-104) Units/L Albumin 2.5 L (3.5-5.7) g/dL - ABG Interpretation ABG results: ABG ABG pH 7.40 pH Units (7.32-7.45) 11/08/17 18:26 ABG pCO2 52 mmHg (35-45) H 11/08/17 18:26 ABG pO2 63 mmHg (85-104) L 11/08/17 18:26 ABG O2 Saturation 91 % (95-98) L 11/08/17 18:26 PT/INR, D-dimer PT 11.7 Seconds (9.4-12.1) 11/06/17 21:22 - Impressions Impressions Chest X-Ray 11/08/17 17:34 IMPRESSION: 1. New right mid and upper lung infiltrate, concerning for pneumonia. Follow-up radiographs are recommended. 2. Low lung volumes with bibasilar atelectasis, stable. D/ / 11/08/2017 20:12:10 Mushtaq Leon MD / [facility] Interpreting Provider: Mushtaq Leon MD - Attending Attestation I examined this patient and my medical decision-making was reviewed with the Resident Physician. I agree with the documented findings, disposition and treatment plan as described except to the extent set forth below. Nursing was given sign out that overnight the patient was said to be lethargic. Nursing today stated she feels she is lethargic as well. On my examination patient is awake and alert. She is in no acute distress. A blood pressure measurement was done today that recorded SBP in 70s. At bedside I noted that this was radial BP measurement. We checked brachial BP and SBP is 110s, HR in the 80s. A CXR on 11/06 showed multifocal pneumonia. A CXR 11/08 showed same but noted possible new infiltrate. She is in no acute distress and her lungs sound clear. WBC have gone from 30k to now within normal limits. She is afebrile. If patient shows signs of infection, she will need antibiotic coverage broadened and cover for MRSA. I recommend obtaining sputum sample if that is the case.
[2017-11-09] MEDS: 0.9 % Sodium Chloride 1,000 ML IVC SCH (22:18)
[2017-11-10] MEDS: Ipratropium/Albuterol Neb 3 ML IH SCH ×4 (03:36→22:12)
[2017-11-10] MEDS: Piperacillin/Tazobactam 3.375 GM in 0.9 % Sodium Chloride Mini Bag 100 ML IVPB SCH ×4 (05:17→21:58)
--- NOTE | 2017-11-10 07:58 | Internal Med Progress Note ---
<Archie Prieto S - Last Filed: 11/10/17 13:25> Date of Encounter: 11/10/17 Time of Encounter: 07:35 - Assessment and plan (1) Sepsis Current Visit: Yes Status: Resolved Assessment and plan: Pt met sepsis criteria WBC count 32.7 on admition, today it is 9.1 HR max of 98, HR this morning was 100 Blood cultures pending CXR showed upper right lung infiltration PipTazo day 2 Qualifiers: Sepsis type: sepsis due to unspecified organism Qualified Code(s): A41.9 - Sepsis, unspecified organism (2) Seizure Current Visit: No Status: Chronic Assessment and plan: Pt on Depakote Speech evaluated with swallow studie - recommendation below: ST recommends thin liquid and advanced soft textures. NO STRAWS, assist with feeds, meds in puree. Patient is tolerating baseline diet. No swallow therapy recommended at this time. Neuro checks q4hr - pt at this time is arousable and is aware of where she is (3) Pneumonia Current Visit: Yes Status: Acute Assessment and plan: Right upper lobe pneumonia per CXR. Aspiration vs HCAP pneumonia Pt on soft diet , concern for aspiration risk. Keep head of bed elevated. Pt on Zosyn day 2 Encourage spironmetry. Pt is on 2L O2 NC - O2 is 93% this morning Repeat CXR today, AP and lateral views Qualifiers: Pneumonia type: due to unspecified organism Laterality: right Lung location: lower lobe of lung Qualified Code(s): J18.1 - Lobar pneumonia, unspecified organism (4) Altered mental status Current Visit: Yes Status: Resolved Assessment and plan: Most likely due to electrolyte abnormalities K on admition on 2.1, corrected and today it is 4.3. Will monitor electrolytes CT brain negative. Qualifiers: Altered mental status type: disorientation Qualified Code(s): R41.0 - Disorientation, unspecified (5) Cerebral palsy Current Visit: Yes Status: Chronic Assessment and plan: Pt has cerebral palsy, she has hx of dementia and psychosis Will monitor for aspiration Today pt is much more aware of her surroudnings and where she is Qualifiers: Cerebral palsy type: unspecified type Qualified Code(s): G80.9 - Cerebral palsy, unspecified (6) GERD (gastroesophageal reflux disease) Current Visit: No Status: Chronic Assessment and plan: Pt is on prilosec Keep head of bed elevated. Don't eat large meals before laying down. Chew all foods throuroughly Speech said to do thin liquids, advance soft textures , meds in puree. No straws Qualifiers: Esophagitis presence: esophagitis presence not specified Qualified Code(s) : K21.9 - Gastro-esophageal reflux disease without esophagitis (7) DVT prophylaxis Current Visit: No Status: Acute Assessment and plan: SCDs for pt (8) Hypokalemia Current Visit: Yes Status: Resolved Assessment and plan: Potassium 2.1. Replacement done in the ER. Today it is 4.3 Recheck electrolytes tomorrow. (9) DVT (deep venous thrombosis) Current Visit: Yes Status: Suspected Assessment and plan: Pt had low grade fever ranging from 99-100 degrees. Meets part of Virchow's triad of hypercoag 2/2 to immobility and stasis. She has only been on SCD for DVT prophylaxis Pt placed on 5000U SQ heparin US bilateral LE to r/o DVT Qualifiers: DVT location: lower extremity Affected thrombotic vein of extremity: other lower extremity vein Chronicity: acute Laterality: unspecified laterality Qualified Code(s): I82.409 - Acute embolism and thrombosis of unspecified deep veins of unspecified lower extremity - Time Spent With Patient Total time spent is greater than 50% in coordination of care (as documented) at patient's floor/unit and/or counseling patient: - Subjective Interval history: Pt is hospital day 2, [facility] She was admitted for AMS and halluciantions. Pt is aware of where she is today, knows the year and is arousable. She denies any chest pain, SOB, N/V/D, abd pain, dizziness. Nurse states she did neuro checks q4hr for the patient. The patient was easily arousable, was talkative and asked questions. She is on Zosyn day 2 On admit she met sepsis criteria - initial WBC 32.7, HR max was 98 Fluids - no fluids at this time Electrolytes - pt currently has all electrolytes corrected. Was hypoK on admition, currently K is 4.3 Nutrition - soft diet, no straw, keep head of the bed raised GI prophylaxis - pt is on Omeprazole. DVT prophylaxis - on SCDs... Added SQ heparin 5000U and a bilateral LE ultrasound to rule out DVT since she has a low grade fever (t max 100.2) Repeating CXR today. - Constitutional Vitals: Temp Pulse Resp BP Pulse Ox 99.7 F H 100 16 108/70 93 11/10/17 05:17 11/10/17 05:17 11/10/17 05:17 11/10/17 05:17 11/10/17 05:17 General appearance: Present: A&O X 1, disheveled - Head Head exam: Present: atraumatic, normal inspection - Neck Neck exam general surgery: Present: supple - Respiratory Respiratory exam: Present: CTAB - Cardiovascular Cardiovascular exam: Present: tachycardia - GI/Abdominal GI/Abdominal exam: Present: normal bowel sounds, no peritoneal signs - Extremities Exam Extremities exam: Present: normal capillary refill, normal inspection, warm - Skin Additional comments: some bruises on the arms. Internal Medicine: Result - Labs CBC & Chem 7: 11/09/17 01:43 11/09/17 01:43 - ABG Interpretation ABG results: ABG ABG pH 7.40 pH Units (7.32-7.45) 11/08/17 18:26 ABG pCO2 52 mmHg (35-45) H 11/08/17 18:26 ABG pO2 63 mmHg (85-104) L 11/08/17 18:26 ABG O2 Saturation 91 % (95-98) L 11/08/17 18:26 PT/INR, D-dimer PT 11.7 Seconds (9.4-12.1) 11/06/17 21:22 - Impressions Impressions Chest X-Ray 11/08/17 17:34 IMPRESSION: 1. New right mid and upper lung infiltrate, concerning for pneumonia. Follow-up radiographs are recommended. 2. Low lung volumes with bibasilar atelectasis, stable. D/ / 11/08/2017 20:12:10 Mushtaq Leon MD / [facility] Interpreting Provider: Mushtaq Leon MD - VTE Documentation of Mechanical Device: Intermittent pneumatic compression device Consult Discharge Plan - Plan Referrals: Dayan Prieto, [employer]OR[employer] DO[employer] [Primary Care Provider] - <Soha Pennington - Last Filed: 11/10/17 15:11> Date of Encounter: 11/10/17 - Assessment and plan (1) Sepsis Current Visit: Yes Status: Resolved Qualifiers: Sepsis type: sepsis due to unspecified organism Qualified Code(s): A41.9 - Sepsis, unspecified organism (2) Altered mental status Current Visit: Yes Status: Resolved Qualifiers: Altered mental status type: disorientation Qualified Code(s): R41.0 - Disorientation, unspecified (3) Cerebral palsy Current Visit: Yes Status: Chronic Qualifiers: Cerebral palsy type: unspecified type Qualified Code(s): G80.9 - Cerebral palsy, unspecified (4) GERD (gastroesophageal reflux disease) Current Visit: No Status: Chronic Qualifiers: Esophagitis presence: esophagitis presence not specified Qualified Code(s) : K21.9 - Gastro-esophageal reflux disease without esophagitis (5) DVT prophylaxis Current Visit: No Status: Acute (6) Seizure Current Visit: No Status: Chronic (7) Hypokalemia Current Visit: Yes Status: Resolved (8) Pneumonia Current Visit: Yes Status: Acute Qualifiers: Pneumonia type: due to unspecified organism Laterality: right Lung location: lower lobe of lung Qualified Code(s): J18.1 - Lobar pneumonia, unspecified organism (9) DVT (deep venous thrombosis) Current Visit: Yes Status: Suspected Qualifiers: DVT location: lower extremity Affected thrombotic vein of extremity: other lower extremity vein Chronicity: acute Laterality: unspecified laterality Qualified Code(s): I82.409 - Acute embolism and thrombosis of unspecified deep veins of unspecified lower extremity - Time Spent With Patient Total time spent is greater than 50% in coordination of care (as documented) at patient's floor/unit and/or counseling patient: - Constitutional Vitals: Temp Pulse Resp BP Pulse Ox 98.8 F 95 16 110/73 93 11/10/17 12:26 11/10/17 12:26 11/10/17 12:26 11/10/17 12:26 11/10/17 12:26 Internal Medicine: Result - Labs CBC & Chem 7: 11/09/17 01:43 11/09/17 01:43 - ABG Interpretation ABG results: ABG ABG pH 7.40 pH Units (7.32-7.45) 11/08/17 18:26 ABG pCO2 52 mmHg (35-45) H 11/08/17 18:26 ABG pO2 63 mmHg (85-104) L 11/08/17 18:26 ABG O2 Saturation 91 % (95-98) L 11/08/17 18:26 PT/INR, D-dimer PT 11.7 Seconds (9.4-12.1) 11/06/17 21:22 - Attending Attestation Patient seen and examined at bedside and I participated in zelaya components of A/P Patient is admitted with possibel Aspiration PNA, O2 sats impriving but now continues to have unexplained Tachycardia and low grade fevers Will check LE duplex given Hx of decreased mobility since PE could be looked into. Rest of A/P per resident note
[2017-11-10] MEDS: Loratadine 10 MG TABLET PO SCH (09:15)
[2017-11-10] MEDS: Venlafaxine XR (24 HR) 75 MG CAP.ER.24H PO SCH (09:15)
[2017-11-10] MEDS: Lactobacillus 1 EACH CAP.SPRINK PO SCH ×2 (09:15→21:58)
[2017-11-10] MEDS: Baclofen 10 MG TABLET PO SCH ×2 (09:15→21:58)
[2017-11-10] MEDS: Divalproex (24 HR) 250 MG TABLET PO SCH (09:15)
--- NOTE | 2017-11-10 09:15 | Electrocardiograph Report ---
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
[2017-11-10] MEDS: Fluticasone Propionate Nasal 50 MCG/SPRAY BOTTLE NS SCH (09:24)
[2017-11-10] MEDS: 0.9 % Sodium Chloride 1,000 ML IVC SCH ×2 (12:38→18:27)
[2017-11-10] MEDS: *HR* Heparin 5,000 UNIT/ML VIAL SQ SCH ×2 (13:31→18:18)
[2017-11-11] MEDS: Ipratropium/Albuterol Neb 3 ML IH SCH ×4 (04:03→21:54)
[2017-11-11] MEDS: Piperacillin/Tazobactam 3.375 GM in 0.9 % Sodium Chloride Mini Bag 100 ML IVPB SCH (06:00)
[2017-11-11] MEDS: *HR* Heparin 5,000 UNIT/ML VIAL SQ SCH ×2 (06:01→17:14)
[2017-11-11 06:51] LABS: Basophils # 0.1 K/mcL (0.0-0.2); Basophils % 1.1 %; Eosinophils # 0.4 K/mcL (0.0-0.6); Eosinophils % 6.1 %; Hematocrit 33.8 % (35.3-44.9); Hemoglobin 10.4 g/dL (11.5-15.4); Immature Granulocytes % 1.3 % (0-4); Immature Platelets 5.6 % (1.1-6.1); Lymphocytes # 2.3 K/mcL (0.6-4.6); Lymphocytes % 37.1 %; Mean Corpuscular HGB Conc 30.8 g/dL (31.6-35.5); Mean Corpuscular Volume 90.9 fL (83.0-100.0); Mean Platelet Volume 10.4 fL (9.4-12.4); Monocytes # 0.8 K/mcL (0.0-1.3); Monocytes % 12.5 %; Neutrophils # 2.6 K/mcL (1.6-8.9); Platelet Count 104 K/mcL (140-400); Red Blood Count 3.72 M/mcL (3.82-4.97); Segmented Neutrophils % 41.9 %
[2017-11-11 07:14] LABS: Alanine Aminotransferase 5 Units/L (7-52); Albumin 2.3 g/dL (3.5-5.7); Albumin/Globulin Ratio 0.7 (1.1-2.2); Alkaline Phosphatase 71 Units/L (34-104); Aspartate Amino Transferase 12 Units/L (13-39); BUN/Creatinine Ratio 20 (6-26); Bilirubin,Total 0.2 mg/dL (0.3-1.0); Blood Urea Nitrogen 10 mg/dL (8-23); Calcium 8.3 mg/dL (8.6-10.3); Carbon Dioxide 28 mEq/L (23-29); Chloride 108 mEq/L (98-107); Globulin 3.2 g/dL (2.4-3.5); Glucose 72 mg/dL (70-105); Osmolality,Calculated 294 (280-300); Potassium 3.6 mEq/L (3.5-5.1); Sodium 143 mEq/L (136-145); Total Protein 5.5 g/dL (6.4-8.9); eGFR For Non-African Americans > 60 (> 60)
--- NOTE | 2017-11-11 09:06 | Internal Med Progress Note ---
Date of Encounter: 11/11/17 Time of Encounter: 08:45 - Assessment and plan (1) Sepsis Current Visit: Yes Status: Resolved Assessment and plan: Pt met sepsis criteria WBC count 32.7 on admition, today WBC count is 6.1 HR max of 98, HR this morning was 97 Blood cultures pending CXR showed upper right lung infiltration. Repeat 11/10/17 showed lower left lobe /retrocardiac opacity. Questionable pneumonia vs atelectasis PipTazo day 3 at 25cc/day (2) DVT (deep venous thrombosis) Current Visit: Yes Status: Suspected Assessment and plan: Pt had low grade fever ranging from 99-100 degrees. Temp today is 98.8 Meets part of Virchow's triad of hypercoag 2/2 to immobility and stasis. She has only been on SCD for DVT prophylaxis Pt placed on 5000U SQ heparin US bilateral LE to r/o DVT, still pending Pt has negative Taylor sign, has no complaints of leg pain. There is no calf swelling bilaterally, no areas of erythema or edema Qualifiers: DVT location: lower extremity Affected thrombotic vein of extremity: other lower extremity vein Chronicity: acute Laterality: unspecified laterality Qualified Code(s): I82.409 - Acute embolism and thrombosis of unspecified deep veins of unspecified lower extremity (3) Seizure Current Visit: No Status: Chronic Assessment and plan: Pt on Depakote Speech evaluated with swallow studie - recommendation below: ST recommends thin liquid and advanced soft textures. NO STRAWS, assist with feeds, meds in puree. Patient is tolerating baseline diet. No swallow therapy recommended at this time. Neuro checks q4hr - pt at this time is arousable and is aware of where she is (4) Pneumonia Current Visit: Yes Status: Acute Assessment and plan: Right upper lobe pneumonia per CXR. Aspiration vs HCAP pneumonia. Repeat CXR 03/20 showed lower left lobe/retrocardiac opacity, questionable pneumonia vs atelectasis Pt on soft diet , concern for aspiration risk. Keep head of bed elevated. Pt on Zosyn day 3 Encourage spironmetry. Pt is on 3L O2 NC - O2 is 99% this morning. Try to wean oxygen Qualifiers: Pneumonia type: due to unspecified organism Laterality: right Lung location: lower lobe of lung Qualified Code(s): J18.1 - Lobar pneumonia, unspecified organism (5) Altered mental status Current Visit: Yes Status: Resolved Assessment and plan: Most likely due to electrolyte abnormalities. Acute on chronic. Pt is aware of where she is today, not of year. But she has developmental delay and cerebral palsy K on admition on 2.1, corrected and today it is 3.6. Will monitor electrolytes CT brain negative. (6) Cerebral palsy Current Visit: Yes Status: Chronic Assessment and plan: Pt has cerebral palsy, she has hx of dementia and psychosis Will monitor for aspiration Today pt aware of where she is , doesn't know what year it is Neuro checks q4hr (7) GERD (gastroesophageal reflux disease) Current Visit: No Status: Chronic Assessment and plan: Pt is on prilosec Keep head of bed elevated. Don't eat large meals before laying down. Chew all foods throuroughly Speech said to do thin liquids, advance soft textures , meds in puree. No straws (8) Hypokalemia Current Visit: Yes Status: Resolved Assessment and plan: Potassium 2.1. Replacement done in the ER. Today it is 3.6 Recheck electrolytes tomorrow. (9) DVT prophylaxis Current Visit: No Status: Acute Assessment and plan: 5000U SQ heparin - Time Spent With Patient Total time spent is greater than 50% in coordination of care (as documented) at patient's floor/unit and/or counseling patient: - Subjective Interval history: Pt is hospital day 3, admitted from [facility]. She was admitted for AMS and halluciantions. Pt is aware of where she is today. She is not aware of the year. She is arousable. Nurse says she is easily arousable, neuro checks q4hrs still being done. Nurses didnt note any lethargy. She denies any chest pain, SOB, N/V/D, abd pain, dizziness. She is on Zosyn day 3 25cc/hr On admit she met sepsis criteria - initial WBC 32.7, HR max was 98. WBC count today 6.1, HR today 97 Fluids - no fluids at this time Electrolytes - pt currently has all electrolytes corrected. Was hypoK on admition, currently K is 4.3 Nutrition - soft diet, no straw, keep head of the bed raised GI prophylaxis - pt is on Omeprazole. DVT prophylaxis - on SCDs... Added SQ heparin 5000U and a bilateral LE ultrasound to rule out DVT since she has a low grade fever (t max 100.2) Repeat CXR showed Lower left lobe /retrocardiac opacity and questionable pneumonia vs atelectasis - Constitutional Vitals: Temp Pulse Resp BP Pulse Ox 98.8 F 97 14 136/90 99 11/11/17 07:32 11/11/17 07:32 11/11/17 07:32 11/11/17 07:32 11/11/17 07:32 General appearance: Present: A&O X 1, disheveled - Head Head exam: Present: atraumatic, normal inspection - Neck Neck exam general surgery: Present: supple - Respiratory Respiratory exam: Present: decreased breath sounds - Cardiovascular Cardiovascular exam: Present: tachycardia - GI/Abdominal GI/Abdominal exam: Present: normal bowel sounds, soft, no peritoneal signs - Psychiatric Psychiatric exam: Absent: normal affect, normal mood - Skin Skin exam: Present: intact Internal Medicine: Result - Labs CBC & Chem 7: 11/11/17 06:33 11/11/17 06:33 Labs: Short CBC 11/11/17 Range/Units 06:33 WBC 6.1 (4.3-11.1) K/mcL Hgb 10.4 L (11.5-15.4) g/dL Hct 33.8 L (35.3-44.9) % Plt Count 104 L (140-400) K/mcL Neutrophils # 2.6 (1.6-8.9) K/mcL BMP 11/11/17 06:33 Sodium 143 Potassium 3.6 Chloride 108 H Carbon Dioxide 28 BUN 10 Creatinine 0.50 L Glucose 72 Calcium 8.3 L Liver Function 11/11/17 Range/Units 06:33 Total Bilirubin 0.2 L (0.3-1.0) mg/dL AST 12 L (13-39) Units/L ALT 5 L (7-52) Units/L Alkaline Phosphatase 71 (34-104) Units/L Albumin 2.3 L (3.5-5.7) g/dL - ABG Interpretation ABG results: ABG ABG pH 7.40 pH Units (7.32-7.45) 11/08/17 18:26 ABG pCO2 52 mmHg (35-45) H 11/08/17 18:26 ABG pO2 63 mmHg (85-104) L 11/08/17 18:26 ABG O2 Saturation 91 % (95-98) L 11/08/17 18:26 PT/INR, D-dimer PT 11.7 Seconds (9.4-12.1) 11/06/17 21:22 - Impressions Impressions Chest X-Ray 11/10/17 11:56 IMPRESSION: Possible left lower lobe/retrocardiac opacity. This may represent pneumonia or atelectasis. Examination limited by rotation. D/ / 11/10/2017 18:11:30 Storm Collins MD / tania Interpreting Provider: Storm Collins MD - VTE Documentation of Mechanical Device: Intermittent pneumatic compression device Consult Discharge Plan - Plan Referrals: Dayan Prieto, CHILD DAY CARE PROVIDER [Primary Care Provider] -
[2017-11-11] MEDS: Baclofen 10 MG TABLET PO SCH ×2 (09:31→21:46)
[2017-11-11] MEDS: Loratadine 10 MG TABLET PO SCH (09:32)
[2017-11-11] MEDS: Divalproex (24 HR) 250 MG TABLET PO SCH (09:32)
[2017-11-11] MEDS: Lactobacillus 1 EACH CAP.SPRINK PO SCH ×2 (09:32→21:46)
[2017-11-11] MEDS: Venlafaxine XR (24 HR) 75 MG CAP.ER.24H PO SCH (09:32)
[2017-11-11] MEDS: Fluticasone Propionate Nasal 50 MCG/SPRAY BOTTLE NS SCH (09:36)
--- NOTE | 2017-11-11 13:29 | Discharge Summary ---
<Archie Prieto S - Last Filed: 11/11/17 13:25> - NOTES TO OUTPATIENT PROVIDER Notes to Outpatient Provider: Admitted for AMS and halluciantions. EMS brought her from home. CXR showed a possible right upper lobe pneumonia. Repeat 11/10/17 CXR showed left lower lobe/retrocardiac opacity. Pneumonia vs atelectasis. Pt met sepsis criteria on admission, WBC as high as 32.7 and t max of 100.4 + tacycardia HR max 98. Suspected sepsis resolved . WBC today 6.1, today HR 97. Suspected DVT yesterday because patient spiked a fever overnight of 100.2, pt was given SQ heparin 5000U and was on SCDs. LE ultrasound still pending at this time Patient is stable for discharge today. Giving 4 day course of Augmentin 500mg BID . D/C Zosyn. Follow up with patient to make sure any symptoms of pneumonia have resolved. Orders not resulted at time of discharge: Pending orders 11/07/17 03:51 Culture,Blood [BC] Stat 11/09/17 01:43 Procalcitonin Routine Date of Encounter: 11/11/17 Time of Encounter: 01:20 - Discharge Diagnosis (1) Pneumonia Priority: Primary Status: Acute Assessment and Plan: Right upper lobe pneumonia per CXR. Aspiration vs HCAP pneumonia. Repeat CXR 03/20 showed lower left lobe/retrocardiac opacity, questionable pneumonia vs atelectasis Pt on soft diet , concern for aspiration risk. Keep head of bed elevated. Pt on Zosyn day 3 Encourage spironmetry. Pt is on 3L O2 NC - O2 is 99% this morning. Discontinue oxygen Qualifiers: Pneumonia type: due to unspecified organism Laterality: right Lung location: lower lobe of lung Qualified Code(s): J18.1 - Lobar pneumonia, unspecified organism (2) Sepsis Priority: Secondary Status: Resolved Assessment and Plan: Pt met sepsis criteria WBC count 32.7 on admition, today WBC count is 6.1 HR max of 98, HR this morning was 97 Blood cultures pending CXR showed upper right lung infiltration. Repeat 11/10/17 showed lower left lobe /retrocardiac opacity. Questionable pneumonia vs atelectasis PipTazo day 3 at 25cc/day - discontinued Discharging on Augmentin 500mg BID for four days Qualifiers: Sepsis type: sepsis due to unspecified organism Qualified Code(s): A41.9 - Sepsis, unspecified organism (3) Seizure Priority: Secondary Status: Chronic Assessment and Plan: Pt on Depakote Speech evaluated with swallow studie - recommendation below: ST recommends thin liquid and advanced soft textures. NO STRAWS, assist with feeds, meds in puree. Patient is tolerating baseline diet. No swallow therapy recommended at this time. Neuro checks q4hr - pt at this time is arousable and is aware of where she is (4) Altered mental status Priority: Secondary Status: Resolved Assessment and Plan: Most likely due to electrolyte abnormalities. Acute on chronic. Pt is aware of where she is today, not of year. But she has developmental delay and cerebral palsy K on admition on 2.1, corrected and today it is 3.6. Will monitor electrolytes CT brain negative. Qualifiers: Altered mental status type: disorientation Qualified Code(s): R41.0 - Disorientation, unspecified (5) Cerebral palsy Priority: Secondary Status: Chronic Assessment and Plan: Pt has cerebral palsy, she has hx of dementia and psychosis Will monitor for aspiration Today pt aware of where she is , doesn't know what year it is Neuro checks q4hr Qualifiers: Cerebral palsy type: unspecified type Qualified Code(s): G80.9 - Cerebral palsy, unspecified (6) GERD (gastroesophageal reflux disease) Priority: Secondary Status: Chronic Assessment and Plan: Pt is on prilosec Keep head of bed elevated. Don't eat large meals before laying down. Chew all foods throuroughly Speech said to do thin liquids, advance soft textures , meds in puree. No straws Qualifiers: Esophagitis presence: esophagitis presence not specified Qualified Code(s) : K21.9 - Gastro-esophageal reflux disease without esophagitis (7) Hypokalemia Priority: Secondary Status: Resolved Assessment and Plan: Potassium 2.1. Replacement done in the ER. Today it is 3.6 Recheck electrolytes tomorrow. (8) DVT prophylaxis Priority: Secondary Status: Acute Assessment and Plan: 5000U SQ heparin (9) DVT (deep venous thrombosis) Priority: Secondary Status: Suspected Assessment and Plan: Pt had low grade fever ranging from 99-100 degrees. Temp today is 98.8 Meets part of Virchow's triad of hypercoag 2/2 to immobility and stasis. She has only been on SCD for DVT prophylaxis Pt placed on 5000U SQ heparin US bilateral LE to r/o DVT, still pending Pt has negative Taylor sign, has no complaints of leg pain. There is no calf swelling bilaterally, no areas of erythema or edema Qualifiers: DVT location: lower extremity Affected thrombotic vein of extremity: other lower extremity vein Chronicity: acute Laterality: unspecified laterality Qualified Code(s): I82.409 - Acute embolism and thrombosis of unspecified deep veins of unspecified lower extremity Hospital course: Ms. Martinez is a 71 year old female . Admitted for AMS and halluciantions. EMS brought her from home. CXR showed a possible right upper lobe pneumonia. Repeat 11/10/17 CXR showed left lower lobe/retrocardiac opacity. Pneumonia vs atelectasis. Pt met sepsis criteria on admission, WBC as high as 32.7 and t max of 100.4 + tacycardia HR max 98. Suspected sepsis resolved . WBC today 6.1, today HR 97. Suspected DVT yesterday because patient spiked a fever overnight of 100.2, pt was given SQ heparin 5000U and was on SCDs. LE ultrasound still pending at this time Patient is stable for discharge today. Giving 4 day course of Augmentin 500mg BID . D/C Zosyn Discharge discussed with: nurse Time spent discussing smoking cessation with patient: 3 to 10 minutes - Time Spent with Patient Total time spent providing and/or coordinating discharge services: Less than 30 minutes - Discharge Medications Prescriptions: Amoxicillin/Clavulanate [Augmentin] 500 mg PO BIDWM 4 Days #8 tablet Home Medications: Baclofen 20 mg PO BID 09/08/17 [History] Citalopram [CeleXA] 20 mg PO DAILY 09/08/17 [History] Loratadine [Allergy Relief] 10 mg PO DAILY 09/08/17 [History] Omeprazole [PriLOSEC] 40 mg PO DAILY 09/08/17 [History] Promethazine HCl 12.5 mg PO Q8H PRN 09/08/17 [History] Rosuvastatin Calcium [Crestor] 5 mg PO DAILY 09/08/17 [History] Venlafaxine HCl [Venlafaxine HCl ER] 75 mg PO DAILY 09/08/17 [History] Citalopram Hydrobromide [Celexa] 40 mg PO DAILY 11/07/17 [History] Divalproex (24 HR) [Depakote ER (24 HR)] 750 mg PO DAILY 11/07/17 [History] Fluticasone Propionate Nasal [Flonase] 1 spr NS DAILY 11/07/17 [History] Furosemide [Lasix] 20 mg PO DAILY 11/07/17 [History] Amoxicillin/Clavulanate [Augmentin] 500 mg PO BIDWM 4 Days #8 tablet 11/11/17 [ Rx] Allergies/Adverse Reactions: 3 Allergy/AdvReac Type Severity Reaction Status Date / Time Sbeghzc-Hgt-Kte Reductase Allergy Intermediate Rash Verified 11/18/15 17:58 Inhibitor [Statins] clopidogrel [From Plavix] Allergy Anaphylaxis Verified 08/17/15 13:37 Sulfa (Sulfonamide Allergy Anaphylaxis Verified 08/17/15 13:37 Antibiotics) Warfarin [From Coumadin] Allergy Anaphylaxis Verified 08/17/15 13:37 Date of admission: 11/07/17 03:10 Primary care physician: Dayan Prieto CNP Consults: 11/07/17 03:14 Consult to Physical Therapy [CONS] Routine Comment: Evaluate, develop and implement POC Reason for Consult: Generalized weakness Does patient have active BEDREST order?: Yes Is patient medically & hemodynamically stable?: Yes Patient assessed for mobility or mobilized this visit?: No 11/07/17 03:34 Consult to Radio Repairer Domestic [CONS] Routine Reason for SW Consult: Patient with developmental delay, cerebral palsy. Guardian is listed in chart, but not present at admission. Patient arrives to [facility] unassisted and unable to provide much information. - Constitutional Vitals: Temp Pulse Resp BP Pulse Ox 98.9 F 97 17 111/76 96 11/11/17 11:14 11/11/17 11:14 11/11/17 11:53 11/11/17 11:14 11/11/17 11:53 General appearance: Present: A&O X 1, disheveled - Head Head exam: Present: normal inspection - Neck Neck exam general surgery: Present: supple - Respiratory Respiratory exam: Present: CTAB - Cardiovascular Cardiovascular exam: Present: RRR, +S1, +S2 - GI/Abdominal GI/Abdominal exam: Present: normal bowel sounds, no peritoneal signs - Psychiatric Psychiatric exam: Absent: normal affect, normal mood - Skin Skin exam: Present: intact - Patient Status Disposition: Home Health Service Condition: Fair Functional capacity at discharge: bed bound Overall status at discharge: patient is progressing back to baseline - Discharge Instructions Follow Up With: Dayan Prieto CNP [Primary Care Provider] - 11/23/17 10:00 am Forms: ED Satisfaction Letter - Diet and Activity Activity: as per physical therapy Diet: other (Softs. No straws. ) - VTE Documentation of Mechanical Device: Intermittent pneumatic compression device <Soha Pennington - Last Filed: 11/11/17 18:04> Orders not resulted at time of discharge: Pending orders 11/07/17 03:51 Culture,Blood [BC] Stat 11/09/17 01:43 Procalcitonin Routine Date of Encounter: 11/11/17 - Discharge Diagnosis (1) Sepsis Status: Resolved (2) Altered mental status Status: Resolved (3) Cerebral palsy Status: Chronic (4) GERD (gastroesophageal reflux disease) Status: Chronic (5) DVT prophylaxis Status: Acute (6) Seizure Status: Chronic (7) Hypokalemia Status: Resolved (8) Pneumonia Status: Acute (9) DVT (deep venous thrombosis) Status: Suspected Qualifiers: DVT location: lower extremity Affected thrombotic vein of extremity: other lower extremity vein Chronicity: acute Laterality: unspecified laterality Qualified Code(s): I82.409 - Acute embolism and thrombosis of unspecified deep veins of unspecified lower extremity Hospital course: Ms. Martinez is a 71 year old female - Time Spent with Patient Total time spent providing and/or coordinating discharge services: Date of admission: 11/07/17 03:10 Primary care physician: Dayan Prieto CNP Consults: 11/07/17 03:14 Consult to Physical Therapy [CONS] Routine Comment: Evaluate, develop and implement POC Reason for Consult: Generalized weakness Does patient have active BEDREST order?: Yes Is patient medically & hemodynamically stable?: Yes Patient assessed for mobility or mobilized this visit?: No 11/07/17 03:34 Consult to Radio Repairer Domestic [CONS] Routine Reason for SW Consult: Patient with developmental delay, cerebral palsy. Guardian is listed in chart, but not present at admission. Patient arrives to [facility] unassisted and unable to provide much information. - Constitutional Vitals: Temp Pulse Resp BP Pulse Ox 98.4 F 99 14 130/82 91 11/11/17 15:53 11/11/17 15:53 11/11/17 15:53 11/11/17 15:53 11/11/17 15:53 - Attending Attestation I saw and evaluated the patient at bedside. I have reviewed the DC Summary note note obtained and documented by the resident and personally participated in the zelaya components. I have discussed the case and management of the patient' s care. I agree with the findings and plan of care.
--- NOTE | 2017-11-11 13:45 | Physician Discharge Referral ---
Home Health/Hosp Referral Info Transfer to: Home Health Attending Provider: Dr. Flaquito Pennington Provider in Charge Post Discharge: PCP - Diagnosis (1) Pneumonia Priority: Primary Status: Acute (2) Sepsis Priority: Secondary Status: Resolved (3) DVT (deep venous thrombosis) Priority: Secondary Status: Suspected (4) Seizure Priority: Secondary Status: Chronic (5) Altered mental status Priority: Secondary Status: Resolved (6) Cerebral palsy Priority: Secondary Status: Chronic (7) GERD (gastroesophageal reflux disease) Priority: Secondary Status: Chronic (8) Hypokalemia Priority: Secondary Status: Resolved (9) DVT prophylaxis Priority: Secondary Status: Acute - Respiratory Orders None Smoking Cessation: Smoking cessation has been advised. For more information, call the [employer] Tobacco Quit Line at 3-923-DWAM-NOW. - Diet/Nutrition Diet/Nutrition Orders: Mechanical Soft, Pureed - Activity Activity Orders: Bedrest - Services Needed Following services are medically necessary services: Nursing, Home Health Aide - Transfer Medications Prescriptions: Amoxicillin/Clavulanate [Augmentin] 500 mg PO BIDWM 4 Days #8 tablet Home Medications: Baclofen 20 mg PO BID 09/08/17 [History] Citalopram [CeleXA] 20 mg PO DAILY 09/08/17 [History] Loratadine [Allergy Relief] 10 mg PO DAILY 09/08/17 [History] Omeprazole [PriLOSEC] 40 mg PO DAILY 09/08/17 [History] Promethazine HCl 12.5 mg PO Q8H PRN 09/08/17 [History] Rosuvastatin Calcium [Crestor] 5 mg PO DAILY 09/08/17 [History] Venlafaxine HCl [Venlafaxine HCl ER] 75 mg PO DAILY 09/08/17 [History] Citalopram Hydrobromide [Celexa] 40 mg PO DAILY 11/07/17 [History] Divalproex (24 HR) [Depakote ER (24 HR)] 750 mg PO DAILY 11/07/17 [History] Fluticasone Propionate Nasal [Flonase] 1 spr NS DAILY 11/07/17 [History] Furosemide [Lasix] 20 mg PO DAILY 11/07/17 [History] Amoxicillin/Clavulanate [Augmentin] 500 mg PO BIDWM 4 Days #8 tablet 11/11/17 [ Rx] Allergies/Adverse Reactions: 3 Allergy/AdvReac Type Severity Reaction Status Date / Time Yetvhnf-Ear-Dna Reductase Allergy Intermediate Rash Verified 11/18/15 17:58 Inhibitor [Statins] clopidogrel [From Plavix] Allergy Anaphylaxis Verified 08/17/15 13:37 Sulfa (Sulfonamide Allergy Anaphylaxis Verified 08/17/15 13:37 Antibiotics) Warfarin [From Coumadin] Allergy Anaphylaxis Verified 08/17/15 13:37 Certification: Further, I certify that my clinical findings support that this patient is homebound (i.e. absences from home require considerable and taxing effort and are for medical reasons or voodoo services or infrequently or short duration when for other reasons) because: Homebound Reason: Patient requires assistance of a person or device to safely leave home Attestation: My signature below is to certify that this patient is under my care and that I, or nurse practitioner, or a physician's car rental sales assistant working with me, has a face-to -face encounter with this patient.
--- NOTE | 2017-11-11 16:16 | Event Note ---
<Archie Prieto S - Last Filed: 11/11/17 16:14> Date of Encounter: 11/11/17 Time of Encounter: 04:00 Pt caregivers came to pick patient up and said she is not at baseline. they said she is able to feed herself, use a straw, read a newspaper, and knows who her caregivers are. Today she is unaware of who they are. She is also shaking and unable to release the latcher of her right hand. She has some sterotyped orofacial movements Pt is oriented to self but doesn't know where she is at the moment or what year it is. She seems to go in and out of how oriented she is We will consult psych for tomorrow. Pt was given Olanzopine during one of her hospital stays and never had it refilled. <Soha Pennington - Last Filed: 11/11/17 18:24> Date of Encounter: 11/11/17
[2017-11-11] MEDS: Amoxicillin/Clavulanate 500 MG TABLET PO SCH (17:14)
[2017-11-11] MEDS: 0.9 % Sodium Chloride 1,000 ML IVC SCH (17:57)
[2017-11-12] MEDS: 0.9 % Sodium Chloride 1,000 ML IVC SCH ×3 (02:01→17:30)
[2017-11-12] MEDS: Ipratropium/Albuterol Neb 3 ML IH SCH ×5 (03:46→23:43)
[2017-11-12] MEDS: *HR* Heparin 5,000 UNIT/ML VIAL SQ SCH ×2 (05:55→17:28)
[2017-11-12] MEDS: Divalproex (24 HR) 250 MG TABLET PO SCH (08:30)
[2017-11-12] MEDS: Loratadine 10 MG TABLET PO SCH (08:30)
[2017-11-12] MEDS: Lactobacillus 1 EACH CAP.SPRINK PO SCH ×2 (08:30→20:53)
[2017-11-12] MEDS: Baclofen 10 MG TABLET PO SCH ×2 (08:30→20:53)
[2017-11-12] MEDS: Amoxicillin/Clavulanate 500 MG TABLET PO SCH (08:30)
[2017-11-12] MEDS: Venlafaxine XR (24 HR) 75 MG CAP.ER.24H PO SCH (08:30)
[2017-11-12] MEDS ORDERED: Isovue-370 500 ML INFUS..BTL IV ONE (08:55)
[2017-11-12 09:25] LABS: Basophils # 0.1 K/mcL (0.0-0.2); Basophils % 0.8 %; Eosinophils # 0.1 K/mcL (0.0-0.6); Eosinophils % 0.9 %; Hematocrit 36.6 % (35.3-44.9); Hemoglobin 11.6 g/dL (11.5-15.4); Immature Granulocytes % 1.9 % (0-4); Lymphocytes # 1.9 K/mcL (0.6-4.6); Lymphocytes % 16.5 %; Mean Corpuscular HGB Conc 31.7 g/dL (31.6-35.5); Mean Corpuscular Hemoglobin 28.4 pg (28.0-33.3); Mean Corpuscular Volume 89.7 fL (83.0-100.0); Mean Platelet Volume 10.5 fL (9.4-12.4); Monocytes # 1.8 K/mcL (0.0-1.3); Monocytes % 15.2 %; Neutrophils # 7.5 K/mcL (1.6-8.9); Platelet Count 162 K/mcL (140-400); Red Blood Count 4.08 M/mcL (3.82-4.97); Red Cell Distribution Width 16.9 % (11.5-14.5); Segmented Neutrophils % 64.7 %
[2017-11-12] MEDS: Fluticasone Propionate Nasal 50 MCG/SPRAY BOTTLE NS SCH (10:03)
[2017-11-12] MEDS: Piperacillin/Tazobactam 3.375 GM in 0.9 % Sodium Chloride Mini Bag 100 ML IVPB SCH ×3 (11:38→23:23)
[2017-11-12] MEDS ORDERED: Furosemide 20 MG/2 ML VIAL IVP ONE (13:01)
--- NOTE | 2017-11-12 13:56 | Internal Med Progress Note ---
<Archie Prieto S - Last Filed: 11/12/17 13:47> Date of Encounter: 11/12/17 Time of Encounter: 08:30 - Assessment and plan (1) Pneumonia Current Visit: Yes Status: Acute Assessment and plan: Pt suspected to have aspiration pneumonia -was clinically improving but care givers said she wasn't at mental baseline. They said she is usually alert and oriented to herself, to them, and can feed herself. She is unable to feed herself in the hospital, doesn't recognize them and is shaking -pt was tacycardic overnight and had a t max of 100.4 -pt is rhonchorus/wheezing on auscultation -did a sat CT angio of the chest to r/o PE - showed no acute PE but possible pneumonia and a large hiatal hernia -blood cultures awaiting -vancoymycin/zosyn started -ID consulted -d/c PO augmentin Qualifiers: Pneumonia type: due to unspecified organism Laterality: right Lung location: lower lobe of lung Qualified Code(s): J18.1 - Lobar pneumonia, unspecified organism (2) Seizure Current Visit: No Status: Chronic Assessment and plan: On depakote Speech evaluated with swallow studie - recommendation below: ST recommends thin liquid and advanced soft textures. NO STRAWS, assist with feeds, meds in puree. Patient is tolerating baseline diet. No swallow therapy recommended at this time. Neuro checks q4hr - pt at this time is arousable and is aware of where she is (3) Cerebral palsy Current Visit: Yes Status: Chronic Assessment and plan: Chronic. Qualifiers: Cerebral palsy type: unspecified type Qualified Code(s): G80.9 - Cerebral palsy, unspecified (4) GERD (gastroesophageal reflux disease) Current Visit: No Status: Chronic Assessment and plan: Pt is on prilosec Keep head of bed elevated. Don't eat large meals before laying down. Chew all foods throuroughly Speech said to do thin liquids, advance soft textures , meds in puree. No straws Qualifiers: Esophagitis presence: esophagitis presence not specified Qualified Code(s) : K21.9 - Gastro-esophageal reflux disease without esophagitis (5) Hypokalemia Current Visit: Yes Status: Resolved Assessment and plan: Potassium 2.1. Replacement done in the ER. Today it is 4.3 Recheck electrolytes tomorrow. (6) DVT prophylaxis Current Visit: No Status: Acute Assessment and plan: 5000U SQ heparin (7) DVT (deep venous thrombosis) Current Visit: Yes Status: Suspected Assessment and plan: r/o DVT and PE -CTA of chest negative for acute PE, showed possible pneumonia -started pt on Zosyn/Vanc -Blood cx pending -ID consulted t max overnight 100.4, HR in 120's Meets part of Virchow's triad of hypercoag 2/2 to immobility and stasis. She has only been on SCD for DVT prophylaxis Pt placed on 5000U SQ heparin repeated US bilateral LE to r/o DVT Qualifiers: DVT location: lower extremity Affected thrombotic vein of extremity: other lower extremity vein Chronicity: acute Laterality: unspecified laterality Qualified Code(s): I82.409 - Acute embolism and thrombosis of unspecified deep veins of unspecified lower extremity - Time Spent With Patient Total time spent is greater than 50% in coordination of care (as documented) at patient's floor/unit and/or counseling patient: less than 15 minutes - Subjective Interval history: Patient is seen at bedside. She is unable to communicate today and is not oriented to self or place. Psych consulted for dementia, developmental delay and cerebral palsy Nurses state she was tacycardic all night in the 120's. Pt is tacy on auscultation T max of 100.4 overnight. -PE studies ordered - CTA chest was negative for acute PE, , showed large hiatal hernia, multfocal patchy airplace dz in both lungs could represent pneumonia, bilateral pleural effusions -repeated blood cultures -WBC elevated 11.6 -D/C'd the Augmentin and started pt on Vancomycin/Zosyn -prolactin 0.44 Fluids - no fluids at this time, will start if pt decreasing appetite to maintain hydration Electrolytes - mild hyperchloremia at 108. Nutrition - pt is on softs thickened with honey, no straw GI prophylaxis - pt is on omeprazole DVT prophylaxis - heparin SQ 5000U - Constitutional Vitals: Temp Pulse Resp BP Pulse Ox 98.1 F 112 18 103/75 98 11/12/17 11:48 11/12/17 11:48 11/12/17 11:48 11/12/17 11:48 11/12/17 11:48 General appearance: Present: A&O X 0, disheveled, mild distress - Head Head exam: Present: normal inspection - Neck Neck exam general surgery: Present: supple - Respiratory Respiratory exam: Present: rhonchi, wheezes - Cardiovascular Cardiovascular exam: Present: tachycardia - GI/Abdominal GI/Abdominal exam: Present: no peritoneal signs. Absent: tenderness - Neurological Exam Neurological exam: Present: motor sensory deficit, speech deficit. Absent: alert, altered, oriented X3 - Psychiatric Psychiatric exam: Present: anxious. Absent: normal affect, normal mood Internal Medicine: Result - Labs CBC & Chem 7: 11/12/17 09:13 11/11/17 06:33 Labs: Short CBC 11/12/17 Range/Units 09:13 WBC 11.6 H D (4.3-11.1) K/mcL Hgb 11.6 (11.5-15.4) g/dL Hct 36.6 (35.3-44.9) % Plt Count 162 D (140-400) K/mcL Neutrophils # 7.5 (1.6-8.9) K/mcL - ABG Interpretation ABG results: ABG ABG pH 7.40 pH Units (7.32-7.45) 11/08/17 18:26 ABG pCO2 52 mmHg (35-45) H 11/08/17 18:26 ABG pO2 63 mmHg (85-104) L 11/08/17 18:26 ABG O2 Saturation 91 % (95-98) L 11/08/17 18:26 PT/INR, D-dimer PT 11.7 Seconds (9.4-12.1) 11/06/17 21:22 - Impressions Impressions Chest X-Ray 11/10/17 11:56 IMPRESSION: Possible left lower lobe/retrocardiac opacity. This may represent pneumonia or atelectasis. Examination limited by rotation. D/ / 11/10/2017 18:11:30 Storm Collins MD / tania Interpreting Provider: Storm Collins MD Chest CTA 11/12/17 08:55 IMPRESSION: 1. Negative for acute pulmonary embolism. 2. Large hiatal hernia. 3. Multifocal patchy airspace disease in both lungs could represent pneumonia. 4. Bilateral pleural effusions. D/ / 11/12/2017 10:35:04 Kvng Mancini MD / rebeca Interpreting Provider: Kvng Mancini MD - VTE Documentation of Mechanical Device: Intermittent pneumatic compression device Consult Discharge Plan - Plan Referrals: Dayan Prieto FIELD CASE MANAGER [Primary Care Provider] - 11/23/17 10:00 am Prescriptions: Amoxicillin/Clavulanate [Augmentin] 500 mg PO BIDWM 4 Days #8 tablet <GorgeEribertoalysia Tolu - Last Filed: 11/12/17 17:58> Date of Encounter: 11/12/17 - Assessment and plan (1) Cerebral palsy Current Visit: Yes Status: Chronic (2) GERD (gastroesophageal reflux disease) Current Visit: No Status: Chronic (3) DVT prophylaxis Current Visit: No Status: Acute (4) Seizure Current Visit: No Status: Chronic (5) Hypokalemia Current Visit: Yes Status: Resolved (6) Pneumonia Current Visit: Yes Status: Acute (7) DVT (deep venous thrombosis) Current Visit: Yes Status: Suspected Qualifiers: DVT location: lower extremity Affected thrombotic vein of extremity: other lower extremity vein Chronicity: acute Laterality: unspecified laterality Qualified Code(s): I82.409 - Acute embolism and thrombosis of unspecified deep veins of unspecified lower extremity - Time Spent With Patient Total time spent is greater than 50% in coordination of care (as documented) at patient's floor/unit and/or counseling patient: - Constitutional Vitals: Temp Pulse Resp BP Pulse Ox 100.8 F H 118 15 110/81 99 11/12/17 15:12 11/12/17 15:12 11/12/17 15:16 11/12/17 15:12 11/12/17 15:16 Internal Medicine: Result - Labs CBC & Chem 7: 11/12/17 09:13 11/11/17 06:33 Labs: Short CBC 11/12/17 Range/Units 09:13 WBC 11.6 H D (4.3-11.1) K/mcL Hgb 11.6 (11.5-15.4) g/dL Hct 36.6 (35.3-44.9) % Plt Count 162 D (140-400) K/mcL Neutrophils # 7.5 (1.6-8.9) K/mcL - ABG Interpretation ABG results: ABG ABG pH 7.51 pH Units (7.32-7.45) H 11/12/17 15:05 ABG pCO2 27 mmHg (35-45) L 11/12/17 15:05 ABG pO2 69 mmHg (85-104) L 11/12/17 15:05 ABG O2 Saturation 95 % (95-98) 11/12/17 15:05 PT/INR, D-dimer PT 11.7 Seconds (9.4-12.1) 11/06/17 21:22 - Impressions Impressions Chest X-Ray 11/10/17 11:56 IMPRESSION: Possible left lower lobe/retrocardiac opacity. This may represent pneumonia or atelectasis. Examination limited by rotation. D/ / 11/10/2017 18:11:30 Storm Collins MD / tania Interpreting Provider: Storm Collins MD Chest CTA 11/12/17 08:55 IMPRESSION: 1. Negative for acute pulmonary embolism. 2. Large hiatal hernia. 3. Multifocal patchy airspace disease in both lungs could represent pneumonia. 4. Bilateral pleural effusions. D/ / 11/12/2017 10:35:04 Kvng Mancini MD / rebeca Interpreting Provider: Kvng Mancini MD - Attending Attestation I saw and evaluated the patient at bedside. I have reviewed the progress note obtained and documented by the resident and personally participated in the zelaya components. I have discussed the case and management of the patient's care. I agree with the findings and plan of care.The following comments revise or confirm relevant zelaya components of their note. Possible aspiration PNA was improving but again a litle worse repeat imaging shows multifical pna and no PE fluid overload- will give one dose of Lasix and check ABG plus duonebs to be given Pulm consult placed and ID consult requested as well Rest per resident
--- NOTE | 2017-11-12 14:26 | Infectious Disease Consult ---
Date of Encounter: 11/12/17 Time of Encounter: 14:22 Assessment and Plan (1) Sepsis Status: Acute Assessment and plan: The patient had 2 SIRS criteria initially, which resolved. She developed leukocytosis, tachycardia, and fever this morning. Likely secondary to pneumonia, but need to rule out other causes as well. Blood cultures drawn November 07 are negative 2 sets. Repeat blood culture drawn November 12 1 set is pending. Recommend repeating an additional blood culture 1 set now to make a total of 2 sets today. The patient does not appear to have any skin breakdown that indicates a wound infection. Her abdomen is tender on palpation, but her LFTs are normal. We will check amylase and lipase. Per nursing, her George catheter was removed yesterday and it was very cloudy. Will repeat a urinalysis and culture at this time. Continue vancomycin IV. Pharmacy to dose. Goal trough approximately 15. Continue Zosyn 3.375 g IV every 8 hours. Start Levaquin 750 mg IV daily. Qualifiers: Sepsis type: sepsis due to unspecified organism Qualified Code(s): A41.9 - Sepsis, unspecified organism (2) Pneumonia Status: Acute Assessment and plan: Location: Bilateral. Causative organism: Unclear. Given the patient's altered mental status, concern for aspiration. Speech therapy was consulted and recommended thin liquids and advance soft textures. Per nursing, the patient was witnessed to be choking while she was eating breakfast this morning. Check strep pneumococcal and legionella urinary antigens. Get sputum culture if patient is able to provide an adequate specimen. Check respiratory infectious panel. Continue vancomycin IV. Pharmacy to dose. Goal trough approximately 15. Continue Zosyn 3.375 g IV every 8 hours. Start Levaquin 750 mg IV daily. Duration of treatment depends on the clinical picture. Monitor renal function and for drug toxicity and dose adjust antibiotics. Qualifiers: Pneumonia type: due to unspecified organism Laterality: right Lung location: lower lobe of lung Qualified Code(s): J18.1 - Lobar pneumonia, unspecified organism (3) Altered mental status Status: Acute Assessment and plan: Etiology unclear. Likely secondary to sepsis. CT head negative on November 06. Unsure what the patient's baseline is. Continue to monitor closely. Qualifiers: Altered mental status type: disorientation Qualified Code(s): R41.0 - Disorientation, unspecified (4) Dysphasia Status: Acute Assessment and plan: Speech therapy evaluation noted. Consider repeat evaluation. (5) Hypokalemia Status: Resolved (6) Cerebral palsy Status: Chronic Qualifiers: Cerebral palsy type: unspecified type Qualified Code(s): G80.9 - Cerebral palsy, unspecified (7) GERD (gastroesophageal reflux disease) Status: Chronic Qualifiers: Esophagitis presence: esophagitis presence not specified Qualified Code(s) : K21.9 - Gastro-esophageal reflux disease without esophagitis (8) Hyperlipidemia Status: Chronic Qualifiers: Hyperlipidemia type: unspecified Qualified Code(s): E78.5 - Hyperlipidemia , unspecified (9) Hypertension Status: Acute Qualifiers: Hypertension type: essential hypertension Qualified Code(s): I10 - Essential (primary) hypertension Infectious Disease HPI - Data of Consult Patient: new to practice Consult date: 11/12/17 Requesting Physician: Flaquito Pennington Primary Care Provider: Dayan Prieto CNP - Consult Narrative Reason for consult: Pneumonia History of present illness: Ms. Martinez is a 71 year old female with a past medical history of dementia, cerebral palsy, developmental delay, hyperlipidemia, hypertension, and seizure disorder. The patient was admitted to the hospital November 06 for altered mental status. We are consulted November 12 for further recommendations for pneumonia. Briefly, the patient 71-year-old female past medical history as stated above. The patient presented to the emergency department on the day of admission with her caregivers who reported the patient was having altered mental status and hallucinations. Upon arrival, the patient was afebrile. She was tachycardic, but was otherwise hemodynamically stable. Laboratory studies revealed a white blood cell count of 31.7 thousand with neutrophilic predominance. She had a CT of the head that was negative. She did chest x-ray that showed multifocal right lung atelectasis versus pneumonia. Her urinalysis, urine drug screen, and blood alcohol levels were all normal. She was started empirically on IV Zosyn and admitted to the hospital for further evaluation. Since admission, the patient's has had some intermittent low-grade fevers. Her tachycardia had initially improved and her white blood cell count normalized. However, her mental status has not improved much. She was evaluated by speech therapy who recommended thin liquids and advance to soft textures without straws and that she requires assistance with meals. She was preparing for discharge yesterday and her antibiotics were descalated to oral Augmentin, but her caregivers reported that her baseline mental status has not returned so they kept her another night. Today, her white blood cell count is back up to 11.6 thousand. She spiked a fever of 100.6 and became tachycardic. She was CTA of the chest that showed multifocal patchy airspace disease in the bilateral lungs consistent with pneumonia and bilateral pleural effusions. Blood cultures have been obtained 1 set. Today, her antibiotic therapy was transitioned back to IV Zosyn and vancomycin was added. We have been asked to evaluate and make further recommendations. During my exam today, the patient appears altered. She is not able to provide me with any information. She appears to be in no acute distress. There is no family or caregivers at the bedside. Per nursing, the patient was eating breakfast this morning and it appeared to choke some. She reports she had a bowel movement this morning that was soft. No other new issues or concerns per nursing. CC: Flaquito Pennington Past Med Surg Social Fam HX - Past Medical History Source: old records reviewed, nursing notes reviewed Medical history: dementia, GERD, hyperlipidemia, hypertension, other Additional medical history: CP, osteoarthritis., anxiety, depression, Psychiatric history: anxiety, depression - Past Surgical History Surgical History: other (shoulder, knee surgery) Additional surgical history: abdominal surgery, knee surgeries. - Social History Smoking Status: Never smoker Smokeless Tobacco Status: No Alcohol use: none Drug use: none - Family History Mother Adopted: Yes Father Adopted: Yes Infectious Disease-CN:Meds Baclofen 20 mg PO BID 09/08/17 [History] Citalopram [CeleXA] 20 mg PO DAILY 09/08/17 [History] Loratadine [Allergy Relief] 10 mg PO DAILY 09/08/17 [History] Omeprazole [PriLOSEC] 40 mg PO DAILY 09/08/17 [History] Promethazine HCl 12.5 mg PO Q8H PRN 09/08/17 [History] Rosuvastatin Calcium [Crestor] 5 mg PO DAILY 09/08/17 [History] Venlafaxine HCl [Venlafaxine HCl ER] 75 mg PO DAILY 09/08/17 [History] Citalopram Hydrobromide [Celexa] 40 mg PO DAILY 11/07/17 [History] Divalproex (24 HR) [Depakote ER (24 HR)] 750 mg PO DAILY 11/07/17 [History] Fluticasone Propionate Nasal [Flonase] 1 spr NS DAILY 11/07/17 [History] Furosemide [Lasix] 20 mg PO DAILY 11/07/17 [History] Amoxicillin/Clavulanate [Augmentin] 500 mg PO BIDWM 4 Days #8 tablet 11/11/17 [ Rx] 3 Allergy/AdvReac Type Severity Reaction Status Date / Time [id number] Reductase Allergy Intermediate Rash Verified 11/18/15 17:58 Inhibitor [Statins] clopidogrel [From Plavix] Allergy Anaphylaxis Verified 08/17/15 13:37 Sulfa (Sulfonamide Allergy Anaphylaxis Verified 08/17/15 13:37 Antibiotics) Warfarin [From Coumadin] Allergy Anaphylaxis Verified 08/17/15 13:37 ROS unobtainable: due to mental status Exam - Constitutional Vitals: Temp Pulse Resp BP Pulse Ox 98.1 F 112 18 103/75 98 11/12/17 11:48 11/12/17 11:48 11/12/17 11:48 11/12/17 11:48 11/12/17 11:48 General appearance: average body habitus, cooperative, no acute distress - Head Head exam: Present: atraumatic, normal inspection, normocephalic - Eye Eye exam: Present: PERRL, sclera anicteric - ENT ENT exam: Present: mucous membranes dry Additional comments: Very poor dentition noted. - Neck Neck exam: Present: normal inspection - Respiratory Respiratory exam: Present: rales (Bilaterally). Absent: respiratory distress, rhonchi, wheezes - Cardiovascular Cardiovascular exam: Present: tachycardia. Absent: irregular rhythm - GI/Abdominal GI/Abdominal exam: Present: normal bowel sounds, soft, tenderness (Generalized) . Absent: distended - Extremities Exam Extremities exam: Present: pedal edema (1+ bilateral lower extremities). Absent : joint swelling, normal inspection (Congenital malformation noted bilateral lower extremities.), tenderness - Neurological Exam Neurological exam: Present: alert. Absent: oriented X3 (The patient does not answer questions.) - Skin Skin exam: Present: dry, intact, normal color, warm. Absent: rash Infectious Disease CN: Results - Labs CBC & Chem 7: 11/12/17 09:13 11/11/17 06:33 Cultures: Cultures 11/12/17 12:21 Blood Culture - Preliminary Peripheral Venipuncture Culture is incubating and being continuously monitored for growth. Final report to follow. 11/07/17 03:51 Blood Culture - Final Peripheral Venipuncture No growth. Final report. 11/07/17 03:51 Blood Culture - Final Peripheral Venipuncture No growth. Final report. - VTE Documentation of Mechanical Device: Intermittent pneumatic compression device Consult Discharge Plan - Plan Referrals: Dayan Prieto CNP [Primary Care Provider] - 11/23/17 10:00 am Prescriptions: Amoxicillin/Clavulanate [Augmentin] 500 mg PO BIDWM 4 Days #8 tablet - Attending Attestation I examined this patient and my medical decision-making was reviewed with the Resident Physician. I agree with the documented findings, disposition and treatment plan as described except to the extent set forth below. This is an addendum to original report dictated by Gladys Castillo CNP. Please refer to Zo note for full detail. Patient is a 71-year-old woman with past medical history mentioned below was brought in to the hospital for altered mental status on November 06. We are consulted today for multilobar pneumonia. Patient is known to have baseline dementia, cerebral palsy and developmental delay. Patient was improving clinically and then took a turn for the worse with fever and worsening leukocytosis. Assessment and plan: Sepsis Pneumonia Altered mental status Dysphagia His hypokalemia Cerebral palsy Hyperlipidemia Hypertension GERD Diarrhea Recommendations: At this point I am not sure why the patient to return to the worse. It could be she has recurrence of aspiration pneumonia versus other. We will check urine legionella and pneumococcal antigen and respiratory infectious panel. Add Levaquin for atypical coverage. Poor dental hygiene concern for anaerobic infection Patient is having some diarrhea if she will have more than 3 watery bowel movements we will check her for clustered him to [place] LFTs are normal, patient unable to give us proper review of system or physical exam consider checking lipase and amylase. No decubitus ulcer Repeat urine culture, nursing tells me that they George was removed yesterday and had a lot of purulence around it. Continue vancomycin and Zosyn and add levofloxacin.
--- NOTE | 2017-11-12 15:08 | Pulmonology Consult Note ---
<Jenny Li N - Last Filed: 11/12/17 16:20> Date of Encounter: 11/12/17 Time of Encounter: 14:58 Assessment and Plan (1) Pneumonia Current Visit: Yes Status: Acute Patient has a history of cerebral palsy and seizure disorder There is concern for aspiration as a cause of her pneumonia Patient is currently on broad-spectrum antibiotic therapy with vancomycin, Zosyn , and levofloxacin Patient was found to have labile oxygen saturation readings today, with O2 sats in the 80s The patient was seen by pulmonology, upon arrival the patient's oxygen saturation was in the mid 80s, however with manipulation of the sensor the O2 saturation would increase into the upper 90s. A different sensor was applied to record readings and the oxygen saturation remained in the mid to upper 90s. On physical exam the patient was found to have bilateral wheezes, she is currently on DuoNeb therapy every 6 hours. Since the patient appeared to be adequately maintaining O2 saturation on 3 L intubation was not sought at this time. Recommend following up on sputum cultures, obtain urinary strep and Legionella antigens, respiratory infection panel, and increasing DuoNeb every 4 hours. BiPAP may be considered if patient desaturates and is unable to maintain adequate oxygen saturation on supplemental oxygen. Qualifiers: Pneumonia type: due to unspecified organism Laterality: right Lung location: lower lobe of lung Qualified Code(s): J18.1 - Lobar pneumonia, unspecified organism (2) Sepsis Current Visit: Yes Status: Acute Patient has pneumonia, leukocytosis, and was tachycardic today Awaiting blood cultures drawn today Recommend obtaining urinary strep and Legionella antigens, sputum cultures, and respirations infection panel Continue broad-spectrum antibiotic therapy Follow ID recommendations Qualifiers: Sepsis type: sepsis due to unspecified organism Qualified Code(s): A41.9 - Sepsis, unspecified organism (3) Altered mental status Current Visit: Yes Status: Acute Per records, family states that the patient is not at her normal baseline Patient is not tolerated to self or close family members CT head negative Continue to treat infection and reevaluate patient's mental status Qualifiers: Altered mental status type: disorientation Qualified Code(s): R41.0 - Disorientation, unspecified (4) Cerebral palsy Current Visit: Yes Status: Chronic Known history of cerebral palsy, and reported history of seizure disorder Patient is at higher risk for aspiration pneumonia next continue broad-spectrum antibody therapy Qualifiers: Cerebral palsy type: unspecified type Qualified Code(s): G80.9 - Cerebral palsy, unspecified (5) Hypokalemia Current Visit: Yes Status: Resolved (6) Hyperlipidemia Current Visit: No Status: Chronic Qualifiers: Hyperlipidemia type: unspecified Qualified Code(s): E78.5 - Hyperlipidemia , unspecified (7) Hypertension Current Visit: No Status: Acute Qualifiers: Hypertension type: essential hypertension Qualified Code(s): I10 - Essential (primary) hypertension History of Present Illness Consult date: 11/12/17 Requesting physician: Archie Prieto Reason for consult: other (Hypoxia) Chief complaint: Hypoxia History of present illness: Patient is a 71-year-old female with a past medical history of cerebral palsy, dementia, and chronic seizure disorder who was admitted on 11/07/17 to the hospital with multifocal pneumonia. Suspected aspiration pneumonia given patient's multiple comorbidities that pose higher risk. During her admission patient has been tachycardic and had temperatures of 100.4. Blood cultures were obtained and are pending, patient is currently on vancomycin and Zosyn for treatment of her pneumonia. Patient initially required 1 L oxygen to maintain adequate oxygen saturation, however today she has required 3 L O2. Pulmonology was consulted today as the patient had labile oxygen saturation readings ranging from 80%-100%. Past Med Surg Social Fam HX - Past Medical History Medical history: dementia, GERD, hyperlipidemia, hypertension, other Additional medical history: CP, osteoarthritis., anxiety, depression, Psychiatric history: anxiety, depression - Past Surgical History Surgical History: other (shoulder, knee surgery) Additional surgical history: abdominal surgery, knee surgeries. - Social History Smoking Status: Never smoker Smokeless Tobacco Status: No Alcohol use: none Drug use: none - Family History Mother Adopted: Yes Father Adopted: Yes Medications and Allergies Baclofen 20 mg PO BID 09/08/17 [History] Citalopram [CeleXA] 20 mg PO DAILY 09/08/17 [History] Loratadine [Allergy Relief] 10 mg PO DAILY 09/08/17 [History] Omeprazole [PriLOSEC] 40 mg PO DAILY 09/08/17 [History] Promethazine HCl 12.5 mg PO Q8H PRN 09/08/17 [History] Rosuvastatin Calcium [Crestor] 5 mg PO DAILY 09/08/17 [History] Venlafaxine HCl [Venlafaxine HCl ER] 75 mg PO DAILY 09/08/17 [History] Citalopram Hydrobromide [Celexa] 40 mg PO DAILY 11/07/17 [History] Divalproex (24 HR) [Depakote ER (24 HR)] 750 mg PO DAILY 11/07/17 [History] Fluticasone Propionate Nasal [Flonase] 1 spr NS DAILY 11/07/17 [History] Furosemide [Lasix] 20 mg PO DAILY 11/07/17 [History] Amoxicillin/Clavulanate [Augmentin] 500 mg PO BIDWM 4 Days #8 tablet 11/11/17 [ Rx] 3 Allergy/AdvReac Type Severity Reaction Status Date / Time Ulqbyla-Yif-Xaw Reductase Allergy Intermediate Rash Verified 11/18/15 17:58 Inhibitor [Statins] clopidogrel [From Plavix] Allergy Anaphylaxis Verified 08/17/15 13:37 Sulfa (Sulfonamide Allergy Anaphylaxis Verified 08/17/15 13:37 Antibiotics) Warfarin [From Coumadin] Allergy Anaphylaxis Verified 08/17/15 13:37 ROS unobtainable: due to mental status All Systems: The remainder of the systems were reviewed and are negative Physical Examination Vital Signs: Vital Signs, Last 4 Hours Temp Pulse Resp BP Pulse Ox 11/12/17 11:48 98.1 F 112 18 103/75 98 General appearance: other (Anxious, slightly agitated) Eyes: nonicteric Auscultation: bilateral: wheezes Cardiovascular: other (Regular rhythm, tachycardia) Gastrointestinal: soft, non-tender Extremities: no cyanosis, no edema, no clubbing other (Cerebral palsy, patient is not oriented to self) Results - Laboratory Findings CBC and BMP: 11/12/17 09:13 11/11/17 06:33 ABG ABG pH 7.40 pH Units (7.32-7.45) 11/08/17 18:26 ABG pCO2 52 mmHg (35-45) H 11/08/17 18:26 ABG pO2 63 mmHg (85-104) L 11/08/17 18:26 ABG O2 Saturation 91 % (95-98) L 11/08/17 18:26 PT/INR, D-dimer PT 11.7 Seconds (9.4-12.1) 11/06/17 21:22 Abnormal lab findings: Abnormal lab results WBC 11.6 K/mcL (4.3-11.1) H D 11/12/17 09:13 RDW 16.9 % (11.5-14.5) H 11/12/17 09:13 Monocytes # 1.8 K/mcL (0.0-1.3) H 11/12/17 09:13 Toxic Granulation Present (Not Present) A 11/07/17 03:51 Platelet Estimate Slight Decrease (Normal) L 11/07/17 03:51 ABG pCO2 52 mmHg (35-45) H 11/08/17 18:26 ABG pO2 63 mmHg (85-104) L 11/08/17 18:26 ABG HCO3 32 mEq/L (21-27) H 11/08/17 18:26 ABG Total CO2 33 mEq/L (20-26) H 11/08/17 18:26 ABG O2 Saturation 91 % (95-98) L 11/08/17 18:26 ABG Base Excess 6 mEq/L (-2 to 3) H 11/08/17 18:26 Chloride 108 mEq/L (98-107) H 11/11/17 06:33 Creatinine 0.50 mg/dL (0.60-1.20) L 11/11/17 06:33 POC Glucose 134 mg/dL (70-99) H 11/06/17 21:20 Calcium 8.3 mg/dL (8.6-10.3) L 11/11/17 06:33 Total Bilirubin 0.2 mg/dL (0.3-1.0) L 11/11/17 06:33 AST 12 Units/L (13-39) L 11/11/17 06:33 ALT 5 Units/L (7-52) L 11/11/17 06:33 Serum Total Protein 5.5 g/dL (6.4-8.9) L 11/11/17 06:33 Albumin 2.3 g/dL (3.5-5.7) L 11/11/17 06:33 Albumin/Globulin Ratio 0.7 (1.1-2.2) L 11/11/17 06:33 Procalcitonin 0.44 ng/mL (<=0.07) H 11/09/17 01:43 - Microbiology Findings Microbiology Findings: Microbiology, Last 48 Hours 11/12/17 12:21 Blood Culture - Preliminary Peripheral Venipuncture Culture is incubating and being continuously monitored for growth. Final report to follow. 11/07/17 03:51 Blood Culture - Final Peripheral Venipuncture No growth. Final report. 11/07/17 03:51 Blood Culture - Final Peripheral Venipuncture No growth. Final report. - Diagnostic Findings Chest x-ray: report reviewed, image reviewed CT scan - chest: report reviewed, image reviewed - Clinical Findings Intake & Output: Intake & Output 11/11/17 11/12/17 11/12/17 23:59 07:59 15:59 Intake Total 1000 / 1000 Balance 1000 / 1000 Weight 70.1 kg Consult Discharge Plan - Plan Referrals: Dayan Prieto CNP [Primary Care Provider] - 11/23/17 10:00 am Prescriptions: Amoxicillin/Clavulanate [Augmentin] 500 mg PO BIDWM 4 Days #8 tablet <Ty Metzger - Last Filed: 11/12/17 16:52> Date of Encounter: 11/12/17 All Systems: The remainder of the systems were reviewed and are negative Physical Examination Vital Signs: Vital Signs, Last 4 Hours Temp Pulse Resp BP Pulse Ox 11/12/17 15:16 15 99 11/12/17 15:12 100.8 F H 118 15 110/81 97 Results - Laboratory Findings CBC and BMP: 11/12/17 09:13 11/11/17 06:33 ABG ABG pH 7.51 pH Units (7.32-7.45) H 11/12/17 15:05 ABG pCO2 27 mmHg (35-45) L 11/12/17 15:05 ABG pO2 69 mmHg (85-104) L 11/12/17 15:05 ABG O2 Saturation 95 % (95-98) 11/12/17 15:05 PT/INR, D-dimer PT 11.7 Seconds (9.4-12.1) 11/06/17 21:22 Abnormal lab findings: Abnormal lab results WBC 11.6 K/mcL (4.3-11.1) H D 11/12/17 09:13 RDW 16.9 % (11.5-14.5) H 11/12/17 09:13 Monocytes # 1.8 K/mcL (0.0-1.3) H 11/12/17 09:13 Toxic Granulation Present (Not Present) A 11/07/17 03:51 Platelet Estimate Slight Decrease (Normal) L 11/07/17 03:51 ABG pH 7.51 pH Units (7.32-7.45) H 11/12/17 15:05 ABG pCO2 27 mmHg (35-45) L 11/12/17 15:05 ABG pO2 69 mmHg (85-104) L 11/12/17 15:05 Chloride 108 mEq/L (98-107) H 11/11/17 06:33 Creatinine 0.50 mg/dL (0.60-1.20) L 11/11/17 06:33 POC Glucose 134 mg/dL (70-99) H 11/06/17 21:20 Calcium 8.3 mg/dL (8.6-10.3) L 11/11/17 06:33 Total Bilirubin 0.2 mg/dL (0.3-1.0) L 11/11/17 06:33 AST 12 Units/L (13-39) L 11/11/17 06:33 ALT 5 Units/L (7-52) L 11/11/17 06:33 Serum Total Protein 5.5 g/dL (6.4-8.9) L 11/11/17 06:33 Albumin 2.3 g/dL (3.5-5.7) L 11/11/17 06:33 Albumin/Globulin Ratio 0.7 (1.1-2.2) L 11/11/17 06:33 Procalcitonin 0.44 ng/mL (<=0.07) H 11/09/17 01:43 - Microbiology Findings Microbiology Findings: Microbiology, Last 48 Hours 11/12/17 12:21 Blood Culture - Preliminary Peripheral Venipuncture Culture is incubating and being continuously monitored for growth. Final report to follow. 11/07/17 03:51 Blood Culture - Final Peripheral Venipuncture No growth. Final report. 11/07/17 03:51 Blood Culture - Final Peripheral Venipuncture No growth. Final report. - Clinical Findings Intake & Output: Intake & Output 11/12/17 11/12/17 11/12/17 07:59 15:59 23:59 Intake Total 1000 / 1000 Balance 1000 / 1000 Weight 70.1 kg - Attending Attestation I examined this patient and my medical decision-making was reviewed with the Resident Physician. I agree with the documented findings, disposition and treatment plan as described except to the extent set forth below. Patient seen and examined. Labs, radiology, chart personally reviewed. 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 Pulmonary: Acceptable oxygenation and ventilation. Discussed with primary team gentle diuresis might be helpful. Reviewed CAT scan personally with resident's and evidence of multifocal pneumonia and agree with broad-spectrum antibiotics. Pleural effusion is a small and there is no indication for thoracentesis. And just FiO2 to keep SPO2 around 92%. Cardiovascular: stable GI: Nutrition per dietary and GI prophylaxis per routine Heme: DVT prophylaxis per routine ID: Continue antibiotics and plan to de-escalation per ID. Renal; urine out put and renal funtion reviewed Thank you for consultation.
[2017-11-12 15:11] LABS: ABG Base Excess 0 mEq/L (-2 to 3); ABG HCO3 22 mEq/L (21-27); ABG Oxygen Saturation 95 % (95-98); ABG PCO2 27 mmHg (35-45); ABG PH 7.51 pH Units (7.32-7.45); ABG PO2 69 mmHg (85-104); ABG TCO2 23 mEq/L (20-26)
--- NOTE | 2017-11-12 15:16 | Consult Note ---
Date of Encounter: 11/12/17 Time of Encounter: 14:00 Assessment & Recommendation (1) Delirium due to general medical condition Current visit: No Status: Acute (2) Altered mental status Current visit: Yes Status: Acute Qualifiers: Altered mental status type: disorientation Qualified Code(s): R41.0 - Disorientation, unspecified (3) Cerebral palsy Current visit: Yes Status: Chronic Qualifiers: Cerebral palsy type: unspecified type Qualified Code(s): G80.9 - Cerebral palsy, unspecified History of Present Illness Patient: known to practice within the last 3 years Requesting Physician: Flaquito Pennington Reason for consult: ams History of present illness: Ms. Martinez is a 71 year old female This patient is seen on consultation. The patient was previously seen by Dr. Johnson, who is in our group. History of present illness at that time Dr. Johnson identified that the patient had delirium she was talking to people that were not there when he entered the room and he did respond to her and carried on a conversation suggesting that she had a higher baseline than today's interview. At that time to pneumonia was identified as a possible culprit and a urinary tract was associated with a delirium. This gradually improved. This patient has a variety of risk factors for the development of delirium. She has significant cerebrovascular abnormality with ventriculomegaly and global atrophy. She has a history of delirium. She has a history of urinary tract infection. She is a resident of a extended care facility. Today on interview the patient is not able to give me any information. She appears to be responding to external stimuli and even carrying on conversations people that are not there. Efforts to get her attention are not successful. The patient has frontal lobe release signs including until sign and a grasp reflex. At the patient's baseline based on the the history she would have significant major neurocognitive disorder. The patient has multiple metabolic abnormalities. CC: Flaquito Pennington Past Med Surg Social Fam HX - Past Medical History Medical history: dementia, GERD, hyperlipidemia, hypertension, other - Past Psychiatric History Psychiatric history: Reports: other Family psychiatric history: Unknown Family History of Suicide: Unknown - Past Surgical History Surgical History: other (shoulder, knee surgery) - Social History Smoking Status: Never smoker Smokeless Tobacco Status: No Alcohol use: none Drug use: none - Family History Mother Adopted: Yes Father Adopted: Yes Medications & Allergies Baclofen 20 mg PO BID 09/08/17 [History] Citalopram [CeleXA] 20 mg PO DAILY 09/08/17 [History] Loratadine [Allergy Relief] 10 mg PO DAILY 09/08/17 [History] Omeprazole [PriLOSEC] 40 mg PO DAILY 09/08/17 [History] Promethazine HCl 12.5 mg PO Q8H PRN 09/08/17 [History] Rosuvastatin Calcium [Crestor] 5 mg PO DAILY 09/08/17 [History] Venlafaxine HCl [Venlafaxine HCl ER] 75 mg PO DAILY 09/08/17 [History] Citalopram Hydrobromide [Celexa] 40 mg PO DAILY 11/07/17 [History] Divalproex (24 HR) [Depakote ER (24 HR)] 750 mg PO DAILY 11/07/17 [History] Fluticasone Propionate Nasal [Flonase] 1 spr NS DAILY 11/07/17 [History] Furosemide [Lasix] 20 mg PO DAILY 11/07/17 [History] Amoxicillin/Clavulanate [Augmentin] 500 mg PO BIDWM 4 Days #8 tablet 11/11/17 [ Rx] 3 Allergy/AdvReac Type Severity Reaction Status Date / Time Xsenmeq-Bjx-Gxu Reductase Allergy Intermediate Rash Verified 11/18/15 17:58 Inhibitor [Statins] clopidogrel [From Plavix] Allergy Anaphylaxis Verified 08/17/15 13:37 Sulfa (Sulfonamide Allergy Anaphylaxis Verified 08/17/15 13:37 Antibiotics) Warfarin [From Coumadin] Allergy Anaphylaxis Verified 08/17/15 13:37 Review of Systems Psychiatric: Reports: visual hallucinations Psychiatry Exam - Constitutional Vitals: Temp Pulse Resp BP Pulse Ox 98.1 F 112 18 103/75 98 11/12/17 11:48 11/12/17 11:48 11/12/17 11:48 11/12/17 11:48 11/12/17 11:48 General appearance: unkempt - Musculoskeletal Strength & Tone: rigid - Psychiatric Level of alertness: Does not respond to painful stimuli Behavior: uncooperative Eye Contact: No Eye Contact Perceptual Disturbances: Yes Reacting to internal stimuli, Yes Visual hallucinations Attention Span Ability: Unable to Focus Patient Reliability: Not Reliable Historian Intelligence Estimate: Below Average Judgment: Poor Insight: None Results - Labs Labs: Laboratory Last Values WBC 11.6 K/mcL (4.3-11.1) H D 11/12/17 09:13 RBC 4.08 M/mcL (3.82-4.97) 11/12/17 09:13 Hgb 11.6 g/dL (11.5-15.4) 11/12/17 09:13 Hct 36.6 % (35.3-44.9) 11/12/17 09:13 MCV 89.7 fL (83.0-100.0) 11/12/17 09:13 MCH 28.4 pg (28.0-33.3) 11/12/17 09:13 MCHC 31.7 g/dL (31.6-35.5) 11/12/17 09:13 RDW 16.9 % (11.5-14.5) H 11/12/17 09:13 Plt Count 162 K/mcL (140-400) D 11/12/17 09:13 MPV 10.5 fL (9.4-12.4) 11/12/17 09:13 Immature Gran % 1.9 % (0-4) 11/12/17 09:13 Seg Neutrophils % 64.7 % 11/12/17 09:13 Lymphocytes % 16.5 % 11/12/17 09:13 Monocytes % 15.2 % 11/12/17 09:13 Eosinophils % 0.9 % 11/12/17 09:13 Basophils % 0.8 % 11/12/17 09:13 Neutrophils # 7.5 K/mcL (1.6-8.9) 11/12/17 09:13 Lymphocytes # 1.9 K/mcL (0.6-4.6) 11/12/17 09:13 Monocytes # 1.8 K/mcL (0.0-1.3) H 11/12/17 09:13 Eosinophils # 0.1 K/mcL (0.0-0.6) 11/12/17 09:13 Basophils # 0.1 K/mcL (0.0-0.2) 11/12/17 09:13 Toxic Granulation Present (Not Present) A 11/07/17 03:51 Platelet Estimate Slight Decrease (Normal) L 11/07/17 03:51 Immature Plt Fraction 5.6 % (1.1-6.1) 11/11/17 06:33 PT 11.7 Seconds (9.4-12.1) 11/06/17 21:22 INR 1.0 11/06/17 21:22 Sample Site R Radial 11/12/17 15:05 ABG pH 7.51 pH Units (7.32-7.45) H 11/12/17 15:05 ABG pCO2 27 mmHg (35-45) L 11/12/17 15:05 ABG pO2 69 mmHg (85-104) L 11/12/17 15:05 ABG HCO3 22 mEq/L (21-27) 11/12/17 15:05 ABG Total CO2 23 mEq/L (20-26) 11/12/17 15:05 ABG O2 Saturation 95 % (95-98) 11/12/17 15:05 ABG Base Excess 0 mEq/L (-2 to 3) 11/12/17 15:05 Josué Test Positive 11/12/17 15:05 O2 Delivery Device Cannula 11/12/17 15:05 Inspired O2 36.0 (1-15=lpm dt68-646=%) 11/12/17 15:05 Sodium 143 mEq/L (136-145) 11/11/17 06:33 Potassium 3.6 mEq/L (3.5-5.1) 11/11/17 06:33 Chloride 108 mEq/L (98-107) H 11/11/17 06:33 Carbon Dioxide 28 mEq/L (23-29) 11/11/17 06:33 BUN 10 mg/dL (8-23) 11/11/17 06:33 Creatinine 0.50 mg/dL (0.60-1.20) L 11/11/17 06:33 Est GFR ( Amer) > 60 (> 60) 11/11/17 06:33 Est GFR (Non-Af Amer) > 60 (> 60) 11/11/17 06:33 BUN/Creatinine Ratio 20 (6-26) 11/11/17 06:33 Glucose 72 mg/dL (70-105) 11/11/17 06:33 POC Glucose 134 mg/dL (70-99) H 11/06/17 21:20 Calculated Osmolality 294 (280-300) 11/11/17 06:33 Lactic Acid 1.4 mmol/L (0.5-2.2) 11/07/17 00:09 Calcium 8.3 mg/dL (8.6-10.3) L 11/11/17 06:33 Magnesium 2.4 mg/dL (1.6-2.6) 11/09/17 01:43 Total Bilirubin 0.2 mg/dL (0.3-1.0) L 11/11/17 06:33 Direct Bilirubin 0.1 mg/dL (0.0-0.2) 11/09/17 01:43 Indirect Bilirubin 0.1 mg/dL (0.0-1.2) 11/09/17 01:43 AST 12 Units/L (13-39) L 11/11/17 06:33 ALT 5 Units/L (7-52) L 11/11/17 06:33 Alkaline Phosphatase 71 Units/L (34-104) 11/11/17 06:33 Ammonia 25 mcmol/L (16-53) 11/09/17 01:43 Troponin I < 0.03 ng/mL (< 0.04) 11/06/17 21:22 Serum Total Protein 5.5 g/dL (6.4-8.9) L 11/11/17 06:33 Albumin 2.3 g/dL (3.5-5.7) L 11/11/17 06:33 Globulin 3.2 g/dL (2.4-3.5) 11/11/17 06:33 Albumin/Globulin Ratio 0.7 (1.1-2.2) L 11/11/17 06:33 Procalcitonin 0.44 ng/mL (<=0.07) H 11/09/17 01:43 Urine Color Yellow (Yellow) 11/06/17 21:47 Urine Clarity Clear (Clear) 11/06/17 21:47 Urine pH 6.0 pH Units (5.0-8.0) 11/06/17 21:47 Ur Specific [place] 1.015 (1.010-1.025) 11/06/17 21:47 Urine Protein Negative mg/dL (Neg-Trace) 11/06/17 21:47 Urine Glucose (UA) Normal mg/dL (Normal) 11/06/17 21:47 Urine Ketones Negative mg/dL (Negative) 11/06/17 21:47 Urine Blood Negative (Negative) 11/06/17 21:47 Urine Nitrite Negative (Negative) 11/06/17 21:47 Urine Bilirubin Negative (Negative) 11/06/17 21:47 Urine Urobilinogen Normal mg/dL (Normal) 11/06/17 21:47 Ur Leukocyte Esterase Negative (Negative) 11/06/17 21:47 Ur Culture Indicated? NO (NO) 11/06/17 21:47 Urine Opiates Screen Negative ng/mL (Bfwxif=569) 11/06/17 21:47 Ur Barbiturates Screen Negative ng/mL (Nwhiys=848) 11/06/17 21:47 Ur Phencyclidine Scrn Negative ng/mL (Cutoff=25) 11/06/17 21:47 Ur Amphetamines Screen Negative ng/mL (Intadh=0124) 11/06/17 21:47 U Benzodiazepines Scrn Negative ng/mL (Gntsjh=388) 11/06/17 21:47 Urine Cocaine Screen Negative ng/mL (Cutoff= 300) 11/06/17 21:47 U Marijuana (THC) Screen Negative ng/mL (Cutoff = 50) 11/06/17 21:47 Ur Drug Screen Interp See Below 11/06/17 21:47 Ethyl Alcohol < 10 mg/dL (Less than 10) 11/06/17 21:22 - Impressions Impressions Chest X-Ray 11/10/17 11:56 IMPRESSION: Possible left lower lobe/retrocardiac opacity. This may represent pneumonia or atelectasis. Examination limited by rotation. D/ / 11/10/2017 18:11:30 Storm Collins MD / tania Interpreting Provider: Storm Collins MD Chest CTA 11/12/17 08:55 IMPRESSION: 1. Negative for acute pulmonary embolism. 2. Large hiatal hernia. 3. Multifocal patchy airspace disease in both lungs could represent pneumonia. 4. Bilateral pleural effusions. D/ : / 11/12/2017 10:35:04 Kvng Mancini MD / rebeca Interpreting Provider: Kvng Mancini MD Consult Discharge Plan - Plan Referrals: Dayan Prieto CNP [Primary Care Provider] - 11/23/17 10:00 am Prescriptions: Amoxicillin/Clavulanate [Augmentin] 500 mg PO BIDWM 4 Days #8 tablet
[2017-11-12] MEDS: Levofloxacin 750 MG/150 ML 750 MG/150 ML BAG IVPB SCH (15:46)
[2017-11-12 16:10] LABS: Adenovirus Not Detected (Not Detect); Bordetella Pertussis Not Detected (Not Detect); Chlamydophila pneumoniae Not Detected (Not Detect); Coronavirus 229E Not Detected (Not Detect); Coronavirus HKU1 Not Detected (Not Detect); Coronavirus NL63 Not Detected (Not Detect); Coronavirus OC43 Not Detected (Not Detect); Human Metapneumovirus Not Detected (Not Detect); Human Rhinovirus/Enterovirus Not Detected (Not Detect); Influenza A Subtype 2009 H1 Not Detected (Not Detect); Influenza A Untypeable Not Detected (Not Detect); Influenza B Not Detected (Not Detect); Mycoplasma pneumoniae Not Detected (Not Detect); Parainfluenza Virus 1 Not Detected (Not Detect); Parainfluenza Virus 2 Not Detected (Not Detect); Parainfluenza Virus 3 Not Detected (Not Detect); Parainfluenza Virus 4 Not Detected (Not Detect); Respiratory Syncytial Virus Not Detected (Not Detect)
[2017-11-12] MEDS ORDERED: *HR* LORazepam 0.5 MG TABLET PO ONE (16:50)
--- NOTE | 2017-11-12 18:17 | Electrocardiograph Report ---
[place] [id number] Test Date: 2017-11-12 Pat Name: Nedra Martinez Department: 113 Room: 3B64 Gender: F Neurosurgical Nurse: : 1945 Requested By: Archie Prieto Order Number: [id number] Reading MD: Billy Laurent Measurements Intervals [place] Rate: 113 P: 54 KS: 125 QRS: -12 QRSD: 77 T: 115 QT: 340 QTc: 407 Interpretive Statements SINUS TACHYCARDIA LOW QRS VOLTAGE IN PRECORDIAL LEADS Electronically Signed On 11-12-2017 18:15:58 EDT by Billy Laurent
[2017-11-13] MEDS: Ipratropium/Albuterol Neb 3 ML IH SCH ×7 (04:00→23:54)
[2017-11-13 04:12] LABS: ABG Base Excess 0 mEq/L (-2 to 3); ABG HCO3 23 mEq/L (21-27); ABG Oxygen Saturation 96 % (95-98); ABG PCO2 29 mmHg (35-45); ABG PO2 72 mmHg (85-104); ABG TCO2 24 mEq/L (20-26)
[2017-11-13 04:29] LABS: Basophils % 0.3 %; Red Blood Count 3.48 M/mcL (3.82-4.97); Red Cell Distribution Width 17.1 % (11.5-14.5)
[2017-11-13 04:39] LABS: Hematocrit 30.8 % (35.3-44.9); Immature Granulocytes % 1.8 % (0-4); Immature Platelets 4.6 % (1.1-6.1); Lymphocytes % 8.5 %; Mean Corpuscular HGB Conc 32.5 g/dL (31.6-35.5); Mean Corpuscular Hemoglobin 28.7 pg (28.0-33.3); Mean Corpuscular Volume 88.5 fL (83.0-100.0); Mean Platelet Volume 10.9 fL (9.4-12.4); Monocytes % 16.8 %; Neutrophils # 8.6 K/mcL (1.6-8.9); Platelet Count 125 K/mcL (140-400); Segmented Neutrophils % 72.6 %
[2017-11-13 04:51] LABS: Alanine Aminotransferase 5 Units/L (7-52); Albumin 2.3 g/dL (3.5-5.7); Albumin/Globulin Ratio 0.7 (1.1-2.2); Alkaline Phosphatase 64 Units/L (34-104); Aspartate Amino Transferase 14 Units/L (13-39); BUN/Creatinine Ratio 19 (6-26); Bilirubin,Total 0.4 mg/dL (0.3-1.0); Blood Urea Nitrogen 12 mg/dL (8-23); Calcium 8.6 mg/dL (8.6-10.3); Carbon Dioxide 23 mEq/L (23-29); Chloride 111 mEq/L (98-107); Globulin 3.2 g/dL (2.4-3.5); Glucose 75 mg/dL (70-105); Osmolality,Calculated 298 (280-300); Potassium 2.6 mEq/L (3.5-5.1); Sodium 145 mEq/L (136-145); Total Protein 5.5 g/dL (6.4-8.9); eGFR For Non-African Americans > 60 (> 60)
[2017-11-13] MEDS: *HR* Heparin 5,000 UNIT/ML VIAL SQ SCH ×2 (05:57→17:51)
[2017-11-13] MEDS ORDERED: Potassium Chloride 40 MEQ, Lidocaine 1% 2 ML in D5% in Water 500 ML IVPB ONE (07:00)
[2017-11-13 08:28] LABS: Amylase 15 Units/L (29-103); Lipase 5 Units/L (11-82)
--- NOTE | 2017-11-13 08:36 | Pulmonology Progress Note ---
<Cuong Metzgerrobert M - Last Filed: 11/13/17 11:30> Date of Encounter: 11/13/17 Objective PUL Vital signs: Last Vital Signs Temp 99.7 F H 11/13/17 07:36 Pulse 117 11/13/17 07:36 Resp 16 11/13/17 11:03 BP 107/69 11/13/17 07:36 Pulse Ox 95 11/13/17 11:03 Results - Laboratory Findings CBC and BMP: 11/13/17 04:15 11/13/17 04:00 ABG ABG pH 7.50 pH Units (7.32-7.45) H 11/13/17 04:07 ABG pCO2 29 mmHg (35-45) L 11/13/17 04:07 ABG pO2 72 mmHg (85-104) L 11/13/17 04:07 ABG O2 Saturation 96 % (95-98) 11/13/17 04:07 PT/INR, D-dimer PT 11.7 Seconds (9.4-12.1) 11/06/17 21:22 Abnormal lab findings: Abnormal lab results WBC 11.8 K/mcL (4.3-11.1) H 11/13/17 04:15 RBC 3.48 M/mcL (3.82-4.97) L 11/13/17 04:15 Hgb 10.0 g/dL (11.5-15.4) L D 11/13/17 04:15 Hct 30.8 % (35.3-44.9) L 11/13/17 04:15 RDW 17.1 % (11.5-14.5) H 11/13/17 04:15 Plt Count 125 K/mcL (140-400) L 11/13/17 04:15 Monocytes # 2.0 K/mcL (0.0-1.3) H 11/13/17 04:15 Toxic Granulation Present (Not Present) A 11/07/17 03:51 Platelet Estimate Slight Decrease (Normal) L 11/07/17 03:51 ABG pH 7.50 pH Units (7.32-7.45) H 11/13/17 04:07 ABG pCO2 29 mmHg (35-45) L 11/13/17 04:07 ABG pO2 72 mmHg (85-104) L 11/13/17 04:07 Potassium 2.6 mEq/L (3.5-5.1) L 11/13/17 04:00 Chloride 111 mEq/L (98-107) H 11/13/17 04:00 POC Glucose 134 mg/dL (70-99) H 11/06/17 21:20 ALT 5 Units/L (7-52) L 11/13/17 04:00 Serum Total Protein 5.5 g/dL (6.4-8.9) L 11/13/17 04:00 Albumin 2.3 g/dL (3.5-5.7) L 11/13/17 04:00 Albumin/Globulin Ratio 0.7 (1.1-2.2) L 11/13/17 04:00 Amylase 15 Units/L (29-103) L 11/13/17 04:00 Lipase 5 Units/L (11-82) L 11/13/17 04:00 Procalcitonin 0.44 ng/mL (<=0.07) H 11/09/17 01:43 - Microbiology Findings Microbiology Findings: Microbiology, Last 48 Hours 11/12/17 12:21 Blood Culture - Preliminary Peripheral Venipuncture Culture is incubating and being continuously monitored for growth. Final report to follow. 11/07/17 03:51 Blood Culture - Final Peripheral Venipuncture No growth. Final report. 11/07/17 03:51 Blood Culture - Final Peripheral Venipuncture No growth. Final report. - Clinical Findings Intake & Output: Intake & Output 11/12/17 11/13/17 11/13/17 23:59 07:59 15:59 Intake Total 250 / 250 100 / 100 Balance 250 / 250 100 / 100 Weight 69.3 kg Consult Discharge Plan - Plan Referrals: Dayan Prieto CNP [Primary Care Provider] - 11/23/17 10:00 am Prescriptions: Amoxicillin/Clavulanate [Augmentin] 500 mg PO BIDWM 4 Days #8 tablet - Attending Attestation I examined this patient and my medical decision-making was reviewed with the Resident Physician. I agree with the documented findings, disposition and treatment plan as described except to the extent set forth below. Patient seen and examined. Labs, radiology, chart personally reviewed. Agree with resident's history and physical, assessment, plan with following comments: [employer]: Patient follows simple commands, Pulmonary: Acceptable oxygenation and ventilation and she is not in any acute distress. The antibiotics per infectious disease. We will follow when necessary, please call for any questions. Cardiovascular: stable <JenJenny N - Last Filed: 11/13/17 11:43> Date of Encounter: 11/13/17 Time of Encounter: 10:08 Assessment and Plan (1) Pneumonia Current Visit: Yes Status: Acute Patient is currently on broad-spectrum antibiotic therapy with vancomycin, Zosyn, and levofloxacin. ID managing antibiotic therapy Patient's oxygen saturation has been adequate overnight She is currently receiving DuoNebs every 4 hours Respiratory infection panel was negative for all tested organisms. Blood cultures have been negative to date Continue supplemental oxygen therapy and continue to monitor patient's respiratory status Continue DuoNeb therapy Pulmonology will follow as needed Qualifiers: Pneumonia type: due to unspecified organism Laterality: right Lung location: lower lobe of lung Qualified Code(s): J18.1 - Lobar pneumonia, unspecified organism (2) Sepsis Current Visit: Yes Status: Acute Blood cultures are negative to date Respiratory infection panel negative for all tested organisms follow-up urinary strep and Legionella antigens follow ID recommendations for broad-spectrum antibiotic therapy Qualifiers: Sepsis type: sepsis due to unspecified organism Qualified Code(s): A41.9 - Sepsis, unspecified organism (3) Altered mental status Current Visit: Yes Status: Acute Patient's status appears to be unchanged from the previous day Qualifiers: Altered mental status type: disorientation Qualified Code(s): R41.0 - Disorientation, unspecified (4) Cerebral palsy Current Visit: Yes Status: Chronic Qualifiers: Cerebral palsy type: unspecified type Qualified Code(s): G80.9 - Cerebral palsy, unspecified (5) Hypokalemia Current Visit: Yes Status: Resolved (6) Hyperlipidemia Current Visit: No Status: Chronic Qualifiers: Hyperlipidemia type: unspecified Qualified Code(s): E78.5 - Hyperlipidemia , unspecified (7) Hypertension Current Visit: No Status: Acute Qualifiers: Hypertension type: essential hypertension Qualified Code(s): I10 - Essential (primary) hypertension Subjective Principal diagnosis: Pneumonia Interval history: Patient seen and examined at bedside today with the attending present. She remains tachycardic, but is saturating adequately on 3 L nasal cannula. Her mental status appears to be the same as the previous day. She is currently receiving duo nebs every 4 hours as well as antibiotics for her pneumonia. Objective PUL Vital signs: Last Vital Signs Temp 99.7 F H 11/13/17 07:36 Pulse 117 11/13/17 07:36 Resp 16 11/13/17 08:02 BP 107/69 11/13/17 07:36 Pulse Ox 95 11/13/17 08:02 General appearance: other (Orofacial movements and while the upper examination) Effort: normal Auscultation: bilateral: clear Cardiovascular: regular rate and rhythm Gastrointestinal: soft, non-tender Extremities: no cyanosis, no edema unable to assess due to mental status anxious Results - Laboratory Findings CBC and BMP: 11/13/17 04:15 11/13/17 04:00 ABG ABG pH 7.50 pH Units (7.32-7.45) H 11/13/17 04:07 ABG pCO2 29 mmHg (35-45) L 11/13/17 04:07 ABG pO2 72 mmHg (85-104) L 11/13/17 04:07 ABG O2 Saturation 96 % (95-98) 11/13/17 04:07 PT/INR, D-dimer PT 11.7 Seconds (9.4-12.1) 11/06/17 21:22 Abnormal lab findings: Abnormal lab results WBC 11.8 K/mcL (4.3-11.1) H 11/13/17 04:15 RBC 3.48 M/mcL (3.82-4.97) L 11/13/17 04:15 Hgb 10.0 g/dL (11.5-15.4) L D 11/13/17 04:15 Hct 30.8 % (35.3-44.9) L 11/13/17 04:15 RDW 17.1 % (11.5-14.5) H 11/13/17 04:15 Plt Count 125 K/mcL (140-400) L 11/13/17 04:15 Monocytes # 2.0 K/mcL (0.0-1.3) H 11/13/17 04:15 Toxic Granulation Present (Not Present) A 11/07/17 03:51 Platelet Estimate Slight Decrease (Normal) L 11/07/17 03:51 ABG pH 7.50 pH Units (7.32-7.45) H 11/13/17 04:07 ABG pCO2 29 mmHg (35-45) L 11/13/17 04:07 ABG pO2 72 mmHg (85-104) L 11/13/17 04:07 Potassium 2.6 mEq/L (3.5-5.1) L 11/13/17 04:00 Chloride 111 mEq/L (98-107) H 11/13/17 04:00 POC Glucose 134 mg/dL (70-99) H 11/06/17 21:20 ALT 5 Units/L (7-52) L 11/13/17 04:00 Serum Total Protein 5.5 g/dL (6.4-8.9) L 11/13/17 04:00 Albumin 2.3 g/dL (3.5-5.7) L 11/13/17 04:00 Albumin/Globulin Ratio 0.7 (1.1-2.2) L 11/13/17 04:00 Amylase 15 Units/L (29-103) L 11/13/17 04:00 Lipase 5 Units/L (11-82) L 11/13/17 04:00 Procalcitonin 0.44 ng/mL (<=0.07) H 11/09/17 01:43 - Microbiology Findings Microbiology Findings: Microbiology, Last 48 Hours 11/12/17 12:21 Blood Culture - Preliminary Peripheral Venipuncture Culture is incubating and being continuously monitored for growth. Final report to follow. 11/07/17 03:51 Blood Culture - Final Peripheral Venipuncture No growth. Final report. 11/07/17 03:51 Blood Culture - Final Peripheral Venipuncture No growth. Final report. - Clinical Findings Intake & Output: Intake & Output 11/12/17 11/13/17 11/13/17 23:59 07:59 15:59 Intake Total 100 / 100 Balance 100 / 100 Weight 69.3 kg - VTE Documentation of Mechanical Device: Intermittent pneumatic compression device
[2017-11-13] MEDS: Venlafaxine XR (24 HR) 75 MG CAP.ER.24H PO SCH (09:35)
[2017-11-13] MEDS: Divalproex (24 HR) 250 MG TABLET PO SCH (09:35)
[2017-11-13] MEDS: Lactobacillus 1 EACH CAP.SPRINK PO SCH ×2 (09:35→22:20)
[2017-11-13] MEDS: Piperacillin/Tazobactam 3.375 GM in 0.9 % Sodium Chloride Mini Bag 100 ML IVPB SCH ×2 (09:36→17:50)
[2017-11-13] MEDS: Baclofen 10 MG TABLET PO SCH ×2 (09:36→22:20)
[2017-11-13] MEDS: Loratadine 10 MG TABLET PO SCH (09:36)
[2017-11-13] MEDS: Fluticasone Propionate Nasal 50 MCG/SPRAY BOTTLE NS SCH (09:37)
[2017-11-13] MEDS: Levofloxacin 750 MG/150 ML 750 MG/150 ML BAG IVPB SCH (11:21)
[2017-11-13] MEDS ORDERED: Potassium Chloride Elixir 20 MEQ/15 ML UDC PO ONE (12:40)
--- NOTE | 2017-11-13 13:11 | Internal Med Progress Note ---
Date of Encounter: 11/13/17 Time of Encounter: 13:09 - Assessment and plan (1) Pneumonia Current Visit: Yes Status: Acute Assessment and plan: Pt suspected to have aspiration pneumonia -was clinically improving but care givers said she wasn't at mental baseline. They said she is usually alert and oriented to herself, to them, and can feed herself. She is unable to feed herself in the hospital, doesn't recognize them and is shaking -pt was tacycardic overnight and had a t max of 100.4 -pt is rhonchorus/wheezing on auscultation -did a sat CT angio of the chest to r/o PE - showed no acute PE but possible pneumonia and a large hiatal hernia -blood cultures awaiting -vancoymycin/zosyn started -ID consulted 11/13- Admission imaging suspicious for pneumonia. Patient has had rhonchi, tachypnea and tachycardia as well as fevers on days prior. Continues to have rhonchi and fine I/E wheezes per my assessment this morning. Mildly febrile overnight. No appreciable improvement in WBC with white count of 11.8 today. Patient is not in respiratory distress. Resting comfortable on 2 L nasal cannula SPO2 93%. Infectious disease continuing to follow, appreciate recommendations. Continue broad-spectrum coverage with vancomycin, Zosyn and Levaquin. Cultures from no growth. Pending cultures no growth to date x1, obtain additional set of cultures today. Qualifiers: Pneumonia type: due to unspecified organism Laterality: right Lung location: lower lobe of lung Qualified Code(s): J18.1 - Lobar pneumonia, unspecified organism (2) Cerebral palsy Current Visit: Yes Status: Chronic Assessment and plan: Chronic. Qualifiers: Cerebral palsy type: unspecified type Qualified Code(s): G80.9 - Cerebral palsy, unspecified (3) GERD (gastroesophageal reflux disease) Current Visit: No Status: Chronic Assessment and plan: Pt is on prilosec Keep head of bed elevated. Don't eat large meals before laying down. Chew all foods throuroughly Speech said to do thin liquids, advance soft textures , meds in puree. No straws Qualifiers: Esophagitis presence: esophagitis presence not specified Qualified Code(s) : K21.9 - Gastro-esophageal reflux disease without esophagitis (4) Seizure Current Visit: No Status: Chronic Assessment and plan: On depakote Speech evaluated with swallow studie - recommendation below: ST recommends thin liquid and advanced soft textures. NO STRAWS, assist with feeds, meds in puree. Patient is tolerating baseline diet. No swallow therapy recommended at this time. Neuro checks q4hr - pt at this time is arousable and is aware of where she is 11/13- patient with history of seizures, on Depakote, continue Depakote. Continue neuro checks every 4 hours. This time patient is arousable but unable to communicate. (5) Hypokalemia Current Visit: Yes Status: Resolved Assessment and plan: Potassium 2.1. Replacement done in the ER. Today it is 2.6-replaced with 60 MEQ liquid oral potassium, recheck potassium this evening Recheck electrolytes tomorrow and replete as necessary (6) Delirium due to general medical condition Current Visit: Yes Status: Acute Assessment and plan: Continuing to have features of delirium Poor eye contact, disorganized speech, anxiety. Patient speaking to an inanimate objects Psychiatry seeing in consultation, appreciate recommendations-no reason to change antipsychotic medications per psychiatry-continue antipsychotics throughout stay Underlying medical conditions exacerbating delirium (7) Altered mental status Current Visit: Yes Status: Acute Assessment and plan: See above Qualifiers: Altered mental status type: disorientation Qualified Code(s): R41.0 - Disorientation, unspecified (8) DVT (deep venous thrombosis) Current Visit: Yes Status: Suspected Assessment and plan: r/o DVT and PE -CTA of chest negative for acute PE, showed possible pneumonia -started pt on Zosyn/Vanc -Blood cx pending -ID consulted t max overnight 100.4, HR in 120's Meets part of Virchow's triad of hypercoag 2/2 to immobility and stasis. She has only been on SCD for DVT prophylaxis Pt placed on 5000U SQ heparin repeated US bilateral LE to r/o DVT 11/13- Doppler study reveals-very difficult/impossible study from pop V level on down bilaterally. Unable to adequately rule out possibility of DVT in these locations although no DVT was clearly imaged all locations above pop V level and legs appear negative for thrombus. We will withhold on hurting therapeutic anticoagulation at this time. Bilateral lower extremity circulation PT/DP 1+/1+ Qualifiers: DVT location: lower extremity Affected thrombotic vein of extremity: other lower extremity vein Chronicity: acute Laterality: unspecified laterality Qualified Code(s): I82.409 - Acute embolism and thrombosis of unspecified deep veins of unspecified lower extremity (9) DVT prophylaxis Current Visit: No Status: Acute Assessment and plan: Continue subcutaneous heparin - Time Spent With Patient Total time spent is greater than 50% in coordination of care (as documented) at patient's floor/unit and/or counseling patient: 25 - 35 minutes - Subjective Interval history: Patient seen and examined at bedside today. No acute changes overnight. Remains confused, unresponsive and cooperative with exam. However I believe this is the patient's baseline - Constitutional Vitals: Temp Pulse Resp BP Pulse Ox 98.6 F 110 14 99/59 93 11/13/17 11:49 11/13/17 11:49 11/13/17 11:49 11/13/17 11:49 11/13/17 11:49 General appearance: Present: A&O X 0, disheveled, mild distress - Head Head exam: Present: atraumatic, normocephalic - Neck Neck exam general surgery: Present: supple, trachea midline. Absent: lymphadenopathy - Respiratory Respiratory exam: Present: rhonchi, wheezes (Fine inspiratory and expiratory wheezes). Absent: tachypnea - Cardiovascular Cardiovascular exam: Present: RRR, +S1, +S2, tachycardia. Absent: diastolic murmur, gallop, rubs, systolic murmur - GI/Abdominal GI/Abdominal exam: Present: normal bowel sounds, soft, no peritoneal signs. Absent: distended, tenderness - Extremities Exam Additional comments: Generalized bilateral lower extremity edema - Neurological Exam Neurological exam: Present: motor sensory deficit, speech deficit. Absent: alert, oriented X3 - Psychiatric Psychiatric exam: Present: anxious. Absent: agitated, normal affect, normal mood Internal Medicine: Result - Labs CBC & Chem 7: 11/13/17 04:15 11/13/17 04:00 Labs: Short CBC 11/13/17 Range/Units 04:15 WBC 11.8 H (4.3-11.1) K/mcL Hgb 10.0 L D (11.5-15.4) g/dL Hct 30.8 L (35.3-44.9) % Plt Count 125 L (140-400) K/mcL Neutrophils # 8.6 (1.6-8.9) K/mcL BMP 11/13/17 04:00 Sodium 145 Potassium 2.6 L Chloride 111 H Carbon Dioxide 23 BUN 12 Creatinine 0.62 Glucose 75 Calcium 8.6 Liver Function 11/13/17 Range/Units 04:00 Total Bilirubin 0.4 (0.3-1.0) mg/dL AST 14 (13-39) Units/L ALT 5 L (7-52) Units/L Alkaline Phosphatase 64 (34-104) Units/L Albumin 2.3 L (3.5-5.7) g/dL - ABG Interpretation ABG results: ABG ABG pH 7.50 pH Units (7.32-7.45) H 11/13/17 04:07 ABG pCO2 29 mmHg (35-45) L 11/13/17 04:07 ABG pO2 72 mmHg (85-104) L 11/13/17 04:07 ABG O2 Saturation 96 % (95-98) 11/13/17 04:07 PT/INR, D-dimer PT 11.7 Seconds (9.4-12.1) 11/06/17 21:22 - Impressions Impressions Chest CTA 11/12/17 08:55 IMPRESSION: 1. Negative for acute pulmonary embolism. 2. Large hiatal hernia. 3. Multifocal patchy airspace disease in both lungs could represent pneumonia. 4. Bilateral pleural effusions. D/ / 11/12/2017 10:35:04 Kvng Mancini MD / [facility] Interpreting Provider: Kvng Mancini MD - VTE Documentation of Mechanical Device: Intermittent pneumatic compression device Consult Discharge Plan - Plan Referrals: Dayan Prieto CNP [Primary Care Provider] - 11/23/17 10:00 am Prescriptions: Amoxicillin/Clavulanate [Augmentin] 500 mg PO BIDWM 4 Days #8 tablet
--- NOTE | 2017-11-13 13:16 | Consult Note ---
Date of Encounter: 11/13/17 Time of Encounter: 12:00 Assessment & Recommendation (1) Delirium due to general medical condition Current visit: No Status: Acute (2) Altered mental status Current visit: Yes Status: Acute Qualifiers: Qualified Code(s): R41.0 - Disorientation, unspecified (3) Cerebral palsy Current visit: Yes Status: Chronic Qualifiers: Qualified Code(s): G80.9 - Cerebral palsy, unspecified History of Present Illness Patient: known to practice within the last 3 years Requesting Physician: Flaquito Pennington Reason for consult: AMS History of present illness: Ms. Martinez is a 71 year old female Chief complaint: None History of present illness. I saw the patient yesterday and while she was actively hallucinating and did not seem to recognize my presence at least I could interact with her briefly. She did not answer questions directly and she may been attending to hallucinations. She was able to say a few things in response to my questions but her speech is difficult to understand. CC: Flaquito Pennington Past Med Surg Social Fam - Past Medical History Medical history: dementia, GERD, hyperlipidemia, hypertension, other - Past Surgical History Surgical History: other (shoulder, knee surgery) - Social History Smoking Status: Never smoker Smokeless Tobacco Status: No Alcohol use: none Drug use: none - Family History Mother Adopted: Yes Father Adopted: Yes Medications & Allergies Baclofen 20 mg PO BID 09/08/17 [History] Citalopram [CeleXA] 20 mg PO DAILY 09/08/17 [History] Loratadine [Allergy Relief] 10 mg PO DAILY 09/08/17 [History] Omeprazole [PriLOSEC] 40 mg PO DAILY 09/08/17 [History] Promethazine HCl 12.5 mg PO Q8H PRN 09/08/17 [History] Rosuvastatin Calcium [Crestor] 5 mg PO DAILY 09/08/17 [History] Venlafaxine HCl [Venlafaxine HCl ER] 75 mg PO DAILY 09/08/17 [History] Citalopram Hydrobromide [Celexa] 40 mg PO DAILY 11/07/17 [History] Divalproex (24 HR) [Depakote ER (24 HR)] 750 mg PO DAILY 11/07/17 [History] Fluticasone Propionate Nasal [Flonase] 1 spr NS DAILY 11/07/17 [History] Furosemide [Lasix] 20 mg PO DAILY 11/07/17 [History] Amoxicillin/Clavulanate [Augmentin] 500 mg PO BIDWM 4 Days #8 tablet 11/11/17 [ Rx] 3 Allergy/AdvReac Type Severity Reaction Status Date / Time Lhrhtge-Zxz-Cit Reductase Allergy Intermediate Rash Verified 11/18/15 17:58 Inhibitor [Statins] clopidogrel [From Plavix] Allergy Anaphylaxis Verified 08/17/15 13:37 Sulfa (Sulfonamide Allergy Anaphylaxis Verified 08/17/15 13:37 Antibiotics) Warfarin [From Coumadin] Allergy Anaphylaxis Verified 08/17/15 13:37 Review of Systems Psychiatric: Reports: visual hallucinations, difficulty concentrating Psychiatry Exam - Constitutional Vitals: Temp Pulse Resp BP Pulse Ox 98.6 F 110 14 99/59 93 11/13/17 11:49 11/13/17 11:49 11/13/17 11:49 11/13/17 11:49 11/13/17 11:49 General appearance: unkempt, disheveled, thin - Psychiatric Patient Orientation: Yes Person Level of alertness: Does not respond to painful stimuli Behavior: uncooperative Psychomotor activity: Slowed Eye Contact: No Eye Contact Speech pattern: disorganized, mumbled Perceptual Disturbances: Yes Reacting to internal stimuli Attention Span Ability: Unable to Focus Patient Reliability: Not Reliable Historian Intelligence Estimate: Below Average Judgment: Poor Insight: None Results - Labs Labs: Laboratory Last Values WBC 11.8 K/mcL (4.3-11.1) H 11/13/17 04:15 RBC 3.48 M/mcL (3.82-4.97) L 11/13/17 04:15 Hgb 10.0 g/dL (11.5-15.4) L D 11/13/17 04:15 Hct 30.8 % (35.3-44.9) L 11/13/17 04:15 MCV 88.5 fL (83.0-100.0) 11/13/17 04:15 MCH 28.7 pg (28.0-33.3) 11/13/17 04:15 MCHC 32.5 g/dL (31.6-35.5) 11/13/17 04:15 RDW 17.1 % (11.5-14.5) H 11/13/17 04:15 Plt Count 125 K/mcL (140-400) L 11/13/17 04:15 MPV 10.9 fL (9.4-12.4) 11/13/17 04:15 Immature Gran % 1.8 % (0-4) 11/13/17 04:15 Seg Neutrophils % 72.6 % 11/13/17 04:15 Lymphocytes % 8.5 % 11/13/17 04:15 Monocytes % 16.8 % 11/13/17 04:15 Eosinophils % 0.0 % 11/13/17 04:15 Basophils % 0.3 % 11/13/17 04:15 Neutrophils # 8.6 K/mcL (1.6-8.9) 11/13/17 04:15 Lymphocytes # 1.0 K/mcL (0.6-4.6) 11/13/17 04:15 Monocytes # 2.0 K/mcL (0.0-1.3) H 11/13/17 04:15 Eosinophils # 0.0 K/mcL (0.0-0.6) 11/13/17 04:15 Basophils # 0.0 K/mcL (0.0-0.2) 11/13/17 04:15 Toxic Granulation Present (Not Present) A 11/07/17 03:51 Platelet Estimate Slight Decrease (Normal) L 11/07/17 03:51 Immature Plt Fraction 4.6 % (1.1-6.1) 11/13/17 04:15 PT 11.7 Seconds (9.4-12.1) 11/06/17 21:22 INR 1.0 11/06/17 21:22 Sample Site R Radial 11/13/17 04:07 ABG pH 7.50 pH Units (7.32-7.45) H 11/13/17 04:07 ABG pCO2 29 mmHg (35-45) L 11/13/17 04:07 ABG pO2 72 mmHg (85-104) L 11/13/17 04:07 ABG HCO3 23 mEq/L (21-27) 11/13/17 04:07 ABG Total CO2 24 mEq/L (20-26) 11/13/17 04:07 ABG O2 Saturation 96 % (95-98) 11/13/17 04:07 ABG Base Excess 0 mEq/L (-2 to 3) 11/13/17 04:07 Josué Test Positive 11/13/17 04:07 O2 Delivery Device Cannula 11/13/17 04:07 Inspired O2 3.0 (1-15=lpm [id number]=%) 11/13/17 04:07 Sodium 145 mEq/L (136-145) 11/13/17 04:00 Potassium 2.6 mEq/L (3.5-5.1) L 11/13/17 04:00 Chloride 111 mEq/L (98-107) H 11/13/17 04:00 Carbon Dioxide 23 mEq/L (23-29) 11/13/17 04:00 BUN 12 mg/dL (8-23) 11/13/17 04:00 Creatinine 0.62 mg/dL (0.60-1.20) 11/13/17 04:00 Est GFR ( Amer) > 60 (> 60) 11/13/17 04:00 Est GFR (Non-Af Amer) > 60 (> 60) 11/13/17 04:00 BUN/Creatinine Ratio 19 (6-26) 11/13/17 04:00 Glucose 75 mg/dL (70-105) 11/13/17 04:00 POC Glucose 134 mg/dL (70-99) H 11/06/17 21:20 Calculated Osmolality 298 (280-300) 11/13/17 04:00 Lactic Acid 1.4 mmol/L (0.5-2.2) 11/07/17 00:09 Calcium 8.6 mg/dL (8.6-10.3) 11/13/17 04:00 Magnesium 2.4 mg/dL (1.6-2.6) 11/09/17 01:43 Total Bilirubin 0.4 mg/dL (0.3-1.0) 11/13/17 04:00 Direct Bilirubin 0.1 mg/dL (0.0-0.2) 11/09/17 01:43 Indirect Bilirubin 0.1 mg/dL (0.0-1.2) 11/09/17 01:43 AST 14 Units/L (13-39) 11/13/17 04:00 ALT 5 Units/L (7-52) L 11/13/17 04:00 Alkaline Phosphatase 64 Units/L (34-104) 11/13/17 04:00 Ammonia 25 mcmol/L (16-53) 11/09/17 01:43 Troponin I < 0.03 ng/mL (< 0.04) 11/06/17 21:22 Serum Total Protein 5.5 g/dL (6.4-8.9) L 11/13/17 04:00 Albumin 2.3 g/dL (3.5-5.7) L 11/13/17 04:00 Globulin 3.2 g/dL (2.4-3.5) 11/13/17 04:00 Albumin/Globulin Ratio 0.7 (1.1-2.2) L 11/13/17 04:00 Amylase 15 Units/L (29-103) L 11/13/17 04:00 Lipase 5 Units/L (11-82) L 11/13/17 04:00 Procalcitonin 0.44 ng/mL (<=0.07) H 11/09/17 01:43 Urine Color Yellow (Yellow) 11/06/17 21:47 Urine Clarity Clear (Clear) 11/06/17 21:47 Urine pH 6.0 pH Units (5.0-8.0) 11/06/17 21:47 Ur Specific [place] 1.015 (1.010-1.025) 11/06/17 21:47 Urine Protein Negative mg/dL (Neg-Trace) 11/06/17 21:47 Urine Glucose (UA) Normal mg/dL (Normal) 11/06/17 21:47 Urine Ketones Negative mg/dL (Negative) 11/06/17 21:47 Urine Blood Negative (Negative) 11/06/17 21:47 Urine Nitrite Negative (Negative) 11/06/17 21:47 Urine Bilirubin Negative (Negative) 11/06/17 21:47 Urine Urobilinogen Normal mg/dL (Normal) 11/06/17 21:47 Ur Leukocyte Esterase Negative (Negative) 11/06/17 21:47 Ur Culture Indicated? NO (NO) 11/06/17 21:47 Urine Opiates Screen Negative ng/mL (Ahmakf=823) 11/06/17 21:47 Ur Barbiturates Screen Negative ng/mL (Jsibgy=594) 11/06/17 21:47 Ur Phencyclidine Scrn Negative ng/mL (Cutoff=25) 11/06/17 21:47 Ur Amphetamines Screen Negative ng/mL (Texekm=4247) 11/06/17 21:47 U Benzodiazepines Scrn Negative ng/mL (Ojbvpf=364) 11/06/17 21:47 Urine Cocaine Screen Negative ng/mL (Cutoff= 300) 11/06/17 21:47 U Marijuana (THC) Screen Negative ng/mL (Cutoff = 50) 11/06/17 21:47 Ur Drug Screen Interp See Below 11/06/17 21:47 Ethyl Alcohol < 10 mg/dL (Less than 10) 11/06/17 21:22 Chlamy pneumoniae PCR Not Detected (Not Detect) 11/12/17 14:52 Adenovirus (PCR) Not Detected (Not Detect) 11/12/17 14:52 B. pertussis DNA (PCR) Not Detected (Not Detect) 11/12/17 14:52 B.parapertussis DNA PCR Not Detected (Not Detect) 11/12/17 14:52 Coronavirus OC43 (PCR) Not Detected (Not Detect) 11/12/17 14:52 Coronavirus HKU1 (PCR) Not Detected (Not Detect) 11/12/17 14:52 Coronavirus 229E (PCR) Not Detected (Not Detect) 11/12/17 14:52 Coronavirus NL63 (PCR) Not Detected (Not Detect) 11/12/17 14:52 Human Metapneumovir PCR Not Detected (Not Detect) 11/12/17 14:52 Influenza A (H1) PCR Not Detected (Not Detect) 11/12/17 14:52 Influ A (H1N1/09) PCR Not Detected (Not Detect) 11/12/17 14:52 Influenza A (H3) PCR Not Detected (Not Detect) 11/12/17 14:52 Influenza A Untype (PCR) Not Detected (Not Detect) 11/12/17 14:52 Influenza Type B (PCR) Not Detected (Not Detect) 11/12/17 14:52 M.pneumoniae DNA (PCR) Not Detected (Not Detect) 11/12/17 14:52 Parainfluenza 1 (PCR) Not Detected (Not Detect) 11/12/17 14:52 Parainfluenza 2 (PCR) Not Detected (Not Detect) 11/12/17 14:52 Parainfluenza 3 (PCR) Not Detected (Not Detect) 11/12/17 14:52 Parainfluenza 4 (PCR) Not Detected (Not Detect) 11/12/17 14:52 RSV (PCR) Not Detected (Not Detect) 11/12/17 14:52 Entero/Rhino (PCR) Not Detected (Not Detect) 11/12/17 14:52 Specimen Rejected Not Liquid 11/13/17 10:14 - Impressions Impressions Chest CTA 11/12/17 08:55 IMPRESSION: 1. Negative for acute pulmonary embolism. 2. Large hiatal hernia. 3. Multifocal patchy airspace disease in both lungs could represent pneumonia. 4. Bilateral pleural effusions. D/ / 11/12/2017 10:35:04 Kvng Mancini MD / rebeca Interpreting Provider: Kvng Mancini MD Consult Discharge Plan - Plan Referrals: Dayan Prieto CNP [Primary Care Provider] - 11/23/17 10:00 am Prescriptions: Amoxicillin/Clavulanate [Augmentin] 500 mg PO BIDWM 4 Days #8 tablet
[2017-11-13] MEDS: 0.9 % Sodium Chloride 1,000 ML IVC SCH ×2 (19:30→19:31)
[2017-11-14] MEDS: Piperacillin/Tazobactam 3.375 GM in 0.9 % Sodium Chloride Mini Bag 100 ML IVPB SCH ×3 (00:09→15:49)
[2017-11-14] MEDS: 0.9 % Sodium Chloride 1,000 ML IVC SCH ×2 (00:10→15:56)
[2017-11-14] MEDS: Ipratropium/Albuterol Neb 3 ML IH SCH ×5 (03:28→20:08)
[2017-11-14 04:46] LABS: Red Cell Distribution Width 17.4 % (11.5-14.5)
[2017-11-14 04:47] LABS: Basophils % 0.5 %; Hematocrit 27.1 % (35.3-44.9); Hemoglobin 8.5 g/dL (11.5-15.4); Immature Granulocytes % 1.9 % (0-4); Immature Platelets 3.8 % (1.1-6.1); Lymphocytes % 16.8 %; Mean Corpuscular HGB Conc 31.4 g/dL (31.6-35.5); Mean Corpuscular Hemoglobin 28.5 pg (28.0-33.3); Mean Corpuscular Volume 90.9 fL (83.0-100.0); Mean Platelet Volume 10.8 fL (9.4-12.4); Monocytes # 0.8 K/mcL (0.0-1.3); Monocytes % 13.8 %; Nucleated Red Blood Cells 0.5 /100 WBC (0); Red Blood Count 2.98 M/mcL (3.82-4.97)
[2017-11-14 04:57] LABS: Platelet Count 93 K/mcL (140-400)
[2017-11-14 05:49] LABS: BUN/Creatinine Ratio 22 (6-26); Blood Urea Nitrogen 13 mg/dL (8-23); Calcium 8.4 mg/dL (8.6-10.3); Carbon Dioxide 20 mEq/L (23-29); Chloride 115 mEq/L (98-107); Glucose 65 mg/dL (70-105); Osmolality,Calculated 300 (280-300); Sodium 146 mEq/L (136-145); eGFR For Non-African Americans > 60 (> 60)
[2017-11-14] MEDS: *HR* Heparin 5,000 UNIT/ML VIAL SQ SCH ×2 (06:12→18:35)
[2017-11-14] MEDS ORDERED: Ringers Solution, Lactated 1,000 ML IVC SCH (08:30)
[2017-11-14] MEDS: Venlafaxine XR (24 HR) 75 MG CAP.ER.24H PO SCH (09:22)
[2017-11-14] MEDS: Levofloxacin 750 MG/150 ML 750 MG/150 ML BAG IVPB SCH (09:22)
[2017-11-14] MEDS: Divalproex (24 HR) 250 MG TABLET PO SCH (09:22)
[2017-11-14] MEDS: Lactobacillus 1 EACH CAP.SPRINK PO SCH ×2 (09:23→21:58)
[2017-11-14] MEDS: Loratadine 10 MG TABLET PO SCH (09:23)
[2017-11-14] MEDS: Baclofen 10 MG TABLET PO SCH ×2 (09:23→21:58)
[2017-11-14] MEDS: Fluticasone Propionate Nasal 50 MCG/SPRAY BOTTLE NS SCH (10:25)
--- NOTE | 2017-11-14 14:08 | Internal Med Progress Note ---
Date of Encounter: 11/14/17 Time of Encounter: 14:04 - Assessment and plan (1) Sepsis Current Visit: Yes Status: Acute Assessment and plan: The patient developed leukocytosis, is tachycardic and hypotensive in the setting of pneumonia Organism undetermined Sepsis likely secondary to pneumonia however continue to rule out other causes Blood cultures from November 07 negative 2 sets repeat cultures November 12 1 no growth to date additional repeat culture x 2 sets pending Respiratory infection panel negative No obvious skin breakdown, UA 11/06/17 unremarkable; no obsvious source for infection Infectious disease seeing in consultation, appreciate recommendations Continue Zosyn 3.375 g IV every 8 hours Continue vancomycin with pharmacy to dose, goal trough 15 today's trough 30 Continue Levaquin 750 mg IV daily Qualifiers: Sepsis type: sepsis due to unspecified organism Qualified Code(s): A41.9 - Sepsis, unspecified organism (2) Pneumonia Current Visit: Yes Status: Acute Assessment and plan: Pt suspected to have aspiration pneumonia -was clinically improving but care givers said she wasn't at mental baseline. They said she is usually alert and oriented to herself, to them, and can feed herself. She is unable to feed herself in the hospital, doesn't recognize them and is shaking -pt was tacycardic overnight and had a t max of 100.4 -pt is rhonchorus/wheezing on auscultation -did a sat CT angio of the chest to r/o PE - showed no acute PE but possible pneumonia and a large hiatal hernia -blood cultures awaiting -vancoymycin/zosyn started -ID consulted 11/13- Admission imaging suspicious for pneumonia. Patient has had rhonchi, tachypnea and tachycardia as well as fevers on days prior. Continues to have rhonchi and fine I/E wheezes per my assessment this morning. Mildly febrile overnight. No appreciable improvement in WBC with white count of 11.8 today. Patient is not in respiratory distress. Resting comfortable on 2 L nasal cannula SPO2 93%. Infectious disease continuing to follow, appreciate recommendations. Continue broad-spectrum coverage with vancomycin, Zosyn and Levaquin. Cultures from no growth. Pending cultures no growth to date x1, obtain additional set of cultures today. 11/14- patient being treated for diagnosis of pneumonia. Continues to have rhonchi and fine I/E wheezes, tachypnea and tachycardia. Rhonchi and wheezing improving. Continues to have mild fevers overnight with MAXIMUM TEMPERATURE 99.8. Continues to be delirious and a shuffled. Unable to communicate or cooperate with examination. Mental status worse than baseline. Likely due to sepsis with pneumonia. Currently she is not rest or distress and is resting comfortably on 2 L nasal cannula. Infectious disease following. Continue broad -spectrum coverage with vancomycin with pharmacy dosing, Zosyn and Levaquin. Continue to follow culture results. Patient remained hemodynamically stable but blood pressures borderline low, continue to closely monitor hemodynamic status. (3) Cerebral palsy Current Visit: Yes Status: Chronic Assessment and plan: Chronic, follows with neurology (4) GERD (gastroesophageal reflux disease) Current Visit: No Status: Chronic Assessment and plan: Pt is on prilosec Keep head of bed elevated. Don't eat large meals before laying down. Chew all foods throuroughly Speech recommends thin liquids, advance soft textures , meds in puree. No straws 11/14-continue Prilosec. See plan above (5) Seizure Current Visit: No Status: Chronic Assessment and plan: On depakote Speech evaluated with swallow studie - recommendation below: ST recommends thin liquid and advanced soft textures. NO STRAWS, assist with feeds, meds in puree. Patient is tolerating baseline diet. No swallow therapy recommended at this time. Neuro checks q4hr - pt at this time is arousable and is aware of where she is 11/13- patient with history of seizures, on Depakote, continue Depakote. Continue neuro checks every 4 hours. This time patient is arousable but unable to communicate. (6) Hypokalemia Current Visit: Yes Status: Resolved Assessment and plan: Potassium 2.1. Replacement done in the ER. Today it is 2.6-replaced with 60 MEQ liquid oral potassium, recheck potassium this evening Recheck electrolytes tomorrow and replete as necessary 11/14- today's potassium 3.0. Replete with 40 MEQ K rider, recheck this afternoon and replete as necessary. Recheck BMP daily, obtain serum magnesium the morning (7) Delirium due to general medical condition Current Visit: Yes Status: Acute Assessment and plan: Continuing to have features of delirium Poor eye contact, disorganized speech, anxiety. Patient speaking to an inanimate objects Psychiatry seeing in consultation, appreciate recommendations-no reason to change antipsychotic medications per psychiatry-continue antipsychotics throughout stay Underlying medical conditions exacerbating delirium 11/14-continues to have altered mental status. Underlying medical conditions likely exacerbating delirium. At baseline patient is able to recognize caregivers and feed herself and provided minimal yes or no responses. However, patient is unable to do that at this time. Psychiatry following consultation. Recommendations are to continue antipsychotic medications; do not titrate these medications. Also of note, the patient is septic with pneumonia and this is to try reading to deteriorating mental status (8) Altered mental status Current Visit: Yes Status: Acute Assessment and plan: See above Qualifiers: Altered mental status type: disorientation Qualified Code(s): R41.0 - Disorientation, unspecified (9) DVT (deep venous thrombosis) Current Visit: Yes Status: Suspected Assessment and plan: r/o DVT and PE -CTA of chest negative for acute PE, showed possible pneumonia -started pt on Zosyn/Vanc -Blood cx pending -ID consulted t max overnight 100.4, HR in 120's Meets part of Virchow's triad of hypercoag 2/2 to immobility and stasis. She has only been on SCD for DVT prophylaxis Pt placed on 5000U SQ heparin repeated US bilateral LE to r/o DVT 11/13- Doppler study reveals-very difficult/impossible study from pop V level on down bilaterally. Unable to adequately rule out possibility of DVT in these locations although no DVT was clearly imaged all locations above pop V level and legs appear negative for thrombus. We will withhold on hurting therapeutic anticoagulation at this time. Bilateral lower extremity circulation PT/DP 1+/1+ 11/14- bilateral lower extremities with adequate circulation and blood flow. PT /DP 1+/1+. Patient on subcutaneous heparin Qualifiers: DVT location: lower extremity Affected thrombotic vein of extremity: other lower extremity vein Chronicity: acute Laterality: unspecified laterality Qualified Code(s): I82.409 - Acute embolism and thrombosis of unspecified deep veins of unspecified lower extremity (10) Dysphasia Current Visit: Yes Status: Acute (11) DVT prophylaxis Current Visit: No Status: Acute Assessment and plan: Continue sq heparin - Time Spent With Patient Total time spent is greater than 50% in coordination of care (as documented) at patient's floor/unit and/or counseling patient: 25 - 35 minutes - Subjective Interval history: Patient seen and examined at bedside today. No acute changes overnight. Continues to have features of delirium with poor eye contact, disorganized speech unresponsive to questioning and uncooperative with exam. - Constitutional Vitals: Temp Pulse Resp BP Pulse Ox 99.4 F 106 15 91/61 97 11/14/17 11:42 11/14/17 11:42 11/14/17 11:42 11/14/17 11:42 11/14/17 11:42 General appearance: Present: A&O X 0, disheveled, mild distress - Head Head exam: Present: atraumatic, normocephalic - Neck Neck exam general surgery: Present: supple, trachea midline. Absent: lymphadenopathy - Respiratory Respiratory exam: Present: CTAB, rhonchi. Absent: accessory muscle use, rales, wheezes - Cardiovascular Cardiovascular exam: Present: RRR, +S1, +S2, tachycardia. Absent: diastolic murmur, gallop, rubs, systolic murmur - GI/Abdominal GI/Abdominal exam: Present: normal bowel sounds, soft, no peritoneal signs. Absent: distended, tenderness - Extremities Exam Extremities exam: Present: normal capillary refill, pedal edema (Generalized), warm, radial pulses palpable and symmetrical. Absent: normal inspection - Neurological Exam Neurological exam: Present: altered, motor sensory deficit. Absent: no focal deficits - Psychiatric Psychiatric exam: Present: anxious. Absent: normal affect, normal mood Internal Medicine: Result - Labs CBC & Chem 7: 11/14/17 04:19 11/14/17 04:00 Labs: Short CBC 11/14/17 Range/Units 04:19 WBC 5.9 (4.3-11.1) K/mcL Hgb 8.5 L D (11.5-15.4) g/dL Hct 27.1 L (35.3-44.9) % Plt Count 93 L (140-400) K/mcL Neutrophils # 4.0 (1.6-8.9) K/mcL BMP 11/13/17 11/14/17 18:09 04:00 Sodium 146 H Potassium 3.2 L 3.0 L Chloride 115 H Carbon Dioxide 20 L BUN 13 Creatinine 0.58 L Glucose 65 L Calcium 8.4 L - ABG Interpretation ABG results: ABG ABG pH 7.50 pH Units (7.32-7.45) H 11/13/17 04:07 ABG pCO2 29 mmHg (35-45) L 11/13/17 04:07 ABG pO2 72 mmHg (85-104) L 11/13/17 04:07 ABG O2 Saturation 96 % (95-98) 11/13/17 04:07 PT/INR, D-dimer PT 11.7 Seconds (9.4-12.1) 11/06/17 21:22 - VTE Documentation of Mechanical Device: Intermittent pneumatic compression device Consult Discharge Plan - Plan Referrals: Dayan Prieto, [employer] [Primary Care Provider] - 11/23/17 10:00 am Prescriptions: Amoxicillin/Clavulanate [Augmentin] 500 mg PO BIDWM 4 Days #8 tablet
[2017-11-14 14:32] LABS: Hematocrit 26.6 % (35.3-44.9); Hemoglobin 8.4 g/dL (11.5-15.4)
--- NOTE | 2017-11-14 16:20 | Consult Note ---
Date of Encounter: 11/14/17 Time of Encounter: 15:00 Assessment & Recommendation (1) Delirium due to general medical condition Current visit: No Status: Acute (2) Altered mental status Current visit: Yes Status: Acute Qualifiers: Altered mental status type: disorientation Qualified Code(s): R41.0 - Disorientation, unspecified (3) Cerebral palsy Current visit: Yes Status: Chronic Qualifiers: Cerebral palsy type: unspecified type Qualified Code(s): G80.9 - Cerebral palsy, unspecified History of Present Illness Patient: known to practice within the last 3 years Requesting Physician: Flaquito Pennington Reason for consult: follow-up History of present illness: Ms. Martinez is a 71 year old female The patient is known to me from previous consults. Today I was able to go in and speak to her she did attend to me and did not appear to attend other hallucinations. He was able to talk to her little bit about where she lived. Her speech is indistinct and she appeared to be grossly oriented to the current place and situation. Nonetheless because of sparse speech I am unable to do significant testing. Nonetheless I think the patient may be improving continuing the current medicines and be helpful. At this point I would sign off as the patient may be improving and approaching her baseline. If there are further questions please contact our service again. CC: Flaquito Pennington Past Med Surg Social Fam HX - Past Medical History Medical history: dementia, GERD, hyperlipidemia, hypertension, other - Past Surgical History Surgical History: other (shoulder, knee surgery) - Social History Smoking Status: Never smoker Smokeless Tobacco Status: No Alcohol use: none Drug use: none - Family History Mother Adopted: Yes Father Adopted: Yes Medications & Allergies Baclofen 20 mg PO BID 09/08/17 [History] Citalopram [CeleXA] 20 mg PO DAILY 09/08/17 [History] Loratadine [Allergy Relief] 10 mg PO DAILY 09/08/17 [History] Omeprazole [PriLOSEC] 40 mg PO DAILY 09/08/17 [History] Promethazine HCl 12.5 mg PO Q8H PRN 09/08/17 [History] Rosuvastatin Calcium [Crestor] 5 mg PO DAILY 09/08/17 [History] Venlafaxine HCl [Venlafaxine HCl ER] 75 mg PO DAILY 09/08/17 [History] Citalopram Hydrobromide [Celexa] 40 mg PO DAILY 11/07/17 [History] Divalproex (24 HR) [Depakote ER (24 HR)] 750 mg PO DAILY 11/07/17 [History] Fluticasone Propionate Nasal [Flonase] 1 spr NS DAILY 11/07/17 [History] Furosemide [Lasix] 20 mg PO DAILY 11/07/17 [History] Amoxicillin/Clavulanate [Augmentin] 500 mg PO BIDWM 4 Days #8 tablet 11/11/17 [ Rx] 3 Allergy/AdvReac Type Severity Reaction Status Date / Time Mhzjuol-[id number]-[id number] Reductase Allergy Intermediate Rash Verified 11/18/15 17:58 Inhibitor [Statins] clopidogrel [From Plavix] Allergy Anaphylaxis Verified 08/17/15 13:37 Sulfa (Sulfonamide Allergy Anaphylaxis Verified 08/17/15 13:37 Antibiotics) Warfarin [From Coumadin] Allergy Anaphylaxis Verified 08/17/15 13:37 Review of Systems Psychiatric: Reports: visual hallucinations, difficulty concentrating Psychiatry Exam - Constitutional Vitals: Temp Pulse Resp BP Pulse Ox 98.7 F 104 15 92/59 96 11/14/17 15:47 11/14/17 15:47 11/14/17 15:47 11/14/17 15:47 11/14/17 15:47 Results - Labs Labs: Laboratory Last Values WBC 5.9 K/mcL (4.3-11.1) 11/14/17 04:19 RBC 2.98 M/mcL (3.82-4.97) L 11/14/17 04:19 Hgb 8.4 g/dL (11.5-15.4) L 11/14/17 14:20 Hct 26.6 % (35.3-44.9) L 11/14/17 14:20 MCV 90.9 fL (83.0-100.0) 11/14/17 04:19 MCH 28.5 pg (28.0-33.3) 11/14/17 04:19 MCHC 31.4 g/dL (31.6-35.5) L 11/14/17 04:19 RDW 17.4 % (11.5-14.5) H 11/14/17 04:19 Plt Count 93 K/mcL (140-400) L 11/14/17 04:19 MPV 10.8 fL (9.4-12.4) 11/14/17 04:19 Immature Gran % 1.9 % (0-4) 11/14/17 04:19 Seg Neutrophils % 67.0 % 11/14/17 04:19 Lymphocytes % 16.8 % 11/14/17 04:19 Monocytes % 13.8 % 11/14/17 04:19 Eosinophils % 0.0 % 11/14/17 04:19 Basophils % 0.5 % 11/14/17 04:19 Neutrophils # 4.0 K/mcL (1.6-8.9) 11/14/17 04:19 Lymphocytes # 1.0 K/mcL (0.6-4.6) 11/14/17 04:19 Monocytes # 0.8 K/mcL (0.0-1.3) 11/14/17 04:19 Eosinophils # 0.0 K/mcL (0.0-0.6) 11/14/17 04:19 Basophils # 0.0 K/mcL (0.0-0.2) 11/14/17 04:19 Nucleated RBCs/100 WBC 0.5 /100 WBC (0) H 11/14/17 04:19 Toxic Granulation Present (Not Present) A 11/07/17 03:51 Platelet Estimate Slight Decrease (Normal) L 11/07/17 03:51 Immature Plt Fraction 3.8 % (1.1-6.1) 11/14/17 04:19 PT 11.7 Seconds (9.4-12.1) 11/06/17 21:22 INR 1.0 11/06/17 21:22 Sample Site R Radial 11/13/17 04:07 ABG pH 7.50 pH Units (7.32-7.45) H 11/13/17 04:07 ABG pCO2 29 mmHg (35-45) L 11/13/17 04:07 ABG pO2 72 mmHg (85-104) L 11/13/17 04:07 ABG HCO3 23 mEq/L (21-27) 11/13/17 04:07 ABG Total CO2 24 mEq/L (20-26) 11/13/17 04:07 ABG O2 Saturation 96 % (95-98) 11/13/17 04:07 ABG Base Excess 0 mEq/L (-2 to 3) 11/13/17 04:07 Josué Test Positive 11/13/17 04:07 O2 Delivery Device Cannula 11/13/17 04:07 Inspired O2 3.0 (1-15=lpm [id number]%) 11/13/17 04:07 Sodium 146 mEq/L (136-145) H 11/14/17 04:00 Potassium 3.2 mEq/L (3.5-5.1) L 11/14/17 14:20 Chloride 115 mEq/L (98-107) H 11/14/17 04:00 Carbon Dioxide 20 mEq/L (23-29) L 11/14/17 04:00 BUN 13 mg/dL (8-23) 11/14/17 04:00 Creatinine 0.58 mg/dL (0.60-1.20) L 11/14/17 04:00 Est GFR ( Amer) > 60 (> 60) 11/14/17 04:00 Est GFR (Non-Af Amer) > 60 (> 60) 11/14/17 04:00 BUN/Creatinine Ratio 22 (6-26) 11/14/17 04:00 Glucose 65 mg/dL (70-105) L 11/14/17 04:00 POC Glucose 134 mg/dL (70-99) H 11/06/17 21:20 Calculated Osmolality 300 (280-300) 11/14/17 04:00 Lactic Acid 1.4 mmol/L (0.5-2.2) 11/07/17 00:09 Calcium 8.4 mg/dL (8.6-10.3) L 11/14/17 04:00 Magnesium 2.4 mg/dL (1.6-2.6) 11/09/17 01:43 Total Bilirubin 0.4 mg/dL (0.3-1.0) 11/13/17 04:00 Direct Bilirubin 0.1 mg/dL (0.0-0.2) 11/09/17 01:43 Indirect Bilirubin 0.1 mg/dL (0.0-1.2) 11/09/17 01:43 AST 14 Units/L (13-39) 11/13/17 04:00 ALT 5 Units/L (7-52) L 11/13/17 04:00 Alkaline Phosphatase 64 Units/L (34-104) 11/13/17 04:00 Ammonia 25 mcmol/L (16-53) 11/09/17 01:43 Troponin I < 0.03 ng/mL (< 0.04) 11/06/17 21:22 Serum Total Protein 5.5 g/dL (6.4-8.9) L 11/13/17 04:00 Albumin 2.3 g/dL (3.5-5.7) L 11/13/17 04:00 Globulin 3.2 g/dL (2.4-3.5) 11/13/17 04:00 Albumin/Globulin Ratio 0.7 (1.1-2.2) L 11/13/17 04:00 Amylase 15 Units/L (29-103) L 11/13/17 04:00 Lipase 5 Units/L (11-82) L 11/13/17 04:00 Procalcitonin 0.44 ng/mL (<=0.07) H 11/09/17 01:43 Urine Color Yellow (Yellow) 11/06/17 21:47 Urine Clarity Clear (Clear) 11/06/17 21:47 Urine pH 6.0 pH Units (5.0-8.0) 11/06/17 21:47 Ur Specific [place] 1.015 (1.010-1.025) 11/06/17 21:47 Urine Protein Negative mg/dL (Neg-Trace) 11/06/17 21:47 Urine Glucose (UA) Normal mg/dL (Normal) 11/06/17 21:47 Urine Ketones Negative mg/dL (Negative) 11/06/17 21:47 Urine Blood Negative (Negative) 11/06/17 21:47 Urine Nitrite Negative (Negative) 11/06/17 21:47 Urine Bilirubin Negative (Negative) 11/06/17 21:47 Urine Urobilinogen Normal mg/dL (Normal) 11/06/17 21:47 Ur Leukocyte Esterase Negative (Negative) 11/06/17 21:47 Ur Culture Indicated? NO (NO) 11/06/17 21:47 Vancomycin Trough 33 mcg/mL (5-10) H 11/14/17 04:19 Urine Opiates Screen Negative ng/mL (Bijzff=810) 11/06/17 21:47 Ur Barbiturates Screen Negative ng/mL (Tdffcs=748) 11/06/17 21:47 Ur Phencyclidine Scrn Negative ng/mL (Cutoff=25) 11/06/17 21:47 Ur Amphetamines Screen Negative ng/mL (Xoktoa=5378) 11/06/17 21:47 U Benzodiazepines Scrn Negative ng/mL (Zxjrcw=720) 11/06/17 21:47 Urine Cocaine Screen Negative ng/mL (Cutoff= 300) 11/06/17 21:47 U Marijuana (THC) Screen Negative ng/mL (Cutoff = 50) 11/06/17 21:47 Ur Drug Screen Interp See Below 11/06/17 21:47 Ethyl Alcohol < 10 mg/dL (Less than 10) 11/06/17 21:22 Chlamy pneumoniae PCR Not Detected (Not Detect) 11/12/17 14:52 Adenovirus (PCR) Not Detected (Not Detect) 11/12/17 14:52 B. pertussis DNA (PCR) Not Detected (Not Detect) 11/12/17 14:52 B.parapertussis DNA PCR Not Detected (Not Detect) 11/12/17 14:52 Coronavirus OC43 (PCR) Not Detected (Not Detect) 11/12/17 14:52 Coronavirus HKU1 (PCR) Not Detected (Not Detect) 11/12/17 14:52 Coronavirus 229E (PCR) Not Detected (Not Detect) 11/12/17 14:52 Coronavirus NL63 (PCR) Not Detected (Not Detect) 11/12/17 14:52 Human Metapneumovir PCR Not Detected (Not Detect) 11/12/17 14:52 Influenza A (H1) PCR Not Detected (Not Detect) 11/12/17 14:52 Influ A (H1N1/09) PCR Not Detected (Not Detect) 11/12/17 14:52 Influenza A (H3) PCR Not Detected (Not Detect) 11/12/17 14:52 Influenza A Untype (PCR) Not Detected (Not Detect) 11/12/17 14:52 Influenza Type B (PCR) Not Detected (Not Detect) 11/12/17 14:52 M.pneumoniae DNA (PCR) Not Detected (Not Detect) 11/12/17 14:52 Parainfluenza 1 (PCR) Not Detected (Not Detect) 11/12/17 14:52 Parainfluenza 2 (PCR) Not Detected (Not Detect) 11/12/17 14:52 Parainfluenza 3 (PCR) Not Detected (Not Detect) 11/12/17 14:52 Parainfluenza 4 (PCR) Not Detected (Not Detect) 11/12/17 14:52 RSV (PCR) Not Detected (Not Detect) 11/12/17 14:52 Entero/Rhino (PCR) Not Detected (Not Detect) 11/12/17 14:52 Specimen Rejected Not Liquid 11/13/17 10:14 Consult Discharge Plan - Plan Referrals: Dayan Prieto CNP [Primary Care Provider] - 11/23/17 10:00 am Prescriptions: Amoxicillin/Clavulanate [Augmentin] 500 mg PO BIDWM 4 Days #8 tablet
[2017-11-15] MEDS: Ipratropium/Albuterol Neb 3 ML IH SCH ×7 (00:11→23:34)
[2017-11-15] MEDS: Piperacillin/Tazobactam 3.375 GM in 0.9 % Sodium Chloride Mini Bag 100 ML IVPB SCH ×4 (00:52→23:26)
[2017-11-15 04:53] LABS: Nucleated Red Blood Cells 0.4 /100 WBC (0)
[2017-11-15 04:54] LABS: Basophils % 0.6 %; Eosinophils % 0.8 %; Hematocrit 28.4 % (35.3-44.9); Hemoglobin 8.8 g/dL (11.5-15.4); Immature Granulocytes % 5.9 % (0-4); Lymphocytes # 0.9 K/mcL (0.6-4.6); Lymphocytes % 17.8 %; Mean Corpuscular Hemoglobin 28.9 pg (28.0-33.3); Mean Corpuscular Volume 93.4 fL (83.0-100.0); Mean Platelet Volume 10.5 fL (9.4-12.4); Monocytes # 0.7 K/mcL (0.0-1.3); Monocytes % 13.4 %; Red Blood Count 3.04 M/mcL (3.82-4.97); Red Cell Distribution Width 18.1 % (11.5-14.5); Segmented Neutrophils % 61.5 %
[2017-11-15 04:59] LABS: Platelet Count 99 K/mcL (140-400)
[2017-11-15 05:08] LABS: BUN/Creatinine Ratio 24 (6-26); Blood Urea Nitrogen 13 mg/dL (8-23); Calcium 8.6 mg/dL (8.6-10.3); Carbon Dioxide 23 mEq/L (23-29); Chloride 115 mEq/L (98-107); Glucose 56 mg/dL (70-105); Osmolality,Calculated 300 (280-300); Potassium 3.6 mEq/L (3.5-5.1); Sodium 146 mEq/L (136-145); eGFR For Non-African Americans > 60 (> 60)
[2017-11-15 05:14] LABS: Platelet Estimate Decreased (Normal)
[2017-11-15] MEDS: *HR* Heparin 5,000 UNIT/ML VIAL SQ SCH ×2 (05:24→18:05)
[2017-11-15] MEDS: Lactobacillus 1 EACH CAP.SPRINK PO SCH ×2 (09:15→20:45)
[2017-11-15] MEDS: Loratadine 10 MG TABLET PO SCH (09:15)
[2017-11-15] MEDS: Divalproex (24 HR) 250 MG TABLET PO SCH (09:16)
[2017-11-15] MEDS: Baclofen 10 MG TABLET PO SCH ×2 (09:16→20:45)
[2017-11-15] MEDS: Venlafaxine XR (24 HR) 75 MG CAP.ER.24H PO SCH (09:16)
[2017-11-15] MEDS: Fluticasone Propionate Nasal 50 MCG/SPRAY BOTTLE NS SCH (09:17)
--- NOTE | 2017-11-15 09:53 | Infectious Disease Progress No ---
Date of Encounter: 11/15/17 Time of Encounter: 09:51 - Assessment and Plan (1) Sepsis Current Visit: Yes Status: Acute The patient had 2 SIRS criteria initially, which resolved. She developed leukocytosis, tachycardia, and fever this morning. Likely secondary to pneumonia, but need to rule out other causes as well. Improved. WBC normalized. Still having intermittent tachycardia. BP a little low this morning. Blood cultures drawn November 07 are negative 2 sets. Repeat blood culture drawn November 12 1 set is NGTD. Additional blood cultures drawn 11/13/17 are NGTD x 2 sets. The patient does not appear to have any skin breakdown that indicates a wound infection. Her abdomen is tender on palpation, but her LFTs are normal. Amylase and lipase normal. Nursing attempted to obtain urine specimen via straight cath several times, but were unsuccessful. Continue vancomycin IV. Pharmacy to dose. Goal trough approximately 15. Continue Zosyn 3.375 g IV every 8 hours. Continue Levaquin 750mg IV daily. Qualifiers: Sepsis type: sepsis due to unspecified organism Qualified Code(s): A41.9 - Sepsis, unspecified organism (2) Pneumonia Current Visit: Yes Status: Acute Location: Bilateral. Causative organism: Unclear. Given the patient's altered mental status, concern for aspiration. Speech therapy was consulted and recommended thin liquids and advance soft textures. Per nursing, the patient was witnessed to be choking while she was eating breakfast last week. Check strep pneumococcal and legionella urinary antigens.--> nursing unable to get specimens via straight cath. Get sputum culture if patient is able to provide an adequate specimen.--> not collected, patient not coughing anything up. Check respiratory infectious panel.--> negative. Repeat CXR now. Continue vancomycin IV. Pharmacy to dose. Goal trough approximately 15. Continue Zosyn 3.375 g IV every 8 hours. Continue Levaquin 750 mg IV daily. Duration of treatment depends on the clinical picture. Monitor renal function and for drug toxicity and dose adjust antibiotics. Qualifiers: Pneumonia type: due to unspecified organism Laterality: right Lung location: lower lobe of lung Qualified Code(s): J18.1 - Lobar pneumonia, unspecified organism (3) Altered mental status Current Visit: Yes Status: Acute Etiology unclear. Likely secondary to sepsis. CT head negative on November 06. Unsure what the patient's baseline is, but appears improved from when we saw her on Wednesday. Psych consulted. Continue to monitor closely. Qualifiers: Altered mental status type: disorientation Qualified Code(s): R41.0 - Disorientation, unspecified (4) Dysphasia Current Visit: Yes Status: Acute Speech therapy evaluation noted. Consider repeat evaluation. (5) Hypokalemia Current Visit: Yes Status: Resolved (6) Cerebral palsy Current Visit: Yes Status: Chronic Qualifiers: Cerebral palsy type: unspecified type Qualified Code(s): G80.9 - Cerebral palsy, unspecified (7) GERD (gastroesophageal reflux disease) Current Visit: No Status: Chronic Qualifiers: Esophagitis presence: esophagitis presence not specified Qualified Code(s) : K21.9 - Gastro-esophageal reflux disease without esophagitis (8) Hyperlipidemia Current Visit: No Status: Chronic Qualifiers: Hyperlipidemia type: unspecified Qualified Code(s): E78.5 - Hyperlipidemia , unspecified (9) Hypertension Current Visit: No Status: Acute Qualifiers: Hypertension type: essential hypertension Qualified Code(s): I10 - Essential (primary) hypertension - Subjective Interval history: Patient seen and examined. No acute events noted overnight. Patient more awake this morning and able to participate in the exam. Denies pain, shortness of breath, or nausea. States she would like to eat some breakfast this morning. No family or caregivers at bedside. Infect Dis PN-Objective Data - Labs CBC & Chem 7: 11/15/17 04:14 11/15/17 04:14 Labs: Laboratory Results - last 24 hr 11/14/17 11/14/17 11/14/17 14:20 14:20 20:55 WBC RBC Hgb 8.4 L Hct 26.6 L MCV MCH MCHC RDW Plt Count MPV Immature Gran % Seg Neutrophils % Lymphocytes % Monocytes % Eosinophils % Basophils % Neutrophils # Lymphocytes # Monocytes # Eosinophils # Basophils # Nucleated RBCs/100 WBC Platelet Estimate Immature Plt Fraction Sodium Potassium 3.2 L Chloride Carbon Dioxide BUN Creatinine Est GFR ( Amer) Est GFR (Non-Af Amer) BUN/Creatinine Ratio Glucose Calculated Osmolality Calcium Magnesium Random Vancomycin 20 11/15/17 11/15/17 11/15/17 04:14 04:14 04:14 WBC 4.9 RBC 3.04 L Hgb 8.8 L Hct 28.4 L MCV 93.4 MCH 28.9 MCHC 31.0 L RDW 18.1 H Plt Count 99 L MPV 10.5 Immature Gran % 5.9 H Seg Neutrophils % 61.5 Lymphocytes % 17.8 Monocytes % 13.4 Eosinophils % 0.8 Basophils % 0.6 Neutrophils # 3.0 Lymphocytes # 0.9 Monocytes # 0.7 Eosinophils # 0.0 Basophils # 0.0 Nucleated RBCs/100 WBC 0.4 H Platelet Estimate Decreased L Immature Plt Fraction 4.0 Sodium 146 H Potassium 3.6 Chloride 115 H Carbon Dioxide 23 BUN 13 Creatinine 0.54 L Est GFR ( Amer) > 60 Est GFR (Non-Af Amer) > 60 BUN/Creatinine Ratio 24 Glucose 56 L Calculated Osmolality 300 Calcium 8.6 Magnesium 1.7 Random Vancomycin Cultures: Cultures 11/13/17 13:39 Blood Culture - Preliminary Peripheral Venipuncture Culture is incubating and being continuously monitored for growth. Final report to follow. 11/13/17 13:39 Blood Culture - Preliminary Peripheral Venipuncture Culture is incubating and being continuously monitored for growth. Final report to follow. 11/12/17 12:21 Blood Culture - Preliminary Peripheral Venipuncture Culture is incubating and being continuously monitored for growth. Final report to follow. 11/07/17 03:51 Blood Culture - Final Peripheral Venipuncture No growth. Final report. 11/07/17 03:51 Blood Culture - Final Peripheral Venipuncture No growth. Final report. Serology 11/12/17 Range/Units 14:52 Chlamy pneumoniae PCR Not Detected (Not Detect) Adenovirus (PCR) Not Detected (Not Detect) B. pertussis DNA (PCR) Not Detected (Not Detect) B.parapertussis DNA PCR Not Detected (Not Detect) Coronavirus OC43 (PCR) Not Detected (Not Detect) Coronavirus HKU1 (PCR) Not Detected (Not Detect) Coronavirus 229E (PCR) Not Detected (Not Detect) Coronavirus NL63 (PCR) Not Detected (Not Detect) Human Metapneumovir PCR Not Detected (Not Detect) Influenza A (H1) PCR Not Detected (Not Detect) Influ A (H1N1/09) PCR Not Detected (Not Detect) Influenza A (H3) PCR Not Detected (Not Detect) Influenza A Untype (PCR) Not Detected (Not Detect) Influenza Type B (PCR) Not Detected (Not Detect) M.pneumoniae DNA (PCR) Not Detected (Not Detect) Parainfluenza 1 (PCR) Not Detected (Not Detect) Parainfluenza 2 (PCR) Not Detected (Not Detect) Parainfluenza 3 (PCR) Not Detected (Not Detect) Parainfluenza 4 (PCR) Not Detected (Not Detect) RSV (PCR) Not Detected (Not Detect) Entero/Rhino (PCR) Not Detected (Not Detect) Exam - Constitutional Vitals: Temp Pulse Resp BP Pulse Ox 97.9 F 100 18 104/65 97 11/15/17 08:23 11/15/17 08:23 11/15/17 08:23 11/15/17 08:23 11/15/17 08:23 General appearance: average body habitus, cooperative, no acute distress - Head Head exam: Present: atraumatic, normal inspection, normocephalic - Eye Eye exam: Present: normal appearance, PERRL Pupils: Present: normal accommodation - ENT ENT exam: Present: mucous membranes moist Additional comments: Very poor dentition noted. - Neck Neck exam: Present: normal inspection - Respiratory Respiratory exam: Present: CTAB. Absent: rales, respiratory distress, rhonchi, wheezes - Cardiovascular Cardiovascular exam: Present: +S1, +S2, tachycardia - GI/Abdominal GI/Abdominal exam: Present: normal bowel sounds, soft. Absent: distended, tenderness - Extremities Exam Extremities exam: Present: pedal edema (1+ BLE). 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 Absent: no focal deficits - Skin Skin exam: Present: dry, intact, normal color, warm - VTE Documentation of Mechanical Device: Intermittent pneumatic compression device Consult Discharge Plan - Plan Referrals: Dayan Prieto OPHTHALMIC DISPENSER [Primary Care Provider] - 11/23/17 10:00 am (Appointment requested) Prescriptions: Amoxicillin/Clavulanate [Augmentin] 500 mg PO BIDWM 4 Days #8 tablet - Attending Attestation I examined this patient and my medical decision-making was reviewed with the Resident Physician. I agree with the documented findings, disposition and treatment plan as described except to the extent set forth below. binder caser at bedside patient unchaanged clinically consider repeating CXR consider repeating swallow eval to see if we can do oral antibiotics vs needing to continue IV
--- NOTE | 2017-11-15 14:44 | Internal Med Progress Note ---
Date of Encounter: 11/15/17 Time of Encounter: 14:42 - Assessment and plan (1) Sepsis Current Visit: Yes Status: Acute Assessment and plan: The patient developed leukocytosis, is tachycardic and hypotensive in the setting of pneumonia Organism undetermined Sepsis likely secondary to pneumonia however continue to rule out other causes Blood cultures from November 07 negative 2 sets repeat cultures November 12 1 no growth to date additional repeat culture x 2 sets pending Respiratory infection panel negative No obvious skin breakdown, UA 11/06/17 unremarkable; no obsvious source for infection Infectious disease seeing in consultation, appreciate recommendations Continue Zosyn 3.375 g IV every 8 hours Continue vancomycin with pharmacy to dose, goal trough of 15 Continue Levaquin 750 mg IV daily 11/15- patient improving clinically, fevers resolved overnight. Continue to have intermittent tachycardia. No longer having leukocytosis. Continues to be septic. Chest x-ray obtained today showing improvement in the left basilar infiltrate however findings of new right lung base opacification with consolidation representing pneumonia and/or atelectasis. Patient continued to improve from a respiratory perspective and resting comfortable and 2 L nasal cannula. We will continue broad-spectrum antibiotic coverage with vancomycin, Levaquin and Zosyn. Infectious disease has signed off. Continue to follow cultures. Patient remains hemodynamically stable Qualifiers: Sepsis type: sepsis due to unspecified organism Qualified Code(s): A41.9 - Sepsis, unspecified organism (2) Pneumonia Current Visit: Yes Status: Acute Assessment and plan: Bilateral pneumonia, organism unclear, caregivers reporting patient recently had episodes of choking while eating, concern for aspiration pneumonia. Noted to have fevers, tachypnea and rest her distress. Continues to have an episode of tachycardia however has remained afebrile overnight Has scattered rhonchi throughout per auscultation CT angio of the chest to r/o PE - showed no acute PE but possible pneumonia and a large hiatal hernia Blood cultures on no growth, repeat cultures pending Respiratory infection panel negative WBC 4.9 today Mental status improving today Patient has sepsis secondary to PNA Continue vancomycin, Zosyn and Levaquin Infectious disease has signed off CXR obtained today 11/15/17-significant improvement in left basal infiltrates with residual subsegmental atelectasis. Right lung base opacification representing effusion with or without underlying consolidation which may represent pneumonia and/or atelectasis. 11/15-clinically, patient continued to improve. Estrace status and mental status post improving today. Patient resting comfortably on 2 L nasal cannula. Continue broad-spectrum coverage with vancomycin, Zosyn and Levaquin. Continue to follow blood cultures. (3) Cerebral palsy Current Visit: Yes Status: Chronic Assessment and plan: Chronic, follows with neurology (4) GERD (gastroesophageal reflux disease) Current Visit: No Status: Chronic Assessment and plan: Pt is on prilosec Keep head of bed elevated. Don't eat large meals before laying down. Chew all foods throuroughly Speech recommends thin liquids, advance soft textures , meds in puree. No straws 11/14-continue Prilosec. See plan above (5) Seizure Current Visit: No Status: Chronic Assessment and plan: On depakote Speech evaluated with swallow studie - recommendation below: ST recommends thin liquid and advanced soft textures. NO STRAWS, assist with feeds, meds in puree. Patient is tolerating baseline diet. No swallow therapy recommended at this time. Neuro checks q4hr - pt at this time is arousable and is aware of where she is 11/13- patient with history of seizures, on Depakote, continue Depakote. Continue neuro checks every 4 hours. This time patient is arousable but unable to communicate. 11/15- no seizure-like activity during this admission. Continue Depakote. Continue frequent neuro checks. Patient will status improving overnight. She is arousable to verbal stimulus and able to communicate. However, she is not yet back to baseline. (6) Hypokalemia Current Visit: Yes Status: Resolved Assessment and plan: Potassium 2.1. Replacement done in the ER. Today it is 2.6-replaced with 60 MEQ liquid oral potassium, recheck potassium this evening Recheck electrolytes tomorrow and replete as necessary 11/14- today's potassium 3.0. Replete with 40 MEQ K rider, recheck this afternoon and replete as necessary. Recheck BMP daily, obtain serum magnesium the morning 11/15- today's potassium 3.6. Continue to monitor and replete as necessary, serum mag 1.7. BMP daily (7) Delirium due to general medical condition Current Visit: Yes Status: Acute Assessment and plan: Continuing to have features of delirium Poor eye contact, disorganized speech, anxiety. Patient speaking to an inanimate objects Psychiatry seeing in consultation, appreciate recommendations-no reason to change antipsychotic medications per psychiatry-continue antipsychotics throughout stay Underlying medical conditions exacerbating delirium 11/14-continues to have altered mental status. Underlying medical conditions likely exacerbating delirium. At baseline patient is able to recognize caregivers and feed herself and provided minimal yes or no responses. However, patient is unable to do that at this time. Psychiatry following consultation. Recommendations are to continue antipsychotic medications; do not titrate these medications. Also of note, the patient is septic with pneumonia and this is likely contributing to deteriorating mental status 11/15- clinically, patient's mental status appears to be improving. I believe that the delirium is caused by sepsis and pneumonia. Discussed with caregivers patient baseline, caregivers report that patient is normally able to verbalize and communicate. Per my assessment this morning she is continuing to improve. She is responding to verbal stimulus and able to answer simple questions such as her urine pain, need anything, however you feeling. See assessment and plan above (8) Altered mental status Current Visit: Yes Status: Acute Assessment and plan: See above Qualifiers: Altered mental status type: disorientation Qualified Code(s): R41.0 - Disorientation, unspecified (9) DVT (deep venous thrombosis) Current Visit: Yes Status: Suspected Assessment and plan: r/o DVT and PE -CTA of chest negative for acute PE, showed possible pneumonia -started pt on Zosyn/Vanc -Blood cx pending -ID consulted t max overnight 100.4, HR in 120's Meets part of Virchow's triad of hypercoag 2/2 to immobility and stasis. She has only been on SCD for DVT prophylaxis Pt placed on 5000U SQ heparin repeated US bilateral LE to r/o DVT 11/13- Doppler study reveals-very difficult/impossible study from pop V level on down bilaterally. Unable to adequately rule out possibility of DVT in these locations although no DVT was clearly imaged all locations above pop V level and legs appear negative for thrombus. We will withhold on hurting therapeutic anticoagulation at this time. Bilateral lower extremity circulation PT/DP 1+/1+ 11/14- bilateral lower extremities with adequate circulation and blood flow. PT /DP 1+/1+. Patient on subcutaneous heparin 11/15-B/L lower extremities with adequate circulation and blood flow. Palpable pulses bilaterally. Continue SQ heparin. No pain or tenderness to palpation Qualifiers: DVT location: lower extremity Affected thrombotic vein of extremity: other lower extremity vein Chronicity: acute Laterality: unspecified laterality Qualified Code(s): I82.409 - Acute embolism and thrombosis of unspecified deep veins of unspecified lower extremity (10) Dysphasia Current Visit: Yes Status: Acute (11) DVT prophylaxis Current Visit: No Status: Acute Assessment and plan: Cont sq heparin - Time Spent With Patient Total time spent is greater than 50% in coordination of care (as documented) at patient's floor/unit and/or counseling patient: 25 - 35 minutes - Subjective Interval history: Patient seen and examined at bedside today. No acute changes overnight. Patient's delirium and mental status improving however, continues to have poor eye contact and disorganized speech. She is responsive to verbal commands and able to somewhat communicate and respond to questioning. - Constitutional Vitals: Temp Pulse Resp BP Pulse Ox 98.7 F 91 17 132/71 96 11/15/17 11:33 11/15/17 11:33 11/15/17 11:33 11/15/17 11:33 11/15/17 11:33 General appearance: Present: A&O X 0, disheveled, mild distress Exam: Disheveled, disorganized speech and poor eye contact - Head Head exam: Present: atraumatic, normocephalic - Eye Eye exam: Present: PERRL, conjuntiva pink, sclera anicteric Pupils: Present: PERRL - Expanded ENT Exam Teeth exam: Absent: normal external inspection - Neck Neck exam general surgery: Present: supple, trachea midline. Absent: lymphadenopathy - Respiratory Respiratory exam: Present: CTAB, rhonchi (Scattered rhonchi throughout AP and L) . Absent: accessory muscle use, chest wall tenderness, decreased breath sounds , prolonged expiratory phase, rales, respiratory distress, wheezes, tachypnea - Cardiovascular Cardiovascular exam: Present: RRR, +S1, +S2. Absent: diastolic murmur, gallop, rubs, systolic murmur - GI/Abdominal GI/Abdominal exam: Present: normal bowel sounds, soft, no peritoneal signs. Absent: distended, tenderness - Extremities Exam Extremities exam: Present: normal capillary refill, pedal edema (Generalized nonpitting pedal edema bilaterally), warm, radial pulses palpable and symmetrical. Absent: calf tenderness, cyanotic - Neurological Exam Neurological exam: Present: alert (To voice only), motor sensory deficit. Absent: altered - Psychiatric Psychiatric exam: Present: agitated, anxious. Absent: normal affect, normal mood - Skin Skin exam: Present: dry, intact Internal Medicine: Result - Labs CBC & Chem 7: 11/15/17 04:14 11/15/17 04:14 Labs: Short CBC 11/15/17 Range/Units 04:14 WBC 4.9 (4.3-11.1) K/mcL Hgb 8.8 L (11.5-15.4) g/dL Hct 28.4 L (35.3-44.9) % Plt Count 99 L (140-400) K/mcL Neutrophils # 3.0 (1.6-8.9) K/mcL BMP 11/14/17 11/15/17 14:20 04:14 Sodium 146 H Potassium 3.2 L 3.6 Chloride 115 H Carbon Dioxide 23 BUN 13 Creatinine 0.54 L Glucose 56 L Calcium 8.6 - ABG Interpretation ABG results: ABG ABG pH 7.50 pH Units (7.32-7.45) H 11/13/17 04:07 ABG pCO2 29 mmHg (35-45) L 11/13/17 04:07 ABG pO2 72 mmHg (85-104) L 11/13/17 04:07 ABG O2 Saturation 96 % (95-98) 11/13/17 04:07 PT/INR, D-dimer PT 11.7 Seconds (9.4-12.1) 11/06/17 21:22 - Impressions Impressions Chest X-Ray 11/15/17 09:56 IMPRESSION: 1. Significant improvement in left basal infiltrates with residual subsegmental atelectasis. 2. New right lung base opacification representing effusion with or without underlying consolidation which may represent pneumonia and/or atelectasis. D/ / Joseph Bustillo MD / Joseph Bustillo MD Interpreting Provider: Joseph Bustillo MD - VTE Documentation of Mechanical Device: Intermittent pneumatic compression device Consult Discharge Plan - Plan Referrals: Dayan Prieto CNP [Primary Care Provider] - 11/23/17 10:00 am (Appointment requested) Prescriptions: Amoxicillin/Clavulanate [Augmentin] 500 mg PO BIDWM 4 Days #8 tablet
[2017-11-15] MEDS: Levofloxacin 750 MG/150 ML 750 MG/150 ML BAG IVPB SCH (14:46)
[2017-11-16] MEDS: Ipratropium/Albuterol Neb 3 ML IH SCH ×6 (04:15→23:44)
[2017-11-16 04:57] LABS: Hemoglobin 8.1 g/dL (11.5-15.4)
[2017-11-16 04:59] LABS: Hematocrit 26.5 % (35.3-44.9); Immature Platelets 3.8 % (1.1-6.1); Mean Corpuscular HGB Conc 30.6 g/dL (31.6-35.5); Mean Corpuscular Hemoglobin 28.6 pg (28.0-33.3); Mean Corpuscular Volume 93.6 fL (83.0-100.0); Mean Platelet Volume 10.6 fL (9.4-12.4); Red Blood Count 2.83 M/mcL (3.82-4.97); Red Cell Distribution Width 18.5 % (11.5-14.5)
[2017-11-16 05:07] LABS: Platelet Count 95 K/mcL (140-400)
[2017-11-16 05:13] LABS: BUN/Creatinine Ratio 24 (6-26); Blood Urea Nitrogen 12 mg/dL (8-23); Calcium 8.3 mg/dL (8.6-10.3); Carbon Dioxide 26 mEq/L (23-29); Chloride 118 mEq/L (98-107); Glucose 77 mg/dL (70-105); Osmolality,Calculated 305 (280-300); Sodium 148 mEq/L (136-145); eGFR For Non-African Americans > 60 (> 60)
[2017-11-16 05:43] LABS: Lymphocytes # 1.2 K/mcL (0.6-4.6); Monocytes # 0.4 K/mcL (0.0-1.3); Neutrophils # 1.9 K/mcL (1.6-8.9); Platelet Estimate Decreased (Normal)
[2017-11-16 05:44] LABS: Reactive Lymphocytes Present (Not Present)
[2017-11-16] MEDS: *HR* Heparin 5,000 UNIT/ML VIAL SQ SCH ×2 (06:37→20:10)
[2017-11-16] MEDS ORDERED: Aminoglycoside Consult 1 EACH MC ONE ×2 (08:02→08:15)
[2017-11-16] MEDS: Piperacillin/Tazobactam 3.375 GM in 0.9 % Sodium Chloride Mini Bag 100 ML IVPB SCH ×2 (08:26→23:23)
[2017-11-16] MEDS: Lactobacillus 1 EACH CAP.SPRINK PO SCH ×2 (09:07→20:40)
[2017-11-16] MEDS: Baclofen 10 MG TABLET PO SCH ×2 (09:07→20:40)
[2017-11-16] MEDS: Venlafaxine XR (24 HR) 75 MG CAP.ER.24H PO SCH (09:07)
[2017-11-16] MEDS: Loratadine 10 MG TABLET PO SCH (09:07)
[2017-11-16] MEDS: Divalproex (24 HR) 250 MG TABLET PO SCH (09:07)
[2017-11-16] MEDS: Fluticasone Propionate Nasal 50 MCG/SPRAY BOTTLE NS SCH (09:08)
--- NOTE | 2017-11-16 11:48 | Internal Med Progress Note ---
Date of Encounter: 11/16/17 Time of Encounter: 11:47 - Assessment and plan (1) Stercoral ulcer of large intestine Current Visit: Yes Status: Acute Assessment and plan: CT of abdomen and pelvis with IV and oral contrast completed today results as follows: Large amount of dense stool within a markedly distended rectosigmoid colon ; the rectosigmoid colonic wall thickening and adjacent stranding are evident. Findings are worrisome for stercoral colitis. -I did curbside consult surgery spoke with Dr. Hussein who advised- close nursing observation, advised to be cautious with enemas-overuse since bowel is already distended adding extra fluid raising risk of bowel rupture. Start gently with fleets enema 2. Advised to continue with antibiotics patient was on Zosyn which we will continue. Will require follow-up CT. Once stool has cleared we will be able to give oral laxatives. Does not feel patient is surgical candidate at this time however continue to closely monitor. I did discuss this case with Dr. Michaels who agreed with plan we will transfer patient to ICU for closer monitoring since patient is confused and it is difficult to assess patient's status (2) Sepsis Current Visit: Yes Status: Acute Assessment and plan: The patient developed leukocytosis, is tachycardic and hypotensive in the setting of pneumonia Organism undetermined Sepsis likely secondary to pneumonia however continue to rule out other causes Blood cultures from November 07 negative 2 sets repeat cultures November 12 no growth to date additional repeat culture x 2 sets pending Respiratory infection panel negative No obvious skin breakdown, UA 11/06/17 unremarkable; no obsvious source for infection Infectious disease seeing in consultation, appreciate recommendations Continue Zosyn 3.375 g IV every 8 hours Continue vancomycin with pharmacy to dose, goal trough of 15 Continue Levaquin 750 mg IV daily 11/15- patient improving clinically, fevers resolved overnight. Continue to have intermittent tachycardia. No longer having leukocytosis. Continues to be septic. Chest x-ray obtained today showing improvement in the left basilar infiltrate however findings of new right lung base opacification with consolidation representing pneumonia and/or atelectasis. Patient continued to improve from a respiratory perspective and resting comfortable and 2 L nasal cannula. We will continue broad-spectrum antibiotic coverage with vancomycin, Levaquin and Zosyn. Infectious disease has signed off. Continue to follow cultures. Patient remains hemodynamically stable 11/16/ Patient had to SIRS criteria initially which did resolve She did develop leukocytosis tachycardia and fever last week Infectious disease was consulted and was treating for pneumonia leukocyte ptosis did improve but now leukopenic with bands Blood cultures are negative 2 And cytopenic we will consult oncology CT of abdomen and pelvis does reveal possible stercoral colitis. Which could be contributing to sepsis. We will give IV fluids-no fevers Thank and Nanette DC'd by infectious disease we will resume Zosyn Continue Levaquin Qualifiers: Sepsis type: sepsis due to unspecified organism Qualified Code(s): A41.9 - Sepsis, unspecified organism (3) Altered mental status Current Visit: Yes Status: Acute Assessment and plan: See above Qualifiers: Altered mental status type: disorientation Qualified Code(s): R41.0 - Disorientation, unspecified (4) Cerebral palsy Current Visit: Yes Status: Chronic Assessment and plan: Chronic, follows with neurology Qualifiers: Cerebral palsy type: unspecified type Qualified Code(s): G80.9 - Cerebral palsy, unspecified (5) GERD (gastroesophageal reflux disease) Current Visit: No Status: Chronic Assessment and plan: Pt is on prilosec Keep head of bed elevated. Don't eat large meals before laying down. Chew all foods throuroughly Speech recommends thin liquids, advance soft textures , meds in puree. No straws 11/14-continue Prilosec. See plan above Qualifiers: Esophagitis presence: esophagitis presence not specified Qualified Code(s) : K21.9 - Gastro-esophageal reflux disease without esophagitis (6) DVT prophylaxis Current Visit: No Status: Acute (7) Seizure Current Visit: No Status: Chronic Assessment and plan: On depakote Speech evaluated with swallow studie - recommendation below: ST recommends thin liquid and advanced soft textures. NO STRAWS, assist with feeds, meds in puree. Patient is tolerating baseline diet. No swallow therapy recommended at this time. Neuro checks q4hr - pt at this time is arousable and is aware of where she is 11/13- patient with history of seizures, on Depakote, continue Depakote. Continue neuro checks every 4 hours. This time patient is arousable but unable to communicate. 11/15- no seizure-like activity during this admission. Continue Depakote. Continue frequent neuro checks. Patient will status improving overnight. She is arousable to verbal stimulus and able to communicate. However, she is not yet back to baseline. 11/16-no seizure activity continue with Depakote seizure precautions (8) Hypokalemia Current Visit: Yes Status: Resolved Assessment and plan: Potassium 2.1. Replacement done in the ER. Today it is 2.6-replaced with 60 MEQ liquid oral potassium, recheck potassium this evening Recheck electrolytes tomorrow and replete as necessary 11/14- today's potassium 3.0. Replete with 40 MEQ K rider, recheck this afternoon and replete as necessary. Recheck BMP daily, obtain serum magnesium the morning 11/15- today's potassium 3.6. Continue to monitor and replete as necessary, serum mag 1.7. BMP daily 11/16 today potassium is 3 replace with 40 mEq KCl continue to monitor and replace (9) Pneumonia Current Visit: Yes Status: Acute Assessment and plan: Bilateral pneumonia, organism unclear, caregivers reporting patient recently had episodes of choking while eating, concern for aspiration pneumonia. Noted to have fevers, tachypnea and rest her distress. Continues to have an episode of tachycardia however has remained afebrile overnight Has scattered rhonchi throughout per auscultation CT angio of the chest to r/o PE - showed no acute PE but possible pneumonia and a large hiatal hernia Blood cultures on no growth, repeat cultures pending Respiratory infection panel negative WBC 4.9 today Mental status improving today Patient has sepsis secondary to PNA Continue vancomycin, Zosyn and Levaquin Infectious disease has signed off CXR obtained today 11/15/17-significant improvement in left basal infiltrates with residual subsegmental atelectasis. Right lung base opacification representing effusion with or without underlying consolidation which may represent pneumonia and/or atelectasis. 11/15-clinically, patient continued to improve. Estrace status and mental status post improving today. Patient resting comfortably on 2 L nasal cannula. Continue broad-spectrum coverage with vancomycin, Zosyn and Levaquin. Continue to follow blood cultures. 11/16 Bilateral pneumonia and chart this is aspiration and speech therapy was consulted and recommending thin liquids and advanced soft textures. Obtain strep pneumococcal and legionella urinary antigens which were sent after straight catheter today Respiratory panel was negative Vancomycin and Zosyn was discontinued by infectious disease will resume Zosyn Continue with Levaquin CT of chest with contrast obtained Interval decrease in size of bilateral pleural effusions with associated dependent consolidation, likely atelectasis. Patchy bilateral airspace disease is decreased in extent and density, mostly remaining in the upper lungs. Qualifiers: Pneumonia type: due to unspecified organism Laterality: right Lung location: lower lobe of lung Qualified Code(s): J18.1 - Lobar pneumonia, unspecified organism (10) Dysphasia Current Visit: Yes Status: Acute Assessment and plan: Seen by speech therapy-ST recommends thin liquid and advanced soft textures. NO STRAWS, assist with feeds, meds in puree. Patient is tolerating baseline diet. No swallow therapy recommended at this time. (11) DVT (deep venous thrombosis) Current Visit: Yes Status: Suspected Assessment and plan: r/o DVT and PE -CTA of chest negative for acute PE, showed possible pneumonia -started pt on Zosyn/Vanc -Blood cx pending -ID consulted t max overnight 100.4, HR in 120's Meets part of Virchow's triad of hypercoag 2/2 to immobility and stasis. She has only been on SCD for DVT prophylaxis Pt placed on 5000U SQ heparin repeated US bilateral LE to r/o DVT 11/13- Doppler study reveals-very difficult/impossible study from pop V level on down bilaterally. Unable to adequately rule out possibility of DVT in these locations although no DVT was clearly imaged all locations above pop V level and legs appear negative for thrombus. We will withhold on hurting therapeutic anticoagulation at this time. Bilateral lower extremity circulation PT/DP 1+/1+ 11/14- bilateral lower extremities with adequate circulation and blood flow. PT /DP 1+/1+. Patient on subcutaneous heparin 11/15-B/L lower extremities with adequate circulation and blood flow. Palpable pulses bilaterally. Continue SQ heparin. No pain or tenderness to palpation 11/16-patient has pancytopenia we will stop subcutaneous heparin continue with SCDs Qualifiers: DVT location: lower extremity Affected thrombotic vein of extremity: other lower extremity vein Chronicity: acute Laterality: unspecified laterality Qualified Code(s): I82.409 - Acute embolism and thrombosis of unspecified deep veins of unspecified lower extremity (12) Delirium due to general medical condition Current Visit: Yes Status: Acute Assessment and plan: Continuing to have features of delirium Poor eye contact, disorganized speech, anxiety. Patient speaking to an inanimate objects Psychiatry seeing in consultation, appreciate recommendations-no reason to change antipsychotic medications per psychiatry-continue antipsychotics throughout stay Underlying medical conditions exacerbating delirium 11/14-continues to have altered mental status. Underlying medical conditions likely exacerbating delirium. At baseline patient is able to recognize caregivers and feed herself and provided minimal yes or no responses. However, patient is unable to do that at this time. Psychiatry following consultation. Recommendations are to continue antipsychotic medications; do not titrate these medications. Also of note, the patient is septic with pneumonia and this is likely contributing to deteriorating mental status 11/15- clinically, patient's mental status appears to be improving. I believe that the delirium is caused by sepsis and pneumonia. Discussed with caregivers patient baseline, caregivers report that patient is normally able to verbalize and communicate. Per my assessment this morning she is continuing to improve. She is responding to verbal stimulus and able to answer simple questions such as her urine pain, need anything, however you feeling. See assessment and plan above - Time Spent With Patient Total time spent is greater than 50% in coordination of care (as documented) at patient's floor/unit and/or counseling patient: - Subjective Interval history: Patient was seen and examined at bedside earlier this a.m.. This afternoon nursing staff reports the patient was unable to void since last night George catheter was placed. Patient continues to be confused oriented only to self - Constitutional Vitals: Temp Pulse Resp BP Pulse Ox 98.1 F 88 18 101/63 98 11/16/17 10:42 11/16/17 10:42 11/16/17 11:12 11/16/17 10:42 11/16/17 11:12 General appearance: Present: A&O X 0, disheveled, mild distress - Head Head exam: Present: atraumatic, normocephalic - Eye Eye exam: Present: PERRL, conjuntiva pink, sclera anicteric Pupils: Present: PERRL - Neck Neck exam general surgery: Present: supple, trachea midline. Absent: lymphadenopathy - Respiratory Respiratory exam: Present: CTAB. Absent: accessory muscle use, rales, rhonchi, wheezes - Cardiovascular Cardiovascular exam: Present: RRR, +S1, +S2. Absent: diastolic murmur, gallop, rubs, systolic murmur - GI/Abdominal GI/Abdominal exam: Present: normal bowel sounds, soft, no peritoneal signs. Absent: distended, tenderness - Extremities Exam Extremities exam: Present: warm, radial pulses palpable and symmetrical. Absent : calf tenderness, cyanotic, pedal edema - Neurological Exam Neurological exam: Present: CN II-XII intact, oriented X3, no focal deficits. Absent: pronater drift, facial droop, speech deficit - Skin Skin exam: Present: dry, intact Internal Medicine: Result - Labs CBC & Chem 7: 11/16/17 04:40 11/16/17 04:40 Labs: Short CBC 11/16/17 Range/Units 04:40 WBC 3.6 L (4.3-11.1) K/mcL Hgb 8.1 L (11.5-15.4) g/dL Hct 26.5 L (35.3-44.9) % Plt Count 95 L (140-400) K/mcL Neutrophils # 1.9 (1.6-8.9) K/mcL BMP 11/16/17 04:40 Sodium 148 H Potassium 3.0 L Chloride 118 H Carbon Dioxide 26 BUN 12 Creatinine 0.50 L Glucose 77 Calcium 8.3 L - ABG Interpretation ABG results: ABG ABG pH 7.50 pH Units (7.32-7.45) H 11/13/17 04:07 ABG pCO2 29 mmHg (35-45) L 11/13/17 04:07 ABG pO2 72 mmHg (85-104) L 11/13/17 04:07 ABG O2 Saturation 96 % (95-98) 11/13/17 04:07 PT/INR, D-dimer PT 11.7 Seconds (9.4-12.1) 11/06/17 21:22 - Impressions Impressions Chest X-Ray 11/15/17 09:56 IMPRESSION: 1. Significant improvement in left basal infiltrates with residual subsegmental atelectasis. 2. New right lung base opacification representing effusion with or without underlying consolidation which may represent pneumonia and/or atelectasis. D/ / Joseph Bustillo MD / Joseph Bustillo MD Interpreting Provider: Joseph Bustillo MD - VTE Documentation of Mechanical Device: Intermittent pneumatic compression device Consult Discharge Plan - Plan Referrals: Dayan Prieto CNP [Primary Care Provider] - 11/23/17 10:00 am (Appointment requested) Prescriptions: Amoxicillin/Clavulanate [Augmentin] 500 mg PO BIDWM 4 Days #8 tablet
--- NOTE | 2017-11-16 12:16 | Infectious Disease Progress No ---
Date of Encounter: 11/16/17 Time of Encounter: 09:20 - Assessment and Plan (1) Sepsis Current Visit: Yes Status: Acute The patient had 2 SIRS criteria initially, which resolved. She developed leukocytosis, tachycardia, and fever last week. Likely secondary to pneumonia, but need to rule out other causes as well. Improved. WBC now leukopenic with bands. Tachycardia resolved. BP a little low this morning. Blood cultures drawn November 07 are negative 2 sets. Repeat blood culture drawn November 12 1 set is NGTD. Additional blood cultures drawn 11/13/17 are NGTD x 2 sets. The patient does not appear to have any skin breakdown that indicates a wound infection. Abdominal exam benign this morning. LFTs are normal. Amylase and lipase normal. Nursing attempted to obtain urine specimen via straight cath several times, but were unsuccessful. Repeat CT chest, abdomen and pelvis with IV and oral contrast. Discontinue Vanc and Zosyn. Continue Levaquin 750mg IV daily. Qualifiers: Sepsis type: sepsis due to unspecified organism Qualified Code(s): A41.9 - Sepsis, unspecified organism (2) Pneumonia Current Visit: Yes Status: Acute Location: Bilateral. Causative organism: Unclear. Given the patient's altered mental status, concern for aspiration. Speech therapy was consulted and recommended thin liquids and advance soft textures. Per nursing, the patient was witnessed to be choking while she was eating breakfast last week. Check strep pneumococcal and legionella urinary antigens.--> nursing unable to get specimens via straight cath. Get sputum culture if patient is able to provide an adequate specimen.--> not collected, patient not coughing anything up. Check respiratory infectious panel.--> negative. 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 atelectasis. Discontinue Vanc and Zosyn. Continue Levaquin 750 mg IV daily. Duration of treatment depends on the clinical picture. Monitor renal function and for drug toxicity and dose adjust antibiotics. Qualifiers: Pneumonia type: due to unspecified organism Laterality: right Lung location: lower lobe of lung Qualified Code(s): J18.1 - Lobar pneumonia, unspecified organism (3) Altered mental status Current Visit: Yes Status: Acute Etiology unclear. Likely secondary to sepsis. CT head negative on November 06. Unsure what the patient's baseline is, but appears improved from when we saw her on Wednesday. Apparently, it is not unusual for the patient to sleep all day and be up all night. Psych consulted. Continue to monitor closely. Qualifiers: Altered mental status type: disorientation Qualified Code(s): R41.0 - Disorientation, unspecified (4) Dysphasia Current Visit: Yes Status: Acute Speech therapy evaluation noted. Consider repeat evaluation. (5) Hypokalemia Current Visit: Yes Status: Resolved (6) Cerebral palsy Current Visit: Yes Status: Chronic Qualifiers: Cerebral palsy type: unspecified type Qualified Code(s): G80.9 - Cerebral palsy, unspecified (7) GERD (gastroesophageal reflux disease) Current Visit: No Status: Chronic Qualifiers: Esophagitis presence: esophagitis presence not specified Qualified Code(s) : K21.9 - Gastro-esophageal reflux disease without esophagitis (8) Hyperlipidemia Current Visit: No Status: Chronic Qualifiers: Hyperlipidemia type: unspecified Qualified Code(s): E78.5 - Hyperlipidemia , unspecified (9) Hypertension Current Visit: No Status: Acute Qualifiers: Hypertension type: essential hypertension Qualified Code(s): I10 - Essential (primary) hypertension (10) Thrombocytopenia Current Visit: Yes Status: Acute Etiology unclear: infection vs. other. The patient also has anemia with leukopenia and bandemia. Recommend Hem/Onc to evaluate. - Subjective Interval history: Patient seen and examined. No acute events noted overnight. Patient sleeping this morning. Wakes up for a brief minute and falls back to sleep quickly. Denies pain. States she feels okay. No family or caregivers at bedside. Infect Dis PN-Objective Data - Labs CBC & Chem 7: 11/16/17 04:40 11/16/17 04:40 Labs: Laboratory Results - last 24 hr 11/16/17 11/16/17 04:40 04:40 WBC 3.6 L RBC 2.83 L Hgb 8.1 L Hct 26.5 L MCV 93.6 MCH 28.6 MCHC 30.6 L RDW 18.5 H Plt Count 95 L MPV 10.6 Seg Neutrophils % 42.0 Band Neutrophils % 10.0 H Lymphocytes % 34.0 Monocytes % 12.0 Myelocytes % 2.0 H Neutrophils # 1.9 Lymphocytes # 1.2 Monocytes # 0.4 Reactive Lymphocytes Present A Platelet Estimate Decreased L Immature Plt Fraction 3.8 Sodium 148 H Potassium 3.0 L Chloride 118 H Carbon Dioxide 26 BUN 12 Creatinine 0.50 L Est GFR ( Amer) > 60 Est GFR (Non-Af Amer) > 60 BUN/Creatinine Ratio 24 Glucose 77 Calculated Osmolality 305 H Calcium 8.3 L Cultures: Cultures 11/13/17 13:39 Blood Culture - Preliminary Peripheral Venipuncture Culture is incubating and being continuously monitored for growth. Final report to follow. 11/13/17 13:39 Blood Culture - Preliminary Peripheral Venipuncture Culture is incubating and being continuously monitored for growth. Final report to follow. 11/12/17 12:21 Blood Culture - Preliminary Peripheral Venipuncture Culture is incubating and being continuously monitored for growth. Final report to follow. 11/07/17 03:51 Blood Culture - Final Peripheral Venipuncture No growth. Final report. 11/07/17 03:51 Blood Culture - Final Peripheral Venipuncture No growth. Final report. Serology 11/12/17 Range/Units 14:52 Chlamy pneumoniae PCR Not Detected (Not Detect) Adenovirus (PCR) Not Detected (Not Detect) B. pertussis DNA (PCR) Not Detected (Not Detect) B.parapertussis DNA PCR Not Detected (Not Detect) Coronavirus OC43 (PCR) Not Detected (Not Detect) Coronavirus HKU1 (PCR) Not Detected (Not Detect) Coronavirus 229E (PCR) Not Detected (Not Detect) Coronavirus NL63 (PCR) Not Detected (Not Detect) Human Metapneumovir PCR Not Detected (Not Detect) Influenza A (H1) PCR Not Detected (Not Detect) Influ A (H1N1/09) PCR Not Detected (Not Detect) Influenza A (H3) PCR Not Detected (Not Detect) Influenza A Untype (PCR) Not Detected (Not Detect) Influenza Type B (PCR) Not Detected (Not Detect) M.pneumoniae DNA (PCR) Not Detected (Not Detect) Parainfluenza 1 (PCR) Not Detected (Not Detect) Parainfluenza 2 (PCR) Not Detected (Not Detect) Parainfluenza 3 (PCR) Not Detected (Not Detect) Parainfluenza 4 (PCR) Not Detected (Not Detect) RSV (PCR) Not Detected (Not Detect) Entero/Rhino (PCR) Not Detected (Not Detect) - Impressions Impressions Chest X-Ray 11/15/17 09:56 IMPRESSION: 1. Significant improvement in left basal infiltrates with residual subsegmental atelectasis. 2. New right lung base opacification representing effusion with or without underlying consolidation which may represent pneumonia and/or atelectasis. D/ / Joseph Bustillo MD / Joseph Bustillo MD Interpreting Provider: Joseph Bustillo MD Exam - Constitutional Vitals: Temp Pulse Resp BP Pulse Ox 98.1 F 88 18 101/63 98 11/16/17 10:42 11/16/17 10:42 11/16/17 11:12 11/16/17 10:42 11/16/17 11:12 General appearance: average body habitus, no acute distress, no febrile - Head Head exam: Present: atraumatic, normal inspection, normocephalic - Eye Eye exam: Present: EOMI, normal appearance, PERRL Pupils: Present: normal accommodation - ENT ENT exam: Present: mucous membranes dry Additional comments: Very poor dentition noted. - Neck Neck exam: Present: normal inspection - Respiratory Respiratory exam: Present: CTAB. Absent: rales, respiratory distress, rhonchi, wheezes - Cardiovascular Cardiovascular exam: Present: RRR, +S1, +S2 - GI/Abdominal GI/Abdominal exam: Present: normal bowel sounds, soft. Absent: distended, tenderness - Extremities Exam Extremities exam: Present: pedal edema (1+ BLE). Absent: joint swelling, tenderness - Neurological Exam Neurological exam: Present: altered (Drowsy), oriented X3. Absent: facial droop - Skin Skin exam: Present: dry, intact, normal color, warm - VTE Documentation of Mechanical Device: Intermittent pneumatic compression device Consult Discharge Plan - Plan Referrals: Dayan Prieto CNP [Primary Care Provider] - 11/23/17 10:00 am (Appointment requested) Prescriptions: Amoxicillin/Clavulanate [Augmentin] 500 mg PO BIDWM 4 Days #8 tablet - Attending Attestation I examined this patient and my medical decision-making was reviewed with the Resident Physician. I agree with the documented findings, disposition and treatment plan as described except to the extent set forth below.
[2017-11-16] MEDS: Levofloxacin 750 MG/150 ML 750 MG/150 ML BAG IVPB SCH (12:27)
[2017-11-16] MEDS ORDERED: Isovue-370 500 ML INFUS..BTL IV ONE ×3 (13:28→21:19)
[2017-11-16 14:09] LABS: Bilirubin,Urine Small (Negative); Blood,Urine Moderate (Negative); Color,Urine Yellow (Yellow); Glucose,Urine (UA) Normal (Normal); Ketones,Urine Trace mg/dL (Negative); Leukocyte Esterase,Urine Negative (Negative); Nitrite,Urine Negative (Negative); PH,Urine 5.5 pH Units (5.0-8.0); Protein,Urine 30 mg/dL (Neg-Trace); Specific Gravity,Urine > 1.030 (1.010-1.025); Urobilinogen,Urine Normal (Normal)
[2017-11-16 14:10] LABS: Squamous Epithelial Cell,Urine Many per lpf (None-Few)
[2017-11-16 14:11] LABS: Bacteria,Urine None Seen per hpf (None-Few); Hyaline Casts,Urine None Seen per lpf (None-Few)
[2017-11-16 14:17] LABS: Clarity,Urine Hazy (Clear)
[2017-11-16 14:30] LABS: RBC,Urine 15-30 per hpf (0-3); Yeast,Urine Moderate per hpf (None Seen)
[2017-11-16] MEDS ORDERED: Potassium Chloride 40 MEQ, Lidocaine 1% 2 ML in D5% in Water 500 ML IVPB ONE (18:41)
[2017-11-16] MEDS ORDERED: 0.9 % Sodium Chloride 1,000 ML IVC SCH (20:00)
[2017-11-16] MEDS ORDERED: Ringers Solution, Lactated 1,000 ML IVC SCH (20:15)
[2017-11-16] MEDS ORDERED: Naloxone 0.4 MG/ML INJ IVP PRN (21:19)
[2017-11-16] MEDS: Ringers Solution, Lactated 1,000 ML IVC SCH (22:52)
[2017-11-17] MEDS ORDERED: Piperacillin/Tazobactam 3.375 GM in 0.9 % Sodium Chloride Mini Bag 100 ML IVPB SCH
[2017-11-17 03:14] LABS: Basophils % 0.6 %; Eosinophils # 0.2 K/mcL (0.0-0.6); Eosinophils % 4.2 %; Hematocrit 27.7 % (35.3-44.9); Hemoglobin 8.6 g/dL (11.5-15.4); Immature Granulocytes % 4.6 % (0-4); Lymphocytes # 1.4 K/mcL (0.6-4.6); Lymphocytes % 28.7 %; Mean Corpuscular Hemoglobin 28.9 pg (28.0-33.3); Mean Platelet Volume 10.1 fL (9.4-12.4); Monocytes # 0.7 K/mcL (0.0-1.3); Monocytes % 14.7 %; Neutrophils # 2.4 K/mcL (1.6-8.9); Red Blood Count 2.98 M/mcL (3.82-4.97); Red Cell Distribution Width 18.6 % (11.5-14.5); Segmented Neutrophils % 47.2 %
[2017-11-17 03:16] LABS: Platelet Count 95 K/mcL (140-400)
[2017-11-17 03:36] LABS: BUN/Creatinine Ratio 19 (6-26); Blood Urea Nitrogen 9 mg/dL (8-23); Calcium 8.4 mg/dL (8.6-10.3); Carbon Dioxide 26 mEq/L (23-29); Chloride 117 mEq/L (98-107); Glucose 85 mg/dL (70-105); Osmolality,Calculated 300 (280-300); Potassium 3.7 mEq/L (3.5-5.1); Sodium 146 mEq/L (136-145); eGFR For Non-African Americans > 60 (> 60)
[2017-11-17] MEDS: Ipratropium/Albuterol Neb 3 ML IH SCH ×6 (03:41→23:46)
[2017-11-17] MEDS: Piperacillin/Tazobactam 3.375 GM in 0.9 % Sodium Chloride Mini Bag 100 ML IVPB SCH ×2 (08:06→17:50)
[2017-11-17] MEDS: Ringers Solution, Lactated 1,000 ML IVC SCH (08:20)
[2017-11-17] MEDS ORDERED: Ringers Solution, Lactated 1,000 ML IVC SCH (08:21)
--- NOTE | 2017-11-17 08:30 | Internal Med Progress Note ---
Date of Encounter: 11/17/17 Time of Encounter: 08:24 - Assessment and plan (1) Stercoral ulcer of large intestine Current Visit: Yes Status: Acute Assessment and plan: 11/16/ CT of abdomen and pelvis with IV and oral contrast completed today results as follows: Large amount of dense stool within a markedly distended rectosigmoid colon ; the rectosigmoid colonic wall thickening and adjacent stranding are evident. Findings are worrisome for stercoral colitis. -I did curbside consult surgery spoke with Dr. Hussein who advised- close nursing observation, advised to be cautious with enemas-overuse since bowel is already distended adding extra fluid raising risk of bowel rupture. Start gently with fleets enema 2. Advised to continue with antibiotics patient was on Zosyn which we will continue. Will require follow-up CT. Once stool has cleared we will be able to give oral laxatives. Does not feel patient is surgical candidate at this time however continue to closely monitor. I did discuss this case with Dr. Michaels who agreed with plan we will transfer patient to ICU for closer monitoring since patient is confused and it is difficult to assess patient's status 11/17- Patient did receive a Fleet enema she did have a large formed bowel movement overnight. We will repeat and continue to monitor. Continue with Zosyn. We will the patient to ICU To stepdown. Continue with IV fluids and monitor closely (2) Sepsis Current Visit: Yes Status: Acute Assessment and plan: The patient developed leukocytosis, is tachycardic and hypotensive in the setting of pneumonia Organism undetermined Sepsis likely secondary to pneumonia however continue to rule out other causes Blood cultures from November 07 negative 2 sets repeat cultures November 12 no growth to date additional repeat culture x 2 sets pending Respiratory infection panel negative No obvious skin breakdown, UA 11/06/17 unremarkable; no obsvious source for infection Infectious disease seeing in consultation, appreciate recommendations Continue Zosyn 3.375 g IV every 8 hours Continue vancomycin with pharmacy to dose, goal trough of 15 Continue Levaquin 750 mg IV daily 11/15- patient improving clinically, fevers resolved overnight. Continue to have intermittent tachycardia. No longer having leukocytosis. Continues to be septic. Chest x-ray obtained today showing improvement in the left basilar infiltrate however findings of new right lung base opacification with consolidation representing pneumonia and/or atelectasis. Patient continued to improve from a respiratory perspective and resting comfortable and 2 L nasal cannula. We will continue broad-spectrum antibiotic coverage with vancomycin, Levaquin and Zosyn. Infectious disease has signed off. Continue to follow cultures. Patient remains hemodynamically stable 11/16/ Patient had to SIRS criteria initially which did resolve She did develop leukocytosis tachycardia and fever last week Infectious disease was consulted and was treating for pneumonia leukocyte ptosis did improve but now leukopenic with bands Blood cultures are negative 2 And cytopenic we will consult oncology CT of abdomen and pelvis does reveal possible stercoral colitis. Which could be contributing to sepsis. We will give IV fluids-no fevers Vanc and Zosyn DC'd by infectious disease we will resume Zosyn Continue Levaquin 11/17-patient more alert today I did discuss case with infectious disease continue with Zosyn for colitis Levaquin will be discontinued per infectious disease recommendations continue to monitor white count no fever at this time Qualifiers: Sepsis type: sepsis due to unspecified organism Qualified Code(s): A41.9 - Sepsis, unspecified organism (3) Altered mental status Current Visit: Yes Status: Acute Assessment and plan: Patient's mental state has improved she is alert and answering questions oriented to name only. However she does make inappropriate statements at times continue with antibiotic treatment Qualifiers: Altered mental status type: disorientation Qualified Code(s): R41.0 - Disorientation, unspecified (4) Cerebral palsy Current Visit: Yes Status: Chronic Assessment and plan: Chronic, follows with neurology Qualifiers: Cerebral palsy type: unspecified type Qualified Code(s): G80.9 - Cerebral palsy, unspecified (5) GERD (gastroesophageal reflux disease) Current Visit: No Status: Chronic Assessment and plan: Pt is on prilosec Keep head of bed elevated. Don't eat large meals before laying down. Chew all foods throuroughly Speech recommends thin liquids, advance soft textures , meds in puree. No straws 11/14-continue Prilosec. See plan above 11/16 we will continue with Prilosec continue with head of bed elevation during meals continue addendum liquids advanced soft textures meds injuries and no straws per speech therapy recommendations Qualifiers: Esophagitis presence: esophagitis presence not specified Qualified Code(s) : K21.9 - Gastro-esophageal reflux disease without esophagitis (6) DVT prophylaxis Current Visit: No Status: Acute Assessment and plan: Cont sq heparin (7) Seizure Current Visit: No Status: Chronic Assessment and plan: On depakote Speech evaluated with swallow studie - recommendation below: ST recommends thin liquid and advanced soft textures. NO STRAWS, assist with feeds, meds in puree. Patient is tolerating baseline diet. No swallow therapy recommended at this time. Neuro checks q4hr - pt at this time is arousable and is aware of where she is 11/13- patient with history of seizures, on Depakote, continue Depakote. Continue neuro checks every 4 hours. This time patient is arousable but unable to communicate. 11/15- no seizure-like activity during this admission. Continue Depakote. Continue frequent neuro checks. Patient will status improving overnight. She is arousable to verbal stimulus and able to communicate. However, she is not yet back to baseline. 11/16-no seizure activity continue with Depakote seizure precautions 11/17 no seizure activity at this time continue with seizure precautions continue with Depakote (8) Hypokalemia Current Visit: Yes Status: Resolved Assessment and plan: Potassium 2.1. Replacement done in the ER. Today it is 2.6-replaced with 60 MEQ liquid oral potassium, recheck potassium this evening Recheck electrolytes tomorrow and replete as necessary 11/14- today's potassium 3.0. Replete with 40 MEQ K rider, recheck this afternoon and replete as necessary. Recheck BMP daily, obtain serum magnesium the morning 11/15- today's potassium 3.6. Continue to monitor and replete as necessary, serum mag 1.7. BMP daily 11/16 today potassium is 3 replace with 40 mEq KCl continue to monitor and replace 11/16 potassium has improved 2.7 today continue to monitor and replace as needed (9) Pneumonia Current Visit: Yes Status: Acute Assessment and plan: Bilateral pneumonia, organism unclear, caregivers reporting patient recently had episodes of choking while eating, concern for aspiration pneumonia. Noted to have fevers, tachypnea and rest her distress. Continues to have an episode of tachycardia however has remained afebrile overnight Has scattered rhonchi throughout per auscultation CT angio of the chest to r/o PE - showed no acute PE but possible pneumonia and a large hiatal hernia Blood cultures on no growth, repeat cultures pending Respiratory infection panel negative WBC 4.9 today Mental status improving today Patient has sepsis secondary to PNA Continue vancomycin, Zosyn and Levaquin Infectious disease has signed off CXR obtained today 11/15/17-significant improvement in left basal infiltrates with residual subsegmental atelectasis. Right lung base opacification representing effusion with or without underlying consolidation which may represent pneumonia and/or atelectasis. 11/15-clinically, patient continued to improve. Estrace status and mental status post improving today. Patient resting comfortably on 2 L nasal cannula. Continue broad-spectrum coverage with vancomycin, Zosyn and Levaquin. Continue to follow blood cultures. 11/16 Bilateral pneumonia and chart this is aspiration and speech therapy was consulted and recommending thin liquids and advanced soft textures. Obtain strep pneumococcal and legionella urinary antigens which were sent after straight catheter today Respiratory panel was negative Vancomycin and Zosyn was discontinued by infectious disease will resume Zosyn Continue with Levaquin CT of chest with contrast obtained Interval decrease in size of bilateral pleural effusions with associated dependent consolidation, likely atelectasis. Patchy bilateral airspace disease is decreased in extent and density, mostly remaining in the upper lungs. 11/17 Spoke with infectious disease continue with Zosyn and DC Levaquin oxygen as needed We will continue with infectious disease recommendations. Qualifiers: Pneumonia type: due to unspecified organism Laterality: right Lung location: lower lobe of lung Qualified Code(s): J18.1 - Lobar pneumonia, unspecified organism (10) Dysphasia Current Visit: Yes Status: Acute Assessment and plan: Seen by speech therapy-ST recommends thin liquid and advanced soft textures. NO STRAWS, assist with feeds, meds in puree. Patient is tolerating baseline diet. No swallow therapy recommended at this time. (11) DVT (deep venous thrombosis) Current Visit: Yes Status: Suspected Assessment and plan: r/o DVT and PE -CTA of chest negative for acute PE, showed possible pneumonia -started pt on Zosyn/Vanc -Blood cx pending -ID consulted t max overnight 100.4, HR in 120's Meets part of Virchow's triad of hypercoag 2/2 to immobility and stasis. She has only been on SCD for DVT prophylaxis Pt placed on 5000U SQ heparin repeated US bilateral LE to r/o DVT 11/13- Doppler study reveals-very difficult/impossible study from pop V level on down bilaterally. Unable to adequately rule out possibility of DVT in these locations although no DVT was clearly imaged all locations above pop V level and legs appear negative for thrombus. We will withhold on hurting therapeutic anticoagulation at this time. Bilateral lower extremity circulation PT/DP 1+/1+ 11/14- bilateral lower extremities with adequate circulation and blood flow. PT /DP 1+/1+. Patient on subcutaneous heparin 11/15-B/L lower extremities with adequate circulation and blood flow. Palpable pulses bilaterally. Continue SQ heparin. No pain or tenderness to palpation 11/16-patient has pancytopenia we will stop subcutaneous heparin continue with SCDs 11/17 we will continue with heparin as well as SCDs Qualifiers: DVT location: lower extremity Affected thrombotic vein of extremity: other lower extremity vein Chronicity: acute Laterality: unspecified laterality Qualified Code(s): I82.409 - Acute embolism and thrombosis of unspecified deep veins of unspecified lower extremity (12) Delirium due to general medical condition Current Visit: Yes Status: Acute Assessment and plan: Continuing to have features of delirium Poor eye contact, disorganized speech, anxiety. Patient speaking to an inanimate objects Psychiatry seeing in consultation, appreciate recommendations-no reason to change antipsychotic medications per psychiatry-continue antipsychotics throughout stay Underlying medical conditions exacerbating delirium 11/14-continues to have altered mental status. Underlying medical conditions likely exacerbating delirium. At baseline patient is able to recognize caregivers and feed herself and provided minimal yes or no responses. However, patient is unable to do that at this time. Psychiatry following consultation. Recommendations are to continue antipsychotic medications; do not titrate these medications. Also of note, the patient is septic with pneumonia and this is likely contributing to deteriorating mental status 11/15- clinically, patient's mental status appears to be improving. I believe that the delirium is caused by sepsis and pneumonia. Discussed with caregivers patient baseline, caregivers report that patient is normally able to verbalize and communicate. Per my assessment this morning she is continuing to improve. She is responding to verbal stimulus and able to answer simple questions such as her urine pain, need anything, however you feeling. See assessment and plan above (13) Thrombocytopenia Current Visit: Yes Status: Acute Assessment and plan: 11/17 I did speak with oncology concerning thrombocytopenia suspect most likely related to sepsis-we will continue to monitor and consult heme/onc as needed to evaluate-okay to continue with heparin for DVT prophylaxis - Time Spent With Patient Total time spent is greater than 50% in coordination of care (as documented) at patient's floor/unit and/or counseling patient: - Subjective Interval history: Patient was seen and examined at bedside.Seems more alert today. She is oriented to name and place. She does verbalize that her stomach hurts. She did have a large formed stool overnight after enema. I did check rectal vault which was empty. BP was low this am We increase IVF - Constitutional Vitals: Temp Pulse Resp BP Pulse Ox 98.1 F 93 12 88/67 98 11/17/17 05:13 11/17/17 06:00 11/17/17 07:57 11/17/17 06:00 11/17/17 07:57 General appearance: Present: A&O X 1, disheveled, mild distress - Head Head exam: Present: atraumatic, normocephalic - Eye Eye exam: Present: PERRL, conjuntiva pink, sclera anicteric Pupils: Present: PERRL - Neck Neck exam general surgery: Present: supple, trachea midline. Absent: lymphadenopathy - Respiratory Respiratory exam: Present: CTAB. Absent: accessory muscle use, rales, rhonchi, wheezes - Cardiovascular Cardiovascular exam: Present: RRR, +S1, +S2. Absent: diastolic murmur, gallop, rubs, systolic murmur - GI/Abdominal GI/Abdominal exam: Present: normal bowel sounds, soft, no peritoneal signs. Absent: distended, tenderness - Extremities Exam Extremities exam: Present: warm, radial pulses palpable and symmetrical. Absent : calf tenderness, cyanotic, pedal edema - Neurological Exam Neurological exam: Present: CN II-XII intact, oriented X3, no focal deficits. Absent: pronater drift, facial droop, speech deficit - Skin Skin exam: Present: dry, intact Internal Medicine: Result - Labs CBC & Chem 7: 11/17/17 03:00 11/17/17 03:00 Labs: Short CBC 11/17/17 Range/Units 03:00 WBC 5.0 (4.3-11.1) K/mcL Hgb 8.6 L (11.5-15.4) g/dL Hct 27.7 L (35.3-44.9) % Plt Count 95 L (140-400) K/mcL Neutrophils # 2.4 (1.6-8.9) K/mcL BMP 11/17/17 03:00 Sodium 146 H Potassium 3.7 Chloride 117 H Carbon Dioxide 26 BUN 9 Creatinine 0.48 L Glucose 85 Calcium 8.4 L Urine 11/16/17 Range/Units 13:49 Urine Color Yellow (Yellow) Urine Clarity Hazy A (Clear) Urine pH 5.5 (5.0-8.0) pH Units Ur Specific Kathleen > 1.030 H (1.010-1.025) Urine Protein 30 H (Neg-Trace) mg/dL Urine Glucose (UA) Normal (Normal) mg/dL - ABG Interpretation ABG results: ABG ABG pH 7.50 pH Units (7.32-7.45) H 11/13/17 04:07 ABG pCO2 29 mmHg (35-45) L 11/13/17 04:07 ABG pO2 72 mmHg (85-104) L 11/13/17 04:07 ABG O2 Saturation 96 % (95-98) 11/13/17 04:07 PT/INR, D-dimer PT 11.7 Seconds (9.4-12.1) 11/06/17 21:22 - Impressions Impressions Abdomen/Pelvis CT 11/16/17 16:00 IMPRESSION: Large amount of dense stool within a markedly distended rectosigmoid colon ; the rectosigmoid colonic wall thickening and adjacent stranding are evident. Findings are worrisome for stercoral colitis. D/ / Jaycee Cruz Cha, MD / Jaycee Cruz Cha, MD Interpreting Provider: Jaycee Cruz Cha, MD Chest CT 11/16/17 16:00 IMPRESSION: Interval decrease in size of bilateral pleural effusions with associated dependent consolidation, likely atelectasis. Patchy bilateral airspace disease is decreased in extent and density, mostly remaining in the upper lungs. D/ / Jaycee Cruz Cha, MD / Jaycee Cruz Cha, MD Interpreting Provider: Jaycee Cruz Cha, MD - VTE Documentation of Mechanical Device: Intermittent pneumatic compression device Consult Discharge Plan - Plan Referrals: Dayan Prieto CNP [Primary Care Provider] - 11/23/17 10:00 am (Appointment requested) Prescriptions: Amoxicillin/Clavulanate [Augmentin] 500 mg PO BIDWM 4 Days #8 tablet
[2017-11-17] MEDS ORDERED: Loratadine 10 MG TABLET PO SCH (09:00)
[2017-11-17] MEDS ORDERED: Baclofen 10 MG TABLET PO SCH (09:00)
[2017-11-17] MEDS ORDERED: Lactobacillus 1 EACH CAP.SPRINK PO SCH (09:00)
[2017-11-17] MEDS ORDERED: Levofloxacin 750 MG/150 ML 750 MG/150 ML BAG IVPB SCH (09:00)
[2017-11-17] MEDS ORDERED: Venlafaxine XR (24 HR) 75 MG CAP.ER.24H PO SCH (09:00)
[2017-11-17] MEDS ORDERED: Divalproex (24 HR) 250 MG TABLET PO SCH (09:00)
[2017-11-17] MEDS ORDERED: Fluticasone Propionate Nasal 50 MCG/SPRAY BOTTLE NS SCH (09:00)
[2017-11-17] MEDS ORDERED: Naloxone 0.4 MG/ML INJ IVP PRN (13:50)
[2017-11-17] MEDS ORDERED: Isovue-370 500 ML INFUS..BTL IV ONE (13:50)
--- NOTE | 2017-11-17 14:59 | Infectious Disease Progress No ---
Date of Encounter: 11/17/17 Time of Encounter: 12:00 - Assessment and Plan (1) Sepsis Current Visit: Yes Status: Acute The patient had 2 SIRS criteria initially, which resolved. She developed leukocytosis, tachycardia, and fever last week. Likely secondary to pneumonia at that time, but imaging reveals improvement. Likely secondary to steral colitis at this time. Improved. WBC normal. Tachycardia resolved. BP a little low this morning. Blood cultures drawn November 07 are negative 2 sets. Repeat blood culture drawn November 12 1 set is negative. Additional blood cultures drawn 11/13/17 are NGTD x 2 sets. Qualifiers: Sepsis type: sepsis due to unspecified organism Qualified Code(s): A41.9 - Sepsis, unspecified organism (2) Colitis Current Visit: No Status: Acute CT of the abdomen and pelvis showed large amount of dense stool within a markedly distended rectosigmoid colon with colonic wall thickening and adjacent stranding worrisome for stercoral colitis. Bowel regimen per the primary team. Continue general surgery to evaluate. Continue Zosyn 3.375 grams IV Q8H for now. Duration of treatment depends on the clinical picture. (3) Pneumonia Current Visit: Yes Status: Acute Location: Bilateral. Causative organism: Unclear. Given the patient's altered mental status, concern for aspiration. Speech therapy was consulted and recommended thin liquids and advance soft textures. Per nursing, the patient was witnessed to be choking while she was eating breakfast last week. Check strep pneumococcal and legionella urinary antigens.--> negative. Get sputum culture if patient is able to provide an adequate specimen.--> not collected, patient not coughing anything up. Check respiratory infectious panel.--> negative. 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 atelectasis. Repeat CT scan of the chest showed interval decrease in size of the bilateral pleural effusions with associated dependent consolidation, likely atelectasis and patchy bilateral airspace disease is decreased in extent and density, mostly remaining in the upper lungs. Discontinue Levaquin. Continue Zosyn 3.375 grams IV Q8H for now given the new finding of colitis. Duration of treatment depends on the clinical picture. Monitor renal function and for drug toxicity and dose adjust antibiotics. Qualifiers: Pneumonia type: due to unspecified organism Laterality: right Lung location: lower lobe of lung Qualified Code(s): J18.1 - Lobar pneumonia, unspecified organism (4) Altered mental status Current Visit: Yes Status: Acute Etiology unclear. Likely secondary to sepsis. CT head negative on November 06. Unsure what the patient's baseline is, but appears improved from when we saw her on Wednesday. Apparently, it is not unusual for the patient to sleep all day and be up all night. Appears improved today. Continue to monitor closely. Qualifiers: Altered mental status type: disorientation Qualified Code(s): R41.0 - Disorientation, unspecified (5) Dysphasia Current Visit: Yes Status: Acute Speech therapy evaluation noted. Consider repeat evaluation. (6) Hypokalemia Current Visit: Yes Status: Resolved (7) Cerebral palsy Current Visit: Yes Status: Chronic Qualifiers: Cerebral palsy type: unspecified type Qualified Code(s): G80.9 - Cerebral palsy, unspecified (8) GERD (gastroesophageal reflux disease) Current Visit: No Status: Chronic Qualifiers: Esophagitis presence: esophagitis presence not specified Qualified Code(s) : K21.9 - Gastro-esophageal reflux disease without esophagitis (9) Hyperlipidemia Current Visit: No Status: Chronic Qualifiers: Hyperlipidemia type: unspecified Qualified Code(s): E78.5 - Hyperlipidemia , unspecified (10) Hypertension Current Visit: No Status: Acute Qualifiers: Hypertension type: essential hypertension Qualified Code(s): I10 - Essential (primary) hypertension (11) Thrombocytopenia Current Visit: Yes Status: Acute Etiology unclear: infection vs. other. Recommend Hem/Onc to evaluate. - Subjective Interval history: Patient seen and examined. Overnight events noted. Patient sleeping this morning , but awakens easily. Denies chest pain, shortness of breath, or cough. Denies nausea. Complains of diffuse abdominal pain. No family or caregivers at bedside. Per nursing, transferred to the ICU overnight due to CT findings of steral colitis and concerns for potential bowel perforation with administration of enemas. Infect Dis PN-Objective Data - Labs CBC & Chem 7: 11/18/17 08:26 11/18/17 08:26 Labs: Laboratory Results - last 24 hr 11/16/17 11/17/17 11/17/17 23:06 03:00 03:00 WBC 5.0 RBC 2.98 L Hgb 8.6 L Hct 27.7 L MCV 93.0 MCH 28.9 MCHC 31.0 L RDW 18.6 H Plt Count 95 L MPV 10.1 Immature Gran % 4.6 H Seg Neutrophils % 47.2 Lymphocytes % 28.7 Monocytes % 14.7 Eosinophils % 4.2 Basophils % 0.6 Neutrophils # 2.4 Lymphocytes # 1.4 Monocytes # 0.7 Eosinophils # 0.2 Basophils # 0.0 Sodium 146 H Potassium 3.7 Chloride 117 H Carbon Dioxide 26 BUN 9 Creatinine 0.48 L Est GFR ( Amer) > 60 Est GFR (Non-Af Amer) > 60 BUN/Creatinine Ratio 19 Glucose 85 POC Glucose 98 Calculated Osmolality 300 Calcium 8.4 L Cultures: Cultures 11/12/17 12:21 Blood Culture - Final Peripheral Venipuncture No growth. Final report. 11/16/17 13:49 Legionella Antigen - Final Urine,Catheterized Streptococcus pneumoniae Antigen (M - Final 11/13/17 13:39 Blood Culture - Preliminary Peripheral Venipuncture Culture is incubating and being continuously monitored for growth. Final report to follow. 11/13/17 13:39 Blood Culture - Preliminary Peripheral Venipuncture Culture is incubating and being continuously monitored for growth. Final report to follow. 11/07/17 03:51 Blood Culture - Final Peripheral Venipuncture No growth. Final report. 11/07/17 03:51 Blood Culture - Final Peripheral Venipuncture No growth. Final report. Serology 11/16/17 11/12/17 Range/Units 13:49 14:52 Urine Color Yellow (Yellow) Urine Clarity Hazy A (Clear) Urine pH 5.5 (5.0-8.0) pH Units Ur Specific [place] > 1.030 H (1.010-1.025) Urine Protein 30 H (Neg-Trace) mg/dL Urine Glucose (UA) Normal (Normal) mg/dL Urine Ketones Trace H (Negative) mg/dL Urine Blood Moderate H (Negative) Urine Nitrite Negative (Negative) Urine Bilirubin Small H (Negative) Urine Urobilinogen Normal (Normal) mg/dL Ur Leukocyte Esterase Negative (Negative) Urine Microscopic RBC 15-30 H (0-3) per hpf Urine Microscopic WBC 5-15 H (0-3) per hpf Ur Squamous Epith Cells Many H (None-Few) per lpf Urine Bacteria None Seen (None-Few) per hpf Hyaline Casts None Seen (None-Few) per lpf Urine Yeast Moderate H (None Seen) per hpf Ur Culture Indicated? NO (NO) Chlamy pneumoniae PCR Not Detected (Not Detect) Adenovirus (PCR) Not Detected (Not Detect) B. pertussis DNA (PCR) Not Detected (Not Detect) B.parapertussis DNA PCR Not Detected (Not Detect) Coronavirus OC43 (PCR) Not Detected (Not Detect) Coronavirus HKU1 (PCR) Not Detected (Not Detect) Coronavirus 229E (PCR) Not Detected (Not Detect) Coronavirus NL63 (PCR) Not Detected (Not Detect) Human Metapneumovir PCR Not Detected (Not Detect) Influenza A (H1) PCR Not Detected (Not Detect) Influ A (H1N1/09) PCR Not Detected (Not Detect) Influenza A (H3) PCR Not Detected (Not Detect) Influenza A Untype (PCR) Not Detected (Not Detect) Influenza Type B (PCR) Not Detected (Not Detect) M.pneumoniae DNA (PCR) Not Detected (Not Detect) Parainfluenza 1 (PCR) Not Detected (Not Detect) Parainfluenza 2 (PCR) Not Detected (Not Detect) Parainfluenza 3 (PCR) Not Detected (Not Detect) Parainfluenza 4 (PCR) Not Detected (Not Detect) RSV (PCR) Not Detected (Not Detect) Entero/Rhino (PCR) Not Detected (Not Detect) - Impressions Impressions Abdomen/Pelvis CT 11/16/17 16:00 IMPRESSION: Large amount of dense stool within a markedly distended rectosigmoid colon ; the rectosigmoid colonic wall thickening and adjacent stranding are evident. Findings are worrisome for stercoral colitis. D/ / Jaycee Cruz Cha, MD / Jaycee Cruz Cha, MD Interpreting Provider: Jaycee Cruz Cha, MD Chest CT 11/16/17 16:00 IMPRESSION: Interval decrease in size of bilateral pleural effusions with associated dependent consolidation, likely atelectasis. Patchy bilateral airspace disease is decreased in extent and density, mostly remaining in the upper lungs. D/ / Jaycee Cruz Cha, MD / Jaycee Cruz Cha, MD Interpreting Provider: Jaycee Cruz Cha, MD Exam - Constitutional Vitals: Temp Pulse Resp BP Pulse Ox 97.9 F 74 16 87/71 100 11/17/17 09:00 11/17/17 11:00 11/17/17 11:19 11/17/17 11:00 11/17/17 11:19 General appearance: average body habitus, cooperative, no acute distress - Head Head exam: Present: atraumatic, normal inspection, normocephalic - Eye Eye exam: Present: EOMI, normal appearance, PERRL Pupils: Present: normal accommodation - ENT ENT exam: Present: mucous membranes dry - Neck Neck exam: Present: normal inspection - Respiratory Respiratory exam: Present: CTAB. Absent: rales, respiratory distress, rhonchi, wheezes - Cardiovascular Cardiovascular exam: Present: RRR, +S1, +S2 - GI/Abdominal GI/Abdominal exam: Present: distended, hypoactive bowel sounds, soft, tenderness (generalized) - Extremities Exam Extremities exam: Present: pedal edema (1+ BLE). 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 Absent: no focal deficits ( Paralysis noted to the BLE.) - Skin Skin exam: Present: dry, intact, normal color, warm - VTE Documentation of Mechanical Device: Intermittent pneumatic compression device Consult Discharge Plan - Plan Referrals: Dayan Prieto, BLENDING COORDINATOR [Primary Care Provider] - 11/23/17 10:00 am (Appointment requested) Prescriptions: Amoxicillin/Clavulanate [Augmentin] 500 mg PO BIDWM 4 Days #8 tablet - Attending Attestation I examined this patient and my medical decision-making was reviewed with the Resident Physician. I agree with the documented findings, disposition and treatment plan as described except to the extent set forth below.
[2017-11-17] MEDS: Baclofen 10 MG TABLET PO SCH (22:39)
[2017-11-17] MEDS: Lactobacillus 1 EACH CAP.SPRINK PO SCH (22:40)
[2017-11-18] MEDS: Piperacillin/Tazobactam 3.375 GM in 0.9 % Sodium Chloride Mini Bag 100 ML IVPB SCH ×3 (00:06→18:02)
[2017-11-18] MEDS: Ipratropium/Albuterol Neb 3 ML IH SCH ×5 (04:16→20:40)
[2017-11-18] MEDS: *HR* Heparin 5,000 UNIT/ML VIAL SQ SCH ×2 (05:25→18:04)
[2017-11-18] MEDS: Ringers Solution, Lactated 1,000 ML IVC SCH ×2 (07:54→10:07)
[2017-11-18 08:46] LABS: Basophils # 0.1 K/mcL (0.0-0.2); Basophils % 0.9 %; Eosinophils # 0.3 K/mcL (0.0-0.6); Eosinophils % 6.2 %; Hematocrit 33.1 % (35.3-44.9); Immature Granulocytes % 4.7 % (0-4); Lymphocytes # 1.5 K/mcL (0.6-4.6); Lymphocytes % 27.4 %; Mean Corpuscular HGB Conc 30.8 g/dL (31.6-35.5); Mean Corpuscular Hemoglobin 28.7 pg (28.0-33.3); Mean Corpuscular Volume 93.2 fL (83.0-100.0); Mean Platelet Volume 10.7 fL (9.4-12.4); Monocytes # 0.6 K/mcL (0.0-1.3); Monocytes % 11.4 %; Neutrophils # 2.7 K/mcL (1.6-8.9); Platelet Count 100 K/mcL (140-400); Red Blood Count 3.55 M/mcL (3.82-4.97); Red Cell Distribution Width 18.6 % (11.5-14.5); Segmented Neutrophils % 49.4 %
[2017-11-18 08:48] LABS: Hemoglobin 10.2 g/dL (11.5-15.4)
[2017-11-18] MEDS ORDERED: Levofloxacin 750 MG/150 ML 750 MG/150 ML BAG IVPB SCH (09:00)
[2017-11-18 09:05] LABS: BUN/Creatinine Ratio 14 (6-26); Blood Urea Nitrogen 6 mg/dL (8-23); Calcium 8.6 mg/dL (8.6-10.3); Carbon Dioxide 27 mEq/L (23-29); Chloride 114 mEq/L (98-107); Glucose 63 mg/dL (70-105); Osmolality,Calculated 300 (280-300); Potassium 3.5 mEq/L (3.5-5.1); Sodium 147 mEq/L (136-145); eGFR For Non-African Americans > 60 (> 60)
[2017-11-18] MEDS: Venlafaxine XR (24 HR) 75 MG CAP.ER.24H PO SCH (10:04)
[2017-11-18] MEDS: Lactobacillus 1 EACH CAP.SPRINK PO SCH ×2 (10:04→21:22)
[2017-11-18] MEDS: Loratadine 10 MG TABLET PO SCH (10:04)
[2017-11-18] MEDS: Divalproex (24 HR) 250 MG TABLET PO SCH (10:05)
[2017-11-18] MEDS: Baclofen 10 MG TABLET PO SCH ×2 (10:06→21:22)
[2017-11-18] MEDS: Fluticasone Propionate Nasal 50 MCG/SPRAY BOTTLE NS SCH (10:10)
[2017-11-18] MEDS ORDERED: Ringers Solution, Lactated 1,000 ML IVC SCH ×2 (10:45→13:25)
--- NOTE | 2017-11-18 11:17 | Internal Med Progress Note ---
Date of Encounter: 11/18/17 Time of Encounter: 11:15 - Assessment and plan (1) Stercoral ulcer of large intestine Current Visit: Yes Status: Acute Assessment and plan: 11/16/ CT of abdomen and pelvis with IV and oral contrast completed today results as follows: Large amount of dense stool within a markedly distended rectosigmoid colon ; the rectosigmoid colonic wall thickening and adjacent stranding are evident. Findings are worrisome for stercoral colitis. -I did curbside consult surgery spoke with Dr. Hussein who advised- close nursing observation, advised to be cautious with enemas-overuse since bowel is already distended adding extra fluid raising risk of bowel rupture. Start gently with fleets enema 2. Advised to continue with antibiotics patient was on Zosyn which we will continue. Will require follow-up CT. Once stool has cleared we will be able to give oral laxatives. Does not feel patient is surgical candidate at this time however continue to closely monitor. I did discuss this case with Dr. Michaels who agreed with plan we will transfer patient to ICU for closer monitoring since patient is confused and it is difficult to assess patient's status 11/17- Patient did receive a Fleet enema she did have a large formed bowel movement overnight. We will repeat and continue to monitor. Continue with Zosyn. We will the patient to ICU To stepdown. Continue with IV fluids and monitor closely 11/18-patient received Her enema overnight and tolerated well we will repeat CT scan of abdomen awaiting results. If improvement will go ahead and start patient on oral stool softeners-patient's mental status much improved she is alert oriented 3 at this time following simple commands. Blood pressure with systolic greater than 100 this time continue to monitor (2) Sepsis Current Visit: Yes Status: Acute Assessment and plan: The patient developed leukocytosis, is tachycardic and hypotensive in the setting of pneumonia Organism undetermined Sepsis likely secondary to pneumonia however continue to rule out other causes Blood cultures from November 07 negative 2 sets repeat cultures November 12 no growth to date additional repeat culture x 2 sets pending Respiratory infection panel negative No obvious skin breakdown, UA 11/06/17 unremarkable; no obsvious source for infection Infectious disease seeing in consultation, appreciate recommendations Continue Zosyn 3.375 g IV every 8 hours Continue vancomycin with pharmacy to dose, goal trough of 15 Continue Levaquin 750 mg IV daily 11/15- patient improving clinically, fevers resolved overnight. Continue to have intermittent tachycardia. No longer having leukocytosis. Continues to be septic. Chest x-ray obtained today showing improvement in the left basilar infiltrate however findings of new right lung base opacification with consolidation representing pneumonia and/or atelectasis. Patient continued to improve from a respiratory perspective and resting comfortable and 2 L nasal cannula. We will continue broad-spectrum antibiotic coverage with vancomycin, Levaquin and Zosyn. Infectious disease has signed off. Continue to follow cultures. Patient remains hemodynamically stable 11/16/ Patient had to SIRS criteria initially which did resolve She did develop leukocytosis tachycardia and fever last week Infectious disease was consulted and was treating for pneumonia leukocyte ptosis did improve but now leukopenic with bands Blood cultures are negative 2 And cytopenic we will consult oncology CT of abdomen and pelvis does reveal possible stercoral colitis. Which could be contributing to sepsis. We will give IV fluids-no fevers Vanc and Zosyn DC'd by infectious disease we will resume Zosyn Continue Levaquin 11/17-patient more alert today I did discuss case with infectious disease continue with Zosyn for colitis Levaquin will be discontinued per infectious disease recommendations continue to monitor white count no fever at this time 11/18-patient is more alert this time blood pressure has improved. Urinalysis has decreased patient does appear to be a little fluid overloaded we will give IV Lasix continue with Zosyn for now continue to monitor white count no fever at this time Qualifiers: Sepsis type: sepsis due to unspecified organism Qualified Code(s): A41.9 - Sepsis, unspecified organism (3) Altered mental status Current Visit: Yes Status: Resolved Assessment and plan: Patient's mental state has improved she is alert and answering questions oriented to name only. However she does make inappropriate statements at times continue with antibiotic treatment 11/18-patient's mental state has improved she is alert oriented 3 following simple commands-caregivers have been at bedside and she is not back to baseline as of yet. We will continue to monitor Qualifiers: Altered mental status type: disorientation Qualified Code(s): R41.0 - Disorientation, unspecified (4) Cerebral palsy Current Visit: Yes Status: Chronic Assessment and plan: Chronic, follows with neurology Qualifiers: Cerebral palsy type: unspecified type Qualified Code(s): G80.9 - Cerebral palsy, unspecified (5) GERD (gastroesophageal reflux disease) Current Visit: No Status: Chronic Assessment and plan: Pt is on prilosec Keep head of bed elevated. Don't eat large meals before laying down. Chew all foods throuroughly Speech recommends thin liquids, advance soft textures , meds in puree. No straws 11/14-continue Prilosec. See plan above 11/16 we will continue with Prilosec continue with head of bed elevation during meals continue addendum liquids advanced soft textures meds injuries and no straws per speech therapy recommendations 11/18 continue with Prilosec maintain head of bed elevated during meals -patient did have an episode of choking during breakfast reevaluated by speech therapy patient placed on nectar thickened liquids as well as mechanical soft Qualifiers: Esophagitis presence: esophagitis presence not specified Qualified Code(s) : K21.9 - Gastro-esophageal reflux disease without esophagitis (6) DVT prophylaxis Current Visit: No Status: Acute Assessment and plan: Cont sq heparin (7) Seizure Current Visit: No Status: Chronic Assessment and plan: On depakote Speech evaluated with swallow studie - recommendation below: ST recommends thin liquid and advanced soft textures. NO STRAWS, assist with feeds, meds in puree. Patient is tolerating baseline diet. No swallow therapy recommended at this time. Neuro checks q4hr - pt at this time is arousable and is aware of where she is 11/13- patient with history of seizures, on Depakote, continue Depakote. Continue neuro checks every 4 hours. This time patient is arousable but unable to communicate. 11/15- no seizure-like activity during this admission. Continue Depakote. Continue frequent neuro checks. Patient will status improving overnight. She is arousable to verbal stimulus and able to communicate. However, she is not yet back to baseline. 11/16-no seizure activity continue with Depakote seizure precautions 11/17 no seizure activity at this time continue with seizure precautions continue with Depakote 11/18 no seizure activity at this time continue seizure precautions continue Depakote (8) Hypokalemia Current Visit: Yes Status: Resolved Assessment and plan: Potassium 2.1. Replacement done in the ER. Today it is 2.6-replaced with 60 MEQ liquid oral potassium, recheck potassium this evening Recheck electrolytes tomorrow and replete as necessary 11/14- today's potassium 3.0. Replete with 40 MEQ K rider, recheck this afternoon and replete as necessary. Recheck BMP daily, obtain serum magnesium the morning 11/15- today's potassium 3.6. Continue to monitor and replete as necessary, serum mag 1.7. BMP daily 11/16 today potassium is 3 replace with 40 mEq KCl continue to monitor and replace 11/16 potassium has improved 2.7 today continue to monitor and replace as needed 11/18 this has improved we will continue to monitor replace as needed (9) Pneumonia Current Visit: Yes Status: Acute Assessment and plan: Bilateral pneumonia, organism unclear, caregivers reporting patient recently had episodes of choking while eating, concern for aspiration pneumonia. Noted to have fevers, tachypnea and rest her distress. Continues to have an episode of tachycardia however has remained afebrile overnight Has scattered rhonchi throughout per auscultation CT angio of the chest to r/o PE - showed no acute PE but possible pneumonia and a large hiatal hernia Blood cultures on no growth, repeat cultures pending Respiratory infection panel negative WBC 4.9 today Mental status improving today Patient has sepsis secondary to PNA Continue vancomycin, Zosyn and Levaquin Infectious disease has signed off CXR obtained today 11/15/17-significant improvement in left basal infiltrates with residual subsegmental atelectasis. Right lung base opacification representing effusion with or without underlying consolidation which may represent pneumonia and/or atelectasis. 11/15-clinically, patient continued to improve. Estrace status and mental status post improving today. Patient resting comfortably on 2 L nasal cannula. Continue broad-spectrum coverage with vancomycin, Zosyn and Levaquin. Continue to follow blood cultures. 11/16 Bilateral pneumonia and chart this is aspiration and speech therapy was consulted and recommending thin liquids and advanced soft textures. Obtain strep pneumococcal and legionella urinary antigens which were sent after straight catheter today Respiratory panel was negative Vancomycin and Zosyn was discontinued by infectious disease will resume Zosyn Continue with Levaquin CT of chest with contrast obtained Interval decrease in size of bilateral pleural effusions with associated dependent consolidation, likely atelectasis. Patchy bilateral airspace disease is decreased in extent and density, mostly remaining in the upper lungs. 11/17 Spoke with infectious disease continue with Zosyn and DC Levaquin oxygen as needed We will continue with infectious disease recommendations. 11/18 we will continue with Zosyn oxygen as needed Qualifiers: Pneumonia type: due to unspecified organism Laterality: right Lung location: lower lobe of lung Qualified Code(s): J18.1 - Lobar pneumonia, unspecified organism (10) Dysphasia Current Visit: Yes Status: Acute Assessment and plan: 11/18 Patient did have episode of choking during breakfast this a.m.-reevaluated by speech therapy recommending nectar thickened liquids as well as advanced soft diet (11) DVT (deep venous thrombosis) Current Visit: Yes Status: Suspected Assessment and plan: r/o DVT and PE -CTA of chest negative for acute PE, showed possible pneumonia -started pt on Zosyn/Vanc -Blood cx pending -ID consulted t max overnight 100.4, HR in 120's Meets part of Virchow's triad of hypercoag 2/2 to immobility and stasis. She has only been on SCD for DVT prophylaxis Pt placed on 5000U SQ heparin repeated US bilateral LE to r/o DVT 11/13- Doppler study reveals-very difficult/impossible study from pop V level on down bilaterally. Unable to adequately rule out possibility of DVT in these locations although no DVT was clearly imaged all locations above pop V level and legs appear negative for thrombus. We will withhold on hurting therapeutic anticoagulation at this time. Bilateral lower extremity circulation PT/DP 1+/1+ 11/14- bilateral lower extremities with adequate circulation and blood flow. PT /DP 1+/1+. Patient on subcutaneous heparin 11/15-B/L lower extremities with adequate circulation and blood flow. Palpable pulses bilaterally. Continue SQ heparin. No pain or tenderness to palpation 11/16-patient has pancytopenia we will stop subcutaneous heparin continue with SCDs 11/17 we will continue with heparin as well as SCDs 11/18 continue with heparin as well as SCDs Qualifiers: DVT location: lower extremity Affected thrombotic vein of extremity: other lower extremity vein Chronicity: acute Laterality: unspecified laterality Qualified Code(s): I82.409 - Acute embolism and thrombosis of unspecified deep veins of unspecified lower extremity (12) Delirium due to general medical condition Current Visit: Yes Status: Acute Assessment and plan: Continuing to have features of delirium Poor eye contact, disorganized speech, anxiety. Patient speaking to an inanimate objects Psychiatry seeing in consultation, appreciate recommendations-no reason to change antipsychotic medications per psychiatry-continue antipsychotics throughout stay Underlying medical conditions exacerbating delirium 11/14-continues to have altered mental status. Underlying medical conditions likely exacerbating delirium. At baseline patient is able to recognize caregivers and feed herself and provided minimal yes or no responses. However, patient is unable to do that at this time. Psychiatry following consultation. Recommendations are to continue antipsychotic medications; do not titrate these medications. Also of note, the patient is septic with pneumonia and this is likely contributing to deteriorating mental status 11/15- clinically, patient's mental status appears to be improving. I believe that the delirium is caused by sepsis and pneumonia. Discussed with caregivers patient baseline, caregivers report that patient is normally able to verbalize and communicate. Per my assessment this morning she is continuing to improve. She is responding to verbal stimulus and able to answer simple questions such as her urine pain, need anything, however you feeling. See assessment and plan above 11/18 patient is much improved today alert oriented 3 following simple commands- suspect delirium is caused by sepsis/pneumonia /colitis (13) Thrombocytopenia Current Visit: Yes Status: Acute Assessment and plan: 11/17 I did speak with oncology concerning thrombocytopenia suspect most likely related to sepsis-we will continue to monitor and consult heme/onc as needed to evaluate-okay to continue with heparin for DVT prophylaxis - Time Spent With Patient Total time spent is greater than 50% in coordination of care (as documented) at patient's floor/unit and/or counseling patient: - Subjective Interval history: Patient was seen and examined at bedside.Seems more alert today. She is A/O x3 follows simple commands Complains of some nausea. She did have an episode of choking during breakfast Speech therapy reevaluated placed on nectar thick liquids - Constitutional Vitals: Temp Pulse Resp BP Pulse Ox 97.7 F 81 19 127/85 100 11/18/17 07:43 11/18/17 07:43 11/18/17 07:43 11/18/17 07:43 11/18/17 07:43 General appearance: Present: A&O X 1, disheveled, mild distress - Head Head exam: Present: atraumatic, normocephalic - Eye Eye exam: Present: PERRL, conjuntiva pink, sclera anicteric Pupils: Present: PERRL - Neck Neck exam general surgery: Present: supple, trachea midline. Absent: lymphadenopathy - Respiratory Respiratory exam: Present: CTAB. Absent: accessory muscle use, rales, rhonchi, wheezes - Cardiovascular Cardiovascular exam: Present: RRR, +S1, +S2. Absent: diastolic murmur, gallop, rubs, systolic murmur - GI/Abdominal GI/Abdominal exam: Present: normal bowel sounds, soft, no peritoneal signs. Absent: distended, tenderness - Extremities Exam Extremities exam: Present: warm, radial pulses palpable and symmetrical. Absent : calf tenderness, cyanotic, pedal edema - Neurological Exam Neurological exam: Present: CN II-XII intact, oriented X3, no focal deficits. Absent: pronater drift, facial droop, speech deficit - Skin Skin exam: Present: dry, intact Internal Medicine: Result - Labs CBC & Chem 7: 11/18/17 08:26 11/18/17 08:26 Labs: Short CBC 11/18/17 Range/Units 08:26 WBC 5.4 (4.3-11.1) K/mcL Hgb 10.2 L D (11.5-15.4) g/dL Hct 33.1 L (35.3-44.9) % Plt Count 100 L (140-400) K/mcL Neutrophils # 2.7 (1.6-8.9) K/mcL BMP 11/18/17 08:26 Sodium 147 H Potassium 3.5 Chloride 114 H Carbon Dioxide 27 BUN 6 L Creatinine 0.43 L Glucose 63 L Calcium 8.6 - ABG Interpretation ABG results: ABG ABG pH 7.50 pH Units (7.32-7.45) H 11/13/17 04:07 ABG pCO2 29 mmHg (35-45) L 11/13/17 04:07 ABG pO2 72 mmHg (85-104) L 11/13/17 04:07 ABG O2 Saturation 96 % (95-98) 11/13/17 04:07 PT/INR, D-dimer PT 11.7 Seconds (9.4-12.1) 11/06/17 21:22 - VTE Documentation of Mechanical Device: Intermittent pneumatic compression device Consult Discharge Plan - Plan Referrals: Dayan Prieto, TECHNOLOGY TRAINER [Primary Care Provider] - 11/23/17 10:00 am (Appointment requested) Prescriptions: Amoxicillin/Clavulanate [Augmentin] 500 mg PO BIDWM 4 Days #8 tablet
[2017-11-18] MEDS ORDERED: Isovue-370 500 ML INFUS..BTL IV ONE (13:21)
--- NOTE | 2017-11-18 13:59 | Infectious Disease Progress No ---
Date of Encounter: 11/18/17 Time of Encounter: 13:57 - Assessment and Plan (1) Sepsis Current Visit: Yes Status: Acute The patient had 2 SIRS criteria initially, which resolved. She developed leukocytosis, tachycardia, and fever last week. Likely secondary to pneumonia at that time, but imaging reveals improvement. Likely secondary to stercoral colitis at this time. Improved. WBC normal. Tachycardia resolved. BP stable. Blood cultures drawn November 07 are negative 2 sets. Repeat blood culture drawn November 12 1 set is negative. Additional blood cultures drawn 11/13/17 are negative x 2 sets. Qualifiers: Sepsis type: sepsis due to unspecified organism Qualified Code(s): A41.9 - Sepsis, unspecified organism (2) Colitis Current Visit: No Status: Acute CT of the abdomen and pelvis showed large amount of dense stool within a markedly distended rectosigmoid colon with colonic wall thickening and adjacent stranding worrisome for stercoral colitis. Bowel regimen per the primary team. Consider general surgery to evaluate. Repeat imaging her the primary team's recommendations. Continue Zosyn 3.375 grams IV Q8H for now. Duration of treatment depends on the clinical picture. (3) Pneumonia Current Visit: Yes Status: Acute Location: Bilateral. Causative organism: Unclear. Likely secondary to aspiration. Patient witnessed to aspirate this morning during breakfast. Speech therapy was consulted and recommended thin liquids and advance soft textures. Repeat speech eval completed today. Check strep pneumococcal and legionella urinary antigens.--> negative. Get sputum culture if patient is able to provide an adequate specimen.--> not collected, patient not coughing anything up. Check respiratory infectious panel.--> negative. Repeat CXR showed significant improvement in the left basilar infiltrates and new right lung basilar opacities shared services representative of effusion with or without underlying consolidation consistent with PNA vs. atelectasis. Repeat CT scan of the chest showed interval decrease in size of the bilateral pleural effusions with associated dependent consolidation, likely atelectasis and patchy bilateral airspace disease is decreased in extent and density, mostly remaining in the upper lungs. Continue Zosyn 3.375 grams IV Q8H for now given the new finding of colitis. Duration of treatment depends on the clinical picture. Can likely switch back to PO Levaquin when ready for discharge. Monitor renal function and for drug toxicity and dose adjust antibiotics. Qualifiers: Pneumonia type: due to unspecified organism Laterality: right Lung location: lower lobe of lung Qualified Code(s): J18.1 - Lobar pneumonia, unspecified organism (4) Altered mental status Current Visit: Yes Status: Resolved Etiology unclear. Likely secondary to sepsis. CT head negative on November 06. Unsure what the patient's baseline is. Apparently, it is not unusual for the patient to sleep all day and be up all night. Appears improved today. Continue to monitor closely. Qualifiers: Altered mental status type: disorientation Qualified Code(s): R41.0 - Disorientation, unspecified (5) Dysphasia Current Visit: Yes Status: Acute Speech therapy evaluation noted. Repeat evaluation completed today. Continue to recommend mechanically altered textures and nectar thick liquids. (6) Hypokalemia Current Visit: Yes Status: Resolved (7) Cerebral palsy Current Visit: Yes Status: Chronic Qualifiers: Cerebral palsy type: unspecified type Qualified Code(s): G80.9 - Cerebral palsy, unspecified (8) GERD (gastroesophageal reflux disease) Current Visit: No Status: Chronic Qualifiers: Esophagitis presence: esophagitis presence not specified Qualified Code(s) : K21.9 - Gastro-esophageal reflux disease without esophagitis (9) Hyperlipidemia Current Visit: No Status: Chronic Qualifiers: Hyperlipidemia type: unspecified Qualified Code(s): E78.5 - Hyperlipidemia , unspecified (10) Hypertension Current Visit: No Status: Acute Qualifiers: Hypertension type: essential hypertension Qualified Code(s): I10 - Essential (primary) hypertension (11) Thrombocytopenia Current Visit: Yes Status: Acute Etiology unclear: infection vs. other. Recommend Hem/Onc to evaluate. --> Primary team discussed with hem/onc and think thrombocytopenia is related to infection. Improved. Continue to trend. - Subjective Interval history: Patient seen and examined. No acute events noted overnight. Patient sleeping this morning, but awakens easily. Denies chest pain, shortness of breath, or cough. Reports nausea, but no vomiting. States she has intermittent cramping abdominal pain, but none at this time. No family or caregivers at bedside. Discussed with the primary team. Planning for repeat imaging today. Had speech re-evaluate since the patient was witnessed to choke while eating this morning. Infect Dis PN-Objective Data - Labs CBC & Chem 7: 11/18/17 08:26 11/18/17 08:26 Labs: Laboratory Results - last 24 hr 11/18/17 11/18/17 08:26 08:26 WBC 5.4 RBC 3.55 L Hgb 10.2 L D Hct 33.1 L MCV 93.2 MCH 28.7 MCHC 30.8 L RDW 18.6 H Plt Count 100 L MPV 10.7 Immature Gran % 4.7 H Seg Neutrophils % 49.4 Lymphocytes % 27.4 Monocytes % 11.4 Eosinophils % 6.2 Basophils % 0.9 Neutrophils # 2.7 Lymphocytes # 1.5 Monocytes # 0.6 Eosinophils # 0.3 Basophils # 0.1 Sodium 147 H Potassium 3.5 Chloride 114 H Carbon Dioxide 27 BUN 6 L Creatinine 0.43 L Est GFR ( Amer) > 60 Est GFR (Non-Af Amer) > 60 BUN/Creatinine Ratio 14 Glucose 63 L Calculated Osmolality 300 Calcium 8.6 Cultures: Cultures 11/16/17 13:49 Urine Culture - Preliminary Urine,Catheterized Yeast Species 11/12/17 12:21 Blood Culture - Final Peripheral Venipuncture No growth. Final report. 11/16/17 13:49 Legionella Antigen - Final Urine,Catheterized Streptococcus pneumoniae Antigen (M - Final 11/13/17 13:39 Blood Culture - Preliminary Peripheral Venipuncture Culture is incubating and being continuously monitored for growth. Final report to follow. 11/13/17 13:39 Blood Culture - Preliminary Peripheral Venipuncture Culture is incubating and being continuously monitored for growth. Final report to follow. 11/07/17 03:51 Blood Culture - Final Peripheral Venipuncture No growth. Final report. 11/07/17 03:51 Blood Culture - Final Peripheral Venipuncture No growth. Final report. Serology 11/16/17 11/12/17 Range/Units 13:49 14:52 Urine Color Yellow (Yellow) Urine Clarity Hazy A (Clear) Urine pH 5.5 (5.0-8.0) pH Units Ur Specific Onyx > 1.030 H (1.010-1.025) Urine Protein 30 H (Neg-Trace) mg/dL Urine Glucose (UA) Normal (Normal) mg/dL Urine Ketones Trace H (Negative) mg/dL Urine Blood Moderate H (Negative) Urine Nitrite Negative (Negative) Urine Bilirubin Small H (Negative) Urine Urobilinogen Normal (Normal) mg/dL Ur Leukocyte Esterase Negative (Negative) Urine Microscopic RBC 15-30 H (0-3) per hpf Urine Microscopic WBC 5-15 H (0-3) per hpf Ur Squamous Epith Cells Many H (None-Few) per lpf Urine Bacteria None Seen (None-Few) per hpf Hyaline Casts None Seen (None-Few) per lpf Urine Yeast Moderate H (None Seen) per hpf Ur Culture Indicated? NO (NO) Chlamy pneumoniae PCR Not Detected (Not Detect) Adenovirus (PCR) Not Detected (Not Detect) B. pertussis DNA (PCR) Not Detected (Not Detect) B.parapertussis DNA PCR Not Detected (Not Detect) Coronavirus OC43 (PCR) Not Detected (Not Detect) Coronavirus HKU1 (PCR) Not Detected (Not Detect) Coronavirus 229E (PCR) Not Detected (Not Detect) Coronavirus NL63 (PCR) Not Detected (Not Detect) Human Metapneumovir PCR Not Detected (Not Detect) Influenza A (H1) PCR Not Detected (Not Detect) Influ A (H1N1/09) PCR Not Detected (Not Detect) Influenza A (H3) PCR Not Detected (Not Detect) Influenza A Untype (PCR) Not Detected (Not Detect) Influenza Type B (PCR) Not Detected (Not Detect) M.pneumoniae DNA (PCR) Not Detected (Not Detect) Parainfluenza 1 (PCR) Not Detected (Not Detect) Parainfluenza 2 (PCR) Not Detected (Not Detect) Parainfluenza 3 (PCR) Not Detected (Not Detect) Parainfluenza 4 (PCR) Not Detected (Not Detect) RSV (PCR) Not Detected (Not Detect) Entero/Rhino (PCR) Not Detected (Not Detect) Exam - Constitutional Vitals: Temp Pulse Resp BP Pulse Ox 97.8 F 85 16 103/74 100 11/18/17 11:45 11/18/17 11:45 11/18/17 11:45 11/18/17 11:45 11/18/17 11:45 General appearance: average body habitus, cooperative, no acute distress - Head Head exam: Present: atraumatic, normal inspection, normocephalic - Eye Eye exam: Present: EOMI, normal appearance, PERRL Pupils: Present: normal accommodation - ENT ENT exam: Present: mucous membranes moist Additional comments: Poor dentition noted. - Neck Neck exam: Present: normal inspection - Respiratory Respiratory exam: Present: CTAB. Absent: rales, respiratory distress, rhonchi, wheezes - Cardiovascular Cardiovascular exam: Present: RRR, +S1, +S2 - GI/Abdominal GI/Abdominal exam: Present: normal bowel sounds, soft, tenderness (generalized) . Absent: distended Additional comments: George catheter noted to be draining clear yellow urine. - Extremities Exam Extremities exam: Present: pedal edema (1+ BLE). 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 Absent: no focal deficits ( Paralysis noted to the BLE.) - Psychiatric Psychiatric exam: Present: normal affect, normal mood - Skin Skin exam: Present: dry, intact, normal color, warm - VTE Documentation of Mechanical Device: Intermittent pneumatic compression device Consult Discharge Plan - Plan Referrals: Dayan Prieto, [employer] [Primary Care Provider] - 11/23/17 10:00 am (Appointment requested) Prescriptions: Amoxicillin/Clavulanate [Augmentin] 500 mg PO BIDWM 4 Days #8 tablet - Attending Attestation I examined this patient and my medical decision-making was reviewed with the Resident Physician. I agree with the documented findings, disposition and treatment plan as described except to the extent set forth below.
[2017-11-18] MEDS ORDERED: Furosemide 20 MG/2 ML VIAL IVP ONE ×2 (15:44→17:00)
[2017-11-18] MEDS ORDERED: D5% in Water 1,000 ML IVC SCH (19:45)
[2017-11-19] MEDS: Piperacillin/Tazobactam 3.375 GM in 0.9 % Sodium Chloride Mini Bag 100 ML IVPB SCH ×4 (11:01→23:48)
[2017-11-19] MEDS: *HR* Heparin 5,000 UNIT/ML VIAL SQ SCH ×2 (11:02→18:19)
[2017-11-19] MEDS: Loratadine 10 MG TABLET PO SCH (11:02)
[2017-11-19] MEDS: Lactobacillus 1 EACH CAP.SPRINK PO SCH ×2 (11:02→23:49)
[2017-11-19] MEDS: Divalproex (24 HR) 250 MG TABLET PO SCH (11:02)
[2017-11-19] MEDS: Venlafaxine XR (24 HR) 75 MG CAP.ER.24H PO SCH (11:03)
[2017-11-19] MEDS: Baclofen 10 MG TABLET PO SCH ×2 (11:03→23:50)
[2017-11-19] MEDS: Fluticasone Propionate Nasal 50 MCG/SPRAY BOTTLE NS SCH (11:10)
[2017-11-19] MEDS: Ipratropium/Albuterol Neb 3 ML IH SCH ×6 (12:42→23:51)
[2017-11-19] MEDS: Furosemide 20 MG/2 ML VIAL IVP SCH ×2 (14:25→16:08)
[2017-11-19 14:31] LABS: Basophils % 0.3 %; Eosinophils # 0.5 K/mcL (0.0-0.6); Eosinophils % 4.1 %; Hematocrit 32.9 % (35.3-44.9); Hemoglobin 10.7 g/dL (11.5-15.4); Immature Granulocytes % 1.4 % (0-4); Lymphocytes # 1.2 K/mcL (0.6-4.6); Lymphocytes % 9.2 %; Mean Corpuscular HGB Conc 32.5 g/dL (31.6-35.5); Mean Corpuscular Hemoglobin 28.8 pg (28.0-33.3); Mean Corpuscular Volume 88.7 fL (83.0-100.0); Mean Platelet Volume 11.2 fL (9.4-12.4); Monocytes # 1.2 K/mcL (0.0-1.3); Monocytes % 9.5 %; Neutrophils # 9.5 K/mcL (1.6-8.9); Platelet Count 123 K/mcL (140-400); Red Blood Count 3.71 M/mcL (3.82-4.97); Red Cell Distribution Width 17.8 % (11.5-14.5); Segmented Neutrophils % 75.5 %
--- NOTE | 2017-11-19 14:41 | Event Note ---
Date of Encounter: 11/19/17 Time of Encounter: 14:40 I examined this patient and my medical decision-making was reviewed with the Resident Physician. I agree with the documented findings, disposition and treatment plan as described except to the extent set forth below. Progress do not was handwritten by a nurse practitioner since the computer system was down. Please refer to handwritten note for full details. At this point we will DC all by mouth antibiotics and observe. Clinically patient is doing well. We will continue antifungal treatment for the yeast infection. Discussed with Dr. Michaels.
[2017-11-19 15:00] LABS: BUN/Creatinine Ratio 10 (6-26); Blood Urea Nitrogen 4 mg/dL (8-23); Calcium 8.2 mg/dL (8.6-10.3); Carbon Dioxide 31 mEq/L (23-29); Chloride 104 mEq/L (98-107); Glucose 106 mg/dL (70-105); Osmolality,Calculated 283 (280-300); Potassium 2.7 mEq/L (3.5-5.1); Sodium 138 mEq/L (136-145); eGFR For Non-African Americans > 60 (> 60)
[2017-11-19] MEDS ORDERED: Potassium Chloride 40 MEQ, Lidocaine 1% 2 ML in D5% in Water 500 ML IVPB ONE (15:03)
[2017-11-20] MEDS: Ipratropium/Albuterol Neb 3 ML IH SCH ×6 (04:35→23:26)
[2017-11-20] MEDS: *HR* Heparin 5,000 UNIT/ML VIAL SQ SCH ×2 (06:46→17:24)
[2017-11-20 08:30] LABS: BUN/Creatinine Ratio 10 (6-26); Blood Urea Nitrogen 4 mg/dL (8-23); Carbon Dioxide 30 mEq/L (23-29); Chloride 104 mEq/L (98-107); Glucose 71 mg/dL (70-105); Osmolality,Calculated 281 (280-300); Potassium 3.4 mEq/L (3.5-5.1); Sodium 138 mEq/L (136-145); eGFR For Non-African Americans > 60 (> 60)
[2017-11-20] MEDS: Divalproex (24 HR) 250 MG TABLET PO SCH (09:16)
[2017-11-20] MEDS: Baclofen 10 MG TABLET PO SCH ×2 (09:16→22:19)
[2017-11-20] MEDS: Lactobacillus 1 EACH CAP.SPRINK PO SCH ×2 (09:17→22:22)
[2017-11-20] MEDS: Furosemide 20 MG/2 ML VIAL IVP SCH (09:17)
[2017-11-20] MEDS: Loratadine 10 MG TABLET PO SCH (09:17)
[2017-11-20] MEDS: Piperacillin/Tazobactam 3.375 GM in 0.9 % Sodium Chloride Mini Bag 100 ML IVPB SCH ×2 (09:17→17:25)
[2017-11-20] MEDS: Venlafaxine XR (24 HR) 75 MG CAP.ER.24H PO SCH (09:17)
[2017-11-20] MEDS: Fluticasone Propionate Nasal 50 MCG/SPRAY BOTTLE NS SCH (09:18)
[2017-11-20 11:02] LABS: Basophils # 0.1 K/mcL (0.0-0.2); Basophils % 0.4 %; Eosinophils # 0.7 K/mcL (0.0-0.6); Eosinophils % 4.9 %; Hematocrit 33.2 % (35.3-44.9); Hemoglobin 10.6 g/dL (11.5-15.4); Immature Granulocytes % 1.8 % (0-4); Immature Platelets 7.6 % (1.1-6.1); Lymphocytes # 2.1 K/mcL (0.6-4.6); Lymphocytes % 15.5 %; Mean Corpuscular HGB Conc 31.9 g/dL (31.6-35.5); Mean Corpuscular Hemoglobin 28.7 pg (28.0-33.3); Mean Platelet Volume 10.9 fL (9.4-12.4); Monocytes # 1.7 K/mcL (0.0-1.3); Monocytes % 12.2 %; Neutrophils # 8.8 K/mcL (1.6-8.9); Nucleated Red Blood Cells 0.2 /100 WBC (0); Platelet Count 104 K/mcL (140-400); Red Blood Count 3.69 M/mcL (3.82-4.97); Red Cell Distribution Width 18.1 % (11.5-14.5); Segmented Neutrophils % 65.2 %
--- NOTE | 2017-11-20 14:19 | Internal Med Progress Note ---
Date of Encounter: 11/20/17 Time of Encounter: 14:17 - Assessment and plan (1) Stercoral ulcer of large intestine Current Visit: Yes Status: Acute Assessment and plan: 11/16/ CT of abdomen and pelvis with IV and oral contrast completed today results as follows: Large amount of dense stool within a markedly distended rectosigmoid colon ; the rectosigmoid colonic wall thickening and adjacent stranding are evident. Findings are worrisome for stercoral colitis. -I did curbside consult surgery spoke with Dr. Hussein who advised- close nursing observation, advised to be cautious with enemas-overuse since bowel is already distended adding extra fluid raising risk of bowel rupture. Start gently with fleets enema 2. Advised to continue with antibiotics patient was on Zosyn which we will continue. Will require follow-up CT. Once stool has cleared we will be able to give oral laxatives. Does not feel patient is surgical candidate at this time however continue to closely monitor. I did discuss this case with Dr. Michaels who agreed with plan we will transfer patient to ICU for closer monitoring since patient is confused and it is difficult to assess patient's status 11/17- Patient did receive a Fleet enema she did have a large formed bowel movement overnight. We will repeat and continue to monitor. Continue with Zosyn. We will the patient to ICU To stepdown. Continue with IV fluids and monitor closely 11/18-patient received Her enema overnight and tolerated well we will repeat CT scan of abdomen awaiting results. If improvement will go ahead and start patient on oral stool softeners-patient's mental status much improved she is alert oriented 3 at this time following simple commands. Blood pressure with systolic greater than 100 this time continue to monitor 11/20 Consultation most likely related to cerebral palsy as well as medication induced. Patient has had several large soft bowel movements we will continue with MiraLAX as well as Colace. We will give 1 more tapwater enema today check KUB. We will follow-up with a CT abdomen in the a.m. Continue with clear liquids for now until CT result Consult surgery as needed (2) Sepsis Current Visit: Yes Status: Acute Assessment and plan: The patient developed leukocytosis, is tachycardic and hypotensive in the setting of pneumonia Organism undetermined Sepsis likely secondary to pneumonia however continue to rule out other causes Blood cultures from November 07 negative 2 sets repeat cultures November 12 no growth to date additional repeat culture x 2 sets pending Respiratory infection panel negative No obvious skin breakdown, UA 11/06/17 unremarkable; no obsvious source for infection Infectious disease seeing in consultation, appreciate recommendations Continue Zosyn 3.375 g IV every 8 hours Continue vancomycin with pharmacy to dose, goal trough of 15 Continue Levaquin 750 mg IV daily 11/15- patient improving clinically, fevers resolved overnight. Continue to have intermittent tachycardia. No longer having leukocytosis. Continues to be septic. Chest x-ray obtained today showing improvement in the left basilar infiltrate however findings of new right lung base opacification with consolidation representing pneumonia and/or atelectasis. Patient continued to improve from a respiratory perspective and resting comfortable and 2 L nasal cannula. We will continue broad-spectrum antibiotic coverage with vancomycin, Levaquin and Zosyn. Infectious disease has signed off. Continue to follow cultures. Patient remains hemodynamically stable 11/16/ Patient had to SIRS criteria initially which did resolve She did develop leukocytosis tachycardia and fever last week Infectious disease was consulted and was treating for pneumonia leukocyte ptosis did improve but now leukopenic with bands Blood cultures are negative 2 And cytopenic we will consult oncology CT of abdomen and pelvis does reveal possible stercoral colitis. Which could be contributing to sepsis. We will give IV fluids-no fevers Vanc and Zosyn DC'd by infectious disease we will resume Zosyn Continue Levaquin 11/17-patient more alert today I did discuss case with infectious disease continue with Zosyn for colitis Levaquin will be discontinued per infectious disease recommendations continue to monitor white count no fever at this time 11/18-patient is more alert this time blood pressure has improved. Urinalysis has decreased patient does appear to be a little fluid overloaded we will give IV Lasix continue with Zosyn for now continue to monitor white count no fever at this time 11/20 patient seems to be improving she is more alert blood pressure stable continue with Zosyn for colitis no fevers at this time infectious disease has been consulted. Repeat of urinalysis much improved. White count is risen some we will continue to monitor Qualifiers: Sepsis type: sepsis due to unspecified organism Qualified Code(s): A41.9 - Sepsis, unspecified organism (3) Altered mental status Current Visit: Yes Status: Resolved Assessment and plan: Patient's mental state has improved she is alert and answering questions oriented to name only. However she does make inappropriate statements at times continue with antibiotic treatment 11/18-patient's mental state has improved she is alert oriented 3 following simple commands-caregivers have been at bedside and she is not back to baseline as of yet. We will continue to monitor 11/20 patient is much improved alert oriented 3 following simple commands. Suspect altered state was related to sepsis continue to monitor Qualifiers: Altered mental status type: disorientation Qualified Code(s): R41.0 - Disorientation, unspecified (4) Cerebral palsy Current Visit: Yes Status: Chronic Assessment and plan: Chronic, follows with neurology Qualifiers: Cerebral palsy type: unspecified type Qualified Code(s): G80.9 - Cerebral palsy, unspecified (5) GERD (gastroesophageal reflux disease) Current Visit: No Status: Chronic Assessment and plan: Pt is on prilosec Keep head of bed elevated. Don't eat large meals before laying down. Chew all foods throuroughly Speech recommends thin liquids, advance soft textures , meds in puree. No straws 11/14-continue Prilosec. See plan above 11/16 we will continue with Prilosec continue with head of bed elevation during meals continue addendum liquids advanced soft textures meds injuries and no straws per speech therapy recommendations 11/18 continue with Prilosec maintain head of bed elevated during meals -patient did have an episode of choking during breakfast reevaluated by speech therapy patient placed on nectar thickened liquids as well as mechanical soft 11/20 continue with Prilosec maintaining adequate been elevated during meals spaced therapy has been consulted recommending nectar thickened liquids as well as mechanical soft Qualifiers: Esophagitis presence: esophagitis presence not specified Qualified Code(s) : K21.9 - Gastro-esophageal reflux disease without esophagitis (6) DVT prophylaxis Current Visit: No Status: Acute Assessment and plan: Cont sq heparin (7) Seizure Current Visit: No Status: Chronic Assessment and plan: On depakote Speech evaluated with swallow studie - recommendation below: ST recommends thin liquid and advanced soft textures. NO STRAWS, assist with feeds, meds in puree. Patient is tolerating baseline diet. No swallow therapy recommended at this time. Neuro checks q4hr - pt at this time is arousable and is aware of where she is 11/13- patient with history of seizures, on Depakote, continue Depakote. Continue neuro checks every 4 hours. This time patient is arousable but unable to communicate. 11/15- no seizure-like activity during this admission. Continue Depakote. Continue frequent neuro checks. Patient will status improving overnight. She is arousable to verbal stimulus and able to communicate. However, she is not yet back to baseline. 11/16-no seizure activity continue with Depakote seizure precautions 11/17 no seizure activity at this time continue with seizure precautions continue with Depakote 11/18 no seizure activity at this time continue seizure precautions continue Depakote 11/20 no seizure activity noted continue seizure precautions continue with Depakote (8) Hypokalemia Current Visit: Yes Status: Resolved Assessment and plan: Potassium 2.1. Replacement done in the ER. Today it is 2.6-replaced with 60 MEQ liquid oral potassium, recheck potassium this evening Recheck electrolytes tomorrow and replete as necessary 11/14- today's potassium 3.0. Replete with 40 MEQ K rider, recheck this afternoon and replete as necessary. Recheck BMP daily, obtain serum magnesium the morning 11/15- today's potassium 3.6. Continue to monitor and replete as necessary, serum mag 1.7. BMP daily 11/16 today potassium is 3 replace with 40 mEq KCl continue to monitor and replace 11/16 potassium has improved 2.7 today continue to monitor and replace as needed 11/18 this has improved we will continue to monitor replace as needed 11/20 this has improved up to 3.4 today we will continue to monitor (9) Pneumonia Current Visit: Yes Status: Acute Assessment and plan: Bilateral pneumonia, organism unclear, caregivers reporting patient recently had episodes of choking while eating, concern for aspiration pneumonia. Noted to have fevers, tachypnea and rest her distress. Continues to have an episode of tachycardia however has remained afebrile overnight Has scattered rhonchi throughout per auscultation CT angio of the chest to r/o PE - showed no acute PE but possible pneumonia and a large hiatal hernia Blood cultures on no growth, repeat cultures pending Respiratory infection panel negative WBC 4.9 today Mental status improving today Patient has sepsis secondary to PNA Continue vancomycin, Zosyn and Levaquin Infectious disease has signed off CXR obtained today 11/15/17-significant improvement in left basal infiltrates with residual subsegmental atelectasis. Right lung base opacification representing effusion with or without underlying consolidation which may represent pneumonia and/or atelectasis. 11/15-clinically, patient continued to improve. Estrace status and mental status post improving today. Patient resting comfortably on 2 L nasal cannula. Continue broad-spectrum coverage with vancomycin, Zosyn and Levaquin. Continue to follow blood cultures. 11/16 Bilateral pneumonia and chart this is aspiration and speech therapy was consulted and recommending thin liquids and advanced soft textures. Obtain strep pneumococcal and legionella urinary antigens which were sent after straight catheter today Respiratory panel was negative Vancomycin and Zosyn was discontinued by infectious disease will resume Zosyn Continue with Levaquin CT of chest with contrast obtained Interval decrease in size of bilateral pleural effusions with associated dependent consolidation, likely atelectasis. Patchy bilateral airspace disease is decreased in extent and density, mostly remaining in the upper lungs. 11/17 Spoke with infectious disease continue with Zosyn and DC Levaquin oxygen as needed We will continue with infectious disease recommendations. 11/18 we will continue with Zosyn oxygen as needed 11/20 continue with Zosyn oxygen as needed infectious disease has been consulted and appreciate recommendations. Seems to be improved Sats are stable at this time no cough or fever Qualifiers: Pneumonia type: due to unspecified organism Laterality: right Lung location: lower lobe of lung Qualified Code(s): J18.1 - Lobar pneumonia, unspecified organism (10) Dysphasia Current Visit: Yes Status: Acute Assessment and plan: 11/18 Patient did have episode of choking during breakfast this a.m.-reevaluated by speech therapy recommending nectar thickened liquids as well as advanced soft diet 11/20 continue with nectar thickened liquids as well as advanced soft diet speech therapy consulted (11) DVT (deep venous thrombosis) Current Visit: Yes Status: Suspected Assessment and plan: r/o DVT and PE -CTA of chest negative for acute PE, showed possible pneumonia -started pt on Zosyn/Vanc -Blood cx pending -ID consulted t max overnight 100.4, HR in 120's Meets part of Virchow's triad of hypercoag 2/2 to immobility and stasis. She has only been on SCD for DVT prophylaxis Pt placed on 5000U SQ heparin repeated US bilateral LE to r/o DVT 11/13- Doppler study reveals-very difficult/impossible study from pop V level on down bilaterally. Unable to adequately rule out possibility of DVT in these locations although no DVT was clearly imaged all locations above pop V level and legs appear negative for thrombus. We will withhold on hurting therapeutic anticoagulation at this time. Bilateral lower extremity circulation PT/DP 1+/1+ 11/14- bilateral lower extremities with adequate circulation and blood flow. PT /DP 1+/1+. Patient on subcutaneous heparin 11/15-B/L lower extremities with adequate circulation and blood flow. Palpable pulses bilaterally. Continue SQ heparin. No pain or tenderness to palpation 11/16-patient has pancytopenia we will stop subcutaneous heparin continue with SCDs 11/17 we will continue with heparin as well as SCDs 11/18 continue with heparin as well as SCDs 11/20 continue with heparin and SCDs Qualifiers: DVT location: lower extremity Affected thrombotic vein of extremity: other lower extremity vein Chronicity: acute Laterality: unspecified laterality Qualified Code(s): I82.409 - Acute embolism and thrombosis of unspecified deep veins of unspecified lower extremity (12) Delirium due to general medical condition Current Visit: Yes Status: Acute Assessment and plan: Continuing to have features of delirium Poor eye contact, disorganized speech, anxiety. Patient speaking to an inanimate objects Psychiatry seeing in consultation, appreciate recommendations-no reason to change antipsychotic medications per psychiatry-continue antipsychotics throughout stay Underlying medical conditions exacerbating delirium 11/14-continues to have altered mental status. Underlying medical conditions likely exacerbating delirium. At baseline patient is able to recognize caregivers and feed herself and provided minimal yes or no responses. However, patient is unable to do that at this time. Psychiatry following consultation. Recommendations are to continue antipsychotic medications; do not titrate these medications. Also of note, the patient is septic with pneumonia and this is likely contributing to deteriorating mental status 11/15- clinically, patient's mental status appears to be improving. I believe that the delirium is caused by sepsis and pneumonia. Discussed with caregivers patient baseline, caregivers report that patient is normally able to verbalize and communicate. Per my assessment this morning she is continuing to improve. She is responding to verbal stimulus and able to answer simple questions such as her urine pain, need anything, however you feeling. See assessment and plan above 11/18 patient is much improved today alert oriented 3 following simple commands- suspect delirium is caused by sepsis/pneumonia /colitis 11/20 much improved. Oriented 3 following simple commands delirium is caused by sepsis pneumonia colitis (13) Thrombocytopenia Current Visit: Yes Status: Acute Assessment and plan: 11/17 I did speak with oncology concerning thrombocytopenia suspect most likely related to sepsis-we will continue to monitor and consult heme/onc as needed to evaluate-okay to continue with heparin for DVT prophylaxis 11/20 most likely secondary to sepsis this has improved up to 104 today we will continue today we will continue to monitor - Time Spent With Patient Total time spent is greater than 50% in coordination of care (as documented) at patient's floor/unit and/or counseling patient: - Subjective Interval history: Patient was seen and examined at bedside.Alert and oriented follow simple commands. No complaints of nausea, has had several large bowel movements. - Constitutional Vitals: Temp Pulse Resp BP Pulse Ox 97.4 F L 71 16 90/57 92 11/20/17 10:59 11/20/17 10:59 11/20/17 11:20 11/20/17 10:59 11/20/17 11:20 General appearance: Present: A&O X 1, disheveled, mild distress - Head Head exam: Present: atraumatic, normocephalic - Eye Eye exam: Present: PERRL, conjuntiva pink, sclera anicteric Pupils: Present: PERRL - Neck Neck exam general surgery: Present: supple, trachea midline. Absent: lymphadenopathy - Respiratory Respiratory exam: Present: CTAB. Absent: accessory muscle use, rales, rhonchi, wheezes - Cardiovascular Cardiovascular exam: Present: RRR, +S1, +S2. Absent: diastolic murmur, gallop, rubs, systolic murmur - GI/Abdominal GI/Abdominal exam: Present: normal bowel sounds, soft, no peritoneal signs. Absent: distended, tenderness - Extremities Exam Extremities exam: Present: warm, radial pulses palpable and symmetrical. Absent : calf tenderness, cyanotic, pedal edema - Neurological Exam Neurological exam: Present: CN II-XII intact, oriented X3, no focal deficits. Absent: pronater drift, facial droop, speech deficit - Skin Skin exam: Present: dry, intact Internal Medicine: Result - Labs CBC & Chem 7: 11/20/17 10:32 11/20/17 07:41 Labs: Short CBC 11/19/17 11/20/17 Range/Units 14:15 10:32 WBC 12.6 H D 13.6 H (4.3-11.1) K/mcL Hgb 10.7 L 10.6 L (11.5-15.4) g/dL Hct 32.9 L 33.2 L (35.3-44.9) % Plt Count 123 L 104 L (140-400) K/mcL Neutrophils # 9.5 H 8.8 (1.6-8.9) K/mcL BMP 11/19/17 11/20/17 14:15 07:41 Sodium 138 138 Potassium 2.7 L 3.4 L D Chloride 104 104 Carbon Dioxide 31 H 30 H BUN 4 L 4 L Creatinine 0.41 L 0.41 L Glucose 106 H 71 Calcium 8.2 L 8.0 L - ABG Interpretation ABG results: ABG ABG pH 7.50 pH Units (7.32-7.45) H 11/13/17 04:07 ABG pCO2 29 mmHg (35-45) L 11/13/17 04:07 ABG pO2 72 mmHg (85-104) L 11/13/17 04:07 ABG O2 Saturation 96 % (95-98) 11/13/17 04:07 PT/INR, D-dimer PT 11.7 Seconds (9.4-12.1) 11/06/17 21:22 - Impressions Impressions Pelvis Ultrasound 11/20/17 00:00 IMPRESSION: Uterus is prominent in size for age. Enlarged endometrium of concern for endometrial pathology. Left ovary not visualized due to bowel gas. D/ / Michell Gonzalez MD / Michell Gonzalez MD Interpreting Provider: Michell Gonzalez MD X-Ray 11/20/17 08:44 IMPRESSION: 1. Moderate to severe dextroscoliosis of the thoracolumbar spine. 2. Residual contrast and mild stool within the colonic loops. No abnormally dilated small bowel loops identified to suggest small bowel obstruction. D/ / Jeb Morris MD / Jeb Morris MD Interpreting Provider: Jeb Morris MD - VTE Documentation of Mechanical Device: Intermittent pneumatic compression device Consult Discharge Plan - Plan Referrals: Dayan Prieto CNP [Primary Care Provider] - 11/23/17 10:00 am (Appointment requested) Prescriptions: Amoxicillin/Clavulanate [Augmentin] 500 mg PO BIDWM 4 Days #8 tablet
[2017-11-20 17:48] LABS: Bilirubin,Urine Negative (Negative); Blood,Urine Moderate (Negative); Clarity,Urine Clear (Clear); Color,Urine Yellow (Yellow); Glucose,Urine (UA) Normal (Normal); Ketones,Urine Negative (Negative); Leukocyte Esterase,Urine Negative (Negative); Nitrite,Urine Negative (Negative); PH,Urine 6.5 pH Units (5.0-8.0); Protein,Urine Negative (Neg-Trace); Specific Gravity,Urine 1.012 (1.010-1.025); Urobilinogen,Urine Normal (Normal)
[2017-11-20 17:50] LABS: Bacteria,Urine None Seen per hpf (None-Few); Hyaline Casts,Urine None Seen per lpf (None-Few); Squamous Epithelial Cell,Urine Moderate per lpf (None-Few); WBC,Urine 0-3 per hpf (0-3)
[2017-11-20 18:19] LABS: Yeast,Urine Few per hpf (None Seen)
[2017-11-21] MEDS ORDERED: 0.9 % Sodium Chloride 250 ML IVC ONE (00:47)
[2017-11-21] MEDS ORDERED: 0.9 % Sodium Chloride 250 ML ONE (00:48)
[2017-11-21] MEDS: Piperacillin/Tazobactam 3.375 GM in 0.9 % Sodium Chloride Mini Bag 100 ML IVPB SCH ×3 (00:54→17:20)
[2017-11-21] MEDS: Ipratropium/Albuterol Neb 3 ML IH SCH ×5 (03:38→20:29)
[2017-11-21 05:11] LABS: Basophils % 0.3 %; Immature Granulocytes % 1.3 % (0-4); Mean Corpuscular HGB Conc 32.1 g/dL (31.6-35.5); Mean Corpuscular Hemoglobin 28.8 pg (28.0-33.3); Red Cell Distribution Width 18.5 % (11.5-14.5)
[2017-11-21 05:13] LABS: Eosinophils # 0.4 K/mcL (0.0-0.6); Hematocrit 26.2 % (35.3-44.9); Hemoglobin 8.4 g/dL (11.5-15.4); Immature Platelets 7.2 % (1.1-6.1); Lymphocytes # 1.5 K/mcL (0.6-4.6); Lymphocytes % 21.5 %; Mean Corpuscular Volume 89.7 fL (83.0-100.0); Monocytes # 0.8 K/mcL (0.0-1.3); Monocytes % 11.7 %; Neutrophils # 4.2 K/mcL (1.6-8.9); Red Blood Count 2.92 M/mcL (3.82-4.97); Segmented Neutrophils % 59.2 %
[2017-11-21 05:17] LABS: Platelet Count 87 K/mcL (140-400)
[2017-11-21 05:27] LABS: BUN/Creatinine Ratio 10 (6-26); Blood Urea Nitrogen 4 mg/dL (8-23); Calcium 7.5 mg/dL (8.6-10.3); Carbon Dioxide 31 mEq/L (23-29); Chloride 105 mEq/L (98-107); Glucose 63 mg/dL (70-105); Osmolality,Calculated 285 (280-300); Potassium 3.4 mEq/L (3.5-5.1); Sodium 140 mEq/L (136-145); eGFR For Non-African Americans > 60 (> 60)
[2017-11-21] MEDS: *HR* Heparin 5,000 UNIT/ML VIAL SQ SCH ×2 (06:35→17:20)
[2017-11-21] MEDS: Lactobacillus 1 EACH CAP.SPRINK PO SCH ×2 (09:21→22:43)
[2017-11-21] MEDS: Loratadine 10 MG TABLET PO SCH (09:21)
[2017-11-21] MEDS: Venlafaxine XR (24 HR) 75 MG CAP.ER.24H PO SCH (09:21)
[2017-11-21] MEDS: Acetaminophen 325 MG TABLET PO PRN ×2 (09:22→22:43)
[2017-11-21] MEDS: Divalproex (24 HR) 250 MG TABLET PO SCH (09:22)
[2017-11-21] MEDS: Fluticasone Propionate Nasal 50 MCG/SPRAY BOTTLE NS SCH (09:23)
[2017-11-21] MEDS: Albumin 25% 25gram/100mL 25 GM/100 ML IV.SOLN IVC SCH ×2 (11:57→13:25)
--- NOTE | 2017-11-21 13:32 | Internal Med Progress Note ---
Date of Encounter: 11/22/17 Time of Encounter: 13:14 - Assessment and plan (1) Stercoral ulcer of large intestine Current Visit: Yes Status: Resolved Assessment and plan: 11/16/ CT of abdomen and pelvis with IV and oral contrast completed today results as follows: Large amount of dense stool within a markedly distended rectosigmoid colon ; the rectosigmoid colonic wall thickening and adjacent stranding are evident. Findings are worrisome for stercoral colitis. -I did curbside consult surgery spoke with Dr. Hussein who advised- close nursing observation, advised to be cautious with enemas-overuse since bowel is already distended adding extra fluid raising risk of bowel rupture. Start gently with fleets enema 2. Advised to continue with antibiotics patient was on Zosyn which we will continue. Will require follow-up CT. Once stool has cleared we will be able to give oral laxatives. Does not feel patient is surgical candidate at this time however continue to closely monitor. I did discuss this case with Dr. Michaels who agreed with plan we will transfer patient to ICU for closer monitoring since patient is confused and it is difficult to assess patient's status 11/17- Patient did receive a Fleet enema she did have a large formed bowel movement overnight. We will repeat and continue to monitor. Continue with Zosyn. We will the patient to ICU To stepdown. Continue with IV fluids and monitor closely 11/18-patient received Her enema overnight and tolerated well we will repeat CT scan of abdomen awaiting results. If improvement will go ahead and start patient on oral stool softeners-patient's mental status much improved she is alert oriented 3 at this time following simple commands. Blood pressure with systolic greater than 100 this time continue to monitor 11/20 Consultation most likely related to cerebral palsy as well as medication induced. Patient has had several large soft bowel movements we will continue with MiraLAX as well as Colace. We will give 1 more tapwater enema today check KUB. We will follow-up with a CT abdomen in the a.m. Continue with clear liquids for now until CT result Consult surgery as needed 11/21 CT of abdomen and pelvis completed which shows no evidence of bowel obstruction previously seen large volume of stool in rectum is no longer present. Mild thickening of sigmoid colon wall recommending colonoscopy large hiatal hernia we will continue with stool softeners and MiraLAX for now (2) Sepsis Current Visit: Yes Status: Acute Assessment and plan: The patient developed leukocytosis, is tachycardic and hypotensive in the setting of pneumonia Organism undetermined Sepsis likely secondary to pneumonia however continue to rule out other causes Blood cultures from November 07 negative 2 sets repeat cultures November 12 no growth to date additional repeat culture x 2 sets pending Respiratory infection panel negative No obvious skin breakdown, UA 11/06/17 unremarkable; no obsvious source for infection Infectious disease seeing in consultation, appreciate recommendations Continue Zosyn 3.375 g IV every 8 hours Continue vancomycin with pharmacy to dose, goal trough of 15 Continue Levaquin 750 mg IV daily 11/15- patient improving clinically, fevers resolved overnight. Continue to have intermittent tachycardia. No longer having leukocytosis. Continues to be septic. Chest x-ray obtained today showing improvement in the left basilar infiltrate however findings of new right lung base opacification with consolidation representing pneumonia and/or atelectasis. Patient continued to improve from a respiratory perspective and resting comfortable and 2 L nasal cannula. We will continue broad-spectrum antibiotic coverage with vancomycin, Levaquin and Zosyn. Infectious disease has signed off. Continue to follow cultures. Patient remains hemodynamically stable 11/16/ Patient had to SIRS criteria initially which did resolve She did develop leukocytosis tachycardia and fever last week Infectious disease was consulted and was treating for pneumonia leukocyte ptosis did improve but now leukopenic with bands Blood cultures are negative 2 And cytopenic we will consult oncology CT of abdomen and pelvis does reveal possible stercoral colitis. Which could be contributing to sepsis. We will give IV fluids-no fevers Vanc and Zosyn DC'd by infectious disease we will resume Zosyn Continue Levaquin 11/17-patient more alert today I did discuss case with infectious disease continue with Zosyn for colitis Levaquin will be discontinued per infectious disease recommendations continue to monitor white count no fever at this time 11/18-patient is more alert this time blood pressure has improved. Urinalysis has decreased patient does appear to be a little fluid overloaded we will give IV Lasix continue with Zosyn for now continue to monitor white count no fever at this time 11/20 patient seems to be improving she is more alert blood pressure stable continue with Zosyn for colitis no fevers at this time infectious disease has been consulted. Repeat of urinalysis much improved. White count is risen some we will continue to monitor 11/21 white count has improved patient has been hypotensive overnight and repeat urinalysis improved CT abdomen and pelvis did reveal-groundglass opacities in the right upper lobe may represent pneumonia or pneumonitis. We will continue with Zosyn (day 4) for now infectious disease has been consulted and appreciate their recommendations. Qualifiers: Sepsis type: sepsis due to unspecified organism Qualified Code(s): A41.9 - Sepsis, unspecified organism (3) Altered mental status Current Visit: Yes Status: Resolved Assessment and plan: Patient's mental state has improved she is alert and answering questions oriented to name only. However she does make inappropriate statements at times continue with antibiotic treatment 11/18-patient's mental state has improved she is alert oriented 3 following simple commands-caregivers have been at bedside and she is not back to baseline as of yet. We will continue to monitor 11/20 patient is much improved alert oriented 3 following simple commands. Suspect altered state was related to sepsis continue to monitor 11/21 patient is oriented 3 following simple commands suspect altered state was related to sepsis we will continue to monitor Qualifiers: Altered mental status type: disorientation Qualified Code(s): R41.0 - Disorientation, unspecified (4) Cerebral palsy Current Visit: Yes Status: Chronic Assessment and plan: Chronic, follows with neurology Qualifiers: Cerebral palsy type: unspecified type Qualified Code(s): G80.9 - Cerebral palsy, unspecified (5) GERD (gastroesophageal reflux disease) Current Visit: No Status: Chronic Assessment and plan: Pt is on prilosec Keep head of bed elevated. Don't eat large meals before laying down. Chew all foods throuroughly Speech recommends thin liquids, advance soft textures , meds in puree. No straws 11/14-continue Prilosec. See plan above 11/16 we will continue with Prilosec continue with head of bed elevation during meals continue addendum liquids advanced soft textures meds injuries and no straws per speech therapy recommendations 11/18 continue with Prilosec maintain head of bed elevated during meals -patient did have an episode of choking during breakfast reevaluated by speech therapy patient placed on nectar thickened liquids as well as mechanical soft 11/20 continue with Prilosec maintaining adequate been elevated during meals spaced therapy has been consulted recommending nectar thickened liquids as well as mechanical soft 11/21 continue with Prilosec maintain head of bed elevated during meals Qualifiers: Esophagitis presence: esophagitis presence not specified Qualified Code(s) : K21.9 - Gastro-esophageal reflux disease without esophagitis (6) DVT prophylaxis Current Visit: No Status: Acute Assessment and plan: Cont sq heparin (7) Seizure Current Visit: No Status: Chronic Assessment and plan: On depakote Speech evaluated with swallow studie - recommendation below: ST recommends thin liquid and advanced soft textures. NO STRAWS, assist with feeds, meds in puree. Patient is tolerating baseline diet. No swallow therapy recommended at this time. Neuro checks q4hr - pt at this time is arousable and is aware of where she is 11/13- patient with history of seizures, on Depakote, continue Depakote. Continue neuro checks every 4 hours. This time patient is arousable but unable to communicate. 11/15- no seizure-like activity during this admission. Continue Depakote. Continue frequent neuro checks. Patient will status improving overnight. She is arousable to verbal stimulus and able to communicate. However, she is not yet back to baseline. 11/16-no seizure activity continue with Depakote seizure precautions 11/17 no seizure activity at this time continue with seizure precautions continue with Depakote 11/18 no seizure activity at this time continue seizure precautions continue Depakote 11/20 no seizure activity noted continue seizure precautions continue with Depakote 11/21 her activity at this time continue with seizure precautions as well as Depakote (8) Hypokalemia Current Visit: Yes Status: Resolved Assessment and plan: Potassium 2.1. Replacement done in the ER. Today it is 2.6-replaced with 60 MEQ liquid oral potassium, recheck potassium this evening Recheck electrolytes tomorrow and replete as necessary 11/14- today's potassium 3.0. Replete with 40 MEQ K rider, recheck this afternoon and replete as necessary. Recheck BMP daily, obtain serum magnesium the morning 11/15- today's potassium 3.6. Continue to monitor and replete as necessary, serum mag 1.7. BMP daily 11/16 today potassium is 3 replace with 40 mEq KCl continue to monitor and replace 11/16 potassium has improved 2.7 today continue to monitor and replace as needed 11/18 this has improved we will continue to monitor replace as needed 11/20 this has improved up to 3.4 today we will continue to monitor 11/21 improved continue to monitor and replace as needed (9) Pneumonia Current Visit: Yes Status: Acute Assessment and plan: Bilateral pneumonia, organism unclear, caregivers reporting patient recently had episodes of choking while eating, concern for aspiration pneumonia. Noted to have fevers, tachypnea and rest her distress. Continues to have an episode of tachycardia however has remained afebrile overnight Has scattered rhonchi throughout per auscultation CT angio of the chest to r/o PE - showed no acute PE but possible pneumonia and a large hiatal hernia Blood cultures on no growth, repeat cultures pending Respiratory infection panel negative WBC 4.9 today Mental status improving today Patient has sepsis secondary to PNA Continue vancomycin, Zosyn and Levaquin Infectious disease has signed off CXR obtained today 11/15/17-significant improvement in left basal infiltrates with residual subsegmental atelectasis. Right lung base opacification representing effusion with or without underlying consolidation which may represent pneumonia and/or atelectasis. 11/15-clinically, patient continued to improve. Estrace status and mental status post improving today. Patient resting comfortably on 2 L nasal cannula. Continue broad-spectrum coverage with vancomycin, Zosyn and Levaquin. Continue to follow blood cultures. 11/16 Bilateral pneumonia and chart this is aspiration and speech therapy was consulted and recommending thin liquids and advanced soft textures. Obtain strep pneumococcal and legionella urinary antigens which were sent after straight catheter today Respiratory panel was negative Vancomycin and Zosyn was discontinued by infectious disease will resume Zosyn Continue with Levaquin CT of chest with contrast obtained Interval decrease in size of bilateral pleural effusions with associated dependent consolidation, likely atelectasis. Patchy bilateral airspace disease is decreased in extent and density, mostly remaining in the upper lungs. 11/17 Spoke with infectious disease continue with Zosyn and DC Levaquin oxygen as needed We will continue with infectious disease recommendations. 11/18 we will continue with Zosyn oxygen as needed 11/20 continue with Zosyn oxygen as needed infectious disease has been consulted and appreciate recommendations. Seems to be improved Sats are stable at this time no cough or fever 11/21 CT of abdomen and pelvis does show Peribronchovascular ground opacities in right upper lobe- may represent pneumonia or pneumonitis if patient has clinical sx of infection Qualifiers: Pneumonia type: due to unspecified organism Laterality: right Lung location: lower lobe of lung Qualified Code(s): J18.1 - Lobar pneumonia, unspecified organism (10) Dysphasia Current Visit: Yes Status: Acute Assessment and plan: 11/18 Patient did have episode of choking during breakfast this a.m.-reevaluated by speech therapy recommending nectar thickened liquids as well as advanced soft diet 11/20 continue with nectar thickened liquids as well as advanced soft diet speech therapy consulted 11/21 cont with nectar thickened liquids and advaced soft diet speech therapy consulted (11) DVT (deep venous thrombosis) Current Visit: Yes Status: Suspected Assessment and plan: r/o DVT and PE -CTA of chest negative for acute PE, showed possible pneumonia -started pt on Zosyn/Vanc -Blood cx pending -ID consulted t max overnight 100.4, HR in 120's Meets part of Virchow's triad of hypercoag 2/2 to immobility and stasis. She has only been on SCD for DVT prophylaxis Pt placed on 5000U SQ heparin repeated US bilateral LE to r/o DVT 11/13- Doppler study reveals-very difficult/impossible study from pop V level on down bilaterally. Unable to adequately rule out possibility of DVT in these locations although no DVT was clearly imaged all locations above pop V level and legs appear negative for thrombus. We will withhold on hurting therapeutic anticoagulation at this time. Bilateral lower extremity circulation PT/DP 1+/1+ 11/14- bilateral lower extremities with adequate circulation and blood flow. PT /DP 1+/1+. Patient on subcutaneous heparin 11/15-B/L lower extremities with adequate circulation and blood flow. Palpable pulses bilaterally. Continue SQ heparin. No pain or tenderness to palpation 11/16-patient has pancytopenia we will stop subcutaneous heparin continue with SCDs 11/17 we will continue with heparin as well as SCDs 11/18 continue with heparin as well as SCDs 11/20 continue with heparin and SCDs 11/21 heparin SCD Qualifiers: DVT location: lower extremity Affected thrombotic vein of extremity: other lower extremity vein Chronicity: acute Laterality: unspecified laterality Qualified Code(s): I82.409 - Acute embolism and thrombosis of unspecified deep veins of unspecified lower extremity (12) Delirium due to general medical condition Current Visit: Yes Status: Acute Assessment and plan: Continuing to have features of delirium Poor eye contact, disorganized speech, anxiety. Patient speaking to an inanimate objects Psychiatry seeing in consultation, appreciate recommendations-no reason to change antipsychotic medications per psychiatry-continue antipsychotics throughout stay Underlying medical conditions exacerbating delirium 11/14-continues to have altered mental status. Underlying medical conditions likely exacerbating delirium. At baseline patient is able to recognize caregivers and feed herself and provided minimal yes or no responses. However, patient is unable to do that at this time. Psychiatry following consultation. Recommendations are to continue antipsychotic medications; do not titrate these medications. Also of note, the patient is septic with pneumonia and this is likely contributing to deteriorating mental status 11/15- clinically, patient's mental status appears to be improving. I believe that the delirium is caused by sepsis and pneumonia. Discussed with caregivers patient baseline, caregivers report that patient is normally able to verbalize and communicate. Per my assessment this morning she is continuing to improve. She is responding to verbal stimulus and able to answer simple questions such as her urine pain, need anything, however you feeling. See assessment and plan above 11/18 patient is much improved today alert oriented 3 following simple commands- suspect delirium is caused by sepsis/pneumonia /colitis 11/20 much improved. Oriented 3 following simple commands delirium is caused by sepsis pneumonia colitis 11/21 improved (13) Thrombocytopenia Current Visit: Yes Status: Acute Assessment and plan: 11/17 I did speak with oncology concerning thrombocytopenia suspect most likely related to sepsis-we will continue to monitor and consult heme/onc as needed to evaluate-okay to continue with heparin for DVT prophylaxis 11/20 most likely secondary to sepsis this has improved up to 104 today we will continue today we will continue to monitor 11/20 cont to monitor no s/sx of bleeding (14) Abnormal pelvic ultrasound Current Visit: Yes Status: Acute Assessment and plan: Uterus is prominent in size for age. Enlarged endometrium of concern for endometrial pathology. Left ovary not visualized due to bowel gas. will need follow up- Oncology as needed (15) Hypotension Current Visit: Yes Status: Acute Assessment and plan: 1 most likely rt to third spacing patients albumn is low and she has received several fluid boluses. We will give Albumin and solu cortef x 1 to see if this will bring BP up Qualifiers: Hypotension type: unspecified hypotension type Qualified Code(s): I95.9 - Hypotension, unspecified - Time Spent With Patient Total time spent is greater than 50% in coordination of care (as documented) at patient's floor/unit and/or counseling patient: - Subjective Interval history: Patient was seen and examined at bedside.Alert and oriented follows simple commands. According to nursing patient did have low blood pressure overnight with systolic in the 80s she was given IV fluids with little results. She is edematous this a.m. albumin was 1.7. We will transfuse 50 g of albumin. She also underwent CT of her abdomen which did reveal mild thickening of the sigmoid colon wall recommending colonoscopy. Also large volume of stool in rectum has been expelled. Patient did have a ultrasound of her pelvis which did show prominent uterus in size for age. Enlarged endometrium concern for endometrial pathology. - Constitutional Vitals: Temp Pulse Resp BP Pulse Ox 97.7 F 83 18 88/58 95 11/21/17 11:35 11/21/17 11:35 11/21/17 11:35 11/21/17 11:35 11/21/17 11:35 General appearance: Present: A&O X 1, disheveled, mild distress - Head Head exam: Present: atraumatic, normocephalic - Eye Eye exam: Present: PERRL, conjuntiva pink, sclera anicteric Pupils: Present: PERRL - Neck Neck exam general surgery: Present: supple, trachea midline. Absent: lymphadenopathy - Respiratory Respiratory exam: Present: CTAB. Absent: accessory muscle use, rales, rhonchi, wheezes - Cardiovascular Cardiovascular exam: Present: RRR, +S1, +S2. Absent: diastolic murmur, gallop, rubs, systolic murmur - GI/Abdominal GI/Abdominal exam: Present: normal bowel sounds, soft, no peritoneal signs. Absent: distended, tenderness - Extremities Exam Extremities exam: Present: warm, radial pulses palpable and symmetrical. Absent : calf tenderness, cyanotic, pedal edema - Neurological Exam Neurological exam: Present: CN II-XII intact, oriented X3, no focal deficits. Absent: pronater drift, facial droop, speech deficit - Skin Skin exam: Present: dry, intact Internal Medicine: Result - Labs CBC & Chem 7: 11/21/17 04:29 11/21/17 04:29 Labs: Short CBC 11/21/17 Range/Units 04:29 WBC 7.1 (4.3-11.1) K/mcL Hgb 8.4 L D (11.5-15.4) g/dL Hct 26.2 L (35.3-44.9) % Plt Count 87 L (140-400) K/mcL Neutrophils # 4.2 (1.6-8.9) K/mcL BMP 11/21/17 04:29 Sodium 140 Potassium 3.4 L Chloride 105 Carbon Dioxide 31 H BUN 4 L Creatinine 0.42 L Glucose 63 L Calcium 7.5 L Liver Function 11/21/17 Range/Units 04:29 Albumin 1.7 L (3.5-5.7) g/dL Urine 11/20/17 Range/Units 17:32 Urine Color Yellow (Yellow) Urine Clarity Clear (Clear) Urine pH 6.5 (5.0-8.0) pH Units Ur Specific [place] 1.012 (1.010-1.025) Urine Protein Negative (Neg-Trace) mg/dL Urine Glucose (UA) Normal (Normal) mg/dL - ABG Interpretation ABG results: ABG ABG pH 7.50 pH Units (7.32-7.45) H 11/13/17 04:07 ABG pCO2 29 mmHg (35-45) L 11/13/17 04:07 ABG pO2 72 mmHg (85-104) L 11/13/17 04:07 ABG O2 Saturation 96 % (95-98) 11/13/17 04:07 PT/INR, D-dimer PT 11.7 Seconds (9.4-12.1) 11/06/17 21:22 - Impressions Impressions Pelvis Ultrasound 11/20/17 00:00 IMPRESSION: Uterus is prominent in size for age. Enlarged endometrium of concern for endometrial pathology. Left ovary not visualized due to bowel gas. D/ / Michell Gonzalez MD / Michell Gonzalez MD Interpreting Provider: Michell Gonzalez MD Abdomen/Pelvis CT 11/21/17 08:00 IMPRESSION: 1. No evidence of bowel obstruction. Previously seen large volume of stool in the rectum on the exam of November 18, 2017 is no longer present. 2. Mild thickening of the sigmoid colon wall. If it would alter patient's long-term management and if patient is not up-to-date on colon cancer screening, consider colonoscopy on a nonemergent basis. 3. Large hiatal hernia. 4. Peribronchovascular ground-glass opacities in the right upper lobe. If patient has clinical symptoms of infection, this may represent pneumonia or pneumonitis. 5. Bibasilar atelectasis. D/ / 11/21/2017 10:59:41 Deangelo Kimbrough MD / gerber Interpreting Provider: Deangelo Kimbrough MD - VTE Documentation of Mechanical Device: Intermittent pneumatic compression device Consult Discharge Plan - Plan Referrals: Dayan Prieto CNP [Primary Care Provider] - 11/23/17 10:00 am (Appointment requested) Prescriptions: Amoxicillin/Clavulanate [Augmentin] 500 mg PO BIDWM 4 Days #8 tablet
[2017-11-21] MEDS ORDERED: 0.9 % Sodium Chloride 500 ML IVC ONE ×2 (14:49→15:26)
[2017-11-21] MEDS ORDERED: 0.9 % Sodium Chloride 500 ML ONE (14:55)
[2017-11-21] MEDS ORDERED: Hydrocortisone Sodium Succ 100 MG/2 ML VIAL IVP ONE (15:22)
[2017-11-22] MEDS: Piperacillin/Tazobactam 3.375 GM in 0.9 % Sodium Chloride Mini Bag 100 ML IVPB SCH ×2 (00:05→11:29)
[2017-11-22] MEDS: Ipratropium/Albuterol Neb 3 ML IH SCH ×7 (00:36→23:40)
[2017-11-22] MEDS: *HR* Heparin 5,000 UNIT/ML VIAL SQ SCH ×2 (07:29→18:19)
[2017-11-22 11:17] LABS: Eosinophils % 0.3 %; Red Cell Distribution Width 18.4 % (11.5-14.5)
[2017-11-22 11:19] LABS: Basophils % 0.3 %; Hemoglobin 8.7 g/dL (11.5-15.4); Immature Granulocytes % 1.5 % (0-4); Immature Platelets 14.1 % (1.1-6.1); Lymphocytes # 1.3 K/mcL (0.6-4.6); Lymphocytes % 22.6 %; Mean Corpuscular HGB Conc 33.5 g/dL (31.6-35.5); Mean Corpuscular Hemoglobin 28.9 pg (28.0-33.3); Mean Corpuscular Volume 86.4 fL (83.0-100.0); Mean Platelet Volume 12.1 fL (9.4-12.4); Monocytes # 0.8 K/mcL (0.0-1.3); Neutrophils # 3.6 K/mcL (1.6-8.9); Red Blood Count 3.01 M/mcL (3.82-4.97); Segmented Neutrophils % 61.3 %
--- NOTE | 2017-11-22 11:25 | Infectious Disease Progress No ---
Date of Encounter: 11/22/17 Time of Encounter: 11:23 - Assessment and Plan (1) Sepsis Current Visit: Yes Status: Acute The patient had 2 SIRS criteria initially, which resolved. She developed leukocytosis, tachycardia, and fever. Likely secondary to pneumonia at that time, but imaging reveals improvement. Likely secondary to stercoral colitis at this time. Improved. BP a little low, but stable. Had leukocytosis over the weekend, likely reactive from fecal impaction. This AM's labs pending. Blood cultures drawn November 07 are negative 2 sets. Repeat blood culture drawn November 12 1 set is negative. Additional blood cultures drawn 11/13/17 are negative x 2 sets. Qualifiers: Sepsis type: sepsis due to unspecified organism Qualified Code(s): A41.9 - Sepsis, unspecified organism (2) Colitis Current Visit: No Status: Acute CT of the abdomen and pelvis showed large amount of dense stool within a markedly distended rectosigmoid colon with colonic wall thickening and adjacent stranding worrisome for stercoral colitis. Bowel regimen per the primary team. Consider general surgery to evaluate. Repeat imaging shows resolution. Discontinue Zosyn. (3) Pneumonia Current Visit: Yes Status: Acute Location: Bilateral. Causative organism: Unclear. Likely secondary to aspiration. Patient witnessed to aspirate multiple meals. Speech therapy was consulted and recommended thin liquids and advance soft textures. Repeat speech eval completed last week. Check strep pneumococcal and legionella urinary antigens.--> negative. Get sputum culture if patient is able to provide an adequate specimen.--> not collected, patient not coughing anything up. Check respiratory infectious panel.--> negative. 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 atelectasis. Repeat CT scan of the chest showed interval decrease in size of the bilateral pleural effusions with associated dependent consolidation, likely atelectasis and patchy bilateral airspace disease is decreased in extent and density, mostly remaining in the upper lungs. Repeat CT scan showed RUL pneumonitis vs. PNA. Discontinue Zosyn. Has received 16 days of IV Zosyn, which is likely adequate. Qualifiers: Pneumonia type: due to unspecified organism Laterality: right Lung location: lower lobe of lung Qualified Code(s): J18.1 - Lobar pneumonia, unspecified organism (4) Altered mental status Current Visit: Yes Status: Resolved Etiology unclear. Likely secondary to sepsis. CT head negative on November 06. Resolved. Continue to monitor closely. Qualifiers: Altered mental status type: disorientation Qualified Code(s): R41.0 - Disorientation, unspecified (5) Dysphasia Current Visit: Yes Status: Acute Speech therapy evaluation noted. Repeat evaluation completed today. Continue to recommend mechanically altered textures and nectar thick liquids. (6) Hypokalemia Current Visit: Yes Status: Resolved (7) Cerebral palsy Current Visit: Yes Status: Chronic Qualifiers: Cerebral palsy type: unspecified type Qualified Code(s): G80.9 - Cerebral palsy, unspecified (8) GERD (gastroesophageal reflux disease) Current Visit: No Status: Chronic Qualifiers: Esophagitis presence: esophagitis presence not specified Qualified Code(s) : K21.9 - Gastro-esophageal reflux disease without esophagitis (9) Hyperlipidemia Current Visit: No Status: Chronic Qualifiers: Hyperlipidemia type: unspecified Qualified Code(s): E78.5 - Hyperlipidemia , unspecified (10) Hypertension Current Visit: No Status: Acute Qualifiers: Hypertension type: essential hypertension Qualified Code(s): I10 - Essential (primary) hypertension (11) Thrombocytopenia Current Visit: Yes Status: Acute Etiology unclear: infection vs. other. Recommend Hem/Onc to evaluate. --> Primary team discussed with hem/onc and think thrombocytopenia is related to infection. Improved. Continue to trend. - Subjective Interval history: Patient seen and examined. No acute events noted overnight. Patient awake, states "I'm not hungry." Denies chest pain, shortness of breath, or cough. Denies N/V/D or abdominal pain. No family or caregivers at bedside. Repeat CT of the abdomen and pelvis shows resolution of fecal impaction. Developed lekocytosis and hypotension over the weekend. Labs pending this morning. Infect Dis PN-Objective Data - Labs CBC & Chem 7: 11/22/17 10:48 11/22/17 13:04 Labs: Laboratory Results - last 24 hr 11/22/17 11/22/17 08:08 08:08 Albumin 2.5 L Specimen Rejected Clotted Cultures: Cultures 11/16/17 13:49 Urine Culture - Final Urine,Catheterized Lina glabrata 11/13/17 13:39 Blood Culture - Final Peripheral Venipuncture No growth. Final report. 11/13/17 13:39 Blood Culture - Final Peripheral Venipuncture No growth. Final report. 11/12/17 12:21 Blood Culture - Final Peripheral Venipuncture No growth. Final report. 11/16/17 13:49 Legionella Antigen - Final Urine,Catheterized Streptococcus pneumoniae Antigen (M - Final 11/07/17 03:51 Blood Culture - Final Peripheral Venipuncture No growth. Final report. 11/07/17 03:51 Blood Culture - Final Peripheral Venipuncture No growth. Final report. Serology 11/20/17 11/16/17 11/12/17 Range/Units 17:32 13:49 14:52 Urine Color Yellow Yellow (Yellow) Urine Clarity Clear Hazy A (Clear) Urine pH 6.5 5.5 (5.0-8.0) pH Units Ur Specific [place] 1.012 > 1.030 H (1.010-1.025) Urine Protein Negative 30 H (Neg-Trace) mg/dL Urine Glucose (UA) Normal Normal (Normal) mg/dL Urine Ketones Negative Trace H (Negative) mg/dL Urine Blood Moderate H Moderate H (Negative) Urine Nitrite Negative Negative (Negative) Urine Bilirubin Negative Small H (Negative) Urine Urobilinogen Normal Normal (Normal) mg/dL Ur Leukocyte Esterase Negative Negative (Negative) Urine Microscopic RBC 5-15 H 15-30 H (0-3) per hpf Urine Microscopic WBC 0-3 5-15 H (0-3) per hpf Ur Squamous Epith Cells Moderate H Many H (None-Few) per lpf Urine Bacteria None Seen None Seen (None-Few) per hpf Hyaline Casts None Seen None Seen (None-Few) per lpf Urine Yeast Few H Moderate H (None Seen) per hpf Ur Culture Indicated? NO NO (NO) Chlamy pneumoniae PCR Not Detected (Not Detect) Adenovirus (PCR) Not Detected (Not Detect) B. pertussis DNA (PCR) Not Detected (Not Detect) B.parapertussis DNA PCR Not Detected (Not Detect) Coronavirus OC43 (PCR) Not Detected (Not Detect) Coronavirus HKU1 (PCR) Not Detected (Not Detect) Coronavirus 229E (PCR) Not Detected (Not Detect) Coronavirus NL63 (PCR) Not Detected (Not Detect) Human Metapneumovir PCR Not Detected (Not Detect) Influenza A (H1) PCR Not Detected (Not Detect) Influ A (H1N1/09) PCR Not Detected (Not Detect) Influenza A (H3) PCR Not Detected (Not Detect) Influenza A Untype (PCR) Not Detected (Not Detect) Influenza Type B (PCR) Not Detected (Not Detect) M.pneumoniae DNA (PCR) Not Detected (Not Detect) Parainfluenza 1 (PCR) Not Detected (Not Detect) Parainfluenza 2 (PCR) Not Detected (Not Detect) Parainfluenza 3 (PCR) Not Detected (Not Detect) Parainfluenza 4 (PCR) Not Detected (Not Detect) RSV (PCR) Not Detected (Not Detect) Entero/Rhino (PCR) Not Detected (Not Detect) - Impressions Impressions Abdomen/Pelvis CT 11/18/17 16:45 IMPRESSION: 1. No change in large stool burden within the anorectal region with the rectum dilated up to 6.7 cm and associated mild wall thickening. Stable minimal surrounding inflammatory change. Correlation for fecal impaction or stercoral colitis is recommended. 2. George catheter in place. Mild nonspecific bladder wall thickening. Correlation for cystitis is recommended. Mild striated appearance of both kidneys probably represents phase of study rather than striated nephrogram. Correlation with urinalysis is recommended. 3. Large hiatal hernia. 4. Mild anasarca with body wall edema, mesenteric/omental edema, with small right and trace left pleural effusions. 5. The endometrial stripe measures 11 mm, which is considered thickened in a postmenopausal patient. Correlation with vaginal bleeding is recommended. Consider further evaluation with pelvic ultrasound if indicated. 6. Patchy ground-glass lung opacities in the bilateral upper lobes, nonspecific, possibly representing pneumonitis. D/ / 11/18/2017 17:53:18 Jose Garcia MD / gerber Interpreting Provider: Jose Garcia MD Exam - Constitutional Vitals: Temp Pulse Resp BP Pulse Ox 99.1 F 97 18 85/65 96 11/22/17 07:03 11/22/17 07:03 11/22/17 11:18 11/22/17 07:03 11/22/17 11:18 General appearance: average body habitus, cooperative, no acute distress - Head Head exam: Present: atraumatic, normal inspection, normocephalic - Eye Eye exam: Present: EOMI, normal appearance, PERRL Pupils: Present: normal accommodation - ENT ENT exam: Present: mucous membranes dry - Neck Neck exam: Present: normal inspection - Respiratory Respiratory exam: Present: CTAB. Absent: rales, respiratory distress, rhonchi, wheezes - Cardiovascular Cardiovascular exam: Present: RRR, +S1, +S2 - GI/Abdominal GI/Abdominal exam: Present: normal bowel sounds, soft. Absent: distended, tenderness Additional comments: George catheter remains patent with clear yellow urine. - Extremities Exam Extremities exam: Present: pedal edema (2+ BLE). Absent: joint swelling Additional comments: 2+ edema noted to the BUE and BLE. - Neurological Exam Neurological exam: Present: alert, oriented X3. Absent: no focal deficits ( PAralysis noted to the BLE.) - Psychiatric Psychiatric exam: Present: normal affect, normal mood - Skin Skin exam: Present: dry, intact, normal color, warm - VTE Documentation of Mechanical Device: Intermittent pneumatic compression device Consult Discharge Plan - Plan Referrals: Dayan Prieto CNP [Primary Care Provider] - 11/23/17 10:00 am (Appointment requested) Prescriptions: Amoxicillin/Clavulanate [Augmentin] 500 mg PO BIDWM 4 Days #8 tablet
[2017-11-22 11:28] LABS: Platelet Count 59 K/mcL (140-400)
[2017-11-22] MEDS: Venlafaxine XR (24 HR) 75 MG CAP.ER.24H PO SCH (11:30)
[2017-11-22] MEDS: Loratadine 10 MG TABLET PO SCH (11:30)
[2017-11-22] MEDS: Divalproex (24 HR) 250 MG TABLET PO SCH (11:30)
[2017-11-22] MEDS: Acetaminophen 325 MG TABLET PO PRN (11:31)
[2017-11-22] MEDS: Fluticasone Propionate Nasal 50 MCG/SPRAY BOTTLE NS SCH (11:32)
[2017-11-22] MEDS: Lactobacillus 1 EACH CAP.SPRINK PO SCH ×2 (11:33→23:10)
[2017-11-22 11:40] LABS: Platelet Estimate Decreased (Normal)
[2017-11-22 11:41] LABS: Anisocytosis 1+ (Not Present)
[2017-11-22 13:32] LABS: BUN/Creatinine Ratio 7 (6-26); Blood Urea Nitrogen 3 mg/dL (8-23); Calcium 8.7 mg/dL (8.6-10.3); Carbon Dioxide 31 mEq/L (23-29); Chloride 106 mEq/L (98-107); Glucose 78 mg/dL (70-105); Osmolality,Calculated 289 (280-300); Potassium 3.2 mEq/L (3.5-5.1); Sodium 142 mEq/L (136-145); eGFR For Non-African Americans > 60 (> 60)
[2017-11-22] MEDS ORDERED: Potassium Chloride 20 MEQ, Lidocaine 1% 2 ML in D5% in Water 250 ML IVPB ONE (14:37)
[2017-11-22] MEDS: Albumin 25% 25gram/100mL 25 GM/100 ML IV.SOLN IVC SCH ×2 (15:19→17:53)
--- NOTE | 2017-11-22 18:30 | Internal Med Progress Note ---
Date of Encounter: 11/22/17 Time of Encounter: 10:00 - Assessment and plan (1) Stercoral ulcer of large intestine Current Visit: Yes Status: Resolved Assessment and plan: 11/16/ CT of abdomen and pelvis with IV and oral contrast completed today results as follows: Large amount of dense stool within a markedly distended rectosigmoid colon ; the rectosigmoid colonic wall thickening and adjacent stranding are evident. Findings are worrisome for stercoral colitis. -I did curbside consult surgery spoke with Dr. Hussein who advised- close nursing observation, advised to be cautious with enemas-overuse since bowel is already distended adding extra fluid raising risk of bowel rupture. Start gently with fleets enema 2. Advised to continue with antibiotics patient was on Zosyn which we will continue. Will require follow-up CT. Once stool has cleared we will be able to give oral laxatives. Does not feel patient is surgical candidate at this time however continue to closely monitor. I did discuss this case with Dr. Michaels who agreed with plan we will transfer patient to ICU for closer monitoring since patient is confused and it is difficult to assess patient's status 11/17- Patient did receive a Fleet enema she did have a large formed bowel movement overnight. We will repeat and continue to monitor. Continue with Zosyn. We will the patient to ICU To stepdown. Continue with IV fluids and monitor closely 11/18-patient received Her enema overnight and tolerated well we will repeat CT scan of abdomen awaiting results. If improvement will go ahead and start patient on oral stool softeners-patient's mental status much improved she is alert oriented 3 at this time following simple commands. Blood pressure with systolic greater than 100 this time continue to monitor 11/20 Consultation most likely related to cerebral palsy as well as medication induced. Patient has had several large soft bowel movements we will continue with MiraLAX as well as Colace. We will give 1 more tapwater enema today check KUB. We will follow-up with a CT abdomen in the a.m. Continue with clear liquids for now until CT result Consult surgery as needed 11/21 CT of abdomen and pelvis completed which shows no evidence of bowel obstruction previously seen large volume of stool in rectum is no longer present. Mild thickening of sigmoid colon wall recommending colonoscopy large hiatal hernia we will continue with stool softeners and MiraLAX for now 11/22 this is resolved we will continue with stool softeners and MiraLAX to avoid constipation (2) Sepsis Current Visit: Yes Status: Acute Assessment and plan: The patient developed leukocytosis, is tachycardic and hypotensive in the setting of pneumonia Organism undetermined Sepsis likely secondary to pneumonia however continue to rule out other causes Blood cultures from November 07 negative 2 sets repeat cultures November 12 no growth to date additional repeat culture x 2 sets pending Respiratory infection panel negative No obvious skin breakdown, UA 11/06/17 unremarkable; no obsvious source for infection Infectious disease seeing in consultation, appreciate recommendations Continue Zosyn 3.375 g IV every 8 hours Continue vancomycin with pharmacy to dose, goal trough of 15 Continue Levaquin 750 mg IV daily 11/15- patient improving clinically, fevers resolved overnight. Continue to have intermittent tachycardia. No longer having leukocytosis. Continues to be septic. Chest x-ray obtained today showing improvement in the left basilar infiltrate however findings of new right lung base opacification with consolidation representing pneumonia and/or atelectasis. Patient continued to improve from a respiratory perspective and resting comfortable and 2 L nasal cannula. We will continue broad-spectrum antibiotic coverage with vancomycin, Levaquin and Zosyn. Infectious disease has signed off. Continue to follow cultures. Patient remains hemodynamically stable 11/16/ Patient had to SIRS criteria initially which did resolve She did develop leukocytosis tachycardia and fever last week Infectious disease was consulted and was treating for pneumonia leukocyte ptosis did improve but now leukopenic with bands Blood cultures are negative 2 And cytopenic we will consult oncology CT of abdomen and pelvis does reveal possible stercoral colitis. Which could be contributing to sepsis. We will give IV fluids-no fevers Vanc and Zosyn DC'd by infectious disease we will resume Zosyn Continue Levaquin 11/17-patient more alert today I did discuss case with infectious disease continue with Zosyn for colitis Levaquin will be discontinued per infectious disease recommendations continue to monitor white count no fever at this time 11/18-patient is more alert this time blood pressure has improved. Urinalysis has decreased patient does appear to be a little fluid overloaded we will give IV Lasix continue with Zosyn for now continue to monitor white count no fever at this time 11/20 patient seems to be improving she is more alert blood pressure stable continue with Zosyn for colitis no fevers at this time infectious disease has been consulted. Repeat of urinalysis much improved. White count is risen some we will continue to monitor 11/21 white count has improved patient has been hypotensive overnight and repeat urinalysis improved CT abdomen and pelvis did reveal-groundglass opacities in the right upper lobe may represent pneumonia or pneumonitis. We will continue with Zosyn (day 4) for now infectious disease has been consulted and appreciate their recommendations. 11/22 blood pressure was low and we did give albumin infectious disease following Zosyn has been DC'd we will continue to monitor Qualifiers: Sepsis type: sepsis due to unspecified organism Qualified Code(s): A41.9 - Sepsis, unspecified organism (3) Altered mental status Current Visit: Yes Status: Resolved Assessment and plan: Patient's mental state has improved she is alert and answering questions oriented to name only. However she does make inappropriate statements at times continue with antibiotic treatment 11/18-patient's mental state has improved she is alert oriented 3 following simple commands-caregivers have been at bedside and she is not back to baseline as of yet. We will continue to monitor 11/20 patient is much improved alert oriented 3 following simple commands. Suspect altered state was related to sepsis continue to monitor 11/21 patient is oriented 3 following simple commands suspect altered state was related to sepsis we will continue to monitor 11/22 this is resolved patient is improving appears to be alert and appropriate following commands Qualifiers: Altered mental status type: disorientation Qualified Code(s): R41.0 - Disorientation, unspecified (4) Cerebral palsy Current Visit: Yes Status: Chronic Assessment and plan: Chronic, follows with neurology Qualifiers: Cerebral palsy type: unspecified type Qualified Code(s): G80.9 - Cerebral palsy, unspecified (5) GERD (gastroesophageal reflux disease) Current Visit: No Status: Chronic Assessment and plan: Pt is on prilosec Keep head of bed elevated. Don't eat large meals before laying down. Chew all foods throuroughly Speech recommends thin liquids, advance soft textures , meds in puree. No straws 11/14-continue Prilosec. See plan above 11/16 we will continue with Prilosec continue with head of bed elevation during meals continue addendum liquids advanced soft textures meds injuries and no straws per speech therapy recommendations 11/18 continue with Prilosec maintain head of bed elevated during meals -patient did have an episode of choking during breakfast reevaluated by speech therapy patient placed on nectar thickened liquids as well as mechanical soft 11/20 continue with Prilosec maintaining adequate been elevated during meals spaced therapy has been consulted recommending nectar thickened liquids as well as mechanical soft 11/21 continue with Prilosec maintain head of bed elevated during meals 11/22 continue with Prilosec maintain head of bed elevated during meals Qualifiers: Esophagitis presence: esophagitis presence not specified Qualified Code(s) : K21.9 - Gastro-esophageal reflux disease without esophagitis (6) Seizure Current Visit: No Status: Chronic Assessment and plan: On depakote Speech evaluated with swallow studie - recommendation below: ST recommends thin liquid and advanced soft textures. NO STRAWS, assist with feeds, meds in puree. Patient is tolerating baseline diet. No swallow therapy recommended at this time. Neuro checks q4hr - pt at this time is arousable and is aware of where she is 11/13- patient with history of seizures, on Depakote, continue Depakote. Continue neuro checks every 4 hours. This time patient is arousable but unable to communicate. 11/15- no seizure-like activity during this admission. Continue Depakote. Continue frequent neuro checks. Patient will status improving overnight. She is arousable to verbal stimulus and able to communicate. However, she is not yet back to baseline. 11/16-no seizure activity continue with Depakote seizure precautions 11/17 no seizure activity at this time continue with seizure precautions continue with Depakote 11/18 no seizure activity at this time continue seizure precautions continue Depakote 11/20 no seizure activity noted continue seizure precautions continue with Depakote 11/21 her activity at this time continue with seizure precautions as well as Depakote 11/22 seizure precautions as well as Depakote (7) Hypokalemia Current Visit: Yes Status: Acute Assessment and plan: Potassium 2.1. Replacement done in the ER. Today it is 2.6-replaced with 60 MEQ liquid oral potassium, recheck potassium this evening Recheck electrolytes tomorrow and replete as necessary 11/14- today's potassium 3.0. Replete with 40 MEQ K rider, recheck this afternoon and replete as necessary. Recheck BMP daily, obtain serum magnesium the morning 11/15- today's potassium 3.6. Continue to monitor and replete as necessary, serum mag 1.7. BMP daily 11/16 today potassium is 3 replace with 40 mEq KCl continue to monitor and replace 11/16 potassium has improved 2.7 today continue to monitor and replace as needed 11/18 this has improved we will continue to monitor replace as needed 11/20 this has improved up to 3.4 today we will continue to monitor 11/21 improved continue to monitor and replace as needed 11/22 continue to monitor and replace low today at 3.2 (8) Pneumonia Current Visit: Yes Status: Acute Assessment and plan: Bilateral pneumonia, organism unclear, caregivers reporting patient recently had episodes of choking while eating, concern for aspiration pneumonia. Noted to have fevers, tachypnea and rest her distress. Continues to have an episode of tachycardia however has remained afebrile overnight Has scattered rhonchi throughout per auscultation CT angio of the chest to r/o PE - showed no acute PE but possible pneumonia and a large hiatal hernia Blood cultures on no growth, repeat cultures pending Respiratory infection panel negative WBC 4.9 today Mental status improving today Patient has sepsis secondary to PNA Continue vancomycin, Zosyn and Levaquin Infectious disease has signed off CXR obtained today 11/15/17-significant improvement in left basal infiltrates with residual subsegmental atelectasis. Right lung base opacification representing effusion with or without underlying consolidation which may represent pneumonia and/or atelectasis. 11/15-clinically, patient continued to improve. Estrace status and mental status post improving today. Patient resting comfortably on 2 L nasal cannula. Continue broad-spectrum coverage with vancomycin, Zosyn and Levaquin. Continue to follow blood cultures. 11/16 Bilateral pneumonia and chart this is aspiration and speech therapy was consulted and recommending thin liquids and advanced soft textures. Obtain strep pneumococcal and legionella urinary antigens which were sent after straight catheter today Respiratory panel was negative Vancomycin and Zosyn was discontinued by infectious disease will resume Zosyn Continue with Levaquin CT of chest with contrast obtained Interval decrease in size of bilateral pleural effusions with associated dependent consolidation, likely atelectasis. Patchy bilateral airspace disease is decreased in extent and density, mostly remaining in the upper lungs. 11/17 Spoke with infectious disease continue with Zosyn and DC Levaquin oxygen as needed We will continue with infectious disease recommendations. 11/18 we will continue with Zosyn oxygen as needed 11/20 continue with Zosyn oxygen as needed infectious disease has been consulted and appreciate recommendations. Seems to be improved Sats are stable at this time no cough or fever 11/21 CT of abdomen and pelvis does show Peribronchovascular ground opacities in right upper lobe- may represent pneumonia or pneumonitis if patient has clinical sx of infection 11/22 been followed by infectious disease-Zosyn has been DC'd after receiving 16 days Qualifiers: Pneumonia type: due to unspecified organism Laterality: right Lung location: lower lobe of lung Qualified Code(s): J18.1 - Lobar pneumonia, unspecified organism (9) Dysphasia Current Visit: Yes Status: Acute Assessment and plan: 11/18 Patient did have episode of choking during breakfast this a.m.-reevaluated by speech therapy recommending nectar thickened liquids as well as advanced soft diet 11/20 continue with nectar thickened liquids as well as advanced soft diet speech therapy consulted 11/21 cont with nectar thickened liquids and advaced soft diet speech therapy consulted 11/22 continue with nectar thickened liquids and advanced soft diet which therapy as needed (10) DVT (deep venous thrombosis) Current Visit: Yes Status: Suspected Assessment and plan: r/o DVT and PE -CTA of chest negative for acute PE, showed possible pneumonia -started pt on Zosyn/Vanc -Blood cx pending -ID consulted t max overnight 100.4, HR in 120's Meets part of Virchow's triad of hypercoag 2/2 to immobility and stasis. She has only been on SCD for DVT prophylaxis Pt placed on 5000U SQ heparin repeated US bilateral LE to r/o DVT 11/13- Doppler study reveals-very difficult/impossible study from pop V level on down bilaterally. Unable to adequately rule out possibility of DVT in these locations although no DVT was clearly imaged all locations above pop V level and legs appear negative for thrombus. We will withhold on hurting therapeutic anticoagulation at this time. Bilateral lower extremity circulation PT/DP 1+/1+ 11/14- bilateral lower extremities with adequate circulation and blood flow. PT /DP 1+/1+. Patient on subcutaneous heparin 11/15-B/L lower extremities with adequate circulation and blood flow. Palpable pulses bilaterally. Continue SQ heparin. No pain or tenderness to palpation 11/16-patient has pancytopenia we will stop subcutaneous heparin continue with SCDs 11/17 we will continue with heparin as well as SCDs 11/18 continue with heparin as well as SCDs 11/20 continue with heparin and SCDs 11/21 heparin SCD 11/22 heparin subcutaneous SCDs Qualifiers: DVT location: lower extremity Affected thrombotic vein of extremity: other lower extremity vein Chronicity: acute Laterality: unspecified laterality Qualified Code(s): I82.409 - Acute embolism and thrombosis of unspecified deep veins of unspecified lower extremity (11) Delirium due to general medical condition Current Visit: Yes Status: Acute Assessment and plan: Continuing to have features of delirium Poor eye contact, disorganized speech, anxiety. Patient speaking to an inanimate objects Psychiatry seeing in consultation, appreciate recommendations-no reason to change antipsychotic medications per psychiatry-continue antipsychotics throughout stay Underlying medical conditions exacerbating delirium 11/14-continues to have altered mental status. Underlying medical conditions likely exacerbating delirium. At baseline patient is able to recognize caregivers and feed herself and provided minimal yes or no responses. However, patient is unable to do that at this time. Psychiatry following consultation. Recommendations are to continue antipsychotic medications; do not titrate these medications. Also of note, the patient is septic with pneumonia and this is likely contributing to deteriorating mental status 11/15- clinically, patient's mental status appears to be improving. I believe that the delirium is caused by sepsis and pneumonia. Discussed with caregivers patient baseline, caregivers report that patient is normally able to verbalize and communicate. Per my assessment this morning she is continuing to improve. She is responding to verbal stimulus and able to answer simple questions such as her urine pain, need anything, however you feeling. See assessment and plan above 11/18 patient is much improved today alert oriented 3 following simple commands- suspect delirium is caused by sepsis/pneumonia /colitis 11/20 much improved. Oriented 3 following simple commands delirium is caused by sepsis pneumonia colitis 11/21 improved 11/22 improved we will continue to monitor (12) Thrombocytopenia Current Visit: Yes Status: Acute Assessment and plan: 11/17 I did speak with oncology concerning thrombocytopenia suspect most likely related to sepsis-we will continue to monitor and consult heme/onc as needed to evaluate-okay to continue with heparin for DVT prophylaxis 11/20 most likely secondary to sepsis this has improved up to 104 today we will continue today we will continue to monitor 11/20 cont to monitor no s/sx of bleeding (13) Abnormal pelvic ultrasound Current Visit: Yes Status: Acute Assessment and plan: Uterus is prominent in size for age. Enlarged endometrium of concern for endometrial pathology. Left ovary not visualized due to bowel gas. will need follow up- Oncology as needed May need to have psychiatry evaluate for competency status patient is on POA for any further workup or evaluation (14) Hypotension Current Visit: Yes Status: Acute Assessment and plan: 1 most likely rt to third spacing patients albumn is low and she has received several fluid boluses. We will give Albumin and solu cortef x 1 to see if this will bring BP up 11/22 albumin has improved pressure continues to be low we will give another dose of albumin and monitor Qualifiers: Hypotension type: unspecified hypotension type Qualified Code(s): I95.9 - Hypotension, unspecified (15) DVT prophylaxis Current Visit: No Status: Acute Assessment and plan: Cont sq heparin - Time Spent With Patient Total time spent is greater than 50% in coordination of care (as documented) at patient's floor/unit and/or counseling patient: - Subjective Interval history: Patient was seen and examined at bedside, earlier this morning. She seems more alert. Continues to have lower blood pressure as well as third spacing 2+ generalized edema. Denies any pain or discomfort at this time. - Constitutional Vitals: Temp Pulse Resp BP Pulse Ox 99.7 F H 108 20 97/64 90 11/22/17 15:33 11/22/17 17:34 11/22/17 17:34 11/22/17 17:34 11/22/17 17:34 General appearance: Present: A&O X 1, disheveled, mild distress - Head Head exam: Present: atraumatic, normocephalic - Eye Eye exam: Present: PERRL, conjuntiva pink, sclera anicteric Pupils: Present: PERRL - Neck Neck exam general surgery: Present: supple, trachea midline. Absent: lymphadenopathy - Respiratory Respiratory exam: Present: CTAB. Absent: accessory muscle use, rales, rhonchi, wheezes - Cardiovascular Cardiovascular exam: Present: RRR, +S1, +S2. Absent: diastolic murmur, gallop, rubs, systolic murmur - GI/Abdominal GI/Abdominal exam: Present: normal bowel sounds, soft, no peritoneal signs. Absent: distended, tenderness - Extremities Exam Extremities exam: Present: pedal edema, warm, radial pulses palpable and symmetrical. Absent: calf tenderness, cyanotic - Neurological Exam Neurological exam: Present: alert, CN II-XII intact, no focal deficits. Absent : pronater drift, facial droop, speech deficit - Skin Skin exam: Present: dry, intact Internal Medicine: Result - Labs CBC & Chem 7: 11/22/17 10:48 11/22/17 13:04 Labs: Short CBC 11/22/17 Range/Units 10:48 WBC 5.9 (4.3-11.1) K/mcL Hgb 8.7 L (11.5-15.4) g/dL Hct 26.0 L (35.3-44.9) % Plt Count 59 L (140-400) K/mcL Neutrophils # 3.6 (1.6-8.9) K/mcL BMP 11/22/17 13:04 Sodium 142 Potassium 3.2 L Chloride 106 Carbon Dioxide 31 H BUN 3 L Creatinine 0.41 L Glucose 78 Calcium 8.7 Liver Function 11/22/17 Range/Units 08:08 Albumin 2.5 L (3.5-5.7) g/dL - ABG Interpretation ABG results: ABG ABG pH 7.50 pH Units (7.32-7.45) H 11/13/17 04:07 ABG pCO2 29 mmHg (35-45) L 11/13/17 04:07 ABG pO2 72 mmHg (85-104) L 11/13/17 04:07 ABG O2 Saturation 96 % (95-98) 11/13/17 04:07 PT/INR, D-dimer PT 11.7 Seconds (9.4-12.1) 11/06/17 21:22 - Impressions Impressions Abdomen/Pelvis CT 11/18/17 16:45 IMPRESSION: 1. No change in large stool burden within the anorectal region with the rectum dilated up to 6.7 cm and associated mild wall thickening. Stable minimal surrounding inflammatory change. Correlation for fecal impaction or stercoral colitis is recommended. 2. George catheter in place. Mild nonspecific bladder wall thickening. Correlation for cystitis is recommended. Mild striated appearance of both kidneys probably represents phase of study rather than striated nephrogram. Correlation with urinalysis is recommended. 3. Large hiatal hernia. 4. Mild anasarca with body wall edema, mesenteric/omental edema, with small right and trace left pleural effusions. 5. The endometrial stripe measures 11 mm, which is considered thickened in a postmenopausal patient. Correlation with vaginal bleeding is recommended. Consider further evaluation with pelvic ultrasound if indicated. 6. Patchy ground-glass lung opacities in the bilateral upper lobes, nonspecific, possibly representing pneumonitis. D/ / 11/18/2017 17:53:18 Jose Garcia MD / gerber Interpreting Provider: Jose Garcia MD Abdomen/Pelvis CT 11/21/17 08:00 IMPRESSION: 1. No evidence of bowel obstruction. Previously seen large volume of stool in the rectum on the exam of November 18, 2017 is no longer present. 2. Mild thickening of the sigmoid colon wall. If it would alter patient's long-term management and if patient is not up-to-date on colon cancer screening, consider colonoscopy on a nonemergent basis. 3. Large hiatal hernia. 4. Peribronchovascular ground-glass opacities in the right upper lobe. If patient has clinical symptoms of infection, this may represent pneumonia or pneumonitis. 5. Bibasilar atelectasis. D/ / 11/21/2017 10:59:41 Deangelo Kimbrough MD / gerber Interpreting Provider: Deangelo Kimbrough MD - VTE Documentation of Mechanical Device: Intermittent pneumatic compression device Consult Discharge Plan - Plan Referrals: Dayan Prieto CNP [Primary Care Provider] - 11/23/17 10:00 am (Appointment requested) Prescriptions: Amoxicillin/Clavulanate [Augmentin] 500 mg PO BIDWM 4 Days #8 tablet
[2017-11-22 18:35] LABS: Bilirubin,Urine Negative (Negative); Blood,Urine Large (Negative); Clarity,Urine Clear (Clear); Color,Urine Yellow (Yellow); Glucose,Urine (UA) Normal (Normal); Ketones,Urine Trace mg/dL (Negative); Leukocyte Esterase,Urine Negative (Negative); Nitrite,Urine Negative (Negative); Protein,Urine 100 mg/dL (Neg-Trace); Urobilinogen,Urine Normal (Normal)
[2017-11-22 18:37] LABS: Hyaline Casts,Urine Few per lpf (None-Few); Squamous Epithelial Cell,Urine Many per lpf (None-Few); WBC,Urine 30-50 per hpf (0-3)
[2017-11-22 18:52] LABS: Bacteria,Urine Few per hpf (None-Few); RBC,Urine TNTC per hpf (0-3); Renal Epithelial Cells,Urine Few per hpf (None-Few); Yeast,Urine Many per hpf (None Seen)
[2017-11-23] MEDS: Ipratropium/Albuterol Neb 3 ML IH SCH ×6 (03:48→23:58)
[2017-11-23 05:13] LABS: Basophils % 0.4 %; Eosinophils % 3.5 %; Hemoglobin 7.7 g/dL (11.5-15.4); Immature Granulocytes % 0.9 % (0-4)
[2017-11-23 05:15] LABS: Eosinophils # 0.2 K/mcL (0.0-0.6); Hematocrit 23.5 % (35.3-44.9); Immature Platelets 6.9 % (1.1-6.1); Lymphocytes # 1.2 K/mcL (0.6-4.6); Lymphocytes % 25.3 %; Mean Corpuscular HGB Conc 32.8 g/dL (31.6-35.5); Mean Corpuscular Hemoglobin 28.9 pg (28.0-33.3); Mean Corpuscular Volume 88.3 fL (83.0-100.0); Mean Platelet Volume 11.5 fL (9.4-12.4); Monocytes # 0.8 K/mcL (0.0-1.3); Monocytes % 18.2 %; Neutrophils # 2.4 K/mcL (1.6-8.9); Red Blood Count 2.66 M/mcL (3.82-4.97); Red Cell Distribution Width 18.5 % (11.5-14.5); Segmented Neutrophils % 51.7 %
[2017-11-23 05:16] LABS: Platelet Count 76 K/mcL (140-400)
[2017-11-23 05:35] LABS: BUN/Creatinine Ratio 8 (6-26); Blood Urea Nitrogen 3 mg/dL (8-23); Calcium 8.6 mg/dL (8.6-10.3); Carbon Dioxide 30 mEq/L (23-29); Chloride 106 mEq/L (98-107); Glucose 68 mg/dL (70-105); Osmolality,Calculated 287 (280-300); Sodium 141 mEq/L (136-145); eGFR For Non-African Americans > 60 (> 60)
[2017-11-23 05:41] LABS: Anisocytosis 1+ (Not Present); Hypochromasia Present (Not Present); Platelet Estimate Decreased (Normal)
[2017-11-23] MEDS: *HR* Heparin 5,000 UNIT/ML VIAL SQ SCH (05:51)
[2017-11-23] MEDS ORDERED: Furosemide 20 MG/2 ML VIAL IVP ONE (08:53)
[2017-11-23] MEDS: Venlafaxine XR (24 HR) 75 MG CAP.ER.24H PO SCH (09:59)
[2017-11-23] MEDS: Divalproex (24 HR) 250 MG TABLET PO SCH (10:00)
[2017-11-23] MEDS: Loratadine 10 MG TABLET PO SCH (10:00)
[2017-11-23] MEDS: Fluticasone Propionate Nasal 50 MCG/SPRAY BOTTLE NS SCH (10:00)
[2017-11-23] MEDS: Lactobacillus 1 EACH CAP.SPRINK PO SCH ×2 (10:00→21:36)
[2017-11-23] MEDS: Nystatin Cream 15 GM TUBE TP SCH ×2 (10:08→21:37)
--- NOTE | 2017-11-23 10:27 | Event Note ---
Date of Encounter: 11/23/17 Time of Encounter: 10:20 Patient was seen and examined. I agree with the progress note as written by the resident physician. Patient was admitted for sepsis stemming from pneumonia was put on IV antibiotics with help of ID. Stay has been complicated by colitis with stool pardon which has resolved. Patient leukocytosis and signs of sepsis have resolved. Has a history of cerebral palsy. Looking at the patient's records it seems that her hemoglobin has been slowly dropping look at the patient's records it seems her hemoglobin has been slowly dropping since admission with initial presentation hemoglobin of 13.0 and is down to 7.7. No signs of bleeding. A CT abdomen and pelvis was done a couple times while hospitalized with signs of thickening in the sigmoid colon. GEN: NAD CVS: RRR. S1, S2, No m/r/g RESP: CTAB ABD: Soft, NT, ND, +BS EXT: No edema. 2+ DP. No rashes NEURO: Nonfocal Check FOBT c/s GI for possible scopes. Some type of MPOA needs to be established. Patient still shows signs of confusion and I am not sure she is able to make her own decision. 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 Patient is about 10 L net positive for the stay. Stop heparin subcutaneous SCDs
--- NOTE | 2017-11-23 10:35 | Internal Med Progress Note ---
Date of Encounter: 11/23/17 Time of Encounter: 10:00 - Assessment and plan (1) GI bleed Current Visit: Yes Status: Suspected Assessment and plan: hemoglobin 7.7 today, was 8.7 yesterday -will check H&H tomorrow -GI consulted, planning for EGD possibly colonsocpy tomorrow -FOBT pending -CT scan showed thickening of the sigmoid colon, need to r/o underlying malignancy (2) Thrombocytopenia Current Visit: Yes Status: Acute Assessment and plan: platelet count today 76 -has decreased over the last week 104 ---> 87 ----> 59 -consulted GI -FOBT -d/c heparin, continue SCD -GI said they will scope her with EGD, possibly will do a colonoscopy (3) Hypokalemia Current Visit: Yes Status: Acute Assessment and plan: Potassium today is 3 -replaced with 40mEq PO BID -recheck CMP in morning (4) Sepsis Current Visit: Yes Status: Resolved Assessment and plan: Pt met SIRS criteria on admission -blood cx negative -pneumonia was suspected source of infxn -pneumonia has resolved -pt is clinically stable -WBC 4.6 today, t 97.8, HR 96 Qualifiers: Sepsis type: sepsis due to unspecified organism Qualified Code(s): A41.9 - Sepsis, unspecified organism (5) Altered mental status Current Visit: Yes Status: Resolved Assessment and plan: Pt appears to be back to her baseline mentation -knows she is at [place], what year it is and who she is Qualifiers: Altered mental status type: disorientation Qualified Code(s): R41.0 - Disorientation, unspecified (6) Cerebral palsy Current Visit: No Status: Chronic Assessment and plan: Chronic, follows with neurology -on Baclofen Qualifiers: Cerebral palsy type: unspecified type Qualified Code(s): G80.9 - Cerebral palsy, unspecified (7) GERD (gastroesophageal reflux disease) Current Visit: No Status: Chronic Assessment and plan: Pt is on prilosec Keep head of bed elevated. Don't eat large meals before laying down. Chew all foods throuroughly Speech recommends thin liquids, advance soft textures , meds in puree. No straws Qualifiers: Esophagitis presence: esophagitis presence not specified Qualified Code(s) : K21.9 - Gastro-esophageal reflux disease without esophagitis (8) DVT prophylaxis Current Visit: No Status: Acute Assessment and plan: d/c heparin continue SCD (9) Seizure Current Visit: No Status: Chronic Assessment and plan: On depakote Speech evaluated with swallow study - recommendation below: ST recommends thin liquid and advanced soft textures. NO STRAWS, assist with feeds, meds in puree. Patient is tolerating baseline diet. No swallow therapy recommended at this time. (10) Pneumonia Current Visit: Yes Status: Resolved Assessment and plan: On admit pt had bilateral pneumonia concerning for aspiration pneumonia -received vancomycin and Zosyn -recieved levaquin -legionella and s pneumo both negative -pt has clinically improved and is alert and oriented today Qualifiers: Pneumonia type: due to unspecified organism Laterality: right Lung location: lower lobe of lung Qualified Code(s): J18.1 - Lobar pneumonia, unspecified organism (11) Dysphasia Current Visit: No Status: Chronic Assessment and plan: Continue with nectar thickened liquids and advanced soft diet which therapy as needed -continue prilosec -continue keeping head of bed elevated (12) Stercoral ulcer of large intestine Current Visit: Yes Status: Resolved Assessment and plan: on 11/16 - Large amount of dense stool within a markedly distended rectosigmoid colon ; the rectosigmoid colonic wall thickening and adjacent stranding are evident. Findings are worrisome for stercoral colitis. -pt was put on Zosyn as per Dr Hussein and moved to ICU -pt received fleet enemas over the last 10 days and tolerated them well On 11/21 CT showed no evidence of bowel obstruction previously seen large volume of stool in rectum is no longer present. Mild thickening of sigmoid colon wall recommending colonoscopy large hiatal hernia -Continue miralax and stool softeners - Time Spent With Patient Total time spent is greater than 50% in coordination of care (as documented) at patient's floor/unit and/or counseling patient: less than 15 minutes - Subjective Interval history: Patient is seen at bedside. -She is oriented to place and time today -Psych consulted for dementia, developmental delay and cerebral palsy -Pt was admitted for sepsis from pneumonia, which has since resolved with IV abx. -Admission complicated by colitis with stool impaction, getting enemas for this -Leukocytosis has resolved - WBC today 4.2 -hemoglobin is 7.7, continually decreasing will consult GI -Nurse states no overnight events, asked for Nystatin cream Fluids - no fluids at this time Electrolytes - potassium 3, replaced this morning Nutrition - pt is on softs thickened with honey, no straw GI prophylaxis - pt is on omeprazole DVT prophylaxis - dc heparin, start scd's - Constitutional Vitals: Temp Pulse Resp BP Pulse Ox 97.8 F 96 16 110/77 96 11/23/17 06:55 11/23/17 06:55 11/23/17 07:31 11/23/17 06:55 11/23/17 07:31 General appearance: Present: A&O X 1, disheveled, mild distress - Head Head exam: Present: normal inspection - Neck Neck exam general surgery: Present: supple - Respiratory Respiratory exam: Present: decreased breath sounds - Cardiovascular Cardiovascular exam: Present: RRR, +S1, +S2 - GI/Abdominal GI/Abdominal exam: Present: normal bowel sounds, soft, no peritoneal signs - Neurological Exam Neurological exam: Present: alert - Skin Skin exam: Present: intact Internal Medicine: Result - Labs CBC & Chem 7: 11/23/17 11:41 11/23/17 04:45 Labs: Short CBC 11/22/17 11/23/17 Range/Units 10:48 04:45 WBC 5.9 4.6 (4.3-11.1) K/mcL Hgb 8.7 L 7.7 L (11.5-15.4) g/dL Hct 26.0 L 23.5 L (35.3-44.9) % Plt Count 59 L 76 L (140-400) K/mcL Neutrophils # 3.6 2.4 (1.6-8.9) K/mcL BMP 11/22/17 11/23/17 13:04 04:45 Sodium 142 141 Potassium 3.2 L 3.0 L Chloride 106 106 Carbon Dioxide 31 H 30 H BUN 3 L 3 L Creatinine 0.41 L 0.39 L Glucose 78 68 L Calcium 8.7 8.6 Urine 11/22/17 Range/Units 17:39 Urine Color Yellow (Yellow) Urine Clarity Clear (Clear) Urine pH 6.0 (5.0-8.0) pH Units Ur Specific [place] 1.030 H (1.010-1.025) Urine Protein 100 H (Neg-Trace) mg/dL Urine Glucose (UA) Normal (Normal) mg/dL - ABG Interpretation ABG results: ABG ABG pH 7.50 pH Units (7.32-7.45) H 11/13/17 04:07 ABG pCO2 29 mmHg (35-45) L 11/13/17 04:07 ABG pO2 72 mmHg (85-104) L 11/13/17 04:07 ABG O2 Saturation 96 % (95-98) 11/13/17 04:07 PT/INR, D-dimer PT 11.7 Seconds (9.4-12.1) 11/06/17 21:22 - Impressions Impressions Abdomen/Pelvis CT 11/21/17 08:00 IMPRESSION: 1. No evidence of bowel obstruction. Previously seen large volume of stool in the rectum on the exam of November 18, 2017 is no longer present. 2. Mild thickening of the sigmoid colon wall. If it would alter patient's long-term management and if patient is not up-to-date on colon cancer screening, consider colonoscopy on a nonemergent basis. 3. Large hiatal hernia. 4. Peribronchovascular ground-glass opacities in the right upper lobe. If patient has clinical symptoms of infection, this may represent pneumonia or pneumonitis. 5. Bibasilar atelectasis. D/ / 11/21/2017 10:59:41 Deangelo Kimbrough MD / gerber Interpreting Provider: Deangelo Kimbrough MD - VTE Documentation of Mechanical Device: Venous foot pump, device Consult Discharge Plan - Plan Referrals: Dayan Prieto CNP [Primary Care Provider] - 11/23/17 10:00 am (Appointment requested) Prescriptions: Amoxicillin/Clavulanate [Augmentin] 500 mg PO BIDWM 4 Days #8 tablet
--- NOTE | 2017-11-23 10:40 | Infectious Disease Progress No ---
Date of Encounter: 11/23/17 Time of Encounter: 10:38 - Assessment and Plan (1) Sepsis Current Visit: Yes Status: Resolved The patient had 2 SIRS criteria initially, which resolved. She developed leukocytosis, tachycardia, and fever. Likely secondary to pneumonia at that time, but imaging reveals improvement. Likely secondary to stercoral colitis at this time. Improved. BP a little low, but stable. Had leukocytosis over the weekend, likely reactive from fecal impaction. WBC normal x 2 days. A little tachycardic overnight, but this seems to have resolved. Blood cultures drawn November 07 are negative 2 sets. Repeat blood culture drawn November 12 1 set is negative. Additional blood cultures drawn 11/13/17 are negative x 2 sets. No further recommendations from the ID team. Will sign off. Please re-consult if needed. Qualifiers: Sepsis type: sepsis due to unspecified organism Qualified Code(s): A41.9 - Sepsis, unspecified organism (2) Colitis Current Visit: No Status: Acute CT of the abdomen and pelvis showed large amount of dense stool within a markedly distended rectosigmoid colon with colonic wall thickening and adjacent stranding worrisome for stercoral colitis. Bowel regimen per the primary team. Repeat imaging shows resolution. Continue to observe off antibiotics. (3) Pneumonia Current Visit: Yes Status: Resolved Location: Bilateral. Causative organism: Unclear. Likely secondary to aspiration. Patient witnessed to aspirate multiple meals. Speech therapy was consulted and recommended thin liquids and advance soft textures. Repeat speech eval completed last week. Check strep pneumococcal and legionella urinary antigens.--> negative. Get sputum culture if patient is able to provide an adequate specimen.--> not collected, patient not coughing anything up. Check respiratory infectious panel.--> negative. Repeat CXR showed significant improvement in the left basilar infiltrates and new right lung basilar opacities traffic workforce representative of effusion with or without underlying consolidation consistent with PNA vs. atelectasis. Repeat CT scan of the chest showed interval decrease in size of the bilateral pleural effusions with associated dependent consolidation, likely atelectasis and patchy bilateral airspace disease is decreased in extent and density, mostly remaining in the upper lungs. Repeat CT scan showed RUL pneumonitis vs. PNA. Has received 16 days of IV Zosyn, which is likely adequate. Continue to observe off antibiotics. Qualifiers: Pneumonia type: due to unspecified organism Laterality: right Lung location: lower lobe of lung Qualified Code(s): J18.1 - Lobar pneumonia, unspecified organism (4) Altered mental status Current Visit: Yes Status: Resolved Etiology unclear. Likely secondary to sepsis. CT head negative on November 06. Resolved. Continue to monitor closely. Qualifiers: Altered mental status type: disorientation Qualified Code(s): R41.0 - Disorientation, unspecified (5) Dysphasia Current Visit: No Status: Chronic Speech therapy evaluation noted. Repeat evaluation completed today. Continue to recommend mechanically altered textures and nectar thick liquids. (6) Hypokalemia Current Visit: Yes Status: Acute (7) Cerebral palsy Current Visit: No Status: Chronic Qualifiers: Cerebral palsy type: unspecified type Qualified Code(s): G80.9 - Cerebral palsy, unspecified (8) GERD (gastroesophageal reflux disease) Current Visit: No Status: Chronic Qualifiers: Esophagitis presence: esophagitis presence not specified Qualified Code(s) : K21.9 - Gastro-esophageal reflux disease without esophagitis (9) Hyperlipidemia Current Visit: No Status: Chronic Qualifiers: Hyperlipidemia type: unspecified Qualified Code(s): E78.5 - Hyperlipidemia , unspecified (10) Hypertension Current Visit: No Status: Acute Qualifiers: Hypertension type: essential hypertension Qualified Code(s): I10 - Essential (primary) hypertension (11) Thrombocytopenia Current Visit: Yes Status: Acute Etiology unclear: infection vs. other. Recommend Hem/Onc to evaluate. --> Primary team discussed with hem/onc and think thrombocytopenia is related to infection. Consider stopping SQ heparin. Improved. Continue to trend. - Subjective Interval history: Patient seen and examined. No acute events noted overnight. Denies chest pain, shortness of breath, or cough. Denies N/V/D or abdominal pain. Denies diarrhea, but unsure when her last BM was. George catheter remains patent with clear yellow urine. Infect Dis PN-Objective Data - Labs CBC & Chem 7: 11/24/17 Unknown 11/24/17 Unknown Labs: Laboratory Results - last 24 hr 11/22/17 11/22/17 11/22/17 10:48 13:04 17:39 WBC 5.9 RBC 3.01 L Hgb 8.7 L Hct 26.0 L MCV 86.4 MCH 28.9 MCHC 33.5 RDW 18.4 H Plt Count 59 L MPV 12.1 Immature Gran % 1.5 Seg Neutrophils % 61.3 Lymphocytes % 22.6 Monocytes % 14.0 Eosinophils % 0.3 Basophils % 0.3 Neutrophils # 3.6 Lymphocytes # 1.3 Monocytes # 0.8 Eosinophils # 0.0 Basophils # 0.0 Platelet Estimate Decreased L Immature Plt Fraction 14.1 H Hypochromasia Anisocytosis 1+ A Sodium 142 Potassium 3.2 L Chloride 106 Carbon Dioxide 31 H BUN 3 L Creatinine 0.41 L Est GFR ( Amer) > 60 Est GFR (Non-Af Amer) > 60 BUN/Creatinine Ratio 7 Glucose 78 Calculated Osmolality 289 Calcium 8.7 Urine Color Yellow Urine Clarity Clear Urine pH 6.0 Ur Specific [place] 1.030 H Urine Protein 100 H Urine Glucose (UA) Normal Urine Ketones Trace H Urine Blood Large H Urine Nitrite Negative Urine Bilirubin Negative Urine Urobilinogen Normal Ur Leukocyte Esterase Negative Urine Microscopic RBC TNTC H Urine Microscopic WBC 30-50 H Ur Squamous Epith Cells Many H Ur Renal Epithelial Cell Few Urine Bacteria Few Hyaline Casts Few Urine Yeast Many H Ur Culture Indicated? NO 11/23/17 11/23/17 04:45 04:45 WBC 4.6 RBC 2.66 L Hgb 7.7 L Hct 23.5 L MCV 88.3 MCH 28.9 MCHC 32.8 RDW 18.5 H Plt Count 76 L MPV 11.5 Immature Gran % 0.9 Seg Neutrophils % 51.7 Lymphocytes % 25.3 Monocytes % 18.2 Eosinophils % 3.5 Basophils % 0.4 Neutrophils # 2.4 Lymphocytes # 1.2 Monocytes # 0.8 Eosinophils # 0.2 Basophils # 0.0 Platelet Estimate Decreased L Immature Plt Fraction 6.9 H Hypochromasia Present A Anisocytosis 1+ A Sodium 141 Potassium 3.0 L Chloride 106 Carbon Dioxide 30 H BUN 3 L Creatinine 0.39 L Est GFR ( Amer) > 60 Est GFR (Non-Af Amer) > 60 BUN/Creatinine Ratio 8 Glucose 68 L Calculated Osmolality 287 Calcium 8.6 Urine Color Urine Clarity Urine pH Ur Specific [place] Urine Protein Urine Glucose (UA) Urine Ketones Urine Blood Urine Nitrite Urine Bilirubin Urine Urobilinogen Ur Leukocyte Esterase Urine Microscopic RBC Urine Microscopic WBC Ur Squamous Epith Cells Ur Renal Epithelial Cell Urine Bacteria Hyaline Casts Urine Yeast Ur Culture Indicated? Cultures: Cultures 11/16/17 13:49 Urine Culture - Final Urine,Catheterized Lina glabrata 11/13/17 13:39 Blood Culture - Final Peripheral Venipuncture No growth. Final report. 11/13/17 13:39 Blood Culture - Final Peripheral Venipuncture No growth. Final report. 11/12/17 12:21 Blood Culture - Final Peripheral Venipuncture No growth. Final report. 11/16/17 13:49 Legionella Antigen - Final Urine,Catheterized Streptococcus pneumoniae Antigen (M - Final 11/07/17 03:51 Blood Culture - Final Peripheral Venipuncture No growth. Final report. 11/07/17 03:51 Blood Culture - Final Peripheral Venipuncture No growth. Final report. Serology 11/22/17 11/20/17 11/16/17 Range/Units 17:39 17:32 13:49 Urine Color Yellow Yellow Yellow (Yellow) Urine Clarity Clear Clear Hazy A (Clear) Urine pH 6.0 6.5 5.5 (5.0-8.0) pH Units Ur Specific [place] 1.030 H 1.012 > 1.030 H (1.010-1.025) Urine Protein 100 H Negative 30 H (Neg-Trace) mg/dL Urine Glucose (UA) Normal Normal Normal (Normal) mg/dL Urine Ketones Trace H Negative Trace H (Negative) mg/dL Urine Blood Large H Moderate H Moderate H (Negative) Urine Nitrite Negative Negative Negative (Negative) Urine Bilirubin Negative Negative Small H (Negative) Urine Urobilinogen Normal Normal Normal (Normal) mg/dL Ur Leukocyte Esterase Negative Negative Negative (Negative) Urine Microscopic RBC TNTC H 5-15 H 15-30 H (0-3) per hpf Urine Microscopic WBC 30-50 H 0-3 5-15 H (0-3) per hpf Ur Squamous Epith Cells Many H Moderate H Many H (None-Few) per lpf Ur Renal Epithelial Cell Few (None-Few) per hpf Urine Bacteria Few None Seen None Seen (None-Few) per hpf Hyaline Casts Few None Seen None Seen (None-Few) per lpf Urine Yeast Many H Few H Moderate H (None Seen) per hpf Ur Culture Indicated? NO NO NO (NO) Chlamy pneumoniae PCR (Not Detect) Adenovirus (PCR) (Not Detect) B. pertussis DNA (PCR) (Not Detect) B.parapertussis DNA PCR (Not Detect) Coronavirus OC43 (PCR) (Not Detect) Coronavirus HKU1 (PCR) (Not Detect) Coronavirus 229E (PCR) (Not Detect) Coronavirus NL63 (PCR) (Not Detect) Human Metapneumovir PCR (Not Detect) Influenza A (H1) PCR (Not Detect) Influ A (H1N1/09) PCR (Not Detect) Influenza A (H3) PCR (Not Detect) Influenza A Untype (PCR) (Not Detect) Influenza Type B (PCR) (Not Detect) M.pneumoniae DNA (PCR) (Not Detect) Parainfluenza 1 (PCR) (Not Detect) Parainfluenza 2 (PCR) (Not Detect) Parainfluenza 3 (PCR) (Not Detect) Parainfluenza 4 (PCR) (Not Detect) RSV (PCR) (Not Detect) Entero/Rhino (PCR) (Not Detect) 11/12/17 Range/Units 14:52 Urine Color (Yellow) Urine Clarity (Clear) Urine pH (5.0-8.0) pH Units Ur Specific [place] (1.010-1.025) Urine Protein (Neg-Trace) mg/dL Urine Glucose (UA) (Normal) mg/dL Urine Ketones (Negative) mg/dL Urine Blood (Negative) Urine Nitrite (Negative) Urine Bilirubin (Negative) Urine Urobilinogen (Normal) mg/dL Ur Leukocyte Esterase (Negative) Urine Microscopic RBC (0-3) per hpf Urine Microscopic WBC (0-3) per hpf Ur Squamous Epith Cells (None-Few) per lpf Ur Renal Epithelial Cell (None-Few) per hpf Urine Bacteria (None-Few) per hpf Hyaline Casts (None-Few) per lpf Urine Yeast (None Seen) per hpf Ur Culture Indicated? (NO) Chlamy pneumoniae PCR Not Detected (Not Detect) Adenovirus (PCR) Not Detected (Not Detect) B. pertussis DNA (PCR) Not Detected (Not Detect) B.parapertussis DNA PCR Not Detected (Not Detect) Coronavirus OC43 (PCR) Not Detected (Not Detect) Coronavirus HKU1 (PCR) Not Detected (Not Detect) Coronavirus 229E (PCR) Not Detected (Not Detect) Coronavirus NL63 (PCR) Not Detected (Not Detect) Human Metapneumovir PCR Not Detected (Not Detect) Influenza A (H1) PCR Not Detected (Not Detect) Influ A (H1N1/09) PCR Not Detected (Not Detect) Influenza A (H3) PCR Not Detected (Not Detect) Influenza A Untype (PCR) Not Detected (Not Detect) Influenza Type B (PCR) Not Detected (Not Detect) M.pneumoniae DNA (PCR) Not Detected (Not Detect) Parainfluenza 1 (PCR) Not Detected (Not Detect) Parainfluenza 2 (PCR) Not Detected (Not Detect) Parainfluenza 3 (PCR) Not Detected (Not Detect) Parainfluenza 4 (PCR) Not Detected (Not Detect) RSV (PCR) Not Detected (Not Detect) Entero/Rhino (PCR) Not Detected (Not Detect) - Impressions Impressions Abdomen/Pelvis CT 11/21/17 08:00 IMPRESSION: 1. No evidence of bowel obstruction. Previously seen large volume of stool in the rectum on the exam of November 18, 2017 is no longer present. 2. Mild thickening of the sigmoid colon wall. If it would alter patient's long-term management and if patient is not up-to-date on colon cancer screening, consider colonoscopy on a nonemergent basis. 3. Large hiatal hernia. 4. Peribronchovascular ground-glass opacities in the right upper lobe. If patient has clinical symptoms of infection, this may represent pneumonia or pneumonitis. 5. Bibasilar atelectasis. D/ / 11/21/2017 10:59:41 Deangelo Kimbrough MD / gerber Interpreting Provider: Deangelo Kimbrough MD Exam - Constitutional Vitals: Temp Pulse Resp BP Pulse Ox 97.8 F 96 16 110/77 96 11/23/17 06:55 11/23/17 06:55 11/23/17 07:31 11/23/17 06:55 11/23/17 07:31 General appearance: average body habitus, cooperative, no acute distress - Head Head exam: Present: atraumatic, normal inspection, normocephalic - Eye Eye exam: Present: EOMI, normal appearance, PERRL Pupils: Present: normal accommodation - ENT ENT exam: Present: mucous membranes moist - Neck Neck exam: Present: normal inspection - Respiratory Respiratory exam: Present: CTAB. Absent: rales, respiratory distress, rhonchi, wheezes - Cardiovascular Cardiovascular exam: Present: +S1, +S2, tachycardia. Absent: irregular rhythm - GI/Abdominal GI/Abdominal exam: Present: normal bowel sounds, soft. Absent: distended, tenderness Additional comments: George catheter noted to be draining clear yellow urine. - Extremities Exam Extremities exam: Present: pedal edema (1+ BLE, improved.), tenderness (BLE, chronic per patient). 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 Absent: no focal deficits ( Paralysis noted to the BLE) - Psychiatric Psychiatric exam: Present: normal affect, normal mood - Skin Skin exam: Present: dry, intact, normal color, warm - VTE Documentation of Mechanical Device: Venous foot pump, device Consult Discharge Plan - Plan Referrals: Dayan Prieto, MURPHY [Primary Care Provider] - 11/23/17 10:00 am (Appointment requested) Prescriptions: Amoxicillin/Clavulanate [Augmentin] 500 mg PO BIDWM 4 Days #8 tablet - Attending Attestation I examined this patient and my medical decision-making was reviewed with the Resident Physician. I agree with the documented findings, disposition and treatment plan as described except to the extent set forth below.
[2017-11-23 12:00] LABS: Hematocrit 25.8 % (35.3-44.9); Hemoglobin 8.2 g/dL (11.5-15.4)
--- NOTE | 2017-11-23 13:28 | Gastroenterology Consult Note ---
<Morenita Schmitz M - Last Filed: 11/23/17 13:24> Date of Encounter: 11/23/17 Time of Encounter: 12:30 - Assessment and plan (1) Anemia Current Visit: Yes Status: Acute Assessment and plan: 71 year old with progressive anemia and thrombocytopenia. US liver ordered. She will need EGD to rule out esophagitis,gastritis, duodenitis, PUD, MW tear or avm. She may also need colonoscopy to rule out sterocoral ulceration and bleeding. Pt has dementia and developmental delays will discuss with Dr Henderson and contact guardian for consent. Qualifiers: Anemia type: iron deficiency Iron deficiency anemia type: unspecified iron deficiency Qualified Code(s): D50.9 - Iron deficiency anemia, unspecified (2) Stercoral ulcer of large intestine Current Visit: Yes Status: Resolved Assessment and plan: impaction has resolved, may have SIRS and anemia from Stercoral ulcer of large intestine, may need colonoscopy will discuss with Dr Henderson. - Time Spent With Patient Total time spent is greater than 50% in coordination of care (as documented) at patient's floor/unit and/or counseling patient: GI History of Present Illness - Data of Consult Patient: new to practice Consult date: 11/23/17 Requesting Physician: Flaquito Pennington - Consult Narrative Reason for consult: anemia/thrombocytopenia History of present illness: Ms. Martinez is a 71 year old female PMHx of dementia, developmental delay, cerebral palsy, Chronic seizure disorder, GERD, HLD, HTN, anxiety, depression.was brought to the ED by EMS for altered mental status, hallucinating. She was admitted and treated for pneumonia and hyponatremia. During her hospitalization she had progressive anemia and thrombocytopenia. Prophylatic heparin was stopped. Fecal occult blood was ordered. The patient is currently awake but has altered mental status. She states there is a small horse in the room and asks me to remove it. She denies abdominal pain or nausea. Nursing staff denies any bloody or tarry stools, no emesis or nausea reported. CT abdomen originally showed large volume of stool in the rectum and possible sterocoral colitis. On repeat CT the large volume of stool is no longer present but there is mild thickening of the sigmoid colon. Heparin last dose 0551 No NsAIds EGD/colon: unknown Past Med Surg Social Fam HX - Past Medical History Medical history: dementia, GERD, hyperlipidemia, hypertension, other Additional medical history: CP, osteoarthritis., anxiety, depression, Psychiatric history: anxiety, depression - Past Surgical History Surgical History: other (shoulder, knee surgery) Additional surgical history: abdominal surgery, knee surgeries. - Social History Smoking Status: Never smoker Smokeless Tobacco Status: No Alcohol use: none Drug use: none - Family History Mother Adopted: Yes Father Adopted: Yes Review of Systems: GI: as per [facility] GENERAL: denies fever, has some chills EYES: denies yellow discoloration ENT: denies pain with swallowing or difficulty swallowing CARDIO: denies chest pain, palpitations RESP: No Shortness of breath with exertion : denies change in color of urine NEURO: denies any weakness HEME: Denies any bruising MS: denies joint pain, joint swelling or back pain. DERM: denies rash or itching PSYCH: history of anxiety/ developmental delays - Constitutional Vitals: Temp Pulse Resp BP Pulse Ox 98.2 F 104 18 117/87 98 11/23/17 11:04 11/23/17 11:04 11/23/17 11:21 11/23/17 11:04 11/23/17 11:21 Exam: CONSTITUTIONAL:~alert, no acute distress.~HEAD:~normocephalic.~EYES:~no jaundice , strabismus noted.~NECK:~no obvious swelling.~HEART:~regular rate and rhythm, no murmurs.~LUNGS:~bilateral fair air entry.~ABDOMEN:~non distended, soft, non tender, no masses palpable, no organomegaly, obese.~RECTAL EXAM:~Deferred.~ EXTREMITIES:~no clubbing, cyanosis, trace generalized edema, foot drop noted~ SKIN:~pallor noted, no stigmata of chronic liver disease.~NEUROLOGIC:~altered mental status.~~~~ Results - Labs CBC & Chem 7: 11/23/17 11:41 11/23/17 04:45 Labs: Last Result Calcium 8.6 mg/dL (8.6-10.3) 11/23/17 04:45 Troponin I < 0.03 ng/mL (< 0.04) 11/06/17 21:22 Urine Opiates Screen Negative ng/mL (Upnexg=480) 11/06/17 21:47 Entire Visit Hgb 8.2 g/dL (11.5-15.4) L 11/23/17 11:41 Hct 25.8 % (35.3-44.9) L 11/23/17 11:41 PT 11.7 Seconds (9.4-12.1) 11/06/17 21:22 Total Bilirubin 0.4 mg/dL (0.3-1.0) 11/13/17 04:00 AST 14 Units/L (13-39) 11/13/17 04:00 ALT 5 Units/L (7-52) L 11/13/17 04:00 Ammonia 25 mcmol/L (16-53) 11/09/17 01:43 Amylase 15 Units/L (29-103) L 11/13/17 04:00 Lipase 5 Units/L (11-82) L 11/13/17 04:00 - ABG ABG results: ABG ABG pH 7.50 pH Units (7.32-7.45) H 11/13/17 04:07 ABG pCO2 29 mmHg (35-45) L 11/13/17 04:07 ABG pO2 72 mmHg (85-104) L 11/13/17 04:07 ABG O2 Saturation 96 % (95-98) 11/13/17 04:07 PT/INR, D-dimer PT 11.7 Seconds (9.4-12.1) 11/06/17 21:22 - Impressions Impressions Abdomen/Pelvis CT 11/21/17 08:00 IMPRESSION: 1. No evidence of bowel obstruction. Previously seen large volume of stool in the rectum on the exam of November 18, 2017 is no longer present. 2. Mild thickening of the sigmoid colon wall. If it would alter patient's long-term management and if patient is not up-to-date on colon cancer screening, consider colonoscopy on a nonemergent basis. 3. Large hiatal hernia. 4. Peribronchovascular ground-glass opacities in the right upper lobe. If patient has clinical symptoms of infection, this may represent pneumonia or pneumonitis. 5. Bibasilar atelectasis. D/ / 11/21/2017 10:59:41 Deangelo Kimbrough MD / gerber Interpreting Provider: Deangelo Kimbrough MD Consult Discharge Plan - Plan Referrals: Dayan Prieto, BENZENE WASHER OPERATOR [Primary Care Provider] - 11/23/17 10:00 am (Appointment requested) Prescriptions: Amoxicillin/Clavulanate [Augmentin] 500 mg PO BIDWM 4 Days #8 tablet <Santiago,Mauro - Last Filed: 11/25/17 05:10> Date of Encounter: 11/23/17 - Time Spent With Patient Total time spent is greater than 50% in coordination of care (as documented) at patient's floor/unit and/or counseling patient: GI History of Present Illness - Data of Consult Requesting Physician: Flaquito Pennington - Consult Narrative History of present illness: Ms. Martinez is a 71 year old female - Constitutional Vitals: Temp Pulse Resp BP Pulse Ox 98.9 F 107 20 112/82 98 11/24/17 22:30 11/24/17 22:30 11/25/17 04:32 11/24/17 22:30 11/25/17 04:32 Results - Labs CBC & Chem 7: 11/24/17 Unknown 11/24/17 Unknown Labs: Last Result Calcium 8.3 mg/dL (8.6-10.3) L 11/24/17 Unknown Troponin I < 0.03 ng/mL (< 0.04) 11/06/17 21:22 Stool Occult Blood Negative (Negative) 11/23/17 22:49 Urine Opiates Screen Negative ng/mL (Wnhwzx=450) 11/06/17 21:47 Entire Visit Hgb 8.3 g/dL (11.5-15.4) L 11/24/17 Unknown Hct 25.4 % (35.3-44.9) L 11/24/17 Unknown PT 11.7 Seconds (9.4-12.1) 11/06/17 21:22 Total Bilirubin 0.4 mg/dL (0.3-1.0) 11/24/17 Unknown AST 8 Units/L (13-39) L 11/24/17 Unknown ALT 4 Units/L (7-52) L 11/24/17 Unknown Ammonia 25 mcmol/L (16-53) 11/09/17 01:43 Amylase 15 Units/L (29-103) L 11/13/17 04:00 Lipase 5 Units/L (11-82) L 11/13/17 04:00 - ABG ABG results: ABG ABG pH 7.50 pH Units (7.32-7.45) H 11/13/17 04:07 ABG pCO2 29 mmHg (35-45) L 11/13/17 04:07 ABG pO2 72 mmHg (85-104) L 11/13/17 04:07 ABG O2 Saturation 96 % (95-98) 11/13/17 04:07 PT/INR, D-dimer PT 11.7 Seconds (9.4-12.1) 11/06/17 21:22 - Attending Attestation Unfortunate 71 year old female with above issues. Agree with imaging liver. Review old records. Plan EGD first I have personally performed a face to face evaluation on this patient. I have reviewed and agree with the care plan. History and Exam by me shows:
[2017-11-23] MEDS: Acetaminophen 325 MG TABLET PO PRN (21:39)
[2017-11-24] MEDS: Ipratropium/Albuterol Neb 3 ML IH SCH ×5 (03:55→20:28)
[2017-11-24 04:21] LABS: Basophils % 0.5 %; Eosinophils # 0.1 K/mcL (0.0-0.6); Eosinophils % 2.3 %; Hematocrit 25.4 % (35.3-44.9); Hemoglobin 8.3 g/dL (11.5-15.4); Lymphocytes # 1.1 K/mcL (0.6-4.6); Lymphocytes % 18.7 %; Mean Corpuscular HGB Conc 32.7 g/dL (31.6-35.5); Mean Corpuscular Hemoglobin 28.6 pg (28.0-33.3); Mean Corpuscular Volume 87.6 fL (83.0-100.0); Mean Platelet Volume 11.3 fL (9.4-12.4); Monocytes # 1.3 K/mcL (0.0-1.3); Monocytes % 20.7 %; Neutrophils # 3.5 K/mcL (1.6-8.9); Platelet Count 119 K/mcL (140-400); Red Cell Distribution Width 18.4 % (11.5-14.5); Segmented Neutrophils % 56.8 %
[2017-11-24 04:24] LABS: Alanine Aminotransferase 4 Units/L (7-52); Albumin 2.9 g/dL (3.5-5.7); Albumin/Globulin Ratio 1.5 (1.1-2.2); Alkaline Phosphatase 60 Units/L (34-104); Aspartate Amino Transferase 8 Units/L (13-39); BUN/Creatinine Ratio 7 (6-26); Bilirubin,Total 0.4 mg/dL (0.3-1.0); Blood Urea Nitrogen 3 mg/dL (8-23); Calcium 8.3 mg/dL (8.6-10.3); Carbon Dioxide 32 mEq/L (23-29); Chloride 104 mEq/L (98-107); Globulin 1.9 g/dL (2.4-3.5); Glucose 73 mg/dL (70-105); Osmolality,Calculated 287 (280-300); Potassium 3.4 mEq/L (3.5-5.1); Sodium 141 mEq/L (136-145); Total Protein 4.8 g/dL (6.4-8.9); eGFR For Non-African Americans > 60 (> 60)
[2017-11-24 05:05] LABS: Anisocytosis 1+ (Not Present)
[2017-11-24 05:06] LABS: Hypochromasia Present (Not Present); Large Platelets Present (Not Present); Platelet Estimate Decreased (Normal)
--- NOTE | 2017-11-24 09:19 | Internal Med Progress Note ---
Date of Encounter: 11/24/17 Time of Encounter: 09:00 - Assessment and plan (1) GI bleed Current Visit: Yes Status: Suspected Assessment and plan: hemoglobin 8.3 today -FOBT negative -platlets up to 119, up from 76 -CT scan showed thickening of the sigmoid colon, need to r/o underlying malignancy -liver ultrasound is pending Plan: -check CBC in AM -GI consulted, planning for EGD possibly colonsocpy today to rule out UGIB/LGIB. -need to rule out malignancy, sterocoral ulceration and bleeding -rule out esophagitis, gastritis, duodenitis, PUD, AVM -continue to hold anticoagulation (2) Thrombocytopenia Current Visit: Yes Status: Acute Assessment and plan: platelet count today is 119, up from 76 yesterday -d/c heparin, continue SCD Plan: -GI said they will scope her with EGD/ colonoscopy to rule out sterocoral ulcer , maliginacy, PUD, gastritis, esophagitis, duodenitis, AVM -pt is currently NPO in prep for procedure -will monitor platelet count, CBC in the morning -anticoagulation is currently held (3) Hypokalemia Current Visit: Yes Status: Acute Assessment and plan: Potassium today is 3.4 Plan: -replaced with 40mEq PO BID -recheck CMP in morning (4) Sepsis Current Visit: Yes Status: Resolved Assessment and plan: Pt met SIRS criteria on admission -blood cx negative -pneumonia was suspected source of infxn -pneumonia has resolved -pt is clinically stable -WBC 4.6 today, t 97.8, HR 96 Qualifiers: Sepsis type: sepsis due to unspecified organism Qualified Code(s): A41.9 - Sepsis, unspecified organism (5) Altered mental status Current Visit: Yes Status: Resolved Assessment and plan: Pt appears to be below her baseline mentation Qualifiers: Altered mental status type: disorientation Qualified Code(s): R41.0 - Disorientation, unspecified (6) Cerebral palsy Current Visit: No Status: Chronic Assessment and plan: Chronic, follows with neurology -on Baclofen (7) GERD (gastroesophageal reflux disease) Current Visit: No Status: Chronic Assessment and plan: Pt is on prilosec Keep head of bed elevated. Don't eat large meals before laying down. Chew all foods throuroughly Speech recommends thin liquids, advance soft textures , meds in puree. No straws (8) DVT prophylaxis Current Visit: No Status: Acute Assessment and plan: d/c heparin continue SCD (9) Seizure Current Visit: No Status: Chronic Assessment and plan: On depakote Speech evaluated with swallow study - recommendation below: ST recommends thin liquid and advanced soft textures. NO STRAWS, assist with feeds, meds in puree. Patient is tolerating baseline diet. No swallow therapy recommended at this time. (10) Pneumonia Current Visit: Yes Status: Resolved Assessment and plan: On admit pt had bilateral pneumonia concerning for aspiration pneumonia -received vancomycin and Zosyn -recieved levaquin -legionella and s pneumo both negative -pt has clinically improved (11) Dysphasia Current Visit: No Status: Chronic Assessment and plan: Continue with nectar thickened liquids and advanced soft diet which therapy as needed -continue prilosec -continue keeping head of bed elevated - Time Spent With Patient Total time spent is greater than 50% in coordination of care (as documented) at patient's floor/unit and/or counseling patient: - Subjective Interval history: Patient is seen at bedside. -She is oriented to place and time today -Psych consulted for dementia, developmental delay and cerebral palsy -Pt was admitted for sepsis from pneumonia, which has since resolved with IV abx. -the patient appears to be functioning below her baseline today. She is talking to things that are not there and constantly states that there is "food all over her lap" -the pt denies being in any pain, having any abd pain, N/V/D, SOB or CP -Admission complicated by colitis with stool impaction, getting enemas for this -Leukocytosis has resolved - WBC today 6.1 -hemoglobin is 8.3, hemodynamically stable -Nurse states no overnight events, that she had two bowel movements over ngiht Fluids - no fluids at this time Electrolytes - potassium 3.4, had order in for K chloride 40mEq BID Nutrition - pt is on softs thickened with honey, no straw GI prophylaxis - pt is on omeprazole DVT prophylaxis - dc heparin, start scd's - Constitutional Vitals: Temp Pulse Resp BP Pulse Ox 98.5 F 105 16 131/96 100 11/24/17 07:49 11/24/17 07:49 11/24/17 07:49 11/24/17 07:49 11/24/17 07:49 General appearance: Present: A&O X 1, disheveled, mild distress - Head Head exam: Present: normal inspection - Neck Neck exam general surgery: Present: supple - Respiratory Respiratory exam: Present: CTAB - Cardiovascular Cardiovascular exam: Present: RRR, +S1, +S2 - GI/Abdominal GI/Abdominal exam: Present: soft, no peritoneal signs - Neurological Exam Neurological exam: Present: no focal deficits - Psychiatric Psychiatric exam: Absent: normal mood - Skin Skin exam: Present: intact Internal Medicine: Result - Labs CBC & Chem 7: 11/24/17 Unknown 11/24/17 Unknown Labs: Short CBC 11/23/17 11/24/17 Range/Units 11:41 Unknown WBC 6.1 (4.3-11.1) K/mcL Hgb 8.2 L 8.3 L (11.5-15.4) g/dL Hct 25.8 L 25.4 L (35.3-44.9) % Plt Count 119 L D (140-400) K/mcL Neutrophils # 3.5 (1.6-8.9) K/mcL BMP 11/24/17 Unknown Sodium 141 Potassium 3.4 L Chloride 104 Carbon Dioxide 32 H BUN 3 L Creatinine 0.41 L Glucose 73 Calcium 8.3 L Liver Function 11/24/17 Range/Units Unknown Total Bilirubin 0.4 (0.3-1.0) mg/dL AST 8 L (13-39) Units/L ALT 4 L (7-52) Units/L Alkaline Phosphatase 60 (34-104) Units/L Albumin 2.9 L (3.5-5.7) g/dL - ABG Interpretation ABG results: ABG ABG pH 7.50 pH Units (7.32-7.45) H 11/13/17 04:07 ABG pCO2 29 mmHg (35-45) L 11/13/17 04:07 ABG pO2 72 mmHg (85-104) L 11/13/17 04:07 ABG O2 Saturation 96 % (95-98) 11/13/17 04:07 PT/INR, D-dimer PT 11.7 Seconds (9.4-12.1) 11/06/17 21:22 - VTE Documentation of Mechanical Device: Intermittent pneumatic compression device Consult Discharge Plan - Plan Referrals: Dayan Prieto CNP [Primary Care Provider] - 11/23/17 10:00 am (Appointment requested) Prescriptions: Amoxicillin/Clavulanate [Augmentin] 500 mg PO BIDWM 4 Days #8 tablet
--- NOTE | 2017-11-24 11:29 | Event Note ---
Date of Encounter: 11/24/17 Time of Encounter: 11:21 Patient was seen and examined. I agree with the progress note as written by the resident physician. Patient was admitted for sepsis stemming from pneumonia was put on IV antibiotics with help of ID. Stay has been complicated by colitis with stool pardon which has resolved. Patient leukocytosis and signs of sepsis have resolved. Has a history of cerebral palsy. Looking at the patient's records it seems that her hemoglobin has been slowly dropping since admission with initial presentation hemoglobin of 13.0 and is down to 7.7. Today Hgb is 8.3. Seen by GI with plans for EGD. No signs of bleeding. A CT abdomen and pelvis was done a couple times while hospitalized with signs of thickening in the sigmoid colon. GEN: NAD CVS: RRR. S1, S2, No m/r/g RESP: CTAB ABD: Soft, NT, ND, +BS EXT: No edema. 2+ DP. No rashes NEURO: Nonfocal neg FOBT check C. Diff. Nurse reporting loose/mucus stools GI following. 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 Patient is diuresing well. Still net + about 7.6 L SCDs
[2017-11-24] MEDS ORDERED: SODIUM CHLORIDE/NAHCO3/KCL/PEG 4,000 ML SOLN.RECON PO ONE (17:16)
[2017-11-24] MEDS: Loratadine 10 MG TABLET PO SCH (17:48)
[2017-11-24] MEDS: Lactobacillus 1 EACH CAP.SPRINK PO SCH ×2 (17:48→22:33)
[2017-11-24] MEDS: Furosemide 20 MG/2 ML VIAL IVP SCH (17:49)
[2017-11-24] MEDS: Divalproex (24 HR) 250 MG TABLET PO SCH (17:49)
[2017-11-24] MEDS: Fluticasone Propionate Nasal 50 MCG/SPRAY BOTTLE NS SCH (18:18)
[2017-11-24] MEDS: Nystatin Cream 15 GM TUBE TP SCH ×2 (18:18→22:34)
[2017-11-25] MEDS: Ipratropium/Albuterol Neb 3 ML IH SCH ×6 (00:33→19:41)
[2017-11-25 05:23] LABS: Basophils % 0.6 %; Eosinophils # 0.2 K/mcL (0.0-0.6); Eosinophils % 2.2 %; Hematocrit 26.7 % (35.3-44.9); Hemoglobin 8.6 g/dL (11.5-15.4); Immature Granulocytes % 1.3 % (0-4); Lymphocytes # 1.2 K/mcL (0.6-4.6); Lymphocytes % 18.1 %; Mean Corpuscular HGB Conc 32.2 g/dL (31.6-35.5); Mean Corpuscular Hemoglobin 27.9 pg (28.0-33.3); Mean Corpuscular Volume 86.7 fL (83.0-100.0); Mean Platelet Volume 10.5 fL (9.4-12.4); Monocytes # 1.3 K/mcL (0.0-1.3); Monocytes % 19.3 %; Neutrophils # 3.9 K/mcL (1.6-8.9); Platelet Count 162 K/mcL (140-400); Red Blood Count 3.08 M/mcL (3.82-4.97); Red Cell Distribution Width 18.8 % (11.5-14.5); Segmented Neutrophils % 58.5 %
[2017-11-25 05:42] LABS: Alanine Aminotransferase 4 Units/L (7-52); Albumin 2.9 g/dL (3.5-5.7); Albumin/Globulin Ratio 1.3 (1.1-2.2); Alkaline Phosphatase 70 Units/L (34-104); Aspartate Amino Transferase 8 Units/L (13-39); BUN/Creatinine Ratio 5 (6-26); Bilirubin,Total 0.4 mg/dL (0.3-1.0); Blood Urea Nitrogen 2 mg/dL (8-23); Calcium 8.6 mg/dL (8.6-10.3); Carbon Dioxide 30 mEq/L (23-29); Chloride 103 mEq/L (98-107); Globulin 2.2 g/dL (2.4-3.5); Glucose 75 mg/dL (70-105); Osmolality,Calculated 287 (280-300); Potassium 3.4 mEq/L (3.5-5.1); Sodium 141 mEq/L (136-145); Total Protein 5.1 g/dL (6.4-8.9); eGFR For Non-African Americans > 60 (> 60)
[2017-11-25 05:46] LABS: Anisocytosis 1+ (Not Present); Platelet Estimate Normal (Normal)
[2017-11-25 05:47] LABS: Macrocytosis Present (Not Present); Microcytosis Present (Not Present)
[2017-11-25] MEDS ORDERED: Potassium Chloride 20 MEQ, Lidocaine 1% 2 ML in D5% in Water 250 ML IVPB ONE (09:10)
[2017-11-25] MEDS ORDERED: Ondansetron 4 MG/2 ML VIAL IVP PRN (09:10)
--- NOTE | 2017-11-25 09:12 | Internal Med Progress Note ---
Date of Encounter: 11/25/17 Time of Encounter: 08:45 - Assessment and plan (1) GI bleed Current Visit: Yes Status: Suspected Assessment and plan: hemoglobin 8.6 today -FOBT negative -platlets up to 162, has been trending up -CT scan showed thickening of the sigmoid colon, need to r/o underlying malignancy -liver ultrasound is pending Plan: -check CBC in AM -GI consulted and will be scoping her EGD + possibly colonoscopy today at 1pm -NPO now for scopes -need to rule out malignancy, sterocoral ulceration and bleeding -rule out esophagitis, gastritis, duodenitis, PUD, AVM -continue to hold anticoagulation (2) Nausea Current Visit: Yes Status: Acute Assessment and plan: Pt has c/o nausea this morning -repeatedly says she is trying to make herself throw up Plan: -pt is currently NPO so ordered IV Zofran 4mg q6hr prn nausea (3) Thrombocytopenia Current Visit: Yes Status: Resolved Assessment and plan: platelet count today is 162, has been trending up -d/c heparin, continue SCD Plan: -GI said they will scope her with EGD/ colonoscopy today at 1 pm to rule out sterocoral ulcer, maliginacy, PUD, gastritis, esophagitis, duodenitis, AVM -pt is currently NPO in prep for procedure -will monitor platelet count, CBC in the morning -anticoagulation is currently held (4) Hypokalemia Current Visit: Yes Status: Acute Assessment and plan: Potassium today is 3.4 Plan: -pt is getting 40mEq PO BID -also giving pt 20mEq IV potassium to replace for today -recheck CMP in morning (5) Sepsis Current Visit: Yes Status: Resolved Assessment and plan: Pt met SIRS criteria on admission -blood cx negative -pneumonia was suspected source of infxn -pneumonia has resolved -pt is clinically stable -WBC 6.7 today, t 99, HR 105 Qualifiers: Sepsis type: sepsis due to unspecified organism Qualified Code(s): A41.9 - Sepsis, unspecified organism (6) Altered mental status Current Visit: Yes Status: Resolved Assessment and plan: Pt appears to be below her baseline mentation Qualifiers: Altered mental status type: disorientation Qualified Code(s): R41.0 - Disorientation, unspecified (7) Cerebral palsy Current Visit: No Status: Chronic Assessment and plan: Chronic, follows with neurology -on Baclofen (8) GERD (gastroesophageal reflux disease) Current Visit: No Status: Chronic Assessment and plan: Pt is on prilosec Keep head of bed elevated. Don't eat large meals before laying down. Chew all foods throuroughly Speech recommends thin liquids, advance soft textures , meds in puree. No straws (9) DVT prophylaxis Current Visit: No Status: Acute Assessment and plan: d/c heparin continue SCD (10) Seizure Current Visit: No Status: Chronic Assessment and plan: On depakote Speech evaluated with swallow study - recommendation below: ST recommends thin liquid and advanced soft textures. NO STRAWS, assist with feeds, meds in puree. Patient is tolerating baseline diet. No swallow therapy recommended at this time. (11) Pneumonia Current Visit: Yes Status: Resolved Assessment and plan: On admit pt had bilateral pneumonia concerning for aspiration pneumonia -received vancomycin and Zosyn -recieved levaquin -legionella and s pneumo both negative -pt has clinically improved (12) Dysphasia Current Visit: No Status: Chronic Assessment and plan: Continue with nectar thickened liquids and advanced soft diet which therapy as needed -continue prilosec -continue keeping head of bed elevated - Time Spent With Patient Total time spent is greater than 50% in coordination of care (as documented) at patient's floor/unit and/or counseling patient: less than 15 minutes - Subjective Interval history: Patient is seen at bedside. -pt is a little agitated this morning, continuously states she doesn't want to have a physical exam done -she is slightly spastic and appears to be in pain but denies any pain -Psych consulted for dementia, developmental delay and cerebral palsy -Pt was admitted for sepsis from pneumonia, which has since resolved with IV abx. -the patient appears to be functioning below her baseline today. -she complains of nausea today and continually states that "she is trying to make herself throw up" -the pt denies being in any pain, having any abd pain, chest pain, or shortness of breaht -Admission complicated by colitis with stool impaction, getting enemas for this -Leukocytosis has resolved - WBC today 6.7 -hemoglobin is 8.6 today, hemodynamically stable -Nurse states no overnight events -yesterday nurse reported two mucous like stools, which were subsequently tested for c dif and came back negative Fluids - no fluids at this time Electrolytes - potassium 3.4, had order in for K chloride 40mEq BID and will replace with IV potassium today Nutrition - pt is on softs thickened with honey, no straw GI prophylaxis - pt is on omeprazole DVT prophylaxis - dc heparin, start scd's - Constitutional Vitals: Temp Pulse Resp BP Pulse Ox 99 F 105 196 123/78 100 11/25/17 07:41 11/25/17 07:41 11/25/17 07:41 11/25/17 07:41 11/25/17 07:41 General appearance: Present: A&O X 1, disheveled, mild distress - Head Head exam: Present: normal inspection - Respiratory Respiratory exam: Present: decreased breath sounds - Cardiovascular Cardiovascular exam: Present: RRR, +S1, +S2 - GI/Abdominal GI/Abdominal exam: Present: soft, no peritoneal signs - Skin Skin exam: Present: intact Internal Medicine: Result - Labs CBC & Chem 7: 11/25/17 05:00 11/25/17 05:00 Labs: Short CBC 11/25/17 Range/Units 05:00 WBC 6.7 (4.3-11.1) K/mcL Hgb 8.6 L (11.5-15.4) g/dL Hct 26.7 L (35.3-44.9) % Plt Count 162 (140-400) K/mcL Neutrophils # 3.9 (1.6-8.9) K/mcL BMP 11/25/17 05:00 Sodium 141 Potassium 3.4 L Chloride 103 Carbon Dioxide 30 H BUN 2 L Creatinine 0.42 L Glucose 75 Calcium 8.6 Liver Function 11/25/17 Range/Units 05:00 Total Bilirubin 0.4 (0.3-1.0) mg/dL AST 8 L (13-39) Units/L ALT 4 L (7-52) Units/L Alkaline Phosphatase 70 (34-104) Units/L Albumin 2.9 L (3.5-5.7) g/dL - ABG Interpretation ABG results: ABG ABG pH 7.50 pH Units (7.32-7.45) H 11/13/17 04:07 ABG pCO2 29 mmHg (35-45) L 11/13/17 04:07 ABG pO2 72 mmHg (85-104) L 11/13/17 04:07 ABG O2 Saturation 96 % (95-98) 11/13/17 04:07 PT/INR, D-dimer PT 11.7 Seconds (9.4-12.1) 11/06/17 21:22 - VTE Documentation of Mechanical Device: Intermittent pneumatic compression device Consult Discharge Plan - Plan Referrals: Dayan Prieto, CHANNEL CEMENTER [Primary Care Provider] - 11/23/17 10:00 am (Appointment requested) Prescriptions: Amoxicillin/Clavulanate [Augmentin] 500 mg PO BIDWM 4 Days #8 tablet
--- NOTE | 2017-11-25 09:34 | Event Note ---
Date of Encounter: 11/25/17 Time of Encounter: 09:28 Patient was seen and examined. I agree with the progress note as written by the resident physician. Patient was admitted for sepsis stemming from pneumonia was put on IV antibiotics with help of ID. Stay has been complicated by colitis with stool pardon which has resolved. Patient leukocytosis and signs of sepsis have resolved. Has a history of cerebral palsy. Looking at the patient's records it seems that her hemoglobin has been slowly dropping since admission with initial presentation hemoglobin of 13.0 and is down to 7.7. Today Hgb is 8.6. Seen by GI with plans for EGD. No signs of bleeding. A CT abdomen and pelvis was done a couple times while hospitalized with signs of thickening in the sigmoid colon. GEN: NAD CVS: RRR. S1, S2, No m/r/g RESP: CTAB ABD: Soft, NT, ND, +BS EXT: No edema. 2+ DP. No rashes NEURO: Nonfocal neg FOBT neg C. Diff H/H better GI following. EGD today. 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 K still low. Continue IV diuresis. Diuresing well. Net + 4.7 L still. SCDs
[2017-11-25] MEDS: Furosemide 20 MG/2 ML VIAL IVP SCH (09:47)
[2017-11-25] MEDS: Fluticasone Propionate Nasal 50 MCG/SPRAY BOTTLE NS SCH (10:33)
[2017-11-25] MEDS ORDERED: *HR* Propofol 200 MG/20 ML VIAL IVP ONE (12:47)
--- NOTE | 2017-11-25 13:15 | Anesthesia Evaluation PreOp ---
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 History: Seizures (Chronic Seizure Disorder), Other (Dementia, Developmental Delay/CP, Anxiety/Depression) Anesthesia History: No Prior Anesthetic Complications, Past Anesthesia ( Abdominal surgeries, Knee surgeries) Alcohol Use: none Drug use: none Medications and Allergies Baclofen 20 mg PO BID 09/08/17 [History] Citalopram [CeleXA] 20 mg PO DAILY 09/08/17 [History] Loratadine [Allergy Relief] 10 mg PO DAILY 09/08/17 [History] Omeprazole [PriLOSEC] 40 mg PO DAILY 09/08/17 [History] Promethazine HCl 12.5 mg PO Q8H PRN 09/08/17 [History] Rosuvastatin Calcium [Crestor] 5 mg PO DAILY 09/08/17 [History] Venlafaxine HCl [Venlafaxine HCl ER] 75 mg PO DAILY 09/08/17 [History] Citalopram Hydrobromide [Celexa] 40 mg PO DAILY 11/07/17 [History] Divalproex (24 HR) [Depakote ER (24 HR)] 750 mg PO DAILY 11/07/17 [History] Fluticasone Propionate Nasal [Flonase] 1 spr NS DAILY 11/07/17 [History] Furosemide [Lasix] 20 mg PO DAILY 11/07/17 [History] Amoxicillin/Clavulanate [Augmentin] 500 mg PO BIDWM 4 Days #8 tablet 11/11/17 [ Rx] 3 Allergy/AdvReac Type Severity Reaction Status Date / Time Zafqmhv-[id number]-Nmp Reductase Allergy Intermediate Rash Verified 11/18/15 17:58 Inhibitor [Statins] clopidogrel [From Plavix] Allergy Anaphylaxis Verified 08/17/15 13:37 Sulfa (Sulfonamide Allergy Anaphylaxis Verified 08/17/15 13:37 Antibiotics) Warfarin [From Coumadin] Allergy Anaphylaxis Verified 08/17/15 13:37 - Meds/Allergy Pre-op Review Medications Reviewed: Yes Allergies Reviewed: Yes Beta Blockers on Current Med List: No Anesthesia Results - Labs 11/25/17 05:00 11/25/17 05:00 Laboratory Results WBC 6.7 K/mcL (4.3-11.1) 11/25/17 05:00 RBC 3.08 M/mcL (3.82-4.97) L 11/25/17 05:00 Hgb 8.6 g/dL (11.5-15.4) L 11/25/17 05:00 Hct 26.7 % (35.3-44.9) L 11/25/17 05:00 MCV 86.7 fL (83.0-100.0) 11/25/17 05:00 MCH 27.9 pg (28.0-33.3) L 11/25/17 05:00 MCHC 32.2 g/dL (31.6-35.5) 11/25/17 05:00 RDW 18.8 % (11.5-14.5) H 11/25/17 05:00 Plt Count 162 K/mcL (140-400) 11/25/17 05:00 MPV 10.5 fL (9.4-12.4) 11/25/17 05:00 Immature Gran % 1.3 % (0-4) 11/25/17 05:00 Seg Neutrophils % 58.5 % 11/25/17 05:00 Band Neutrophils % 10.0 % (0-4) H 11/16/17 04:40 Lymphocytes % 18.1 % 11/25/17 05:00 Monocytes % 19.3 % 11/25/17 05:00 Eosinophils % 2.2 % 11/25/17 05:00 Basophils % 0.6 % 11/25/17 05:00 Myelocytes % 2.0 % (0) H 11/16/17 04:40 Neutrophils # 3.9 K/mcL (1.6-8.9) 11/25/17 05:00 Lymphocytes # 1.2 K/mcL (0.6-4.6) 11/25/17 05:00 Monocytes # 1.3 K/mcL (0.0-1.3) 11/25/17 05:00 Eosinophils # 0.2 K/mcL (0.0-0.6) 11/25/17 05:00 Basophils # 0.0 K/mcL (0.0-0.2) 11/25/17 05:00 Nucleated RBCs/100 WBC 0.2 /100 WBC (0) H 11/20/17 10:32 Reactive Lymphocytes Present (Not Present) A 11/16/17 04:40 Toxic Granulation Present (Not Present) A 11/07/17 03:51 Platelet Estimate Normal (Normal) 11/25/17 05:00 Large Platelets Present (Not Present) A 11/24/17 Unknown Immature Plt Fraction 6.9 % (1.1-6.1) H 11/23/17 04:45 Hypochromasia Present (Not Present) A 11/24/17 Unknown Anisocytosis 1+ (Not Present) A 11/25/17 05:00 Microcytosis Present (Not Present) A 11/25/17 05:00 Macrocytosis Present (Not Present) A 11/25/17 05:00 PT 11.7 Seconds (9.4-12.1) 11/06/17 21:22 INR 1.0 11/06/17 21:22 Heparin Anti-Xa, Unfract 0.03 IU/mL (0.30-0.70) L 11/19/17 14:15 Sample Site R Radial 11/13/17 04:07 ABG pH 7.50 pH Units (7.32-7.45) H 11/13/17 04:07 ABG pCO2 29 mmHg (35-45) L 11/13/17 04:07 ABG pO2 72 mmHg (85-104) L 11/13/17 04:07 ABG HCO3 23 mEq/L (21-27) 11/13/17 04:07 ABG Total CO2 24 mEq/L (20-26) 11/13/17 04:07 ABG O2 Saturation 96 % (95-98) 11/13/17 04:07 ABG Base Excess 0 mEq/L (-2 to 3) 11/13/17 04:07 Josué Test Positive 11/13/17 04:07 O2 Delivery Device Cannula 11/13/17 04:07 Inspired O2 3.0 (1-15=lpm [id number]%) 11/13/17 04:07 Sodium 141 mEq/L (136-145) 11/25/17 05:00 Potassium 3.4 mEq/L (3.5-5.1) L 11/25/17 05:00 Chloride 103 mEq/L (98-107) 11/25/17 05:00 Carbon Dioxide 30 mEq/L (23-29) H 11/25/17 05:00 BUN 2 mg/dL (8-23) L 11/25/17 05:00 Creatinine 0.42 mg/dL (0.60-1.20) L 11/25/17 05:00 Est GFR ( Amer) > 60 (> 60) 11/25/17 05:00 Est GFR (Non-Af Amer) > 60 (> 60) 11/25/17 05:00 BUN/Creatinine Ratio 5 (6-26) L 11/25/17 05:00 Glucose 75 mg/dL (70-105) 11/25/17 05:00 POC Glucose 80 mg/dL (70-99) 11/23/17 11:15 Calculated Osmolality 287 (280-300) 11/25/17 05:00 Lactic Acid 1.4 mmol/L (0.5-2.2) 11/07/17 00:09 Calcium 8.6 mg/dL (8.6-10.3) 11/25/17 05:00 Magnesium 1.7 mg/dL (1.6-2.6) 11/15/17 04:14 Total Bilirubin 0.4 mg/dL (0.3-1.0) 11/25/17 05:00 Direct Bilirubin 0.1 mg/dL (0.0-0.2) 11/09/17 01:43 Indirect Bilirubin 0.1 mg/dL (0.0-1.2) 11/09/17 01:43 AST 8 Units/L (13-39) L 11/25/17 05:00 ALT 4 Units/L (7-52) L 11/25/17 05:00 Alkaline Phosphatase 70 Units/L (34-104) 11/25/17 05:00 Ammonia 25 mcmol/L (16-53) 11/09/17 01:43 Troponin I < 0.03 ng/mL (< 0.04) 11/06/17 21:22 Serum Total Protein 5.1 g/dL (6.4-8.9) L 11/25/17 05:00 Albumin 2.9 g/dL (3.5-5.7) L 11/25/17 05:00 Globulin 2.2 g/dL (2.4-3.5) L 11/25/17 05:00 Albumin/Globulin Ratio 1.3 (1.1-2.2) 11/25/17 05:00 Amylase 15 Units/L (29-103) L 11/13/17 04:00 Lipase 5 Units/L (11-82) L 11/13/17 04:00 Procalcitonin 0.44 ng/mL (<=0.07) H 11/09/17 01:43 Urine Color Yellow (Yellow) 11/22/17 17:39 Urine Clarity Clear (Clear) 11/22/17 17:39 Urine pH 6.0 pH Units (5.0-8.0) 11/22/17 17:39 Ur Specific Stuart 1.030 (1.010-1.025) H 11/22/17 17:39 Urine Protein 100 mg/dL (Neg-Trace) H 11/22/17 17:39 Urine Glucose (UA) Normal mg/dL (Normal) 11/22/17 17:39 Urine Ketones Trace mg/dL (Negative) H 11/22/17 17:39 Urine Blood Large (Negative) H 11/22/17 17:39 Urine Nitrite Negative (Negative) 11/22/17 17:39 Urine Bilirubin Negative (Negative) 11/22/17 17:39 Urine Urobilinogen Normal mg/dL (Normal) 11/22/17 17:39 Ur Leukocyte Esterase Negative (Negative) 11/22/17 17:39 Urine Microscopic RBC TNTC per hpf (0-3) H 11/22/17 17:39 Urine Microscopic WBC 30-50 per hpf (0-3) H 11/22/17 17:39 Ur Squamous Epith Cells Many per lpf (None-Few) H 11/22/17 17:39 Ur Renal Epithelial Cell Few per hpf (None-Few) 11/22/17 17:39 Urine Bacteria Few per hpf (None-Few) 11/22/17 17:39 Hyaline Casts Few per lpf (None-Few) 11/22/17 17:39 Urine Yeast Many per hpf (None Seen) H 11/22/17 17:39 Ur Culture Indicated? NO (NO) 11/22/17 17:39 Stool Occult Blood Negative (Negative) 11/23/17 22:49 Stl C. diff Tox B Gene Negative (Negative) 11/24/17 13:58 Vancomycin Trough 33 mcg/mL (5-10) H 11/14/17 04:19 Random Vancomycin 20 mcg/mL 11/14/17 20:55 Urine Opiates Screen Negative ng/mL (Mzyyyt=058) 11/06/17 21:47 Ur Barbiturates Screen Negative ng/mL (Xhcdgw=731) 11/06/17 21:47 Ur Phencyclidine Scrn Negative ng/mL (Cutoff=25) 11/06/17 21:47 Ur Amphetamines Screen Negative ng/mL (Ryghjv=9445) 11/06/17 21:47 U Benzodiazepines Scrn Negative ng/mL (Flzkkg=208) 11/06/17 21:47 Urine Cocaine Screen Negative ng/mL (Cutoff= 300) 11/06/17 21:47 U Marijuana (THC) Screen Negative ng/mL (Cutoff = 50) 11/06/17 21:47 Ur Drug Screen Interp See Below 11/06/17 21:47 Ethyl Alcohol < 10 mg/dL (Less than 10) 11/06/17 21:22 Chlamy pneumoniae PCR Not Detected (Not Detect) 11/12/17 14:52 Adenovirus (PCR) Not Detected (Not Detect) 11/12/17 14:52 B. pertussis DNA (PCR) Not Detected (Not Detect) 11/12/17 14:52 B.parapertussis DNA PCR Not Detected (Not Detect) 11/12/17 14:52 Coronavirus OC43 (PCR) Not Detected (Not Detect) 11/12/17 14:52 Coronavirus HKU1 (PCR) Not Detected (Not Detect) 11/12/17 14:52 Coronavirus 229E (PCR) Not Detected (Not Detect) 11/12/17 14:52 Coronavirus NL63 (PCR) Not Detected (Not Detect) 11/12/17 14:52 Human Metapneumovir PCR Not Detected (Not Detect) 11/12/17 14:52 Influenza A (H1) PCR Not Detected (Not Detect) 11/12/17 14:52 Influ A (H1N1/09) PCR Not Detected (Not Detect) 11/12/17 14:52 Influenza A (H3) PCR Not Detected (Not Detect) 11/12/17 14:52 Influenza A Untype (PCR) Not Detected (Not Detect) 11/12/17 14:52 Influenza Type B (PCR) Not Detected (Not Detect) 11/12/17 14:52 M.pneumoniae DNA (PCR) Not Detected (Not Detect) 11/12/17 14:52 Parainfluenza 1 (PCR) Not Detected (Not Detect) 11/12/17 14:52 Parainfluenza 2 (PCR) Not Detected (Not Detect) 11/12/17 14:52 Parainfluenza 3 (PCR) Not Detected (Not Detect) 11/12/17 14:52 Parainfluenza 4 (PCR) Not Detected (Not Detect) 11/12/17 14:52 RSV (PCR) Not Detected (Not Detect) 11/12/17 14:52 Entero/Rhino (PCR) Not Detected (Not Detect) 11/12/17 14:52 Specimen Rejected Clotted 11/22/17 08:[address] 11/06/17 20:51 IMPRESSION: No acute intracranial abnormality. D/ / Hemanth Chu MD / Hemanth Chu MD Interpreting Provider: Hemanth Chu MD Chest CTA 11/12/17 08:55 IMPRESSION: 1. Negative for acute pulmonary embolism. 2. Large hiatal hernia. 3. Multifocal patchy airspace disease in both lungs could represent pneumonia. 4. Bilateral pleural effusions. D/ / 11/12/2017 10:35:04 Kvng Mancini MD / rebeca Interpreting Provider: Kvng Mancini MD Chest X-Ray 11/15/17 09:56 IMPRESSION: 1. Significant improvement in left basal infiltrates with residual subsegmental atelectasis. 2. New right lung base opacification representing effusion with or without underlying consolidation which may represent pneumonia and/or atelectasis. D/ / Joseph Bustillo MD / Joseph Bustillo MD Interpreting Provider: Joseph Bustillo MD Chest CT 11/16/17 16:00 IMPRESSION: Interval decrease in size of bilateral pleural effusions with associated dependent consolidation, likely atelectasis. Patchy bilateral airspace disease is decreased in extent and density, mostly remaining in the upper lungs. D/ / Jaycee Cruz Cha, MD / Jaycee Cruz Cha, MD Interpreting Provider: Jaycee Cruz Cha, MD Pelvis Ultrasound 11/20/17 00:00 IMPRESSION: Uterus is prominent in size for age. Enlarged endometrium of concern for endometrial pathology. Left ovary not visualized due to bowel gas. D/ / Michell Gonzalez MD / Michell Gonzalez MD Interpreting Provider: Michell Gonzalez MD X-Ray 11/20/17 08:44 IMPRESSION: 1. Moderate to severe dextroscoliosis of the thoracolumbar spine. 2. Residual contrast and mild stool within the colonic loops. No abnormally dilated small bowel loops identified to suggest small bowel obstruction. D/ / Jeb Morris MD / Jeb Mroris MD Interpreting Provider: Jeb Morris MD Abdomen/Pelvis CT 11/21/17 08:00 IMPRESSION: 1. No evidence of bowel obstruction. Previously seen large volume of stool in the rectum on the exam of November 18, 2017 is no longer present. 2. Mild thickening of the sigmoid colon wall. If it would alter patient's long-term management and if patient is not up-to-date on colon cancer screening, consider colonoscopy on a nonemergent basis. 3. Large hiatal hernia. 4. Peribronchovascular ground-glass opacities in the right upper lobe. If patient has clinical symptoms of infection, this may represent pneumonia or pneumonitis. 5. Bibasilar atelectasis. D/ / 11/21/2017 10:59:41 Deangelo Kimbrough MD / gerber Interpreting Provider: Deangelo Kimbrough MD Anesthesia Exam Vital Signs Temp Pulse Resp BP Pulse Ox 11/25/17 11:05 18 99 11/25/17 07:41 99 F 105 196 123/78 100 11/25/17 07:27 18 100 11/25/17 05:27 99.5 F 101 18 117/97 97 11/25/17 04:32 20 98 11/25/17 00:33 20 100 11/24/17 22:36 94 11/24/17 22:30 98.9 F 107 20 112/82 94 11/24/17 20:28 20 100 11/24/17 15:49 16 94 11/24/17 15:34 99.0 F 91 15 123/78 96 Intake and Output 11/24/17 11/25/17 11/25/17 23:59 07:59 15:59 Intake Total 0 / 0 0 / 0 Output Total 2500 / 2500 350 / 350 Balance -2500 / -2500 -350 / -350 Intake: Oral 0 / 0 0 / 0 Output: Urine 2500 / 2500 Catheter 350 / 350 Other: Meal Dinner Percent of Meal Consumed 0% Stool Size Large Stool Consistency loose Stool Characteristics Mucoid Stool Color Yellow # Bowel Movements 1 Weight 70.7 kg Patient Weight 11/25/17 23:59 Weight 70.7 kg - HEENT Pupil (Motor): Pupils equal, EOMI Mallampati: III Teeth: Missing, Poor dentition Oral Opening: Greater than 3 - PARTITION NOTCHER LOC: Oriented PARTITION NOTCHER Motor: Normal Face, Deficit RUE, Deficit LUE, Deficit RLE, Deficit LLE PARTITION NOTCHER Sensory: Deficit: RUE, LUE, RLE, LLE, Face - Cardiac Rhythm: Regular Murmur: None - Pulmonary Breath Sounds: bilateral Clear Respiratory Effort: Symmetrical Anesthesia Assess/Plan ASA Score: 3 Modified [place] Scale for Level of Consciousness: Cooperative, oriented, and tranquil Anesthetic Plan: General Monitoring Plan: Standard Monitors Recovery Plan: PACU Anes Supervising Prov Stmt: Pt seen/evaluated, R&B Discussed, questions answered and consent obtained. Debbie Barragan MD
[2017-11-25] MEDS ORDERED: Furosemide 20 MG TABLET PO PRN (13:36)
[2017-11-25] MEDS ORDERED: 0.9 % Sodium Chloride 500 ML IVC SCH (14:00)
[2017-11-25] MEDS ORDERED: Polyethylene Glycol 3350 255 GM POWDER PO ONE (14:30)
[2017-11-25] MEDS: Divalproex (24 HR) 250 MG TABLET PO SCH (15:57)
[2017-11-25] MEDS: Venlafaxine XR (24 HR) 75 MG CAP.ER.24H PO SCH (15:57)
[2017-11-25] MEDS: Loratadine 10 MG TABLET PO SCH (15:57)
[2017-11-25] MEDS: Lactobacillus 1 EACH CAP.SPRINK PO SCH ×2 (16:21→20:47)
[2017-11-25] MEDS: Nystatin Cream 15 GM TUBE TP SCH ×2 (16:22→20:46)
[2017-11-25] MEDS: Baclofen 10 MG TABLET PO SCH (20:47)
[2017-11-26] MEDS: Ipratropium/Albuterol Neb 3 ML IH SCH ×6 (00:15→20:29)
[2017-11-26 05:44] LABS: Basophils # 0.1 K/mcL (0.0-0.2); Basophils % 0.7 %; Eosinophils # 0.2 K/mcL (0.0-0.6); Eosinophils % 2.5 %; Hematocrit 28.1 % (35.3-44.9); Lymphocytes # 1.3 K/mcL (0.6-4.6); Lymphocytes % 17.9 %; Mean Corpuscular Hemoglobin 28.1 pg (28.0-33.3); Mean Corpuscular Volume 87.8 fL (83.0-100.0); Mean Platelet Volume 11.8 fL (9.4-12.4); Monocytes # 1.5 K/mcL (0.0-1.3); Monocytes % 20.8 %; Neutrophils # 4.1 K/mcL (1.6-8.9); Platelet Count 100 K/mcL (140-400); Red Cell Distribution Width 18.9 % (11.5-14.5); Segmented Neutrophils % 57.1 %
[2017-11-26 06:03] LABS: Alanine Aminotransferase 4 Units/L (7-52); Albumin/Globulin Ratio 1.4 (1.1-2.2); Alkaline Phosphatase 75 Units/L (34-104); Aspartate Amino Transferase 9 Units/L (13-39); BUN/Creatinine Ratio 5 (6-26); Bilirubin,Total 0.4 mg/dL (0.3-1.0); Blood Urea Nitrogen 2 mg/dL (8-23); Calcium 8.5 mg/dL (8.6-10.3); Carbon Dioxide 30 mEq/L (23-29); Chloride 104 mEq/L (98-107); Globulin 2.2 g/dL (2.4-3.5); Glucose 79 mg/dL (70-105); Osmolality,Calculated 283 (280-300); Potassium 3.4 mEq/L (3.5-5.1); Sodium 139 mEq/L (136-145); Total Protein 5.2 g/dL (6.4-8.9); eGFR For Non-African Americans > 60 (> 60)
[2017-11-26 06:08] LABS: Anisocytosis 1+ (Not Present); Hypochromasia Present (Not Present); Platelet Estimate Decreased (Normal)
[2017-11-26] MEDS ORDERED: Lidocaine -MPF 2% 2 ML VIAL ONE (08:10)
[2017-11-26] MEDS ORDERED: *HR* Propofol 200 MG/20 ML VIAL IVP ONE (08:10)
[2017-11-26] MEDS ORDERED: Potassium Citrate 10 MEQ TABLET.ER PO SCH (09:00)
--- NOTE | 2017-11-26 09:37 | Anesthesia Evaluation PreOp ---
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: Seizures (on Depakote, given yesterday), Other (Cerebral Palsy) Other Medical History: Other (Anxiety Depression) Anesthesia History: No Prior Anesthetic Complications : No Test: Negative Alcohol Use: none Drug use: none Medications and Allergies Baclofen 20 mg PO BID 09/08/17 [History] Citalopram [CeleXA] 20 mg PO DAILY 09/08/17 [History] Loratadine [Allergy Relief] 10 mg PO DAILY 09/08/17 [History] Omeprazole [PriLOSEC] 40 mg PO DAILY 09/08/17 [History] Promethazine HCl 12.5 mg PO Q8H PRN 09/08/17 [History] Rosuvastatin Calcium [Crestor] 5 mg PO DAILY 09/08/17 [History] Venlafaxine HCl [Venlafaxine HCl ER] 75 mg PO DAILY 09/08/17 [History] Citalopram Hydrobromide [Celexa] 40 mg PO DAILY 11/07/17 [History] Divalproex (24 HR) [Depakote ER (24 HR)] 750 mg PO DAILY 11/07/17 [History] Fluticasone Propionate Nasal [Flonase] 1 spr NS DAILY 11/07/17 [History] Furosemide [Lasix] 20 mg PO DAILY 11/07/17 [History] Amoxicillin/Clavulanate [Augmentin] 500 mg PO BIDWM 4 Days #8 tablet 11/11/17 [ Rx] 3 Allergy/AdvReac Type Severity Reaction Status Date / Time Ctfzqvx-Nhh-Udh Reductase Allergy Intermediate Rash Verified 11/18/15 17:58 Inhibitor [Statins] clopidogrel [From Plavix] Allergy Anaphylaxis Verified 08/17/15 13:37 Sulfa (Sulfonamide Allergy Anaphylaxis Verified 08/17/15 13:37 Antibiotics) Warfarin [From Coumadin] Allergy Anaphylaxis Verified 08/17/15 13:37 - Meds/Allergy Pre-op Review Medications Reviewed: Yes Allergies Reviewed: Yes Beta Blockers on Current Med List: No Anesthesia Results - Labs 11/26/17 05:20 11/26/17 05:20 - Imaging EKG: report reviewed (Sinus Tach) Additional studies: Stress Test negative gated EF 70% Anesthesia Exam O2 Sat Weight 69.4 kg O2 Sat by Pulse Oximetry 96 O2 Sat by Pulse Oximetry 97 O2 Sat by Pulse Oximetry 98 O2 Sat by Pulse Oximetry 97 O2 Sat by Pulse Oximetry 97 O2 Sat by Pulse Oximetry 95 O2 Sat by Pulse Oximetry 98 O2 Sat by Pulse Oximetry 98 O2 Sat by Pulse Oximetry 95 O2 Sat by Pulse Oximetry 98 O2 Sat by Pulse Oximetry 95 O2 Sat by Pulse Oximetry 95 O2 Sat by Pulse Oximetry 99 Vital Signs Temp Pulse Resp BP Pulse Ox 98.2 F 98 20 102/72 94 11/06/17 20:43 11/06/17 20:43 11/06/17 20:43 11/06/17 20:43 11/06/17 20:43 Height: 5'3 Weight: 153 lbs NPO (# of Hours): MN Pain Scale: 0 - HEENT Pupil (Motor): Pupils equal, EOMI Oral Opening: Less than or equal to 3 - PROCESS LABORATORY SPECIALIST LOC: Unable to assess PROCESS LABORATORY SPECIALIST Motor: Deficit RUE (cerebral palsy), Deficit LUE, Deficit RLE, Deficit LLE, Deficit Face PROCESS LABORATORY SPECIALIST Sensory: Normal: RUE, LUE, RLE, LLE, Face - Cardiac Rhythm: Regular Murmur: None JVD: No Carotid Bruit: No - Pulmonary Breath Sounds: bilateral Clear Respiratory Effort: Symmetrical Anesthesia Assess/Plan ASA Score: 3 (Cerebral Palsy Seizures) Modified Brien Scale for Level of Consciousness: Cooperative, oriented, and tranquil Anesthetic Plan: MAC Monitoring Plan: Standard Monitors Recovery Plan: Other (Discussed MAC, agrees to proceed)
--- NOTE | 2017-11-26 10:04 | Internal Med Progress Note ---
Date of Encounter: 11/26/17 Time of Encounter: 09:15 - Assessment and plan (1) GI bleed Current Visit: Yes Status: Suspected Assessment and plan: hemoglobin 9 today -FOBT negative -platlets down to 100, was 162 yesterday -CT scan showed thickening of the sigmoid colon, need to r/o underlying malignancy -liver ultrasound is pending -EGD yesterday showed gastritis, esophagitis and stomach edema; biopsies taken Plan: -check CBC in AM -biopsies from EGD pending -NPO now for colonoscopy -need to rule out malignancy, sterocoral ulceration and bleeding -continue to hold anticoagulation (2) Thrombocytopenia Current Visit: Yes Status: Resolved Assessment and plan: platelet count today is 100, yesterday was 162 -d/c heparin, continue SCD Plan: -GI doing colonoscopy today -will monitor platelet count, CBC in the morning -anticoagulation is currently held (3) Hypokalemia Current Visit: Yes Status: Acute Assessment and plan: Potassium today is 3.4 Plan: -pt to get one time dose of potassium chloride today 40mEq -recheck CMP in morning (4) Sepsis Current Visit: Yes Status: Resolved Assessment and plan: Pt met SIRS criteria on admission -blood cx negative -pneumonia was suspected source of infxn -pneumonia has resolved -pt is clinically stable -WBC 7.2 today, t 98.2, HR 82 Qualifiers: Sepsis type: sepsis due to unspecified organism Qualified Code(s): A41.9 - Sepsis, unspecified organism (5) Altered mental status Current Visit: Yes Status: Resolved Assessment and plan: Pt appears to be at her baseline mentation Qualifiers: Altered mental status type: disorientation Qualified Code(s): R41.0 - Disorientation, unspecified (6) Cerebral palsy Current Visit: No Status: Chronic Assessment and plan: Chronic, follows with neurology -on Baclofen (7) GERD (gastroesophageal reflux disease) Current Visit: No Status: Chronic Assessment and plan: Pt is on prilosec Keep head of bed elevated. Don't eat large meals before laying down. Chew all foods throuroughly Speech recommends thin liquids, advance soft textures , meds in puree. No straws (8) DVT prophylaxis Current Visit: No Status: Acute Assessment and plan: d/c heparin continue SCD (9) Seizure Current Visit: No Status: Chronic Assessment and plan: On depakote Speech evaluated with swallow study - recommendation below: ST recommends thin liquid and advanced soft textures. NO STRAWS, assist with feeds, meds in puree. Patient is tolerating baseline diet. No swallow therapy recommended at this time. (10) Pneumonia Current Visit: Yes Status: Resolved Assessment and plan: On admit pt had bilateral pneumonia concerning for aspiration pneumonia -received vancomycin and Zosyn -recieved levaquin -legionella and s pneumo both negative -pt has clinically improved (11) Dysphasia Current Visit: No Status: Chronic Assessment and plan: Continue with nectar thickened liquids and advanced soft diet which therapy as needed -continue prilosec -continue keeping head of bed elevated - Time Spent With Patient Total time spent is greater than 50% in coordination of care (as documented) at patient's floor/unit and/or counseling patient: less than 15 minutes - Subjective Interval history: Patient is seen at bedside. -pt is with caregiver this morning, she is more alert and oriented than she was yesterday -she denies being in any pain, having any chest pain or SOB today. She states her arms and legs feel much better than they did yesterday and that she has no n /v or abd pain. -hx of dementia, developmental delay and cerebral palsy -pt to have colonoscopy today -EGD done yesterday and showed an edematous stomach which was biopsied, gastritis and esophagitis -Pt was admitted for sepsis from pneumonia, which has since resolved with IV abx. -Admission complicated by colitis with stool impaction, getting enemas for this -Leukocytosis has resolved - WBC today 7.2 -hemoglobin is 9 today, hemodynamically stable -Nurse states no overnight events Fluids - no fluids at this time Electrolytes - potassium 3.4, will get a one time dose of potassium chloride Nutrition - currently NPO for colonoscopy GI prophylaxis - pt is on omeprazole DVT prophylaxis - dc heparin, start scd's - Constitutional Vitals: Temp Pulse Resp BP Pulse Ox 98.8 F 94 18 132/83 96 11/26/17 06:48 11/26/17 09:35 11/26/17 09:35 11/26/17 09:35 11/26/17 09:35 General appearance: Present: disheveled, mild distress - Head Head exam: Present: normal inspection - Respiratory Respiratory exam: Present: CTAB - Cardiovascular Cardiovascular exam: Present: RRR, +S1, +S2 - GI/Abdominal GI/Abdominal exam: Present: soft, no peritoneal signs - Skin Skin exam: Present: intact Internal Medicine: Result - Labs CBC & Chem 7: 11/26/17 05:20 11/26/17 05:20 Labs: Short CBC 11/26/17 Range/Units 05:20 WBC 7.2 (4.3-11.1) K/mcL Hgb 9.0 L (11.5-15.4) g/dL Hct 28.1 L (35.3-44.9) % Plt Count 100 L (140-400) K/mcL Neutrophils # 4.1 (1.6-8.9) K/mcL BMP 11/26/17 05:20 Sodium 139 Potassium 3.4 L Chloride 104 Carbon Dioxide 30 H BUN 2 L Creatinine 0.40 L Glucose 79 Calcium 8.5 L Liver Function 11/26/17 Range/Units 05:20 Total Bilirubin 0.4 (0.3-1.0) mg/dL AST 9 L (13-39) Units/L ALT 4 L (7-52) Units/L Alkaline Phosphatase 75 (34-104) Units/L Albumin 3.0 L (3.5-5.7) g/dL - ABG Interpretation ABG results: ABG ABG pH 7.50 pH Units (7.32-7.45) H 11/13/17 04:07 ABG pCO2 29 mmHg (35-45) L 11/13/17 04:07 ABG pO2 72 mmHg (85-104) L 11/13/17 04:07 ABG O2 Saturation 96 % (95-98) 11/13/17 04:07 PT/INR, D-dimer PT 11.7 Seconds (9.4-12.1) 11/06/17 21:22 - VTE Documentation of Mechanical Device: Intermittent pneumatic compression device Consult Discharge Plan - Plan Referrals: Dayan Prieto CNP [Primary Care Provider] - 11/23/17 10:00 am (Appointment requested) Prescriptions: Amoxicillin/Clavulanate [Augmentin] 500 mg PO BIDWM 4 Days #8 tablet
--- NOTE | 2017-11-26 10:38 | Event Note ---
Date of Encounter: 11/26/17 Time of Encounter: 10:34 Patient was seen and examined. I agree with the progress note as written by the resident physician. Patient was admitted for sepsis stemming from pneumonia was put on IV antibiotics with help of ID. Stay has been complicated by colitis with stool pardon which has resolved. Patient leukocytosis and signs of sepsis have resolved. Had a fever of 100.4 last night. No leukocytosis. Has a history of cerebral palsy. Looking at the patient's records it seems that her hemoglobin has been slowly dropping since admission with initial presentation hemoglobin of 13.0 and is down to 7.7. Today Hgb is 8.6. No signs of bleeding. A CT abdomen and pelvis was done a couple times while hospitalized with signs of thickening in the sigmoid colon. EGD done showing LA Grade A esophagitis, 2 cm hiatal hernia chronic gastritis. . Colonoscopy showed two 10-14 mm polyps in sigmoid colon which were removed as well as non-bleeding internal hemorrhoids. GEN: NAD CVS: RRR. S1, S2, No m/r/g RESP: CTAB ABD: Soft, NT, ND, +BS EXT: No edema. 2+ DP. No rashes NEURO: Nonfocal monitor H/H conner culture for new fever. 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
[2017-11-26] MEDS ORDERED: Potassium Chloride Elixir 20 MEQ/15 ML UDC PO ONE (12:00)
[2017-11-26] MEDS: Divalproex (24 HR) 250 MG TABLET PO SCH (12:07)
[2017-11-26] MEDS: Loratadine 10 MG TABLET PO SCH (12:08)
[2017-11-26] MEDS: Baclofen 10 MG TABLET PO SCH ×2 (12:08→21:32)
[2017-11-26] MEDS: Fluticasone Propionate Nasal 50 MCG/SPRAY BOTTLE NS SCH (12:08)
[2017-11-26] MEDS: Venlafaxine XR (24 HR) 75 MG CAP.ER.24H PO SCH (12:08)
[2017-11-26] MEDS: Lactobacillus 1 EACH CAP.SPRINK PO SCH ×2 (12:08→21:32)
--- NOTE | 2017-11-26 12:52 | Anesthesia Evaluation Post Op ---
Date of Encounter: 11/26/17 Time of Encounter: 10:45 - Vital Signs Vital Signs: Vital Signs/O2 Sat/Glucose, Most Current Temp Pulse Resp BP Pulse Ox 11/26/17 11:18 18 99 11/26/17 11:11 98.3 F 96 16 110/67 95 11/26/17 09:35 94 18 132/83 96 - Lungs Lungs: Clear Ascult./Percussion - Airway Airway: Non-obstructed - Cardiovascular Regular Rate - Mental Status Mental Status: Asleep with brisk response to light stimulation - Pain Pain Scale: 0 - Nausea Vomiting Nausea Vomiting: Not Present - Hydration Hydration: NPO - Discharge PostOp Status: Transfer Patient to floor
[2017-11-26] MEDS: Potassium Chloride Elixir 20 MEQ/15 ML UDC PO SCH ×2 (18:37→21:28)
[2017-11-26] MEDS: Nystatin Cream 15 GM TUBE TP SCH ×2 (21:28→21:33)
[2017-11-27] MEDS: Ipratropium/Albuterol Neb 3 ML IH SCH ×6 (00:02→20:05)
[2017-11-27 07:02] LABS: Basophils % 0.3 %; Eosinophils # 0.2 K/mcL (0.0-0.6); Eosinophils % 1.6 %; Hemoglobin 8.6 g/dL (11.5-15.4); Immature Granulocytes % 0.5 % (0-4); Lymphocytes # 1.5 K/mcL (0.6-4.6); Lymphocytes % 13.5 %; Mean Corpuscular HGB Conc 31.9 g/dL (31.6-35.5); Mean Corpuscular Volume 90.9 fL (83.0-100.0); Mean Platelet Volume 11.6 fL (9.4-12.4); Monocytes # 2.1 K/mcL (0.0-1.3); Neutrophils # 7.2 K/mcL (1.6-8.9); Platelet Count 104 K/mcL (140-400); Red Blood Count 2.97 M/mcL (3.82-4.97); Red Cell Distribution Width 19.8 % (11.5-14.5); Segmented Neutrophils % 65.1 %
[2017-11-27 07:23] LABS: Alanine Aminotransferase 4 Units/L (7-52); Albumin 2.5 g/dL (3.5-5.7); Albumin/Globulin Ratio 1.1 (1.1-2.2); Alkaline Phosphatase 62 Units/L (34-104); Aspartate Amino Transferase 9 Units/L (13-39); BUN/Creatinine Ratio 9 (6-26); Bilirubin,Total 0.4 mg/dL (0.3-1.0); Blood Urea Nitrogen 4 mg/dL (8-23); Calcium 8.4 mg/dL (8.6-10.3); Carbon Dioxide 30 mEq/L (23-29); Chloride 106 mEq/L (98-107); Globulin 2.2 g/dL (2.4-3.5); Glucose 74 mg/dL (70-105); Osmolality,Calculated 286 (280-300); Potassium 4.5 mEq/L (3.5-5.1); Sodium 140 mEq/L (136-145); Total Protein 4.7 g/dL (6.4-8.9); eGFR For Non-African Americans > 60 (> 60)
[2017-11-27 07:41] LABS: Platelet Estimate Slight Decrease (Normal)
--- NOTE | 2017-11-27 08:17 | Event Note ---
Date of Encounter: 11/27/17 Time of Encounter: 08:14 Patient was seen and examined. I agree with the progress note as written by the resident physician. Continues to spike temps. Tmax 100.8 last night. WBC count up to 11 from around 7. Patient was admitted for sepsis stemming from pneumonia was put on IV antibiotics with help of ID. Stay has been complicated by colitis with stool pardon which has resolved. Patient leukocytosis and signs of sepsis have resolved but now new fever. No leukocytosis. Has a history of cerebral palsy. Looking at the patient's records it seems that her hemoglobin has been slowly dropping since admission with initial presentation hemoglobin of 13.0 and was down to 7.7. Today Hgb is 8.6. No signs of bleeding. A CT abdomen and pelvis was done a couple times while hospitalized with signs of thickening in the sigmoid colon. EGD done showing LA Grade A esophagitis, 2 cm hiatal hernia chronic gastritis. . Colonoscopy showed two 10-14 mm polyps in sigmoid colon which were removed as well as non-bleeding internal hemorrhoids. GEN: NAD CVS: RRR. S1, S2, No m/r/g RESP: CTAB ABD: Soft, NT, ND, +BS EXT: No edema. 2+ DP. No rashes NEURO: Nonfocal Need to sort out fever source before d/c. Otherwise patient was ready for d/c Spoke to nurse about collecting another sample for C. Diff, send for UA CXR and blood cx with nothing infectious so far. CXR was not the best picture check CT chest Tempted to start ceftriaxone for coccyx ulcer and surround erythema Caregiver says this ulcer has been there chronically but now the erythema is new monitor H/H Lasix PRN SCDs
[2017-11-27] MEDS: Baclofen 10 MG TABLET PO SCH ×3 (09:02→20:53)
[2017-11-27] MEDS: Divalproex (24 HR) 250 MG TABLET PO SCH ×2 (09:02→09:49)
[2017-11-27] MEDS: Venlafaxine XR (24 HR) 75 MG CAP.ER.24H PO SCH ×2 (09:02→09:49)
[2017-11-27] MEDS: Potassium Chloride Elixir 20 MEQ/15 ML UDC PO SCH ×3 (09:02→20:54)
[2017-11-27] MEDS: Loratadine 10 MG TABLET PO SCH ×2 (09:02→09:49)
[2017-11-27] MEDS: Lactobacillus 1 EACH CAP.SPRINK PO SCH ×3 (09:02→20:53)
[2017-11-27] MEDS: Potassium Citrate 10 MEQ TABLET.ER PO SCH ×4 (09:02→20:53)
[2017-11-27] MEDS: Fluticasone Propionate Nasal 50 MCG/SPRAY BOTTLE NS SCH (09:03)
[2017-11-27] MEDS: Nystatin Cream 15 GM TUBE TP SCH ×2 (09:03→20:54)
[2017-11-27 10:05] LABS: Bilirubin,Urine Negative (Negative); Blood,Urine Moderate (Negative); Clarity,Urine Clear (Clear); Color,Urine Yellow (Yellow); Glucose,Urine (UA) Normal (Normal); Ketones,Urine 15 mg/dL (Negative); Leukocyte Esterase,Urine Trace (Negative); Nitrite,Urine Negative (Negative); PH,Urine 7.5 pH Units (5.0-8.0); Protein,Urine 100 mg/dL (Neg-Trace); Specific Gravity,Urine >= 1.030 (1.010-1.025); Urobilinogen,Urine Normal (Normal)
[2017-11-27 10:25] LABS: RBC,Urine 0-3 per hpf (0-3); WBC,Urine 0-3 per hpf (0-3)
[2017-11-27 10:26] LABS: Bacteria,Urine Many per hpf (None-Few); Squamous Epithelial Cell,Urine Few per lpf (None-Few)
--- NOTE | 2017-11-27 12:05 | Internal Med Progress Note ---
Date of Encounter: 11/27/17 Time of Encounter: 11:30 - Assessment and plan (1) Leukocytosis Current Visit: Yes Status: Acute Assessment and plan: WBC count today is 11 -pt has repeatedly been tacycardic and has been having fevers overnight (tmax 100.8) -pt doesn't have any specific complaints Plan -blood cx and urine cx pending -CXR was poor quality so CT scan ordered, pending -rocephin 2000mg IVP (2) GI bleed Current Visit: Yes Status: Resolved Assessment and plan: hemoglobin 8.6 today , H&H has been stable -FOBT negative -platlets down to 104 -CT scan showed thickening of the sigmoid colon, need to r/o underlying malignancy -liver ultrasound is pending -EGD yesterday showed gastritis, esophagitis and stomach edema; biopsies taken Plan: -check CBC in AM -biopsies from EGD pending -multiple polyps removed and retrieved in colonoscopies -GI said no active bleeding -continue to hold anticoagulation . (3) Thrombocytopenia Current Visit: Yes Status: Resolved (4) Hypokalemia Current Visit: Yes Status: Resolved Assessment and plan: Potassium today is 4.5 Plan: -continue to monitor -recheck CMP in morning (5) Sepsis Current Visit: Yes Status: Resolved Assessment and plan: Pt met SIRS criteria on admission -blood cx negative -pneumonia was suspected source of infxn -pneumonia has resolved -pt is clinically stable -WBC 11 today, t 98.5, HR 79 Plan: -will start IV rocephin on patient until cultures come back from blood/urine -CXR was very poor quality, ordered CT scan to r/o pneumonia since pt has been spiking fever (t max 100.8) and tacycardic over the last two nights -blood and urine cx pending Qualifiers: Sepsis type: sepsis due to unspecified organism Qualified Code(s): A41.9 - Sepsis, unspecified organism (6) Altered mental status Current Visit: Yes Status: Resolved Assessment and plan: Pt appears to be at her baseline mentation Qualifiers: Altered mental status type: disorientation Qualified Code(s): R41.0 - Disorientation, unspecified (7) Cerebral palsy Current Visit: No Status: Chronic Assessment and plan: Chronic, follows with neurology -on Baclofen (8) GERD (gastroesophageal reflux disease) Current Visit: No Status: Chronic Assessment and plan: Pt is on prilosec Keep head of bed elevated. Don't eat large meals before laying down. Chew all foods throuroughly Speech recommends thin liquids, advance soft textures , meds in puree. No straws (9) DVT prophylaxis Current Visit: No Status: Acute Assessment and plan: d/c heparin continue SCD (10) Seizure Current Visit: No Status: Chronic Assessment and plan: On depakote Speech evaluated with swallow study - recommendation below: ST recommends thin liquid and advanced soft textures. NO STRAWS, assist with feeds, meds in puree. Patient is tolerating baseline diet. No swallow therapy recommended at this time. (11) Pneumonia Current Visit: Yes Status: Resolved Assessment and plan: On admit pt had bilateral pneumonia concerning for aspiration pneumonia -received vancomycin and Zosyn -recieved levaquin -legionella and s pneumo both negative -pt has clinically improved (12) Dysphasia Current Visit: No Status: Chronic Assessment and plan: Continue with nectar thickened liquids and advanced soft diet which therapy as needed -continue prilosec -continue keeping head of bed elevated - Time Spent With Patient Total time spent is greater than 50% in coordination of care (as documented) at patient's floor/unit and/or counseling patient: less than 15 minutes - Subjective Interval history: Patient is seen at bedside. -pt is with caregiver this morning, she is sleeping peacefully -hx of dementia, developmental delay and cerebral palsy -pt to have colonoscopy yesterday which revealed multiple polyps which were removed and retrieved -EGD done 11/25 and showed an edematous stomach which was biopsied, gastritis and esophagitis -Pt was admitted for sepsis from pneumonia, which has since resolved with IV abx. -Admission complicated by colitis with stool impaction, getting enemas for this -Leukocytosis has resolved - WBC today 11 -hemoglobin is 8.6 today, hemodynamically stable -Nurse states no overnight events Fluids - no fluids at this time Electrolytes - potassium 4.5 Nutrition - thickened liquids with honey GI prophylaxis - pt is on omeprazole DVT prophylaxis - dc heparin, start scd's - Constitutional Vitals: Temp Pulse Resp BP Pulse Ox 98.5 F 79 16 102/57 100 11/27/17 11:16 11/27/17 11:16 11/27/17 11:16 11/27/17 11:16 11/27/17 11:16 General appearance: Present: disheveled, no acute distress - Neck Neck exam general surgery: Present: supple - Respiratory Respiratory exam: Present: CTAB - Cardiovascular Cardiovascular exam: Present: RRR, +S1, +S2 - GI/Abdominal GI/Abdominal exam: Present: soft, no peritoneal signs - Skin Skin exam: Present: intact Internal Medicine: Result - Labs CBC & Chem 7: 11/27/17 06:33 11/27/17 06:33 Labs: Short CBC 11/27/17 Range/Units 06:33 WBC 11.0 D (4.3-11.1) K/mcL Hgb 8.6 L (11.5-15.4) g/dL Hct 27.0 L (35.3-44.9) % Plt Count 104 L (140-400) K/mcL Neutrophils # 7.2 (1.6-8.9) K/mcL BMP 11/27/17 06:33 Sodium 140 Potassium 4.5 Chloride 106 Carbon Dioxide 30 H BUN 4 L Creatinine 0.44 L Glucose 74 Calcium 8.4 L Liver Function 11/27/17 Range/Units 06:33 Total Bilirubin 0.4 (0.3-1.0) mg/dL AST 9 L (13-39) Units/L ALT 4 L (7-52) Units/L Alkaline Phosphatase 62 (34-104) Units/L Albumin 2.5 L (3.5-5.7) g/dL Urine 11/27/17 Range/Units 09:30 Urine Color Yellow (Yellow) Urine Clarity Clear (Clear) Urine pH 7.5 (5.0-8.0) pH Units Ur Specific [place] >= 1.030 H (1.010-1.025) Urine Protein 100 H (Neg-Trace) mg/dL Urine Glucose (UA) Normal (Normal) mg/dL - ABG Interpretation ABG results: ABG ABG pH 7.50 pH Units (7.32-7.45) H 11/13/17 04:07 ABG pCO2 29 mmHg (35-45) L 11/13/17 04:07 ABG pO2 72 mmHg (85-104) L 11/13/17 04:07 ABG O2 Saturation 96 % (95-98) 11/13/17 04:07 PT/INR, D-dimer PT 11.7 Seconds (9.4-12.1) 11/06/17 21:22 - Impressions Impressions Chest X-Ray 11/26/17 10:42 IMPRESSION: Small left-sided pleural effusion with overlying atelectatic changes. D/ / 11/26/2017 15:12:26 Julius Watts MD / [email or web address] Interpreting Provider: Julius Watts MD - VTE Documentation of Mechanical Device: Intermittent pneumatic compression device Consult Discharge Plan - Plan Referrals: Dayan Prieto CNP [Primary Care Provider] - 11/23/17 10:00 am (Appointment requested) Prescriptions: Amoxicillin/Clavulanate [Augmentin] 500 mg PO BIDWM 4 Days #8 tablet
[2017-11-27] MEDS ORDERED: cefTRIAXone 2,000 MG in Water for inj. (sterile) 20 ML 20 ML IVP SCH (13:00)
[2017-11-27 16:25] LABS: ABG Base Excess 8 mEq/L (-2 to 3); ABG HCO3 33 mEq/L (21-27); ABG Oxygen Saturation 97 % (95-98); ABG PCO2 49 mmHg (35-45); ABG PH 7.43 pH Units (7.32-7.45); ABG PO2 94 mmHg (85-104); ABG TCO2 34 mEq/L (20-26)
[2017-11-27] MEDS: 0.9 % Sodium Chloride 1,000 ML IVC SCH (18:04)
[2017-11-28] MEDS: Ipratropium/Albuterol Neb 3 ML IH SCH ×3 (00:16→07:42)
[2017-11-28 04:58] LABS: Hemoglobin 8.6 g/dL (11.5-15.4)
[2017-11-28 05:00] LABS: Basophils % 0.5 %; Eosinophils # 0.3 K/mcL (0.0-0.6); Eosinophils % 3.8 %; Hematocrit 27.4 % (35.3-44.9); Immature Granulocytes % 0.7 % (0-4); Immature Platelets 16.5 % (1.1-6.1); Lymphocytes # 1.4 K/mcL (0.6-4.6); Lymphocytes % 19.3 %; Mean Corpuscular HGB Conc 31.4 g/dL (31.6-35.5); Mean Corpuscular Hemoglobin 29.1 pg (28.0-33.3); Mean Corpuscular Volume 92.6 fL (83.0-100.0); Monocytes # 1.4 K/mcL (0.0-1.3); Monocytes % 18.8 %; Neutrophils # 4.2 K/mcL (1.6-8.9); Platelet Count 90 K/mcL (140-400); Red Blood Count 2.96 M/mcL (3.82-4.97); Segmented Neutrophils % 56.9 %
[2017-11-28 05:21] LABS: Alanine Aminotransferase 3 Units/L (7-52); Albumin 2.4 g/dL (3.5-5.7); Albumin/Globulin Ratio 1.1 (1.1-2.2); Alkaline Phosphatase 62 Units/L (34-104); Aspartate Amino Transferase 7 Units/L (13-39); BUN/Creatinine Ratio 15 (6-26); Bilirubin,Total 0.2 mg/dL (0.3-1.0); Blood Urea Nitrogen 6 mg/dL (8-23); Calcium 8.3 mg/dL (8.6-10.3); Carbon Dioxide 31 mEq/L (23-29); Chloride 107 mEq/L (98-107); Globulin 2.1 g/dL (2.4-3.5); Glucose 72 mg/dL (70-105); Osmolality,Calculated 284 (280-300); Potassium 5.4 mEq/L (3.5-5.1); Sodium 139 mEq/L (136-145); Total Protein 4.5 g/dL (6.4-8.9); eGFR For Non-African Americans > 60 (> 60)
--- NOTE | 2017-11-28 09:00 | Pulmonology Consult Note ---
Date of Encounter: 11/28/17 Time of Encounter: 08:59 Assessment and Plan (1) Pneumonia Current Visit: Yes Status: Acute In conclusion this is a 71-year-old woman with past medical history of cerebral palsy along with severe chest cage deformity complicated by hiatal hernia and aspiration. Patient has radiographic evidence of pneumonia but I do not see any clear indication that this is the abscess formation. There is no gas noted there is no clearly delineated complicated fluid collection which would require aspiration such as a complicated effusion or empyema. I suspect that based upon the chronicity patient likely had aspiration event during anesthesia either on the or the during endoscopy. Clearly the patient is at high risk for developing pneumonia because of the factors already outlined including her body habitus and high risk features for aspiration along with chronic PPI use. Clinically she is quite stable. --I agree with continuation of antimicrobials in this case Unasyn given clinic overall clinical improvement. --Agree with blood cultures if not already obtained and sputum cultures if can be obtained although I think this will be difficult --Keep nothing by mouth at midnight for consideration of bronchoscopy (Dr Metzger will see patient tomorrow) although I suspect her improvement over the last 24 hours will make this unnecessary --It is worthwhile discussing her antimicrobial therapy with the infectious disease (tomorrow) she is alert he had a prolonged course of an extended spectrum beta-lactamase she could be consideration for ertapenenm but her underlying seizure disorder would likely be a relative contraindication given overall clinical improvement I do not see any reason to necessarily make changes right now. --Total length of antimicrobial treatment should be at least 8 days and would need repeat CT scan in the next 2-4 weeks demonstrated she has had resolution. --Clearly if patient starts to spike fever again repeat CT scan will have to be obtained likely proceed with bronchoscopy and adjustment of antimicrobials - I consider this is unlikely Thank you for consultation please call with any questions Qualifiers: Pneumonia type: due to unspecified organism Lung location: lower lobe of lung Qualified Code(s): J18.1 - Lobar pneumonia, unspecified organism (2) Chest wall deformity Current Visit: Yes Status: Acute (3) Hiatal hernia Current Visit: Yes Status: Acute (4) Cerebral palsy Current Visit: No Status: Chronic Qualifiers: Cerebral palsy type: unspecified type Qualified Code(s): G80.9 - Cerebral palsy, unspecified History of Present Illness Consult date: 11/28/17 Requesting physician: Archie Prieto Reason for consult: abnormal CXR/CT Chief complaint: Fever History of present illness: The patient is a very pleasant 71-year-old woman with a history of cerebral palsy complicated with developmental delay chronic seizure disorder dementia GERD hypertension anxiety and depression. The patient has been admitted to the hospital for the majority of this month. She was initially admitted to the hospital from her [facility] facility for altered mental status and hallucinations thought to be secondary to sepsis she has been treated for pneumonia for at least 14 days as well as colitis. She is also had upper and lower endoscopy performed for evaluation of chronic anemia. 2 days ago patient had developed low-grade feve and had increased WBC count from (although WBC was always in the normal ranged) this happened in the late evening aerodynamic consultant from the into the she was noted to have increased tachycardia during the as well. Chest x-ray was performed which was difficult to interpret because of the patient's body habitus this was followed up by a CT scan of the chest on the which was notable for interval worsening and focal airspace consolidation of the base last aspect of the left lower lobe with some central low-attenuation suggestive of pneumonia there was concern by the radiologist that this may represent early abscess formation. Pulmonary was consulted for further evaluation of this Of note the patient has severe chest cage abnormality complicated by kyphoscoliosis and restrictive physiology she also has a large hiatal hernia she had a Form speech consulation performed on this admission after witnessed choking episode during breakfast with recs for nectar thickened liquids as well as mechanical soft. She also has poor dentition. In speaking with the patient today she is in no acute distress her heart rate is controlled blood pressure stable she is saturating in the high 90s on 2 L supplemental oxygen she says that she is not having any problems except people keep waking her up from her sleep. She is currently being treated with Unasyn. Past Med Surg Social Fam HX - Past Medical History Medical history: dementia, GERD, hyperlipidemia, hypertension, other Additional medical history: CP, osteoarthritis., anxiety, depression, Psychiatric history: anxiety, depression - Past Surgical History Surgical History: other (shoulder, knee surgery) Additional surgical history: abdominal surgery, knee surgeries. - Social History Smoking Status: Never smoker Smokeless Tobacco Status: No Alcohol use: none Drug use: none - Family History Mother Adopted: Yes Father Adopted: Yes Medications and Allergies Baclofen 20 mg PO BID 09/08/17 [History] Citalopram [CeleXA] 20 mg PO DAILY 09/08/17 [History] Loratadine [Allergy Relief] 10 mg PO DAILY 09/08/17 [History] Omeprazole [PriLOSEC] 40 mg PO DAILY 09/08/17 [History] Promethazine HCl 12.5 mg PO Q8H PRN 09/08/17 [History] Rosuvastatin Calcium [Crestor] 5 mg PO DAILY 09/08/17 [History] Venlafaxine HCl [Venlafaxine HCl ER] 75 mg PO DAILY 09/08/17 [History] Citalopram Hydrobromide [Celexa] 40 mg PO DAILY 11/07/17 [History] Divalproex (24 HR) [Depakote ER (24 HR)] 750 mg PO DAILY 11/07/17 [History] Fluticasone Propionate Nasal [Flonase] 1 spr NS DAILY 11/07/17 [History] Furosemide [Lasix] 20 mg PO DAILY 11/07/17 [History] Amoxicillin/Clavulanate [Augmentin] 500 mg PO BIDWM 4 Days #8 tablet 11/11/17 [ Rx] 3 Allergy/AdvReac Type Severity Reaction Status Date / Time [id number] Reductase Allergy Intermediate Rash Verified 11/18/15 17:58 Inhibitor [Statins] clopidogrel [From Plavix] Allergy Anaphylaxis Verified 08/17/15 13:37 Sulfa (Sulfonamide Allergy Anaphylaxis Verified 08/17/15 13:37 Antibiotics) Warfarin [From Coumadin] Allergy Anaphylaxis Verified 08/17/15 13:37 All Systems: The remainder of the systems were reviewed and are negative Physical Examination Vital Signs: Vital Signs, Last 4 Hours Temp Pulse Resp BP Pulse Ox 11/28/17 07:42 16 99 11/28/17 06:42 99.1 F 72 17 91/64 100 General appearance: no acute distress Eyes: nonicteric ENT: oropharynx dry, other (poor dentition ) Neck: supple, no lymphadenopathy Effort: normal Inspection: scoliosis, kyphosis Auscultation: bilateral: diminished breath sounds, rhonchi Cardiovascular: regular rate and rhythm Gastrointestinal: normoactive bowel sounds, soft, non-tender Integumentary: normal Extremities: no cyanosis, no edema, no clubbing normal mental status, non-focal exam mood appropriate Results - Laboratory Findings CBC and BMP: 11/28/17 04:30 11/28/17 04:30 ABG ABG pH 7.43 pH Units (7.32-7.45) 11/27/17 16:23 ABG pCO2 49 mmHg (35-45) H 11/27/17 16:23 ABG pO2 94 mmHg (85-104) 11/27/17 16:23 ABG O2 Saturation 97 % (95-98) 11/27/17 16:23 PT/INR, D-dimer PT 11.7 Seconds (9.4-12.1) 11/06/17 21:22 Abnormal lab findings: Abnormal lab results RBC 2.96 M/mcL (3.82-4.97) L 11/28/17 04:30 Hgb 8.6 g/dL (11.5-15.4) L 11/28/17 04:30 Hct 27.4 % (35.3-44.9) L 11/28/17 04:30 MCHC 31.4 g/dL (31.6-35.5) L 11/28/17 04:30 RDW 20.0 % (11.5-14.5) H 11/28/17 04:30 Plt Count 90 K/mcL (140-400) L 11/28/17 04:30 Band Neutrophils % 10.0 % (0-4) H 11/16/17 04:40 Myelocytes % 2.0 % (0) H 11/16/17 04:40 Monocytes # 1.4 K/mcL (0.0-1.3) H 11/28/17 04:30 Nucleated RBCs/100 WBC 0.2 /100 WBC (0) H 11/20/17 10:32 Reactive Lymphocytes Present (Not Present) A 11/16/17 04:40 Toxic Granulation Present (Not Present) A 11/07/17 03:51 Platelet Estimate Slight Decrease (Normal) L 11/27/17 06:33 Large Platelets Present (Not Present) A 11/24/17 Unknown Immature Plt Fraction 16.5 % (1.1-6.1) H 11/28/17 04:30 Hypochromasia Present (Not Present) A 11/26/17 05:20 Anisocytosis 1+ (Not Present) A 11/26/17 05:20 Microcytosis Present (Not Present) A 11/25/17 05:00 Macrocytosis Present (Not Present) A 11/25/17 05:00 Heparin Anti-Xa, Unfract 0.03 IU/mL (0.30-0.70) L 11/19/17 14:15 ABG pCO2 49 mmHg (35-45) H 11/27/17 16:23 ABG HCO3 33 mEq/L (21-27) H 11/27/17 16:23 ABG Total CO2 34 mEq/L (20-26) H 11/27/17 16:23 ABG Base Excess 8 mEq/L (-2 to 3) H 11/27/17 16:23 Potassium 5.4 mEq/L (3.5-5.1) H 11/28/17 04:30 Carbon Dioxide 31 mEq/L (23-29) H 11/28/17 04:30 BUN 6 mg/dL (8-23) L 11/28/17 04:30 Creatinine 0.40 mg/dL (0.60-1.20) L 11/28/17 04:30 Calcium 8.3 mg/dL (8.6-10.3) L 11/28/17 04:30 Total Bilirubin 0.2 mg/dL (0.3-1.0) L 11/28/17 04:30 AST 7 Units/L (13-39) L 11/28/17 04:30 ALT 3 Units/L (7-52) L 11/28/17 04:30 Serum Total Protein 4.5 g/dL (6.4-8.9) L 11/28/17 04:30 Albumin 2.4 g/dL (3.5-5.7) L 11/28/17 04:30 Globulin 2.1 g/dL (2.4-3.5) L 11/28/17 04:30 Amylase 15 Units/L (29-103) L 11/13/17 04:00 Lipase 5 Units/L (11-82) L 11/13/17 04:00 Procalcitonin 0.44 ng/mL (<=0.07) H 11/09/17 01:43 Ur Specific [place] >= 1.030 (1.010-1.025) H 11/27/17 09:30 Urine Protein 100 mg/dL (Neg-Trace) H 11/27/17 09:30 Urine Ketones 15 mg/dL (Negative) H 11/27/17 09:30 Urine Blood Moderate (Negative) H 11/27/17 09:30 Ur Leukocyte Esterase Trace (Negative) H 11/27/17 09:30 Urine Bacteria Many per hpf (None-Few) H 11/27/17 09:30 Urine Yeast Many per hpf (None Seen) H 11/22/17 17:39 Vancomycin Trough 33 mcg/mL (5-10) H 11/14/17 04:19 - Microbiology Findings Microbiology Findings: Microbiology, Last 48 Hours 11/26/17 14:58 Blood Culture - Preliminary Peripheral Venipuncture Culture is incubating and being continuously monitored for growth. Final report to follow. - Diagnostic Findings Chest x-ray: report reviewed, image reviewed CT scan - chest: report reviewed, image reviewed - Clinical Findings Intake & Output: Intake & Output 11/27/17 11/28/17 11/28/17 23:59 07:59 15:59 Intake Total 0 / 0 0 / 0 Output Total 1100 / 1100 Balance 0 / 0 -1100 / -1100 Weight 64.5 kg Consult Discharge Plan - Plan Referrals: Dayan Prieto, MURPHY [Primary Care Provider] - 11/23/17 10:00 am (Appointment requested) Prescriptions: Amoxicillin/Clavulanate [Augmentin] 500 mg PO BIDWM 4 Days #8 tablet
[2017-11-28] MEDS ORDERED: Ipratropium/Albuterol Neb 3 ML IH PRN (09:13)
--- NOTE | 2017-11-28 09:13 | Event Note ---
Date of Encounter: 11/28/17 Time of Encounter: 09:10 Patient was seen and examined. I agree with the progress note as written by the resident physician. Continues to spike temps. Tmax 99.1. CT chest with possible necrotic area and worsening infiltrates. Patient was admitted for sepsis stemming from pneumonia was put on IV antibiotics with help of ID. Stay has been complicated by colitis with stool pardon which has resolved. Patient leukocytosis and signs of sepsis have resolved but now new fever. No leukocytosis. Has a history of cerebral palsy. Looking at the patient's records it seems that her hemoglobin has been slowly dropping since admission with initial presentation hemoglobin of 13.0 and was down to 7.7. Today Hgb is 8.6. No signs of bleeding. A CT abdomen and pelvis was done a couple times while hospitalized with signs of thickening in the sigmoid colon. EGD done showing LA Grade A esophagitis, 2 cm hiatal hernia chronic gastritis. . Colonoscopy showed two 10-14 mm polyps in sigmoid colon which were removed as well as non-bleeding internal hemorrhoids. GEN: NAD CVS: RRR. S1, S2, No m/r/g RESP: CTAB ABD: Soft, NT, ND, +BS EXT: No edema. 2+ DP. No rashes NEURO: Nonfocal Started on ceftriaxone and switched to IV unasyn after CT chest findings Will talk to pulmonary about CT chest findings MBS Possibly new UTI too. Unasyn is ok for now monitor H/H Lasix PRN SCDs
--- NOTE | 2017-11-28 09:40 | Internal Med Progress Note ---
Date of Encounter: 11/28/17 Time of Encounter: 09:15 - Assessment and plan (1) Pneumonia Current Visit: Yes Status: Acute Assessment and plan: On admit pt had bilateral pneumonia concerning for aspiration pneumonia -received vancomycin and Zosyn -recieved levaquin -legionella and s pneumo both negative -pt has continually had fevers (t max 100.8) and has been tacycardic. Overnight pt BP was getting itno the 70's -WBC count today is 7.4 -yesterday WBC was 11 -pt has repeatedly been tacycardic and has been having fevers overnight (tmax 100.8) -pt doesn't have any specific complaints -CT showed consolidation w/in basilar aspect of lower left lobe reflecting pneumonia most likely vs necrosis vs pulmonary abscess Plan -blood cx and urine cx pending -pt on Unasyn 3000mg q6hr -will consult pulmonology at this point to hear their thoughts and ask if she should have bronchoscopy -barium swallow tomorrow to see if she is aspirating -switch to clear liquids for now -50cc/hr 0.9% NS (2) Leukocytosis Current Visit: Yes Status: Resolved Assessment and plan: WBC count today is 7.4 -yesterday WBC was 11 -pt has repeatedly been tacycardic and has been having fevers overnight (tmax 100.8) -pt doesn't have any specific complaints -CT showed consolidation w/in basilar aspect of lower left lobe reflecting pneumonia most likely vs necrosis vs pulmonary abscess Plan -blood cx and urine cx pending -pt on Unasyn 3000mg q6hr -will consult pulmonology at this point to hear their thoughts and ask if she should have bronchoscopy -barium swallow tomorrow to see if she is aspirating (3) GI bleed Current Visit: Yes Status: Resolved Assessment and plan: hemoglobin 8.6 today , H&H has been stable -FOBT negative - -CT scan showed thickening of the sigmoid colon, need to r/o underlying malignancy -liver ultrasound is pending -EGD 11/25 showed gastritis, esophagitis and stomach edema; biopsies taken -multiple polyps removed and retrieved in colonoscopies 11/26 -GI said no active bleeding Plan: -check CBC in AM -biopsies from EGD pending -continue to hold anticoagulation . (4) Hyperkalemia Current Visit: Yes Status: Acute Assessment and plan: K this morning is 5.4 Plan: -kayaxalate 15g PO given -potassium supplements held -will check CMP at 4pm -will check CMP in morning (5) Sepsis Current Visit: Yes Status: Resolved Assessment and plan: Pt met SIRS criteria on admission -blood cx negative -pneumonia was suspected source of infxn -pneumonia has resolved -pt is clinically stable -WBC 7.4 today, t 99.1, HR 72 Plan: -d/c rocephin -start Unasyn 3000mg q6hr -CT scan showed pneumonia vs abscess vs necrosis -consulting pulmonology -blood and urine cx pending -barium swallow in morning to check if she is aspirating Qualifiers: Sepsis type: sepsis due to unspecified organism Qualified Code(s): A41.9 - Sepsis, unspecified organism (6) Altered mental status Current Visit: Yes Status: Resolved Assessment and plan: Pt appears to be at her baseline mentation Qualifiers: Altered mental status type: disorientation Qualified Code(s): R41.0 - Disorientation, unspecified (7) Cerebral palsy Current Visit: No Status: Chronic Assessment and plan: Chronic, follows with neurology -on Baclofen (8) GERD (gastroesophageal reflux disease) Current Visit: No Status: Chronic Assessment and plan: Pt is on prilosec Keep head of bed elevated. Don't eat large meals before laying down. Chew all foods throuroughly Speech recommends thin liquids, advance soft textures , meds in puree. No straws (9) DVT prophylaxis Current Visit: No Status: Acute Assessment and plan: d/c heparin continue SCD (10) Seizure Current Visit: No Status: Chronic Assessment and plan: On depakote Speech evaluated with swallow study - recommendation below: ST recommends thin liquid and advanced soft textures. NO STRAWS, assist with feeds, meds in puree. Patient is tolerating baseline diet. No swallow therapy recommended at this time. (11) Dysphasia Current Visit: No Status: Chronic Assessment and plan: Continue with nectar thickened liquids and advanced soft diet which therapy as needed -continue prilosec -continue keeping head of bed elevated - Time Spent With Patient Total time spent is greater than 50% in coordination of care (as documented) at patient's floor/unit and/or counseling patient: less than 15 minutes - Subjective Interval history: Patient is seen at bedside. -pt is alert and is answering questions appropriately -hx of dementia, developmental delay and cerebral palsy -colonoscopy 11/26 revealed multiple polyps which were removed and retrieved -EGD done 11/25 and showed an edematous stomach which was biopsied, gastritis and esophagitis -Pt was admitted for sepsis from pneumonia, which has since resolved with IV abx. -Admission complicated by colitis with stool impaction, getting enemas for this -Leukocytosis has resolved - WBC 7.4, down from 11 yesterday -hemoglobin is 8.6 today, hemodynamically stable -Nurse states no overnight events -pt on Unasyn now due to new CT findings - lower left lobe consolidation vs abscess, will speak with Dr. Baum to discuss a possible bronchospy or what his thoughts are -pt denies fever chills, n/v/d, chest pain, SOB, pain -she continuously coughs and appears to choke on saliva while I was in the room with her today, she will have barium swallow evaluation tomorrow Fluids - 50cc/hr 0.9% NS Electrolytes - potassium 5.4 , gave kayexalate Nutrition - switched to clear liquids GI prophylaxis - pt is on omeprazole DVT prophylaxis - dc heparin, start scd's - Constitutional Vitals: Temp Pulse Resp BP Pulse Ox 99.1 F 72 16 91/64 99 11/28/17 06:42 11/28/17 06:42 11/28/17 07:42 11/28/17 06:42 11/28/17 07:42 General appearance: Present: disheveled, no acute distress - Respiratory Respiratory exam: Present: CTAB - Cardiovascular Cardiovascular exam: Present: RRR, +S1, +S2 - GI/Abdominal GI/Abdominal exam: Present: soft, no peritoneal signs - Neurological Exam Neurological exam: Present: no focal deficits - Skin Skin exam: Present: intact Internal Medicine: Result - Labs CBC & Chem 7: 11/28/17 04:30 11/28/17 04:30 Labs: Short CBC 11/28/17 Range/Units 04:30 WBC 7.4 (4.3-11.1) K/mcL Hgb 8.6 L (11.5-15.4) g/dL Hct 27.4 L (35.3-44.9) % Plt Count 90 L (140-400) K/mcL Neutrophils # 4.2 (1.6-8.9) K/mcL BMP 11/28/17 04:30 Sodium 139 Potassium 5.4 H Chloride 107 Carbon Dioxide 31 H BUN 6 L Creatinine 0.40 L Glucose 72 Calcium 8.3 L Liver Function 11/28/17 Range/Units 04:30 Total Bilirubin 0.2 L (0.3-1.0) mg/dL AST 7 L (13-39) Units/L ALT 3 L (7-52) Units/L Alkaline Phosphatase 62 (34-104) Units/L Albumin 2.4 L (3.5-5.7) g/dL Urine 11/27/17 Range/Units 09:30 Urine Color Yellow (Yellow) Urine Clarity Clear (Clear) Urine pH 7.5 (5.0-8.0) pH Units Ur Specific [place] >= 1.030 H (1.010-1.025) Urine Protein 100 H (Neg-Trace) mg/dL Urine Glucose (UA) Normal (Normal) mg/dL - ABG Interpretation ABG results: ABG ABG pH 7.43 pH Units (7.32-7.45) 11/27/17 16:23 ABG pCO2 49 mmHg (35-45) H 11/27/17 16:23 ABG pO2 94 mmHg (85-104) 11/27/17 16:23 ABG O2 Saturation 97 % (95-98) 11/27/17 16:23 PT/INR, D-dimer PT 11.7 Seconds (9.4-12.1) 11/06/17 21:22 - Impressions Impressions Chest CT 11/27/17 11:27 IMPRESSION: 1. No significant change in appearance of small bilateral pleural effusions. 2. Interval worsening of focal airspace consolidation within the basilar aspect of the left lower lobe, with some central low attenuation. This most likely reflects pneumonia, and a low attenuation could represent a portion of a small left pleural effusion. However, developing left lower lobe necrosis or a pulmonary abscess are differential considerations. 3. Chronic compressive atelectasis within the right lower lobe. 4. Scattered reticular and nodular opacities within the bilateral upper lobes are more well-formed in comparison with the study of 11/16/2017, with a now 9 the nodular opacity within the right upper lobe. While these are likely benign infectious inflammatory in etiology, continued chest CT surveillance is suggested to ensure stability or resolution of these opacities, with the next chest CT recommended in 8-12 weeks. 5. Stable large hiatal hernia. D/ / 11/27/2017 14:44:46 Mack Yun MD / rebeca Interpreting Provider: Mack Yun MD - VTE Documentation of Mechanical Device: Intermittent pneumatic compression device Consult Discharge Plan - Plan Referrals: Dayan Prieto CNP [Primary Care Provider] - 11/23/17 10:00 am (Appointment requested) Prescriptions: Amoxicillin/Clavulanate [Augmentin] 500 mg PO BIDWM 4 Days #8 tablet
[2017-11-28] MEDS: Venlafaxine XR (24 HR) 75 MG CAP.ER.24H PO SCH (09:46)
[2017-11-28] MEDS: Loratadine 10 MG TABLET PO SCH (09:46)
[2017-11-28] MEDS: Divalproex (24 HR) 250 MG TABLET PO SCH (09:46)
[2017-11-28] MEDS: Baclofen 10 MG TABLET PO SCH ×2 (09:46→23:36)
[2017-11-28] MEDS: Fluticasone Propionate Nasal 50 MCG/SPRAY BOTTLE NS SCH (09:47)
[2017-11-28] MEDS: Nystatin Cream 15 GM TUBE TP SCH ×2 (09:47→23:36)
[2017-11-28] MEDS: Lactobacillus 1 EACH CAP.SPRINK PO SCH ×2 (09:47→23:35)
[2017-11-28] MEDS: 0.9 % Sodium Chloride 1,000 ML IVC SCH (11:27)
[2017-11-28] MEDS: Ampicillin/Sulbactam 3,000 MG in 0.9 % Sodium Chloride Mini Bag 100 ML IVPB SCH ×2 (11:27→17:24)
[2017-11-28 13:38] LABS: Acinetobacter baumannii by PCR Not Detected (Not Detect); Candida albicans by PCR Not Detected (Not Detect); Candida glabrata by PCR Not Detected (Not Detect); Candida krusei by PCR Not Detected (Not Detect); Candida parapsilosis by PCR Not Detected (Not Detect); Candida tropicalis by PCR Not Detected (Not Detect); Enterococcus by PCR Not Detected (Not Detect); Escherichia coli by PCR Not Detected (Not Detect); Klebsiella oxytoca by PCR Not Detected (Not Detect); Klebsiella pneumoniae by PCR Not Detected (Not Detect); Pseudomonas aeruginosa by PCR Not Detected (Not Detect); Serratia marcescens by PCR Not Detected (Not Detect); Staphylococcus aureus by PCR Not Detected (Not Detect); Streptococcus agalactiae(B)PCR Not Detected (Not Detect); Streptococcus by PCR Not Detected (Not Detect); Streptococcus pneumoniae PCR Not Detected (Not Detect); Streptococcus pyogenes (A) PCR Not Detected (Not Detect); mecA Methicillin-Resist Gene DETECTED (Not Detect)
[2017-11-28 16:14] LABS: Alanine Aminotransferase 4 Units/L (7-52); Albumin 2.7 g/dL (3.5-5.7); Alkaline Phosphatase 74 Units/L (34-104); Aspartate Amino Transferase 8 Units/L (13-39); BUN/Creatinine Ratio 14 (6-26); Bilirubin,Total 0.3 mg/dL (0.3-1.0); Blood Urea Nitrogen 5 mg/dL (8-23); Calcium 8.5 mg/dL (8.6-10.3); Carbon Dioxide 29 mEq/L (23-29); Chloride 102 mEq/L (98-107); Globulin 2.6 g/dL (2.4-3.5); Glucose 70 mg/dL (70-105); Osmolality,Calculated 274 (280-300); Potassium 4.4 mEq/L (3.5-5.1); Sodium 134 mEq/L (136-145); Total Protein 5.3 g/dL (6.4-8.9); eGFR For Non-African Americans > 60 (> 60)
[2017-11-29 04:07] LABS: Basophils # 0.1 K/mcL (0.0-0.2); Basophils % 1.6 %; Eosinophils # 0.4 K/mcL (0.0-0.6); Eosinophils % 6.6 %; Hematocrit 26.2 % (35.3-44.9); Immature Granulocytes % 0.9 % (0-4); Lymphocytes # 1.4 K/mcL (0.6-4.6); Lymphocytes % 23.3 %; Mean Corpuscular HGB Conc 30.5 g/dL (31.6-35.5); Mean Corpuscular Volume 91.6 fL (83.0-100.0); Mean Platelet Volume 10.4 fL (9.4-12.4); Monocytes % 17.3 %; Neutrophils # 2.9 K/mcL (1.6-8.9); Platelet Count 180 K/mcL (140-400); Red Blood Count 2.86 M/mcL (3.82-4.97); Red Cell Distribution Width 19.8 % (11.5-14.5); Segmented Neutrophils % 50.3 %
[2017-11-29 04:27] LABS: BUN/Creatinine Ratio 12 (6-26); Blood Urea Nitrogen 4 mg/dL (8-23); Carbon Dioxide 32 mEq/L (23-29); Chloride 109 mEq/L (98-107); Glucose 72 mg/dL (70-105); Potassium 4.1 mEq/L (3.5-5.1); Sodium 142 mEq/L (136-145); eGFR For Non-African Americans > 60 (> 60)
[2017-11-29 04:28] LABS: Alanine Aminotransferase 3 Units/L (7-52); Albumin 2.3 g/dL (3.5-5.7); Albumin/Globulin Ratio 1.1 (1.1-2.2); Alkaline Phosphatase 63 Units/L (34-104); Aspartate Amino Transferase 7 Units/L (13-39); Bilirubin,Total 0.2 mg/dL (0.3-1.0); Calcium 8.1 mg/dL (8.6-10.3); Globulin 2.1 g/dL (2.4-3.5); Osmolality,Calculated 289 (280-300); Total Protein 4.4 g/dL (6.4-8.9)
[2017-11-29] MEDS: Ampicillin/Sulbactam 3,000 MG in 0.9 % Sodium Chloride Mini Bag 100 ML IVPB SCH ×4 (05:38→16:51)
--- NOTE | 2017-11-29 08:36 | Internal Med Progress Note ---
Date of Encounter: 11/29/17 Time of Encounter: 08:33 - Assessment and plan (1) Pneumonia Current Visit: Yes Status: Acute Assessment and plan: Possibly aspirating. On Unasyn now. Pulm is seeing for worsening infiltrates and possible necrosis vs abscess. ??bronch today. While here, she has received vancomycin and Zosyn and levaquin. Legionella and s pneumo both negative Qualifiers: Pneumonia type: due to unspecified organism Laterality: right Lung location: lower lobe of lung Qualified Code(s): J18.1 - Lobar pneumonia, unspecified organism (2) Anemia Current Visit: Yes Status: Acute Assessment and plan: hemoglobin 8.0 today , H&H has been stable. CT scan showed thickening of the sigmoid colon. GI consulted and EGD 11/25 showed gastritis, esophagitis and stomach edema; biopsies taken. Colonoscopy with multiple polyps removed and retrieved in colonoscopies 11/26 showed showed two 10-14 mm polyps in sigmoid colon which were removed as well as non-bleeding internal hemorrhoids. c/w PPI. f/u on pathology Qualifiers: Anemia type: iron deficiency Iron deficiency anemia type: unspecified iron deficiency Qualified Code(s): D50.9 - Iron deficiency anemia, unspecified (3) Bacteremia Current Visit: Yes Status: Acute Assessment and plan: GPC from 1 blood culture sent on 11/26. ?? contaminant. Sent for 2 sets 11/28. Will follow up on those. Only on Unasyn for now. Vancomycin not given (4) Leukocytosis Current Visit: Yes Status: Resolved Assessment and plan: Resolve. Qualifiers: Leukocytosis type: unspecified Qualified Code(s): D72.829 - Elevated white blood cell count, unspecified (5) Sepsis Current Visit: Yes Status: Resolved Assessment and plan: Resolved. Qualifiers: Sepsis type: sepsis due to unspecified organism Qualified Code(s): A41.9 - Sepsis, unspecified organism (6) Thrombocytopenia Current Visit: Yes Status: Resolved Assessment and plan: Resolved (7) Cerebral palsy Current Visit: No Status: Chronic Assessment and plan: chronic Qualifiers: Cerebral palsy type: unspecified type Qualified Code(s): G80.9 - Cerebral palsy, unspecified (8) Dysphasia Current Visit: No Status: Chronic Assessment and plan: on modified diet. May need an MBS. Speech seeing. (9) Seizure Current Visit: No Status: Chronic Assessment and plan: c/w home meds (10) DVT (deep venous thrombosis) Current Visit: Yes Status: Suspected Assessment and plan: Was on Heparin SQ then plateltes dropped and h/h was dropping. Now on SCDs Qualifiers: DVT location: lower extremity Affected thrombotic vein of extremity: other lower extremity vein Chronicity: acute Laterality: unspecified laterality Qualified Code(s): I82.409 - Acute embolism and thrombosis of unspecified deep veins of unspecified lower extremity - Subjective Interval history: Patient was seen and examined. No acute events. aferile all day yesterday and this morning. Seen by pulm and possibly will get a bronch. CT chest 11/27 with possible necrotic area and worsening infiltrates. Patient was admitted for sepsis stemming from pneumonia was put on IV antibiotics with help of ID. Stay has been complicated by colitis with stool pardon which has resolved. Patient leukocytosis and signs of sepsis have resolved. Has a history of cerebral palsy. Looking at the patient's records it seems that her hemoglobin has been slowly dropping since admission with initial presentation hemoglobin of 13.0 and was down to 7.7. Today Hgb is 8.0. No signs of bleeding. A CT abdomen and pelvis was done a couple times while hospitalized with signs of thickening in the sigmoid colon. We asked GI to see her for this and an EGD done showing LA Grade A esophagitis, 2 cm hiatal hernia chronic gastritis. Colonoscopy showed two 10-14 mm polyps in sigmoid colon which were removed as well as non-bleeding internal hemorrhoids. - Constitutional Vitals: Temp Pulse Resp BP Pulse Ox 98.8 F 84 16 124/78 99 11/29/17 06:55 11/29/17 06:55 11/29/17 06:55 11/29/17 06:55 11/29/17 06:55 General appearance: Present: disheveled, no acute distress Exam: GEN: NAD CVS: RRR. S1, S2, No m/r/g RESP: CTAB ABD: Soft, NT, ND, +BS EXT: No edema. 2+ DP. No rashes NEURO: Nonfocal Internal Medicine: Result - Labs CBC & Chem 7: 11/29/17 04:00 11/29/17 04:00 Labs: Short CBC 11/29/17 Range/Units 04:00 WBC 5.8 (4.3-11.1) K/mcL Hgb 8.0 L (11.5-15.4) g/dL Hct 26.2 L (35.3-44.9) % Plt Count 180 D (140-400) K/mcL Neutrophils # 2.9 (1.6-8.9) K/mcL BMP 11/28/17 11/29/17 15:05 04:00 Sodium 134 L 142 Potassium 4.4 4.1 Chloride 102 109 H Carbon Dioxide 29 32 H BUN 5 L 4 L Creatinine 0.36 L 0.34 L Glucose 70 72 Calcium 8.5 L 8.1 L Liver Function 11/28/17 11/29/17 Range/Units 15:05 04:00 Total Bilirubin 0.3 0.2 L (0.3-1.0) mg/dL AST 8 L 7 L (13-39) Units/L ALT 4 L 3 L (7-52) Units/L Alkaline Phosphatase 74 63 (34-104) Units/L Albumin 2.7 L 2.3 L (3.5-5.7) g/dL - ABG Interpretation ABG results: ABG ABG pH 7.43 pH Units (7.32-7.45) 11/27/17 16:23 ABG pCO2 49 mmHg (35-45) H 11/27/17 16:23 ABG pO2 94 mmHg (85-104) 11/27/17 16:23 ABG O2 Saturation 97 % (95-98) 11/27/17 16:23 PT/INR, D-dimer PT 11.7 Seconds (9.4-12.1) 11/06/17 21:22 - VTE Documentation of Mechanical Device: Intermittent pneumatic compression device Consult Discharge Plan - Plan Referrals: Dayan Prieto CNP [Primary Care Provider] - 11/23/17 10:00 am (Appointment requested) Prescriptions: Amoxicillin/Clavulanate [Augmentin] 500 mg PO BIDWM 4 Days #8 tablet
[2017-11-29] MEDS: 0.9 % Sodium Chloride 1,000 ML IVC SCH (08:47)
[2017-11-29] MEDS: Venlafaxine XR (24 HR) 75 MG CAP.ER.24H PO SCH (08:59)
[2017-11-29] MEDS: Fluticasone Propionate Nasal 50 MCG/SPRAY BOTTLE NS SCH (08:59)
[2017-11-29] MEDS: Baclofen 10 MG TABLET PO SCH ×2 (08:59→22:00)
[2017-11-29] MEDS: Loratadine 10 MG TABLET PO SCH (08:59)
[2017-11-29] MEDS: Divalproex (24 HR) 250 MG TABLET PO SCH (08:59)
[2017-11-29] MEDS: Lactobacillus 1 EACH CAP.SPRINK PO SCH ×2 (08:59→22:01)
[2017-11-29] MEDS: Nystatin Cream 15 GM TUBE TP SCH ×2 (09:00→22:02)
--- NOTE | 2017-11-29 10:30 | Pulmonology Progress Note ---
Date of Encounter: 11/29/17 Time of Encounter: 07:30 Assessment and Plan (1) Pneumonia Current Visit: Yes Status: Acute I have explained to patient about bronchoscopy and all the risks, alternatives and benefits explained to patent and she declined it. Endoscopy team contacted caregiver and decision was deferred to patient and she declined it. Will follow up PRN, please call for any questions. Subsequently patient has changed her decision and she wants bronchoscopy and this is will be arranged for her. A bronchoscopy is recommended. The procedure , risks, benefits, complications, and expected outcomes have been reviewed. Benefits of diagnosis, as well as risks to include bleeding, infection, pneumothorax which may require surgical intervention, and in a small population. The patient is aware that sometimes test is nondiagnostic. Discussed with patient and agrees to proceed. Qualifiers: Pneumonia type: due to unspecified organism Laterality: right Lung location: lower lobe of lung Qualified Code(s): J18.1 - Lobar pneumonia, unspecified organism Subjective Principal diagnosis: Pneumonia Interval history: Patient denies any symptoms at this time, she is asking to remove the sutures. Objective PUL Vital signs: Last Vital Signs Temp 98.8 F 11/29/17 06:55 Pulse 84 11/29/17 06:55 Resp 16 11/29/17 06:55 BP 124/78 11/29/17 06:55 Pulse Ox 99 11/29/17 06:55 General appearance: no acute distress ENT: oropharynx dry Neck: supple Auscultation: bilateral: rhonchi Percussion: bilateral: not dull Cardiovascular: regular rate and rhythm Gastrointestinal: normoactive bowel sounds Extremities: no cyanosis normal mental status, non-focal exam mood appropriate Results - Laboratory Findings CBC and BMP: 11/29/17 04:00 11/29/17 04:00 ABG ABG pH 7.43 pH Units (7.32-7.45) 11/27/17 16:23 ABG pCO2 49 mmHg (35-45) H 11/27/17 16:23 ABG pO2 94 mmHg (85-104) 11/27/17 16:23 ABG O2 Saturation 97 % (95-98) 11/27/17 16:23 PT/INR, D-dimer PT 11.7 Seconds (9.4-12.1) 11/06/17 21:22 Abnormal lab findings: Abnormal lab results RBC 2.86 M/mcL (3.82-4.97) L 11/29/17 04:00 Hgb 8.0 g/dL (11.5-15.4) L 11/29/17 04:00 Hct 26.2 % (35.3-44.9) L 11/29/17 04:00 MCHC 30.5 g/dL (31.6-35.5) L 11/29/17 04:00 RDW 19.8 % (11.5-14.5) H 11/29/17 04:00 Band Neutrophils % 10.0 % (0-4) H 11/16/17 04:40 Myelocytes % 2.0 % (0) H 11/16/17 04:40 Nucleated RBCs/100 WBC 0.2 /100 WBC (0) H 11/20/17 10:32 Reactive Lymphocytes Present (Not Present) A 11/16/17 04:40 Toxic Granulation Present (Not Present) A 11/07/17 03:51 Platelet Estimate Slight Decrease (Normal) L 11/27/17 06:33 Large Platelets Present (Not Present) A 11/24/17 Unknown Immature Plt Fraction 16.5 % (1.1-6.1) H 11/28/17 04:30 Hypochromasia Present (Not Present) A 11/26/17 05:20 Anisocytosis 1+ (Not Present) A 11/26/17 05:20 Microcytosis Present (Not Present) A 11/25/17 05:00 Macrocytosis Present (Not Present) A 11/25/17 05:00 Heparin Anti-Xa, Unfract 0.03 IU/mL (0.30-0.70) L 11/19/17 14:15 ABG pCO2 49 mmHg (35-45) H 11/27/17 16:23 ABG HCO3 33 mEq/L (21-27) H 11/27/17 16:23 ABG Total CO2 34 mEq/L (20-26) H 11/27/17 16:23 ABG Base Excess 8 mEq/L (-2 to 3) H 11/27/17 16:23 Chloride 109 mEq/L (98-107) H 11/29/17 04:00 Carbon Dioxide 32 mEq/L (23-29) H 11/29/17 04:00 BUN 4 mg/dL (8-23) L 11/29/17 04:00 Creatinine 0.34 mg/dL (0.60-1.20) L 11/29/17 04:00 Calcium 8.1 mg/dL (8.6-10.3) L 11/29/17 04:00 Total Bilirubin 0.2 mg/dL (0.3-1.0) L 11/29/17 04:00 AST 7 Units/L (13-39) L 11/29/17 04:00 ALT 3 Units/L (7-52) L 11/29/17 04:00 Serum Total Protein 4.4 g/dL (6.4-8.9) L 11/29/17 04:00 Albumin 2.3 g/dL (3.5-5.7) L 11/29/17 04:00 Globulin 2.1 g/dL (2.4-3.5) L 11/29/17 04:00 Amylase 15 Units/L (29-103) L 11/13/17 04:00 Lipase 5 Units/L (11-82) L 11/13/17 04:00 Procalcitonin 0.44 ng/mL (<=0.07) H 11/09/17 01:43 Ur Specific [place] >= 1.030 (1.010-1.025) H 11/27/17 09:30 Urine Protein 100 mg/dL (Neg-Trace) H 11/27/17 09:30 Urine Ketones 15 mg/dL (Negative) H 11/27/17 09:30 Urine Blood Moderate (Negative) H 11/27/17 09:30 Ur Leukocyte Esterase Trace (Negative) H 11/27/17 09:30 Urine Bacteria Many per hpf (None-Few) H 11/27/17 09:30 Urine Yeast Many per hpf (None Seen) H 11/22/17 17:39 Vancomycin Trough 33 mcg/mL (5-10) H 11/14/17 04:19 Staphylococcus sp PCR DETECTED (Not Detect) A 11/26/17 14:58 mecA-Methicil Res Gene DETECTED (Not Detect) A 11/26/17 14:58 - Microbiology Findings Microbiology Findings: Microbiology, Last 48 Hours 11/28/17 15:05 Blood Culture - Preliminary Peripheral Venipuncture Culture is incubating and being continuously monitored for growth. Final report to follow. 11/28/17 15:05 Blood Culture - Preliminary Peripheral Venipuncture Culture is incubating and being continuously monitored for growth. Final report to follow. 11/26/17 14:58 Blood Culture - Preliminary Peripheral Venipuncture Gram Positive Cocci - Clinical Findings Intake & Output: Intake & Output 11/28/17 11/29/17 11/29/17 23:59 07:59 15:59 Intake Total 100 / 100 1100 / 1100 0 / 0 Output Total 700 / 700 425 / 425 Balance -600 / -600 675 / 675 0 / 0 Weight 64.2 kg - VTE Documentation of Mechanical Device: Intermittent pneumatic compression device Consult Discharge Plan - Plan Referrals: Dayan Prieto, [employer] [Primary Care Provider] - Prescriptions: Amoxicillin/Clavulanate [Augmentin] 500 mg PO BIDWM 4 Days #8 tablet
--- NOTE | 2017-11-29 14:13 | Event Note ---
<Kvng Weiss G - Last Filed: 11/29/17 14:10> Date of Encounter: 11/29/17 Time of Encounter: 14:10 I discussed at length with both the patient and her primary caregiver the results of her testing, the concern for pneumonia and the role that bronchoscopy can play in evaluation of her recurrent pneumonia. The patient wishes to proceed with diagnostic bronchoscopy with lavage and attempt to obtain culture results to help guide antibiotic therapy. The benefits, risks, and complications of bronchoscopy were discussed at length with both the patient and her caregiver and the patient, with the caregiver support, agreed to proceed with bronchoscopy. Patient will be made nothing by mouth at midnight with plan for procedure tomorrow. Written consent has been obtained and placed on the chart. <Ty Metzger M - Last Filed: 11/29/17 16:39> Date of Encounter: 11/29/17 This was discussed with the resident.
[2017-11-29] MEDS: Acetaminophen 325 MG TABLET PO PRN (15:24)
--- NOTE | 2017-11-29 19:20 | Anesthesia Evaluation PreOp ---
Date of Encounter: 11/29/17 Time of Encounter: 19:00 - Past History Planned Operation: Bronchoscopy Cardiac History: HTN, Hyperlipidemia, Other (Anemia) Pulmonary History: Denies Any Significant HX LENO SEWER History: Seizures, Other (Cerebral Palsy, patient alert and oriented) Other Medical History: Denies Any Significant HX Anesthesia History: No Prior Anesthetic Complications : No Alcohol Use: none Drug use: none Medications and Allergies Baclofen 20 mg PO BID 09/08/17 [History] Citalopram [CeleXA] 20 mg PO DAILY 09/08/17 [History] Loratadine [Allergy Relief] 10 mg PO DAILY 09/08/17 [History] Omeprazole [PriLOSEC] 40 mg PO DAILY 09/08/17 [History] Promethazine HCl 12.5 mg PO Q8H PRN 09/08/17 [History] Rosuvastatin Calcium [Crestor] 5 mg PO DAILY 09/08/17 [History] Venlafaxine HCl [Venlafaxine HCl ER] 75 mg PO DAILY 09/08/17 [History] Citalopram Hydrobromide [Celexa] 40 mg PO DAILY 11/07/17 [History] Divalproex (24 HR) [Depakote ER (24 HR)] 750 mg PO DAILY 11/07/17 [History] Fluticasone Propionate Nasal [Flonase] 1 spr NS DAILY 11/07/17 [History] Furosemide [Lasix] 20 mg PO DAILY 11/07/17 [History] Amoxicillin/Clavulanate [Augmentin] 500 mg PO BIDWM 4 Days #8 tablet 11/11/17 [ Rx] 3 Allergy/AdvReac Type Severity Reaction Status Date / Time [id number]-Old-[id number] Reductase Allergy Intermediate Rash Verified 11/18/15 17:58 Inhibitor [Statins] clopidogrel [From Plavix] Allergy Anaphylaxis Verified 08/17/15 13:37 Sulfa (Sulfonamide Allergy Anaphylaxis Verified 08/17/15 13:37 Antibiotics) Warfarin [From Coumadin] Allergy Anaphylaxis Verified 08/17/15 13:37 - Meds/Allergy Pre-op Review Medications Reviewed: Yes Allergies Reviewed: Yes Beta Blockers on Current Med List: No Anesthesia Results - Labs 11/29/17 04:00 11/29/17 04:00 Laboratory Tests 08/28/14 08/03/15 07/07/18 19:30 08:20 21:22 Hgb Hct Plt Count PT 11.7 PTT 30.9 INR 1.0 Sodium Potassium BUN Creatinine Hemoglobin A1c 6.0 11/29/17 11/29/17 04:00 04:00 Hgb 8.0 L Hct 26.2 L Plt Count 180 D PT PTT INR Sodium 142 Potassium 4.1 BUN 4 L Creatinine 0.34 L Hemoglobin A1c - Imaging EKG: report reviewed (Sinus Tach) Additional studies: Vital Signs/O2 Sat/Glucose, Most Current Temp Pulse Resp BP Pulse Ox 11/29/17 15:51 97.8 F 91 16 115/78 100 Stress Test 2017 negative for ischemia gated EF 70% Anesthesia Exam Vital Signs/O2 Sat/Glucose, Most Current Temp Pulse Resp BP Pulse Ox 11/29/17 15:51 97.8 F 91 16 115/78 100 Height: 5'3 Weight: 141 lbs NPO (# of Hours): MN Pain Scale: 0 - HEENT Pupil (Motor): Pupils equal, EOMI Mallampati: III Teeth: Missing, Poor dentition Oral Opening: Less than or equal to 3 - LENO SEWER LOC: Oriented LENO SEWER Motor: Normal Face, Deficit RUE (contractures), Deficit LUE, Deficit RLE, Deficit LLE LENO SEWER Sensory: Normal: RUE, LUE, RLE, LLE, Face - Cardiac Rhythm: Regular Murmur: None JVD: No Carotid Bruit: No - Pulmonary Breath Sounds: bilateral Clear Respiratory Effort: Symmetrical Anesthesia Assess/Plan ASA Score: 3 (Cerebral Palsy HTN) Modified Blessing Scale for Level of Consciousness: Cooperative, oriented, and tranquil Anesthetic Plan: General Monitoring Plan: Standard Monitors Recovery Plan: PACU (Discussed GA ,possible MAC, agrees to proceed Patient alert X3 and gave consent, understands procedure)
[2017-11-30] MEDS: Ampicillin/Sulbactam 3,000 MG in 0.9 % Sodium Chloride Mini Bag 100 ML IVPB SCH ×4 (01:05→17:12)
[2017-11-30 04:16] LABS: Hemoglobin 8.1 g/dL (11.5-15.4); Mean Corpuscular Volume 91.7 fL (83.0-100.0); Red Cell Distribution Width 19.6 % (11.5-14.5)
[2017-11-30 04:18] LABS: Basophils # 0.1 K/mcL (0.0-0.2); Basophils % 1.1 %; Eosinophils # 0.4 K/mcL (0.0-0.6); Eosinophils % 6.9 %; Hematocrit 26.4 % (35.3-44.9); Immature Granulocytes % 0.6 % (0-4); Immature Platelets 18.5 % (1.1-6.1); Lymphocytes # 1.4 K/mcL (0.6-4.6); Lymphocytes % 26.9 %; Mean Corpuscular HGB Conc 30.7 g/dL (31.6-35.5); Mean Corpuscular Hemoglobin 28.1 pg (28.0-33.3); Mean Platelet Volume 11.2 fL (9.4-12.4); Neutrophils # 2.4 K/mcL (1.6-8.9); Red Blood Count 2.88 M/mcL (3.82-4.97); Segmented Neutrophils % 45.5 %
[2017-11-30 04:33] LABS: BUN/Creatinine Ratio 9 (6-26); Blood Urea Nitrogen 3 mg/dL (8-23); Calcium 7.9 mg/dL (8.6-10.3); Carbon Dioxide 29 mEq/L (23-29); Chloride 106 mEq/L (98-107); Glucose 69 mg/dL (70-105); Magnesium 1.6 mg/dL (1.6-2.6); Osmolality,Calculated 285 (280-300); Potassium 3.1 mEq/L (3.5-5.1); Sodium 140 mEq/L (136-145); eGFR For Non-African Americans > 60 (> 60)
[2017-11-30 05:01] LABS: Platelet Count 74 K/mcL (140-400)
[2017-11-30] MEDS: 0.9 % Sodium Chloride 1,000 ML IVC SCH ×2 (05:44→08:56)
[2017-11-30] MEDS: Divalproex (24 HR) 250 MG TABLET PO SCH (08:54)
[2017-11-30] MEDS: Venlafaxine XR (24 HR) 75 MG CAP.ER.24H PO SCH (08:55)
[2017-11-30] MEDS: Loratadine 10 MG TABLET PO SCH (08:55)
[2017-11-30] MEDS: Baclofen 10 MG TABLET PO SCH ×2 (08:55→22:10)
[2017-11-30] MEDS: Lactobacillus 1 EACH CAP.SPRINK PO SCH ×2 (09:03→22:09)
[2017-11-30] MEDS: Nystatin Cream 15 GM TUBE TP SCH ×2 (09:03→22:11)
[2017-11-30] MEDS: Fluticasone Propionate Nasal 50 MCG/SPRAY BOTTLE NS SCH (09:03)
--- NOTE | 2017-11-30 11:31 | Pulmonology Progress Note ---
<Severino Brown - Last Filed: 11/30/17 11:28> Date of Encounter: 11/30/17 Time of Encounter: 11:29 Assessment and Plan (1) Pneumonia Current Visit: Yes Status: Acute Patient still has no white count, labs and vitals stable, clinical disposition stable Blood culture yielded S. epidermidis, there is only one culture, that is not a common pneumonia etiology, the patient has a good clinical disposition, that is a common skin contaminant, we will continue to monitor secondary additional cultures, may de-escalate based on sensitivities Will follow up on bronchoscopy results Patient has been instructed to follow up outpatient after discharge Qualifiers: Pneumonia type: due to unspecified organism Laterality: right Lung location: lower lobe of lung Qualified Code(s): J18.1 - Lobar pneumonia, unspecified organism Subjective Principal diagnosis: Pneumonia Interval history: Patient agreed to bronchoscopy yesterday, planed for today. She has no complaints this morning. She denies shortness of breath, chest pain, hemoptysis or productive cough this morning. Objective PUL Vital signs: Last Vital Signs Temp 98 F 11/30/17 07:17 Pulse 78 11/30/17 07:17 Resp 16 11/30/17 07:17 BP 116/67 11/30/17 07:17 Pulse Ox 99 11/30/17 09:04 Patient in no acute distress Alert and oriented to person, place, situation Lung sounds coarse, diminished sounds in inferior right field, wheeze in upper left field Heart in regular rate and rhythm with 1/6 systolic murmur in aortic post Abdomen soft and non tender Lower extremities non edematous Skin warm and dry Results - Laboratory Findings CBC and BMP: 11/30/17 04:00 11/30/17 04:00 ABG ABG pH 7.43 pH Units (7.32-7.45) 11/27/17 16:23 ABG pCO2 49 mmHg (35-45) H 11/27/17 16:23 ABG pO2 94 mmHg (85-104) 11/27/17 16:23 ABG O2 Saturation 97 % (95-98) 11/27/17 16:23 PT/INR, D-dimer PT 11.7 Seconds (9.4-12.1) 11/06/17 21:22 Abnormal lab findings: Abnormal lab results RBC 2.88 M/mcL (3.82-4.97) L 11/30/17 04:00 Hgb 8.1 g/dL (11.5-15.4) L 11/30/17 04:00 Hct 26.4 % (35.3-44.9) L 11/30/17 04:00 MCHC 30.7 g/dL (31.6-35.5) L 11/30/17 04:00 RDW 19.6 % (11.5-14.5) H 11/30/17 04:00 Plt Count 74 K/mcL (140-400) L D 11/30/17 04:00 Band Neutrophils % 10.0 % (0-4) H 11/16/17 04:40 Myelocytes % 2.0 % (0) H 11/16/17 04:40 Nucleated RBCs/100 WBC 0.2 /100 WBC (0) H 11/20/17 10:32 Reactive Lymphocytes Present (Not Present) A 11/16/17 04:40 Toxic Granulation Present (Not Present) A 11/07/17 03:51 Platelet Estimate Slight Decrease (Normal) L 11/27/17 06:33 Large Platelets Present (Not Present) A 11/24/17 Unknown Immature Plt Fraction 18.5 % (1.1-6.1) H 11/30/17 04:00 Hypochromasia Present (Not Present) A 11/26/17 05:20 Anisocytosis 1+ (Not Present) A 11/26/17 05:20 Microcytosis Present (Not Present) A 11/25/17 05:00 Macrocytosis Present (Not Present) A 11/25/17 05:00 Heparin Anti-Xa, Unfract 0.03 IU/mL (0.30-0.70) L 11/19/17 14:15 ABG pCO2 49 mmHg (35-45) H 11/27/17 16:23 ABG HCO3 33 mEq/L (21-27) H 11/27/17 16:23 ABG Total CO2 34 mEq/L (20-26) H 11/27/17 16:23 ABG Base Excess 8 mEq/L (-2 to 3) H 11/27/17 16:23 Potassium 3.1 mEq/L (3.5-5.1) L 11/30/17 04:00 BUN 3 mg/dL (8-23) L 11/30/17 04:00 Creatinine 0.34 mg/dL (0.60-1.20) L 11/30/17 04:00 Glucose 69 mg/dL (70-105) L 11/30/17 04:00 Calcium 7.9 mg/dL (8.6-10.3) L 11/30/17 04:00 Total Bilirubin 0.2 mg/dL (0.3-1.0) L 11/29/17 04:00 AST 7 Units/L (13-39) L 11/29/17 04:00 ALT 3 Units/L (7-52) L 11/29/17 04:00 Serum Total Protein 4.4 g/dL (6.4-8.9) L 11/29/17 04:00 Albumin 2.3 g/dL (3.5-5.7) L 11/29/17 04:00 Globulin 2.1 g/dL (2.4-3.5) L 11/29/17 04:00 Amylase 15 Units/L (29-103) L 11/13/17 04:00 Lipase 5 Units/L (11-82) L 11/13/17 04:00 Procalcitonin 0.44 ng/mL (<=0.07) H 11/09/17 01:43 Ur Specific [place] >= 1.030 (1.010-1.025) H 11/27/17 09:30 Urine Protein 100 mg/dL (Neg-Trace) H 11/27/17 09:30 Urine Ketones 15 mg/dL (Negative) H 11/27/17 09:30 Urine Blood Moderate (Negative) H 11/27/17 09:30 Ur Leukocyte Esterase Trace (Negative) H 11/27/17 09:30 Urine Bacteria Many per hpf (None-Few) H 11/27/17 09:30 Urine Yeast Many per hpf (None Seen) H 11/22/17 17:39 Vancomycin Trough 33 mcg/mL (5-10) H 11/14/17 04:19 Staphylococcus sp PCR DETECTED (Not Detect) A 11/26/17 14:58 mecA-Methicil Res Gene DETECTED (Not Detect) A 11/26/17 14:58 - Microbiology Findings Microbiology Findings: Microbiology, Last 48 Hours 11/26/17 14:58 Blood Culture - Final Peripheral Venipuncture Staphylococcus epidermidis 11/28/17 15:05 Blood Culture - Preliminary Peripheral Venipuncture Culture is incubating and being continuously monitored for growth. Final report to follow. 11/28/17 15:05 Blood Culture - Preliminary Peripheral Venipuncture Culture is incubating and being continuously monitored for growth. Final report to follow. - Clinical Findings Intake & Output: Intake & Output 11/29/17 11/30/17 11/30/17 23:59 07:59 15:59 Intake Total 100 / 100 1100 / 1100 Output Total 300 / 300 1000 / 1000 Balance -200 / -200 100 / 100 Weight 64.6 kg - VTE Documentation of Mechanical Device: Intermittent pneumatic compression device Consult Discharge Plan - Plan Referrals: Dayan Prieto, QA LEAD [Primary Care Provider] - Prescriptions: Amoxicillin/Clavulanate [Augmentin] 500 mg PO BIDWM 4 Days #8 tablet <Ty Metzger - Last Filed: 11/30/17 16:54> Date of Encounter: 11/30/17 Assessment and Plan (1) Pneumonia Current Visit: Yes Status: Acute Qualifiers: Pneumonia type: due to unspecified organism Laterality: right Lung location: lower lobe of lung Qualified Code(s): J18.1 - Lobar pneumonia, unspecified organism Objective PUL Vital signs: Last Vital Signs Temp 98.0 F 11/30/17 16:00 Pulse 82 11/30/17 16:00 Resp 18 11/30/17 16:00 BP 119/87 11/30/17 16:00 Pulse Ox 99 11/30/17 16:00 Results - Laboratory Findings CBC and BMP: 11/30/17 04:00 11/30/17 04:00 ABG ABG pH 7.43 pH Units (7.32-7.45) 11/27/17 16:23 ABG pCO2 49 mmHg (35-45) H 11/27/17 16:23 ABG pO2 94 mmHg (85-104) 11/27/17 16:23 ABG O2 Saturation 97 % (95-98) 11/27/17 16:23 PT/INR, D-dimer PT 11.7 Seconds (9.4-12.1) 11/06/17 21:22 Abnormal lab findings: Abnormal lab results RBC 2.88 M/mcL (3.82-4.97) L 11/30/17 04:00 Hgb 8.1 g/dL (11.5-15.4) L 11/30/17 04:00 Hct 26.4 % (35.3-44.9) L 11/30/17 04:00 MCHC 30.7 g/dL (31.6-35.5) L 11/30/17 04:00 RDW 19.6 % (11.5-14.5) H 11/30/17 04:00 Plt Count 74 K/mcL (140-400) L D 11/30/17 04:00 Band Neutrophils % 10.0 % (0-4) H 11/16/17 04:40 Myelocytes % 2.0 % (0) H 11/16/17 04:40 Nucleated RBCs/100 WBC 0.2 /100 WBC (0) H 11/20/17 10:32 Reactive Lymphocytes Present (Not Present) A 11/16/17 04:40 Toxic Granulation Present (Not Present) A 11/07/17 03:51 Platelet Estimate Slight Decrease (Normal) L 11/27/17 06:33 Large Platelets Present (Not Present) A 11/24/17 Unknown Immature Plt Fraction 18.5 % (1.1-6.1) H 11/30/17 04:00 Hypochromasia Present (Not Present) A 11/26/17 05:20 Anisocytosis 1+ (Not Present) A 11/26/17 05:20 Microcytosis Present (Not Present) A 11/25/17 05:00 Macrocytosis Present (Not Present) A 11/25/17 05:00 Heparin Anti-Xa, Unfract 0.03 IU/mL (0.30-0.70) L 11/19/17 14:15 ABG pCO2 49 mmHg (35-45) H 11/27/17 16:23 ABG HCO3 33 mEq/L (21-27) H 11/27/17 16:23 ABG Total CO2 34 mEq/L (20-26) H 11/27/17 16:23 ABG Base Excess 8 mEq/L (-2 to 3) H 11/27/17 16:23 Potassium 3.1 mEq/L (3.5-5.1) L 11/30/17 04:00 BUN 3 mg/dL (8-23) L 11/30/17 04:00 Creatinine 0.34 mg/dL (0.60-1.20) L 11/30/17 04:00 Glucose 69 mg/dL (70-105) L 11/30/17 04:00 POC Glucose 62 mg/dL (70-99) L 11/30/17 11:29 Calcium 7.9 mg/dL (8.6-10.3) L 11/30/17 04:00 Total Bilirubin 0.2 mg/dL (0.3-1.0) L 11/29/17 04:00 AST 7 Units/L (13-39) L 11/29/17 04:00 ALT 3 Units/L (7-52) L 11/29/17 04:00 Serum Total Protein 4.4 g/dL (6.4-8.9) L 11/29/17 04:00 Albumin 2.3 g/dL (3.5-5.7) L 11/29/17 04:00 Globulin 2.1 g/dL (2.4-3.5) L 11/29/17 04:00 Amylase 15 Units/L (29-103) L 11/13/17 04:00 Lipase 5 Units/L (11-82) L 11/13/17 04:00 Procalcitonin 0.44 ng/mL (<=0.07) H 11/09/17 01:43 Ur Specific [place] >= 1.030 (1.010-1.025) H 11/27/17 09:30 Urine Protein 100 mg/dL (Neg-Trace) H 11/27/17 09:30 Urine Ketones 15 mg/dL (Negative) H 11/27/17 09:30 Urine Blood Moderate (Negative) H 11/27/17 09:30 Ur Leukocyte Esterase Trace (Negative) H 11/27/17 09:30 Urine Bacteria Many per hpf (None-Few) H 11/27/17 09:30 Urine Yeast Many per hpf (None Seen) H 11/22/17 17:39 Vancomycin Trough 33 mcg/mL (5-10) H 11/14/17 04:19 Staphylococcus sp PCR DETECTED (Not Detect) A 11/26/17 14:58 mecA-Methicil Res Gene DETECTED (Not Detect) A 11/26/17 14:58 - Microbiology Findings Microbiology Findings: Microbiology, Last 48 Hours 11/26/17 14:58 Blood Culture - Final Peripheral Venipuncture Staphylococcus epidermidis 11/28/17 15:05 Blood Culture - Preliminary Peripheral Venipuncture Culture is incubating and being continuously monitored for growth. Final report to follow. 11/28/17 15:05 Blood Culture - Preliminary Peripheral Venipuncture Culture is incubating and being continuously monitored for growth. Final report to follow. - Clinical Findings Intake & Output: Intake & Output 11/30/17 11/30/17 11/30/17 07:59 15:59 23:59 Intake Total 1200 / 1200 0 / 0 Output Total 1000 / 1000 200 / 200 175 / 175 Balance 200 / 200 -200 / -200 -175 / -175 Weight 64.6 kg - Attending Attestation I examined this patient and my medical decision-making was reviewed with the Resident Physician. I agree with the documented findings, disposition and treatment plan as described except to the extent set forth below. Patient seen and examined. Labs, radiology, chart personally reviewed. 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 Plan for the bronchoscopy.A bronchoscopy is recommended. The procedure , risks, benefits, complications, and expected outcomes have been reviewed. Benefits of diagnosis, as well as risks to include bleeding, infection, pneumothorax which may require surgical intervention, and in a small population. The patient is aware that sometimes test is nondiagnostic. Discussed with patient and agrees to proceed. Cardiovascular: stable
[2017-11-30] MEDS ORDERED: *HR* Succinylcholine 200 MG/10 ML VIAL IVP ONE (13:17)
[2017-11-30] MEDS ORDERED: *HR* Propofol 200 MG/20 ML VIAL IVP ONE (13:17)
[2017-11-30] MEDS ORDERED: Dexamethasone 4 MG/ML VIAL ONE (13:17)
[2017-11-30] MEDS ORDERED: Ondansetron 4 MG/2 ML VIAL ONE (13:17)
[2017-11-30] MEDS ORDERED: Lidocaine -MPF 2% 2 ML VIAL ONE (13:17)
[2017-11-30] MEDS ORDERED: Lidocaine -MPF 4% 5 ML AMPUL ONE (13:17)
[2017-11-30] MEDS ORDERED: Propofol 500 MG/50 ML INFUS..BTL ONE (13:29)
[2017-11-30] MEDS ORDERED: Lidocaine Viscous Oral Soln 15 ML SOLUTION ONE (13:58)
[2017-11-30] MEDS ORDERED: Potassium Chloride 40 MEQ, Lidocaine 1% 2 ML in D5% in Water 500 ML IVPB ONE (14:52)
--- NOTE | 2017-11-30 14:56 | Internal Med Progress Note ---
Hospitalist Progress Note - Encounter Date of Encounter: 11/30/17 Time of Encounter: 09:00 - Subjective Interval History: Patient is awake alert, in no acute distress. Answer questions properly. He denies cough or fever. Plan for bronchoscopy today. Plan for barium swallow evaluation tomorrow. - Exam Vitals: Temp Pulse Resp BP Pulse Ox 98.1 F 78 16 111/84 99 11/30/17 11:26 11/30/17 11:26 11/30/17 11:26 11/30/17 11:26 11/30/17 11:26 Exam: Patient is awake alert, in no acute distress HEENT: NC/AT, PERRL Neck: Supple, no LAD Lung: CTA b/l, no wheezing/rales/rhonchi Heart: S1S2, RRR Abd: Soft, nontender Ext: ROM wnl, no pedal edema Neuro: At baseline, no focal deficit. - Assessment and Plan (1) Pneumonia Current Visit: Yes Status: Acute Assessment and Plan: Suspected aspiration pneumonia. On Unasyn now. Pulmonology is on case. Plan for bronchoscope today. (2) Altered mental status Current Visit: Yes Status: Resolved Assessment and Plan: Pt appears to be at her baseline mentation now. Improved from beginning (3) Hypokalemia Current Visit: Yes Status: Resolved Assessment and Plan: Potassium today is 3.1, will give IV potassium supplement. (4) Cerebral palsy Current Visit: No Status: Chronic Assessment and Plan: Chronic, continue same level of care. DVT Prophylaxis: SCDs - Time Spent with Patient Total time spent is greater than 50% in coordination of care (as documented) at patient's floor/unit and/or counseling patient: 40 minutes Greater than 35 minutes Plan of Care Discussed with: other (rotor plate washer) Internal Medicine: Result - Labs CBC & Chem 7: 11/30/17 04:00 11/30/17 04:00 Labs: Short CBC 11/30/17 Range/Units 04:00 WBC 5.3 (4.3-11.1) K/mcL Hgb 8.1 L (11.5-15.4) g/dL Hct 26.4 L (35.3-44.9) % Plt Count 74 L D (140-400) K/mcL Neutrophils # 2.4 (1.6-8.9) K/mcL BMP 11/30/17 04:00 Sodium 140 Potassium 3.1 L Chloride 106 Carbon Dioxide 29 BUN 3 L Creatinine 0.34 L Glucose 69 L Calcium 7.9 L - ABG Interpretation ABG results: ABG ABG pH 7.43 pH Units (7.32-7.45) 11/27/17 16:23 ABG pCO2 49 mmHg (35-45) H 11/27/17 16:23 ABG pO2 94 mmHg (85-104) 11/27/17 16:23 ABG O2 Saturation 97 % (95-98) 11/27/17 16:23 PT/INR, D-dimer PT 11.7 Seconds (9.4-12.1) 11/06/17 21:22 - VTE Documentation of Mechanical Device: Intermittent pneumatic compression device Consult Discharge Plan - Plan Referrals: Dayan Prieto, DIGITAL IMAGER [Primary Care Provider] - Prescriptions: Amoxicillin/Clavulanate [Augmentin] 500 mg PO BIDWM 4 Days #8 tablet (1) Pneumonia Qualifiers: Pneumonia type: aspiration pneumonia Laterality: right Lung location: lower lobe of lung (2) Altered mental status Qualifiers: Altered mental status type: disorientation Qualified Code(s): R41.0 - Disorientation, unspecified (4) Cerebral palsy Qualifiers: Cerebral palsy type: unspecified type Qualified Code(s): G80.9 - Cerebral palsy, unspecified
[2017-11-30] MEDS ORDERED: 0.9 % Sodium Chloride 1,000 ML IVC SCH (16:31)
[2017-12-01] MEDS: Ampicillin/Sulbactam 3,000 MG in 0.9 % Sodium Chloride Mini Bag 100 ML IVPB SCH ×3 (00:15→13:30)
[2017-12-01 04:12] LABS: Basophils # 0.1 K/mcL (0.0-0.2); Basophils % 1.1 %; Eosinophils # 0.4 K/mcL (0.0-0.6); Eosinophils % 6.1 %; Hematocrit 25.3 % (35.3-44.9); Hemoglobin 7.8 g/dL (11.5-15.4); Immature Granulocytes % 0.3 % (0-4); Lymphocytes # 1.3 K/mcL (0.6-4.6); Lymphocytes % 20.3 %; Mean Corpuscular HGB Conc 30.8 g/dL (31.6-35.5); Mean Corpuscular Hemoglobin 28.4 pg (28.0-33.3); Mean Platelet Volume 10.6 fL (9.4-12.4); Monocytes # 1.3 K/mcL (0.0-1.3); Monocytes % 19.5 %; Neutrophils # 3.4 K/mcL (1.6-8.9); Platelet Count 167 K/mcL (140-400); Red Blood Count 2.75 M/mcL (3.82-4.97); Red Cell Distribution Width 19.4 % (11.5-14.5); Segmented Neutrophils % 52.7 %
[2017-12-01 04:32] LABS: Hypochromasia Present (Not Present); Platelet Estimate Normal (Normal)
[2017-12-01 04:36] LABS: BUN/Creatinine Ratio 6 (6-26); Blood Urea Nitrogen 2 mg/dL (8-23); Calcium 7.9 mg/dL (8.6-10.3); Carbon Dioxide 32 mEq/L (23-29); Chloride 106 mEq/L (98-107); Glucose 82 mg/dL (70-105); Osmolality,Calculated 287 (280-300); Potassium 3.5 mEq/L (3.5-5.1); Sodium 141 mEq/L (136-145); eGFR For Non-African Americans > 60 (> 60)
[2017-12-01] MEDS: D5% in 0.45% NACL 1,000 ML IVC SCH ×2 (09:00→20:53)
[2017-12-01] MEDS: Lactobacillus 1 EACH CAP.SPRINK PO SCH ×2 (10:24→20:54)
[2017-12-01] MEDS: Baclofen 10 MG TABLET PO SCH ×2 (10:24→20:54)
[2017-12-01] MEDS: Venlafaxine XR (24 HR) 75 MG CAP.ER.24H PO SCH (10:24)
[2017-12-01] MEDS: Loratadine 10 MG TABLET PO SCH (10:24)
[2017-12-01] MEDS: Divalproex (24 HR) 250 MG TABLET PO SCH (10:24)
[2017-12-01] MEDS: Fluticasone Propionate Nasal 50 MCG/SPRAY BOTTLE NS SCH (10:25)
[2017-12-01] MEDS: Nystatin Cream 15 GM TUBE TP SCH ×2 (10:32→20:53)
--- NOTE | 2017-12-01 11:55 | Pulmonology Progress Note ---
<Kvng Weiss - Last Filed: 12/01/17 11:52> Date of Encounter: 12/01/17 Time of Encounter: 11:53 Assessment and Plan (1) Pneumonia Current Visit: Yes Status: Acute Patient is a status post bronchoscopy yesterday. She is doing well clinically. BAL fluid analysis and cultures are pending. Can transition to oral antibiotics and discharged to the discretion of primary team. Qualifiers: Pneumonia type: aspiration pneumonia Aspiration pneumonia type: unspecified Laterality: right Lung location: lower lobe of lung Qualified Code(s): J69.0 - Pneumonitis due to inhalation of food and vomit Subjective Principal diagnosis: Pneumonia Interval history: Patient seen and examined at bedside. Patient states that she feels pretty good this morning. She has an occasional cough but no sputum production. Denies fever, chills, chest pain, shortness of breath. Objective PUL Vital signs: Last Vital Signs Temp 98.1 F 12/01/17 06:51 Pulse 71 12/01/17 06:51 Resp 16 12/01/17 06:51 BP 96/69 12/01/17 06:51 Pulse Ox 99 12/01/17 06:51 General appearance: no acute distress ENT: oropharynx moist Effort: normal Auscultation: bilateral: diminished breath sounds Cardiovascular: regular rate and rhythm Gastrointestinal: normoactive bowel sounds Extremities: no edema Results - Laboratory Findings CBC and BMP: 12/01/17 04:00 12/01/17 04:00 ABG ABG pH 7.43 pH Units (7.32-7.45) 11/27/17 16:23 ABG pCO2 49 mmHg (35-45) H 11/27/17 16:23 ABG pO2 94 mmHg (85-104) 11/27/17 16:23 ABG O2 Saturation 97 % (95-98) 11/27/17 16:23 PT/INR, D-dimer PT 11.7 Seconds (9.4-12.1) 11/06/17 21:22 Abnormal lab findings: Abnormal lab results RBC 2.75 M/mcL (3.82-4.97) L 12/01/17 04:00 Hgb 7.8 g/dL (11.5-15.4) L 12/01/17 04:00 Hct 25.3 % (35.3-44.9) L 12/01/17 04:00 MCHC 30.8 g/dL (31.6-35.5) L 12/01/17 04:00 RDW 19.4 % (11.5-14.5) H 12/01/17 04:00 Band Neutrophils % 10.0 % (0-4) H 11/16/17 04:40 Myelocytes % 2.0 % (0) H 11/16/17 04:40 Nucleated RBCs/100 WBC 0.2 /100 WBC (0) H 11/20/17 10:32 Reactive Lymphocytes Present (Not Present) A 11/16/17 04:40 Toxic Granulation Present (Not Present) A 11/07/17 03:51 Large Platelets Present (Not Present) A 11/24/17 Unknown Immature Plt Fraction 18.5 % (1.1-6.1) H 11/30/17 04:00 Hypochromasia Present (Not Present) A 12/01/17 04:00 Anisocytosis 1+ (Not Present) A 11/26/17 05:20 Microcytosis Present (Not Present) A 11/25/17 05:00 Macrocytosis Present (Not Present) A 11/25/17 05:00 Heparin Anti-Xa, Unfract 0.03 IU/mL (0.30-0.70) L 11/19/17 14:15 ABG pCO2 49 mmHg (35-45) H 11/27/17 16:23 ABG HCO3 33 mEq/L (21-27) H 11/27/17 16:23 ABG Total CO2 34 mEq/L (20-26) H 11/27/17 16:23 ABG Base Excess 8 mEq/L (-2 to 3) H 11/27/17 16:23 Carbon Dioxide 32 mEq/L (23-29) H 12/01/17 04:00 BUN 2 mg/dL (8-23) L 12/01/17 04:00 Creatinine 0.33 mg/dL (0.60-1.20) L 12/01/17 04:00 POC Glucose 66 mg/dL (70-99) L 12/01/17 06:00 Calcium 7.9 mg/dL (8.6-10.3) L 12/01/17 04:00 Total Bilirubin 0.2 mg/dL (0.3-1.0) L 11/29/17 04:00 AST 7 Units/L (13-39) L 11/29/17 04:00 ALT 3 Units/L (7-52) L 11/29/17 04:00 Serum Total Protein 4.4 g/dL (6.4-8.9) L 11/29/17 04:00 Albumin 2.3 g/dL (3.5-5.7) L 11/29/17 04:00 Globulin 2.1 g/dL (2.4-3.5) L 11/29/17 04:00 Amylase 15 Units/L (29-103) L 11/13/17 04:00 Lipase 5 Units/L (11-82) L 11/13/17 04:00 Procalcitonin 0.44 ng/mL (<=0.07) H 11/09/17 01:43 Ur Specific [place] >= 1.030 (1.010-1.025) H 11/27/17 09:30 Urine Protein 100 mg/dL (Neg-Trace) H 11/27/17 09:30 Urine Ketones 15 mg/dL (Negative) H 11/27/17 09:30 Urine Blood Moderate (Negative) H 11/27/17 09:30 Ur Leukocyte Esterase Trace (Negative) H 11/27/17 09:30 Urine Bacteria Many per hpf (None-Few) H 11/27/17 09:30 Urine Yeast Many per hpf (None Seen) H 11/22/17 17:39 Vancomycin Trough 33 mcg/mL (5-10) H 11/14/17 04:19 Staphylococcus sp PCR DETECTED (Not Detect) A 11/26/17 14:58 mecA-Methicil Res Gene DETECTED (Not Detect) A 11/26/17 14:58 - Microbiology Findings Microbiology Findings: Microbiology, Last 48 Hours 11/26/17 14:58 Blood Culture - Final Peripheral Venipuncture Staphylococcus epidermidis - Clinical Findings Intake & Output: Intake & Output 11/30/17 12/01/17 12/01/17 23:59 07:59 15:59 Intake Total 100 / 100 100 / 100 Output Total 500 / 500 900 / 900 Balance -400 / -400 -800 / -800 Weight 67.2 kg - VTE Documentation of Mechanical Device: Intermittent pneumatic compression device Consult Discharge Plan - Plan Referrals: Dayan Prieto, CELL COVERER [Primary Care Provider] - Prescriptions: Amoxicillin/Clavulanate [Augmentin] 500 mg PO BIDWM 4 Days #8 tablet <Ty Metzger - Last Filed: 12/01/17 15:40> Date of Encounter: 12/01/17 Assessment and Plan (1) Pneumonia Current Visit: Yes Status: Acute Qualifiers: Pneumonia type: due to unspecified organism Laterality: right Lung location: lower lobe of lung Qualified Code(s): J18.1 - Lobar pneumonia, unspecified organism Objective PUL Vital signs: Last Vital Signs Temp 98.5 F 12/01/17 11:50 Pulse 85 12/01/17 11:50 Resp 16 12/01/17 11:50 BP 101/64 12/01/17 11:50 Pulse Ox 92 12/01/17 11:50 Results - Laboratory Findings CBC and BMP: 12/01/17 04:00 12/01/17 04:00 ABG ABG pH 7.43 pH Units (7.32-7.45) 11/27/17 16:23 ABG pCO2 49 mmHg (35-45) H 11/27/17 16:23 ABG pO2 94 mmHg (85-104) 11/27/17 16:23 ABG O2 Saturation 97 % (95-98) 11/27/17 16:23 PT/INR, D-dimer PT 11.7 Seconds (9.4-12.1) 11/06/17 21:22 Abnormal lab findings: Abnormal lab results RBC 2.75 M/mcL (3.82-4.97) L 12/01/17 04:00 Hgb 7.8 g/dL (11.5-15.4) L 12/01/17 04:00 Hct 25.3 % (35.3-44.9) L 12/01/17 04:00 MCHC 30.8 g/dL (31.6-35.5) L 12/01/17 04:00 RDW 19.4 % (11.5-14.5) H 12/01/17 04:00 Band Neutrophils % 10.0 % (0-4) H 11/16/17 04:40 Myelocytes % 2.0 % (0) H 11/16/17 04:40 Nucleated RBCs/100 WBC 0.2 /100 WBC (0) H 11/20/17 10:32 Reactive Lymphocytes Present (Not Present) A 11/16/17 04:40 Toxic Granulation Present (Not Present) A 11/07/17 03:51 Large Platelets Present (Not Present) A 11/24/17 Unknown Immature Plt Fraction 18.5 % (1.1-6.1) H 11/30/17 04:00 Hypochromasia Present (Not Present) A 12/01/17 04:00 Anisocytosis 1+ (Not Present) A 11/26/17 05:20 Microcytosis Present (Not Present) A 11/25/17 05:00 Macrocytosis Present (Not Present) A 11/25/17 05:00 Heparin Anti-Xa, Unfract 0.03 IU/mL (0.30-0.70) L 11/19/17 14:15 ABG pCO2 49 mmHg (35-45) H 11/27/17 16:23 ABG HCO3 33 mEq/L (21-27) H 11/27/17 16:23 ABG Total CO2 34 mEq/L (20-26) H 11/27/17 16:23 ABG Base Excess 8 mEq/L (-2 to 3) H 11/27/17 16:23 Carbon Dioxide 32 mEq/L (23-29) H 12/01/17 04:00 BUN 2 mg/dL (8-23) L 12/01/17 04:00 Creatinine 0.33 mg/dL (0.60-1.20) L 12/01/17 04:00 Calcium 7.9 mg/dL (8.6-10.3) L 12/01/17 04:00 Total Bilirubin 0.2 mg/dL (0.3-1.0) L 11/29/17 04:00 AST 7 Units/L (13-39) L 11/29/17 04:00 ALT 3 Units/L (7-52) L 11/29/17 04:00 Serum Total Protein 4.4 g/dL (6.4-8.9) L 11/29/17 04:00 Albumin 2.3 g/dL (3.5-5.7) L 11/29/17 04:00 Globulin 2.1 g/dL (2.4-3.5) L 11/29/17 04:00 Amylase 15 Units/L (29-103) L 11/13/17 04:00 Lipase 5 Units/L (11-82) L 11/13/17 04:00 Procalcitonin 0.44 ng/mL (<=0.07) H 11/09/17 01:43 Ur Specific [place] >= 1.030 (1.010-1.025) H 11/27/17 09:30 Urine Protein 100 mg/dL (Neg-Trace) H 11/27/17 09:30 Urine Ketones 15 mg/dL (Negative) H 11/27/17 09:30 Urine Blood Moderate (Negative) H 11/27/17 09:30 Ur Leukocyte Esterase Trace (Negative) H 11/27/17 09:30 Urine Bacteria Many per hpf (None-Few) H 11/27/17 09:30 Urine Yeast Many per hpf (None Seen) H 11/22/17 17:39 Fluid Appearance Hazy (Clear) A 11/30/17 14:53 Vancomycin Trough 33 mcg/mL (5-10) H 11/14/17 04:19 Staphylococcus sp PCR DETECTED (Not Detect) A 11/26/17 14:58 mecA-Methicil Res Gene DETECTED (Not Detect) A 11/26/17 14:58 - Microbiology Findings Microbiology Findings: Microbiology, Last 48 Hours 11/30/17 14:53 Respiratory Culture - Preliminary Right Lower Lobe Lung 11/26/17 14:58 Blood Culture - Final Peripheral Venipuncture Staphylococcus epidermidis - Clinical Findings Intake & Output: Intake & Output 11/30/17 12/01/17 12/01/17 23:59 07:59 15:59 Intake Total 100 / 100 200 / 200 240 / 240 Output Total 500 / 500 900 / 900 450 / 450 Balance -400 / -400 -700 / -700 -210 / -210 Weight 67.2 kg - Attending Attestation I examined this patient and my medical decision-making was reviewed with the Resident Physician. I agree with the documented findings, disposition and treatment plan as described except to the extent set forth below. Patient seen and examined. Labs, radiology, chart personally reviewed. 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 Aspiration precautions is recommended. Please call for any questions.
[2017-12-01 13:16] LABS: Appearance of Body Fluid Hazy (Clear); Volume of Body Fluid 15 mL
--- NOTE | 2017-12-01 14:32 | Internal Med Progress Note ---
Hospitalist Progress Note - Encounter Date of Encounter: 12/01/17 Time of Encounter: 14:00 - Subjective Interval History: Patient is awake alert, in no acute distress. Answer questions properly. She denies cough or fever. Had bronchoscope and barium swallow evaluation done. Will switch to by mouth antibiotic today. Diet started per dietitian/speech therapist. If patient remains stable, will discharge home tomorrow. - Exam Vitals: Temp Pulse Resp BP Pulse Ox 98.5 F 85 16 101/64 92 12/01/17 11:50 12/01/17 11:50 12/01/17 11:50 12/01/17 11:50 12/01/17 11:50 Exam: Pt is AAO x 3, in NAD HEENT: NC/AT, PERRL Neck: Supple, no LAD Lungs: CTA B/L Heart: S1S2, RRR Abd: Soft, No tenderness, normal BS Ext: ROM wnl, no pedal edema Neuro: AAO x 3, no focal deficit. - Assessment and Plan (1) Pneumonia Current Visit: Yes Status: Acute Assessment and Plan: Suspected aspiration pneumonia. Improved. Switch to po augmentin. Had bronchoscope, pulmonology is on case, recommendation will be followed. (2) Altered mental status Current Visit: Yes Status: Resolved Assessment and Plan: Pt appears to be at her baseline mentation now. Improved from beginning (3) Hypokalemia Current Visit: Yes Status: Resolved Assessment and Plan: Potassium is wnl. (4) Cerebral palsy Current Visit: No Status: Chronic Assessment and Plan: Chronic, continue previous level of care. - Time Spent with Patient Total time spent is greater than 50% in coordination of care (as documented) at patient's floor/unit and/or counseling patient: 40 min Greater than 35 minutes Plan of Care Discussed with: patient Internal Medicine: Result - Labs CBC & Chem 7: 12/01/17 04:00 12/01/17 04:00 Labs: Short CBC 12/01/17 Range/Units 04:00 WBC 6.4 (4.3-11.1) K/mcL Hgb 7.8 L (11.5-15.4) g/dL Hct 25.3 L (35.3-44.9) % Plt Count 167 D (140-400) K/mcL Neutrophils # 3.4 (1.6-8.9) K/mcL BMP 12/01/17 04:00 Sodium 141 Potassium 3.5 Chloride 106 Carbon Dioxide 32 H BUN 2 L Creatinine 0.33 L Glucose 82 Calcium 7.9 L - ABG Interpretation ABG results: ABG ABG pH 7.43 pH Units (7.32-7.45) 11/27/17 16:23 ABG pCO2 49 mmHg (35-45) H 11/27/17 16:23 ABG pO2 94 mmHg (85-104) 11/27/17 16:23 ABG O2 Saturation 97 % (95-98) 11/27/17 16:23 PT/INR, D-dimer PT 11.7 Seconds (9.4-12.1) 11/06/17 21:22 - Impressions Impressions Chest X-Ray 11/26/17 10:42 IMPRESSION: Small left-sided pleural effusion with overlying atelectatic changes. D/ / 11/26/2017 15:12:26 Julius Watts MD / neeraj Interpreting Provider: Julius Watts MD Videofluoroscopic Swallow 12/01/17 00:01 IMPRESSION: Swallowing mechanism grossly within normal limits without evidence of aspiration. Please see separate speech pathology report for full discussion of findings and recommendations. D/ / Mack Morin MD / Mack Morin MD Interpreting Provider: Mack Morin MD - VTE Documentation of Mechanical Device: Intermittent pneumatic compression device Consult Discharge Plan - Plan Referrals: Dayan Prieto, L[employer] OPERATOR [Primary Care Provider] - Prescriptions: Amoxicillin/Clavulanate [Augmentin] 500 mg PO BIDWM 4 Days #8 tablet (1) Pneumonia Qualifiers: Pneumonia type: aspiration pneumonia Aspiration pneumonia type: unspecified Laterality: right Lung location: lower lobe of lung Qualified Code(s): J69.0 - Pneumonitis due to inhalation of food and vomit (2) Altered mental status Qualifiers: Altered mental status type: disorientation Qualified Code(s): R41.0 - Disorientation, unspecified (4) Cerebral palsy Qualifiers: Cerebral palsy type: unspecified type Qualified Code(s): G80.9 - Cerebral palsy, unspecified
[2017-12-02 05:34] LABS: BUN/Creatinine Ratio 6 (6-26); Blood Urea Nitrogen 2 mg/dL (8-23); Carbon Dioxide 31 mEq/L (23-29); Chloride 106 mEq/L (98-107); Glucose 71 mg/dL (70-105); Osmolality,Calculated 287 (280-300); Potassium 3.8 mEq/L (3.5-5.1); Sodium 141 mEq/L (136-145); eGFR For Non-African Americans > 60 (> 60)
[2017-12-02 06:34] LABS: Basophils # 0.1 K/mcL (0.0-0.2); Basophils % 0.9 %; Eosinophils # 0.3 K/mcL (0.0-0.6); Eosinophils % 6.2 %; Hematocrit 27.5 % (35.3-44.9); Hemoglobin 8.7 g/dL (11.5-15.4); Immature Granulocytes % 0.7 % (0-4); Lymphocytes # 1.6 K/mcL (0.6-4.6); Lymphocytes % 28.3 %; Mean Corpuscular HGB Conc 31.6 g/dL (31.6-35.5); Mean Corpuscular Hemoglobin 29.4 pg (28.0-33.3); Mean Corpuscular Volume 92.9 fL (83.0-100.0); Mean Platelet Volume 9.8 fL (9.4-12.4); Monocytes # 1.1 K/mcL (0.0-1.3); Monocytes % 19.6 %; Neutrophils # 2.4 K/mcL (1.6-8.9); Platelet Count 158 K/mcL (140-400); Red Blood Count 2.96 M/mcL (3.82-4.97); Red Cell Distribution Width 19.4 % (11.5-14.5); Segmented Neutrophils % 44.3 %
[2017-12-02 06:42] LABS: Platelet Estimate Normal (Normal)
[2017-12-02 07:10] VITALS: BP 135/83
[2017-12-02] MEDS: Baclofen 10 MG TABLET PO SCH (08:27)
[2017-12-02] MEDS: Venlafaxine XR (24 HR) 75 MG CAP.ER.24H PO SCH (08:27)
[2017-12-02] MEDS: Loratadine 10 MG TABLET PO SCH (08:27)
[2017-12-02] MEDS: Divalproex (24 HR) 250 MG TABLET PO SCH (08:27)
[2017-12-02] MEDS: Lactobacillus 1 EACH CAP.SPRINK PO SCH (08:27)
[2017-12-02] MEDS: Nystatin Cream 15 GM TUBE TP SCH (08:35)
[2017-12-02] MEDS: Fluticasone Propionate Nasal 50 MCG/SPRAY BOTTLE NS SCH (08:35)
[2017-12-02] MEDS: D5% in 0.45% NACL 1,000 ML IVC SCH (08:36)
--- NOTE | 2017-12-02 10:38 | Discharge Summary ---
- NOTES TO OUTPATIENT PROVIDER Notes to Outpatient Provider: Pt had swallow evaluation, please refer speech therapy note for diet recommendation. Orders not resulted at time of discharge: Pending orders 11/28/17 15:05 Culture,Blood,Additional [BC] Routine 11/30/17 14:53 AFB Culture, Respiratory [TB] Routine AFB Smear [TB] Routine Culture,Respiratory [RM] Routine Fungal Culture [MYC] Routine Cytology [PTH] Routine Date of Encounter: 12/02/17 Time of Encounter: 09:00 - Discharge Diagnosis (1) Pneumonia Priority: Primary Status: Resolved Qualifiers: Pneumonia type: aspiration pneumonia Aspiration pneumonia type: unspecified Laterality: right Lung location: lower lobe of lung Qualified Code(s): J69.0 - Pneumonitis due to inhalation of food and vomit (2) Altered mental status Priority: Primary Status: Resolved Qualifiers: Altered mental status type: disorientation Qualified Code(s): R41.0 - Disorientation, unspecified (3) Hypokalemia Priority: Secondary Status: Resolved (4) Cerebral palsy Priority: Secondary Status: Chronic Qualifiers: Cerebral palsy type: unspecified type Qualified Code(s): G80.9 - Cerebral palsy, unspecified Hospital course: Ms. Martinez is a 71 year old female with cerebral palsy admitted as aspiration pneumonia. Patient was treated with IV antibiotics and her pneumonia has improved. Hospitalization is complicated because of recurrent aspiration. Pulmonology consult was called and the bronchoscope has been done. Patient also had barium swallow evaluation and speech therapist recommendation for diet has been followed. After treatment, her condition has improved, antibiotic has been switched to by mouth. Patient's condition is stable. Will discharge patient home with by mouth antibiotics. I have seen and examined this patient today. She is awake alert, in no acute distress. Vitals are stable. No cough, no fever, oxygen saturation 99% in room air. Respiratory rate 17. Heart rate 79. Patient is stable to discharge home and resume previous level of care for her cerebral palsy. Diet order will follow speech therapy recommendation based on barium swallow evaluation. Discharge discussed with: case management - Time Spent with Patient Total time spent providing and/or coordinating discharge services: 40 minutes Greater than 30 minutes - Discharge Medications Prescriptions: Amoxicillin/Clavulanate [Augmentin] 500 mg PO BIDWM 4 Days #8 tablet Lactobacillus [Culturelle] 1 each PO BID 15 Days #30 cap.sprink Home Medications: Baclofen 20 mg PO BID 09/08/17 [History] Citalopram [CeleXA] 20 mg PO DAILY 09/08/17 [History] Loratadine [Allergy Relief] 10 mg PO DAILY 09/08/17 [History] Omeprazole [PriLOSEC] 40 mg PO DAILY 09/08/17 [History] Promethazine HCl 12.5 mg PO Q8H PRN 09/08/17 [History] Rosuvastatin Calcium [Crestor] 5 mg PO DAILY 09/08/17 [History] Venlafaxine HCl [Venlafaxine HCl ER] 75 mg PO DAILY 09/08/17 [History] Citalopram Hydrobromide [Celexa] 40 mg PO DAILY 11/07/17 [History] Divalproex (24 HR) [Depakote ER (24 HR)] 750 mg PO DAILY 11/07/17 [History] Fluticasone Propionate Nasal [Flonase] 1 spr NS DAILY 11/07/17 [History] Furosemide [Lasix] 20 mg PO DAILY 11/07/17 [History] Amoxicillin/Clavulanate [Augmentin] 500 mg PO BIDWM 4 Days #8 tablet 11/11/17 [ Rx] Lactobacillus [Culturelle] 1 each PO BID 15 Days #30 cap.sprink 12/02/17 [Rx] Allergies/Adverse Reactions: 3 Allergy/AdvReac Type Severity Reaction Status Date / Time Webxovp-Mpz-Lid Reductase Allergy Intermediate Rash Verified 11/18/15 17:58 Inhibitor [Statins] clopidogrel [From Plavix] Allergy Anaphylaxis Verified 08/17/15 13:37 Sulfa (Sulfonamide Allergy Anaphylaxis Verified 08/17/15 13:37 Antibiotics) Warfarin [From Coumadin] Allergy Anaphylaxis Verified 08/17/15 13:37 Date of admission: 11/07/17 03:10 Primary care physician: Dayan Prieto CNP Consults: 11/07/17 03:14 Consult to Physical Therapy [CONS] Routine Comment: Evaluate, develop and implement POC Reason for Consult: Generalized weakness Does patient have active BEDREST order?: Yes Is patient medically & hemodynamically stable?: Yes Patient assessed for mobility or mobilized this visit?: No 11/07/17 03:34 Consult to Radio Commentator [CONS] Routine Reason for Consult: Patient with developmental delay, cerebral palsy. Guardian is listed in chart, but not present at admission. Patient arrives to [facility] unassisted and unable to provide much information. 11/12/17 07:52 Consult to Psychiatry [CONS] Routine Consulting Provider: Psychiatry Shreya Reason consult: Altered mental status Time Notified: 07:45 Call Completed: Yes 11/12/17 13:44 Consult to Infectious Diseases [CONS] Routine Consulting Provider: [facility] [place] Reason for Consult: pneumonia Time Notified: 01:45 Call Completed: Yes 11/12/17 14:18 Consult to Pulmonology [CONS] Stat Consulting Provider: [facility] [place] Reason for Consult: pneumonia Time Notified: 02:20 Call Completed: Yes 11/23/17 10:48 Consult to Gastroenterology [CONS] Routine Consulting Provider: Gastroenterology [place] Reason for Consult: low hemoglobin Call Completed: No 11/28/17 09:35 Consult to Pulmonology [CONS] Routine Consulting Provider: [facility] Reason for Consult: CT scan showed pneumonia vs abscess Call Completed: Yes Discharging clinician: Marline Melendez Anticipated date of discharge: 12/02/17 - Constitutional Vitals: Temp Pulse Resp BP Pulse Ox 97.5 F L 79 17 135/83 99 12/02/17 07:03 12/02/17 07:03 12/02/17 07:03 12/02/17 07:03 12/02/17 07:03 General appearance: Present: disheveled, no acute distress - Head Head exam: Present: atraumatic, normocephalic - Eye Eye exam: Present: PERRL, conjuntiva pink, sclera anicteric Pupils: Present: PERRL - Neck Neck exam general surgery: Present: supple, trachea midline. Absent: lymphadenopathy - Respiratory Respiratory exam: Present: CTAB. Absent: accessory muscle use, rales, rhonchi, wheezes - Cardiovascular Cardiovascular exam: Present: RRR, +S1, +S2. Absent: diastolic murmur, gallop, rubs, systolic murmur - GI/Abdominal GI/Abdominal exam: Present: normal bowel sounds, soft, no peritoneal signs. Absent: distended, tenderness - Extremities Exam Extremities exam: Present: warm, radial pulses palpable and symmetrical. Absent : calf tenderness, cyanotic, pedal edema - Neurological Exam Neurological exam: Present: CN II-XII intact, oriented X3, no focal deficits. Absent: pronater drift, facial droop, speech deficit - Skin Skin exam: Present: dry, intact - Patient Status Disposition: Home Health Service Condition: Fair Functional capacity at discharge: wheelchair bound Overall status at discharge: patient is back to baseline - Discharge Instructions Follow Up With: Dayan Prieto, VISION CARE ASSOCIATE [Primary Care Provider] - Forms: ED Satisfaction Letter - Diet and Activity Activity: as per physical therapy, other (Aspiration precaution) Diet: other (Please refer speech therapy recommendation.) - VTE Documentation of Mechanical Device: Venous foot pump, device
--- NOTE | 2017-12-02 10:54 | Physician Discharge Referral ---
Home Health/Hosp Referral Info Transfer to: Home Health Provider in Charge Post Discharge: PCP - Diagnosis (1) Pneumonia Priority: Primary Status: Resolved (2) Altered mental status Priority: Primary Status: Resolved (3) Hypokalemia Priority: Secondary Status: Resolved (4) Cerebral palsy Priority: Secondary Status: Chronic - Respiratory Orders Smoking Cessation: Smoking cessation has been advised. For more information, call the [place] Tobacco Quit Line at 4-238-YWCJ-NOW. - Diet/Nutrition Diet/Nutrition Orders: Mechanical Soft (Please refer speech therapy note for recommendation) - Activity Activity Orders: Chair - Services Needed Following services are medically necessary services: Nursing, Home Health Aide, Physical Therapy, Occupational Therapy Other Treatments: Aspiration precaution continuously - Transfer Medications Prescriptions: Amoxicillin/Clavulanate [Augmentin] 500 mg PO BIDWM 4 Days #8 tablet Lactobacillus [Culturelle] 1 each PO BID 15 Days #30 cap.sprink Home Medications: Baclofen 20 mg PO BID 09/08/17 [History] Citalopram [CeleXA] 20 mg PO DAILY 09/08/17 [History] Loratadine [Allergy Relief] 10 mg PO DAILY 09/08/17 [History] Omeprazole [PriLOSEC] 40 mg PO DAILY 09/08/17 [History] Promethazine HCl 12.5 mg PO Q8H PRN 09/08/17 [History] Rosuvastatin Calcium [Crestor] 5 mg PO DAILY 09/08/17 [History] Venlafaxine HCl [Venlafaxine HCl ER] 75 mg PO DAILY 09/08/17 [History] Citalopram Hydrobromide [Celexa] 40 mg PO DAILY 11/07/17 [History] Divalproex (24 HR) [Depakote ER (24 HR)] 750 mg PO DAILY 11/07/17 [History] Fluticasone Propionate Nasal [Flonase] 1 spr NS DAILY 11/07/17 [History] Furosemide [Lasix] 20 mg PO DAILY 11/07/17 [History] Amoxicillin/Clavulanate [Augmentin] 500 mg PO BIDWM 4 Days #8 tablet 11/11/17 [ Rx] Lactobacillus [Culturelle] 1 each PO BID 15 Days #30 cap.sprink 12/02/17 [Rx] Allergies/Adverse Reactions: 3 Allergy/AdvReac Type Severity Reaction Status Date / Time [id number] Reductase Allergy Intermediate Rash Verified 11/18/15 17:58 Inhibitor [Statins] clopidogrel [From Plavix] Allergy Anaphylaxis Verified 08/17/15 13:37 Sulfa (Sulfonamide Allergy Anaphylaxis Verified 08/17/15 13:37 Antibiotics) Warfarin [From Coumadin] Allergy Anaphylaxis Verified 08/17/15 13:37 Certification: Further, I certify that my clinical findings support that this patient is homebound (i.e. absences from home require considerable and taxing effort and are for medical reasons or congregational services or infrequently or short duration when for other reasons) because: Homebound Reason: Patient requires assistance of a person or device to safely leave home Attestation: My signature below is to certify that this patient is under my care and that I, or nurse practitioner, or a physician's assistant reading teacher working with me, has a face-to -face encounter with this patient.
== END 2017-12-02 16:02 | disposition home health service (06) | DRG 853 ==
LOC: EMEROO 20:41 → 3NENU 20:41 → SUATTDRO 11-07 03:10 → 3BNU 11-10 12:21 → ICNU 11-16 22:51 → 2NENU 11-17 12:53
PROVIDERS: ADMIT Internal Medicine; ATTEND Internal Medicine
PROC: ENDOBRF (2017-11-30 17:30)